=== PATIENT | female | born 1985 | race Caucasian/White ===

== ENCOUNTER → 2016-08-18 | Outpatient (CLI) | payer OTHER ==
[~2016-08-18] MED LIST: CHOL100027 PO; PREN1CHW PO; SYN150 PO
[2016-08-18 15:31] LABS: THYROID STIMULATING HORMONE 3.45 uIu/ml (0.300-4.500)
== END | disposition home or self-care (01) ==
LOC: C.LAB1850 13:58
PROVIDERS: ATTEND Internal Medicine Endocrinology, Diabetes & Metabolism
DX: E03.9 Hypothyroidism, unspecified (principal)

== ENCOUNTER → 2017-03-26 | Outpatient (CLI) | payer OTHER ==
[2017-03-26 17:10] LABS: THYROID STIMULATING HORMONE 0.266 uIu/ml (0.300-4.500)
== END | disposition home or self-care (01) ==
LOC: C.LAB1850 15:25
PROVIDERS: ATTEND Internal Medicine Endocrinology, Diabetes & Metabolism
DX: E03.9 Hypothyroidism, unspecified (principal); E06.3 Autoimmune thyroiditis; E55.9 Vitamin D deficiency, unspecified

== ENCOUNTER → 2017-09-13 | Outpatient (CLI) | payer OTHER | END | disposition home or self-care (01) | LOC: C.LAB1850 09:02 | PROVIDERS: ATTEND Internal Medicine Endocrinology, Diabetes & Metabolism | DX: E03.9 Hypothyroidism, unspecified (principal) ==

== ENCOUNTER → 2017-10-07 | Outpatient (CLI) | payer OTHER | END | disposition home or self-care (01) | LOC: C.LAB1850 11:52 | PROVIDERS: ATTEND Internal Medicine Endocrinology, Diabetes & Metabolism | DX: E06.3 Autoimmune thyroiditis (principal) ==

== ENCOUNTER → 2018-03-15 | Outpatient (CLI) | payer OTHER | END | disposition home or self-care (01) | LOC: C.LAB1850 09:05 | PROVIDERS: ATTEND Internal Medicine Endocrinology, Diabetes & Metabolism | DX: E03.9 Hypothyroidism, unspecified (principal); E55.9 Vitamin D deficiency, unspecified ==

== ENCOUNTER 2018-04-07 11:09 | Emergency (ER) | payer OTHER ==
[~2018-04-07] VITALS: Ht 162.6 cm; Wt 65.9 kg
[2018-04-07 11:18] VITALS: TEMP 37; Ht 162.6 cm; Wt 65.9 kg
[2018-04-07] MEDS ORDERED: ERGO500011 PO (11:36)
[2018-04-07] MEDS ORDERED: SYN137 PO (11:36)
[2018-04-07] MEDS ORDERED: LXP10 PO (11:36)
[2018-04-07] MEDS ORDERED: [UNRECOGNIZED DRUG - CODE] (11:36)
[2018-04-07] MEDS ORDERED: ESCI1TAB6 PO (11:36)
[2018-04-07] MEDS ORDERED: SODIUM CHLORIDE 0.9% 1000ML 1,000 ML IV STA (11:41)
[2018-04-07] MEDS ORDERED: ACETAMINOPHEN 500 MG TAB PO STA (11:41)
[2018-04-07 12:41] LABS: BASO % 0.3 %; BASO ABS # 0.03 K/uL (0-0.2); EOS % 1.2 %; HEMATOCRIT 40.8 % (37-47); IG# 0.02 K/uL (0.00-0.02); LYMPH % 31.5 %; LYMPH ABS # 2.71 K/uL (1.2-3.4); MEAN CELL VOLUME 82.4 fL (80-100); MEAN CORPUSCULAR HEMOGLOBIN 28.3 pg (25-34); MEAN CORPUSCULAR HGB CONC 34.3 g/dl (32-36); MEAN PLATELET VOLUME 10.8 fL (7.4-10.4); MONO % 4.3 %; MONO ABS # 0.37 K/uL (0.11-0.59); NEUT % 62.5 %; NEUT ABS # 5.36 K/uL (1.4-6.5); PLATELET COUNT 270 K/uL (130-400); RED CELL DISTRIBUTION WIDTH CV 13.5 % (11.5-14.5); RED CELL DISTRIBUTION WIDTH SD 40.5 fL (36.4-46.3); WHITE BLOOD COUNT 8.59 K/uL (4.8-10.8)
[2018-04-07 13:01] LABS: CALCIUM 9.3 mg/dl (8.5-10.1); CREATININE 0.61 mg/dl (0.60-1.20); POTASSIUM 3.5 mmol/L (3.5-5.1)
--- NOTE | 2018-04-07 13:24 | EMERGENCY ROOM VISIT NOTE ---
ED Visit Note First contact with patient: 11:22 CHIEF COMPLAINT: Abdominal pain, diarrhea, rectal bleeding HISTORY OF PRESENTING ILLNESS: This is a 32-year-old female who presents to the emergency department with complaint of right lower abdominal pain, diarrhea, and rectal bleeding. Patient states that she began to have some mild pain in her right lower abdomen yesterday and had several bouts of diarrhea. Today she states that after she had an episode of diarrhea, she had bright red blood on the toilet paper when she wiped. She states there has not been any blood in her underwear, and she believes that the blood is coming from her rectum, not her vagina. She denies any rectal pain. She states she has continued to have pain in the right lower abdomen that has not improved. She has had associated nausea, but denies any vomiting, fevers or chills, and has had a normal appetite. She states that she is approximately 4-5 weeks , she spoke with her OB and had an ultrasound done today, she states that this showed a normal and a cyst on her right ovary. She also spoke with her PCP about her abdominal pain and rectal bleeding, and was instructed to go to the emergency department to be checked for appendicitis. She denies any other symptoms of headache, chest pain, shortness of breath, dizziness or syncope, back pain, dysuria or urinary frequency, abnormal vaginal discharge, or unusual rash. REVIEW OF SYSTEMS: A complete 10 point review of systems was reviewed with the patient with pertinent positives and negatives as per history of present illness. All else were negative. PAST MEDICAL HISTORY: Reviewed in chart, see problem list below. SOCIAL HISTORY: Lives at home with family. She denies tobacco use. ALLERGIES: Reviewed in chart, see below. PHYSICAL EXAM: CONSTITUTIONAL: Pleasant and cooperative. No acute distress. Well appearing and well nourished. HEENT: Normocephalic, atraumatic. Pupils equal, round and reactive to light, EOMI. TMs normal. Pharynx normal. NECK: Supple, full active range of motion without discomfort. RESPIRATORY: Clear to auscultation bilaterally with no wheezing, crackles, rhonchi or stridor. Equal expansion bilaterally. CARDIOVASCULAR: Regular rate and rhythm with no murmurs, rubs or gallops. Normal peripheral perfusion. No edema. GASTROINTESTINAL: Mildly tender in the right lower abdomen to palpation, no rebound tenderness or guarding. No McBurney's point tenderness. Negative Rovsing and psoas sign. Soft, nondistended. No palpable masses or HSM. Bowel sounds present in all quadrants. No CVA tenderness bilaterally. PELVIC EXAM: Deferred per patient request. MUSCULOSKELETAL: Full range of motion of all joints without discomfort. INTEGUMENTARY: No rash or other significant dermatologic conditions noted. NEUROLOGIC: Alert and oriented X 4 with normal affect. Normal strength and sensation in all 4 extremities. No focal neurologic deficits noted. Normal speech. Normal gait observed. ED COURSE AND MEDICAL DECISION MAKING: CC: Patient presenting with complaint of abdominal pain, diarrhea, rectal bleeding DIFFERENTIAL DIAGNOSIS: Includes, but not limited to gastroenteritis, food poisoning, hemorrhoids, anal fissure, diverticulitis, appendicitis, colitis, ovarian cyst, ovarian torsion, ectopic , anemia, dehydration, among others. INTERPRETATION OF LABS: No leukocytosis, no anemia, normal platelets, no significant electrolyte abnormalities, normal renal function, normal liver enzymes and lipase. UA negative. IMAGING: Review of transvaginal ultrasound first trimester, performed 04/07/2018 at [facility]: FINDINGS: There is a probable gestational sac of 0.7 cm which is equivalent to 5 weeks, 1 day. A pole is not yet seen. There is no definite yolk sac. There is no myometrial abnormality. The ovaries appear unremarkable with a right corpus luteum. No significant free fluid is seen. IMPRESSION: Favor early intrauterine . Clinical correlation is needed. Ectopic is felt to be much less likely. A right corpus luteum is noted. Follow-up is recommended in 2 weeks. ----- ABDOMEN LIMITED (US) HISTORY: 32 years-old Female RLQ pain, evaluate for appendicitis acute right lower quadrant abdominal pain COMPARISON: Abdominal CT 01/18/2012 TECHNIQUE: Multiple real-time sonographic images of the abdominal right lower quadrant were obtained assessing grayscale appearance and color flow FINDINGS: The appendix is not diagnostically visualized. Indeterminate trace free fluid within the abdominal right lower quadrant. No drainable fluid collections, echogenic fat, hyperemia, hypoperistaltic bowel or adenopathy identified. IMPRESSION: 1. Nonvisualization of the appendix. No secondary signs to suggest acute appendicitis. 2. Nonspecific trace free fluid about the abdominal right lower quadrant. MEDICATION RECONCILIATION: I attest that I have personally reviewed the patient 's current medication list. INITIAL VITAL SIGNS REVIEW: I reviewed the patient's initial vital signs and interpret them as follows: T: Afebrile; BP: Normotensive; HR: Bradycardic; RR : Within normal limits; Pulse Ox: Within normal limits on room air. Blood pressure screening: The patient was found to have normal blood pressure on screening and does not require follow-up for repeat blood pressure check. SUMMARY: Patient was evaluated at bedside, history and physical exam performed. Patient is alert and oriented, in no acute distress, resting calmly in the stretcher. Patient has mild tenderness to palpation over the right lower abdomen, but no rebound tenderness, negative Rovsing and psoas sign. Based on patient's exam and history, I do feel that appendicitis is less likely. I had an extensive discussion with the patient and her regarding workup for possible appendicitis and concerns of radiation from a CT scan given her early . Utilizing shared decision making with the patient and her , patient would like to avoid CT imaging today if possible. Records were requested from the patient's gynecology office today, reviewed the transvaginal ultrasound which does demonstrate an IUP without evidence of an ectopic , and does show a right corpus luteum cyst. Orders were placed at bedside for labs, UA, IV fluids for hydration, p.o. Tylenol for pain, ultrasound of the right lower quadrant to evaluate for possible appendicitis. Patient discussed with Dr. Harper, who agrees with my assessment and plan. Labs and imaging reviewed as above, no leukocytosis or other lab abnormality. Ultrasound is nondiagnostic, unable to visualize the appendix, but no secondary evidence of acute appendicitis. I discussed results with the patient, she still felt comfortable with the original plan of not performing CT and was comfortable with going home. Patient reassessed multiple times throughout ED stay, she has remained stable, her pain is improved with the Tylenol. Patient was updated on all results and plan for discharge, she was encouraged to follow closely with her OB as well as her PCP. Patient was also given strict return precautions should her symptoms worsen, she verbalized understanding. Patient was discharged home in stable condition and ambulatory. Problem List Medical Problems: (1) Hypothyroidism Status: Chronic (2) Threatened in early Status: Resolved Current/Historical Medications Scheduled Ergocalciferol (Vitamin D 15952 Unit), 50,000 UNITS PO WK Escitalopram Oxalate (Lexapro), 5 MG PO DAILY Escitalopram Oxalate (Escitalopram Oxalate), 10 MG PO DAILY Levothyroxine Sodium (Levothyroxine Sodium), 137 MCG PO DAILY Without A Vit W/ Fe F (Prenata), 1 TAB PO DAILY Progesterone (Vaginal) (Crinone), 1 DOSE UNKNOWN BID Allergies Coded Allergies: Gluten (Verified Allergy, Mild, GI SYMPTOMS, 04/07/18) Vital Signs Date Time Temp Pulse Resp B/P (MAP) Pulse Ox O2 Delivery O2 Flow Rate FiO2 04/07/18 15:11 66 16 102/78 98 04/07/18 13:55 52 18 108/60 98 Room Air 04/07/18 12:53 53 18 111/65 99 Room Air 04/07/18 12:35 57 04/07/18 11:18 37.0 56 20 116/74 98 Room Air Laboratory Results 04/07/18 12:15 Red Blood Count 4.95, Mean Corpuscular Volume 82.4, Mean Corpuscular Hemoglobin 28.3, Mean Corpuscular Hemoglobin Concent 34.3, Mean Platelet Volume 10.8, Neutrophils (%) (Auto) 62.5, Lymphocytes (%) (Auto) 31.5, Monocytes (%) (Auto) 4.3, Eosinophils (%) (Auto) 1.2, Basophils (%) (Auto) 0.3, Neutrophils # (Auto) 5.36, Lymphocytes # (Auto) 2.71, Monocytes # (Auto) 0.37, Eosinophils # (Auto) 0.10, Basophils # (Auto) 0.03 04/07/18 12:15 Test 04/07/18 11:50 04/07/18 12:15 Urine Color YELLOW Urine Appearance CLEAR (CLEAR) Urine pH 7.0 (4.5-7.5) Urine Specific [place] 1.007 (1.000-1.030) Urine Protein NEG (NEG) Urine Glucose (UA) NEG (NEG) Urine Ketones NEG (NEG) Urine Occult Blood NEG (NEG) Urine Nitrite NEG (NEG) Urine Bilirubin NEG (NEG) Urine Urobilinogen NEG (NEG) Urine Leukocyte Esterase NEG (NEG) White Blood Count 8.59 K/uL (4.8-10.8) Red Blood Count 4.95 M/uL (4.2-5.4) Hemoglobin 14.0 g/dL (12.0-16.0) Hematocrit 40.8 % (37-47) Mean Corpuscular Volume 82.4 fL (80-100) Mean Corpuscular Hemoglobin 28.3 pg (25-34) Mean Corpuscular Hemoglobin Concent 34.3 g/dl (32-36) Platelet Count 270 K/uL (130-400) Mean Platelet Volume 10.8 fL (7.4-10.4) Neutrophils (%) (Auto) 62.5 % Lymphocytes (%) (Auto) 31.5 % Monocytes (%) (Auto) 4.3 % Eosinophils (%) (Auto) 1.2 % Basophils (%) (Auto) 0.3 % Neutrophils # (Auto) 5.36 K/uL (1.4-6.5) Lymphocytes # (Auto) 2.71 K/uL (1.2-3.4) Monocytes # (Auto) 0.37 K/uL (0.11-0.59) Eosinophils # (Auto) 0.10 K/uL (0-0.5) Basophils # (Auto) 0.03 K/uL (0-0.2) RDW Standard Deviation 40.5 fL (36.4-46.3) RDW Coefficient of Variation 13.5 % (11.5-14.5) Immature Granulocyte % (Auto) 0.2 % Immature Granulocyte # (Auto) 0.02 K/uL (0.00-0.02) Anion Gap 10.0 mmol/L (3-11) Est Creatinine Clear Calc Drug Dose 121.4 ml/min Estimated GFR () 137.1 Estimated GFR (Non- 118.3 BUN/Creatinine Ratio 17.7 (10-20) Calcium Level 9.3 mg/dl (8.5-10.1) Total Bilirubin 0.4 mg/dl (0.2-1) Direct Bilirubin 0.1 mg/dl (0-0.2) Aspartate Amino Transf (AST/SGOT) 16 U/L (15-37) Alanine Aminotransferase (ALT/SGPT) 23 U/L (12-78) Alkaline Phosphatase 46 U/L (45-117) Total Protein 8.0 gm/dl (6.4-8.2) Albumin 4.0 gm/dl (3.4-5.0) Lipase 169 U/L (73-393) Medications Administered Medications (Trade) Dose Ordered Sig/Gage Route Start Time Stop Time Status Last Admin Dose Admin Sodium Chloride 1,000 ml @ 999 mls/hr Q1H1M STAT IV 04/07/18 11:41 04/07/18 12:41 DC 04/07/18 12:21 999 MLS/HR Acetaminophen (Tylenol Tab) 1,000 mg NOW STAT PO 04/07/18 11:41 04/07/18 11:45 DC 04/07/18 12:21 1,000 MG Departure Information Impression Primary Impression: Right lower quadrant abdominal pain Additional Impressions: Corpus luteum cyst of right ovary External bleeding hemorrhoids Dispostion Home / Self-Care Condition GOOD Referrals Terrie Bridges D.OPrincess (PCP) Patient Instructions ED Abdominal Pain Appendx Poss, ED Cyst Ovarian, ED Hemorrhoids, [facility] Additional Instructions You have been evaluated and treated in the Emergency Department today for your abdominal pain and rectal bleeding. You have some small hemorrhoids the opening of your rectum that are most likely the cause of your rectal bleeding. An ultrasound today could not definitively rule out appendicitis today. You were noted to have a corpus luteum cyst on your right ovary on ultrasound today which could be the cause of your right-sided abdominal pain. For pain control, you can use Regular strength (325mg/tab) Tylenol ( acetaminophen) 2 tabs every 4-6 hours as needed. Do not exceed 10 tablets in a 24 hour period. Avoid taking more than 3000 mg of Tylenol per day. This includes any other sources of acetaminophen you may take on a regular basis. Avoid taking NSAIDs, as they are not approved during . You may apply a heating pad to your abdomen to help with discomfort. Drink plenty of fluids to stay well hydrated. Please follow-up with your OB and Primary Care Provider this week. Return to the emergency department for abdominal pain that persists or worsens over the next 24 hours, nausea/vomiting, vomiting blood, increased blood in your stool or blood in your urine, fevers > 101.5, severe dizziness or passing out, or any other concerns. Work Instructions Return To Work: 2 days Problem Qualifiers
--- NOTE | 2018-04-07 13:41 | DIAGNOSTIC IMAGING REPORT ---
ABDOMEN LIMITED (US) HISTORY: 32 years-old Female RLQ pain, evaluate for appendicitis acute right lower quadrant abdominal pain COMPARISON: Abdominal CT 01/18/2012 TECHNIQUE: Multiple real-time sonographic images of the abdominal right lower quadrant were obtained assessing grayscale appearance and color flow FINDINGS: The appendix is not diagnostically visualized. Indeterminate trace free fluid within the abdominal right lower quadrant. No drainable fluid collections, echogenic fat, hyperemia, hypoperistaltic bowel or adenopathy identified. IMPRESSION: 1. Nonvisualization of the appendix. No secondary signs to suggest acute appendicitis. 2. Nonspecific trace free fluid about the abdominal right lower quadrant. The above report was generated using voice recognition software. It may contain grammatical, syntax or spelling errors. Electronically signed by: Ryan Barker M.D. 04/07/2018 1:40 PM Dictated Date/Time: 04/07/2018 1:39 PM
[2018-04-07 15:11] VITALS: BP 102/78; PULSE 66; O2SAT 98
== END 2018-04-07 15:11 | disposition home or self-care (01) ==
LOC: C.EDB 11:13
DX: R10.31 Right lower quadrant pain (principal); N83.11 Corpus luteum cyst of right ovary; K64.9 Unspecified hemorrhoids; E03.9 Hypothyroidism, unspecified; Z91.018 Allergy to other foods

== ENCOUNTER 2018-12-02 07:28 | Inpatient (IN) ==
[2018-12-02] MEDS ORDERED: miSOPROStol 50 MCG TAB PO ONE ×2 (08:15→14:33)
[2018-12-02] MEDS ORDERED: LACTATED RINGER'S 1,000 ML IV PRN ×2 (08:15→19:41)
[2018-12-02] MEDS ORDERED: OXYTOCIN 30 UNITS/500 ML BAG IV PRN (08:15)
--- NOTE | 2018-12-02 08:30 | Labor Progress Brief Note ---
Date of Service December 02, 2018 Met Pt and reviewed PNC Induction for impending macrosomia H&P done Bedside sono; Vt FHR; CAT1 Ctx 4-5mild intensity VE; Ft/50/-3 EFW: 9.5lbs Physical Exam Vital Signs (Past 24 Hours): Last Vital Signs Pulse 79 12/02/18 07:50 BP 120/67 12/02/18 07:50
[2018-12-02 08:41] LABS: Hematocrit (blood only) 36.9 % (37-47); Hemoglobin 12.4 g/dL (12.0-16.0); Mean Corpuscular Volume 84.8 fL (80-100); Mean Platelet Volume 10.6 fL (7.4-10.4); Platelet Count 237 K/uL (130-400); RDW Coefficient of Variation 13.9 % (11.5-14.5); RDW Standard Deviation 42.9 fL (36.4-46.3); Red Blood Count 4.35 M/uL (4.2-5.4); White Blood Count 10.13 K/uL (4.8-10.8)
[2018-12-02 08:43] LABS: Mean Corpuscular Hgb Conc 33.6 g/dL (32-36)
[2018-12-02] MEDS: PROMETHAZINE HCL 25 MG TAB PO PRN ×2 (13:44→19:28)
--- NOTE | 2018-12-02 14:33 | Obstetrical Progress Note ---
Date of Service December 02, 2018 Physical Exam Vital Signs (Past 24 Hours): Last Vital Signs Temp 37.0 C 12/02/18 13:22 Pulse 70 12/02/18 13:22 Resp 20 12/02/18 13:22 BP 89/58 L 12/02/18 13:22 Genitourinary: OB Exam Abdomen: + vertex Manual OB Exam: + cervical dilation 1 cm, + cervical effacement 50% and + station high OB Exam Monitor Tracing: + category I cervix more anterior and softening will give another Cytotec 50 mcg orally
--- NOTE | 2018-12-02 19:39 | Obstetrical Progress Note ---
Date of Service December 02, 2018 Physical Exam Vital Signs (Past 24 Hours): Last Vital Signs Temp 36.8 C 12/02/18 19:07 Pulse 67 12/02/18 19:08 Resp 20 12/02/18 19:07 BP 112/78 12/02/18 19:08 Genitourinary: Manual OB Exam: + cervical dilation 3 cm, + cervical effacement 70% and + station high OB Exam Monitor Tracing: + external FHT monitor used, + external uterine monitor used and + category I cervix has now ripened. Will allow to eat dinner and shower and will start Oxytocin to augment contractions. EFW 9 lbs.
[2018-12-02] MEDS: LACTATED RINGER'S 1,000 ML IV SCH (21:01)
[2018-12-02] MEDS: OXYTOCIN 30 UNITS/500 ML BAG IV PRN (21:37)
[2018-12-03] MEDS: PROMETHAZINE HCL 25 MG TAB PO PRN (01:18)
[2018-12-03] MEDS ORDERED: BUPIVACAINE 0.25% 30 ML VIAL ONE (03:35)
[2018-12-03] MEDS ORDERED: ePHEDrine sulfate 50 MG/ML AMP ONE (03:36)
[2018-12-03] MEDS ORDERED: fentaNYL citrate 100 MCG/2 ML VIAL ONE (03:36)
[2018-12-03] MEDS ORDERED: fentaNYL 2MCG/ML ROPIV 1.25MG/ML 100 ML BAG EPI ONE (03:36)
[2018-12-03] MEDS ORDERED: ONDANSETRON INJ 2 MG/ML 2 ML VIAL IV PRN (04:15)
[2018-12-03] MEDS ORDERED: fentaNYL 2MCG/ML ROPIV 1.25MG/ML 100 ML BAG EPI PRN (04:15)
[2018-12-03] MEDS ORDERED: ePHEDrine sulfate 50 MG/ML AMP IV PRN (04:15)
[2018-12-03] MEDS ORDERED: NALBUPHINE HCL INJ 10 MG/ML AMP IV PRN (04:15)
[2018-12-03] MEDS ORDERED: NALOXONE HCL 0.4 MG/1 ML VIAL/CARP IV PRN (04:15)
[2018-12-03] MEDS ORDERED: DiphenhydrAMINE HCL 50 MG/ML VIAL IV PRN (04:15)
[2018-12-03] MEDS ORDERED: NALOXONE HCL 1 MG in SODIUM CHLORIDE 0.9% 1000ML 1,000 ML IV PRN (04:15)
[2018-12-03] MEDS ORDERED: LACTATED RINGER'S 1,000 ML IV PRN (04:15)
--- NOTE | 2018-12-03 04:18 | Anesthesiology Consultation ---
Date of Service December 03, 2018 Assessment & Plan Chart Review Chart Review: Patient NOT seen in Pre Admission Testing and Acceptable Risk for Labor Epidural Consults Requested none ASA ASA2 Proposed Anesthesia Anesthesia Type: Labor Epidural and CSE Risk / Benefits Reviewed With: PT / POA / Parent / Guardian, Accepts Plan and Informed Consent Obtained NPO Date Last Intake of Fluids: 12/03/18 Time Last Intake of Fluids: 03:00 Date Last Intake of Solids: 12/02/18 Time Last Intake of Solids: 20:00 History Height/Weight Height: 5 ft 4 in Weight: 99.79 kg Allergies Allergy/AdvReac Type Severity Reaction Status Date / Time gluten Allergy Mild GI SYMPTOMS Verified 04/07/18 11:32 Medications Home Medications Medication Instructions Recorded Confirmed Last Taken Vitamin D3 Complete 20,000 units PO WK 12/02/18 12/02/18 11/30/18 08:00 dicyclomine 20 mg PO QID PRN 12/02/18 12/02/18 11/15/18 08:00 escitalopram oxalate [Lexapro] 15 mg PO DAILY 12/02/18 12/02/18 12/02/18 06:00 levothyroxine 150 mcg PO DAILY 12/02/18 12/02/18 12/02/18 06:00 vit-iron fum-folic ac 1 tab PO DAILY 12/02/18 12/02/18 12/01/18 22:00 [ Vitamin] promethazine 25 mg PO Q6H PRN 12/02/18 12/02/18 12/02/18 06:00 Active Medications Generic Name Dose Route Start Last Admin Trade Name Freq PRN Reason Stop Dose Admin Lactated Ringer's 1,000 mls @ 999 mls/hr 12/02/18 08:15 12/03/18 03:41 Lr IV 01/01/19 08:14 999 mls/hr .Q1H1M PRN Administration (Pre-Anesthesia) Lactated Ringer's 1,000 mls @ 125 mls/hr 12/02/18 08:15 12/02/18 21:01 Lr IV 12/04/18 08:14 125 mls/hr .Q8H RAHEL Administration Oxytocin 30 units in 500 mls @ 7 mls/hr 12/02/18 19:41 12/03/18 01:20 Pitocin IV 12/04/18 19:40 0.42 units/hr .Q24H PRN 7 mls/hr Labor Induction/Augmentation Titration Protocol 0.42 UNITS/HR Promethazine HCl 25 mg 12/02/18 13:31 12/03/18 01:18 Phenergan PO 01/01/19 13:30 25 mg Q6H PRN Administration Nausea And Vomiting Past Medical History Medical History Morning sickness Gurinder's disease Past Family History Family History Other No significant family history Past Anesthesia History No Hx of Anesthesia Complications and No Family Hx of Anesthesia Complications History of PONV No Motion Sickness Screening History of Motion Sickness: No Social History Smoking Status: Never smoker Hx Alcohol Use: No Hx Substance Use: No substance use type: does not use Exercise / Class Metabolic Activity II 4-5 Yardwork/Stairs/Walk up hill Review of Systems no chest pain or sob Physical Exam Vital Signs Last Vital Signs Temp 36.7 C 12/02/18 23:25 Pulse 67 12/03/18 04:17 Resp 20 12/03/18 02:16 BP 112/71 12/03/18 03:32 Pulse Ox 97 12/03/18 04:17 ENMT Mouth: no TMJ abnormality Thyromental Distance: > or= 3.5 Finger Breadths Mallampati Class: II Neck normal visual inspection Respiratory normal respiratory effort Auscultation: lungs clear to auscultation bilaterally Cardiovascular Rate/Rhythm: regular rate and regular rhythm Musculoskeletal Spine: normal cervical ROM Neurologic moves all extremities Psychiatric Orientation: alert and oriented x 3 Testing Laboratory Results 12/02/18 08:27
[2018-12-03] MEDS: LACTATED RINGER'S 1,000 ML IV SCH ×2 (05:18→13:35)
--- NOTE | 2018-12-03 08:53 | Post Operative Brief Note ---
Immediate Post Op Note v1 Date of Surgery December 03 Surgeon Mark Gordon MD
--- NOTE | 2018-12-03 08:55 | Labor Progress Brief Note ---
Date of Service December 03, 2018 Pt doing well Induction for impending macrosomia FHR; CAT1 Ctx 3-5mins On Pitocin VE; 50/-3 Physical Exam Vital Signs (Past 24 Hours): Last Vital Signs Temp 36.7 C 12/03/18 04:45 Pulse 85 12/03/18 08:47 Resp 18 12/03/18 07:00 BP 122/63 12/03/18 08:45 Pulse Ox 96 12/03/18 08:47
--- NOTE | 2018-12-03 14:55 | Labor Progress Brief Note ---
Date of Service December 03, 2018 Pt doing well FHR; Poor external tracing with ext. monitor Ctx; 2-4 mins VE; 5/85/-2 On Pitocin AROM with scalp electrode Will keep FSE for better tracing FHR with FSE shows CAT 1 tracing Physical Exam Vital Signs (Past 24 Hours): Last Vital Signs Temp 36.8 C 12/03/18 12:23 Pulse 76 12/03/18 14:48 Resp 20 12/03/18 12:23 BP 125/73 12/03/18 14:45 Pulse Ox 97 12/03/18 14:48
[2018-12-03] MEDS ORDERED: METHYLERGONOVINE MALEATE 0.2 MG/ML AMP ONE (18:52)
[2018-12-03] MEDS ORDERED: METHYLERGONOVINE MALEATE 0.2 MG/ML AMP IM ONE (19:30)
[2018-12-03] MEDS ORDERED: BISACODYL 10 MG SUPP PR PRN (19:30)
[2018-12-03] MEDS ORDERED: SUPERCREAM 0.870% 15 GM JAR EXT PRN (19:30)
[2018-12-03] MEDS ORDERED: miSOPROStol 200 MCG TAB PR ONE (19:30)
[2018-12-03] MEDS ORDERED: OXYTOCIN 30 UNITS/500 ML BAG IV PRN (19:30)
[2018-12-03] MEDS ORDERED: DIPHTHERIA/TETANUS/PERTUSSIS 0.5 ML SYR/VIAL IM ONE (19:30)
[2018-12-03] MEDS ORDERED: HYDROCORTISONE ACETATE 25 MG SUPP PR PRN (19:30)
[2018-12-03] MEDS ORDERED: BENZOCAINE 20% AER SPR 82.5 GM CAN EXT PRN (19:30)
[2018-12-03] MEDS: OXYTOCIN 30 UNITS/500 ML BAG IV PRN (19:35)
--- NOTE | 2018-12-03 19:56 | Anesthesia Procedure Note ---
Date of Service December 03, 2018 Anesthesia Post Epidural Note Vital Signs Vital Signs: Temp Pulse Resp BP Pulse Ox 36.6 C 80 20 126/62 86 L 12/03/18 16:59 12/03/18 19:45 12/03/18 16:59 12/03/18 19:45 12/03/18 18:55 Pain Intensity Abdomen: Pain Intensity: 0 Notes Mental Status: alert / awake / arousable and participated in evaluation Nausea / Vomiting: adequately controlled Pain: adequately controlled Airway Patency, RR, SpO2: stable & adequate BP & HR: stable & adequate Hydration State: stable & adequate Neuraxial Anesthesia: was administered and sensory block is resolving Anesthetic Complications: no major complications apparent and Pt Satisfied with anesthetic care Epidural: Removed without complications and With tip intact
[2018-12-03 20:09] LABS: Base Excess Cord Venous Blood -5.7 mEq/L (-7.7-1.9); Cord Venous Blood HCO3 20 mmol/L (18.4-26.8); Cord Venous Blood PCO2 39 mmHg (30.4-57.2); Cord Venous Blood PO2 41 mmHg (14.1-43.3); Cord Venous Blood pH 7.32 (7.20-7.44)
[2018-12-03 20:15] LABS: Base Excess Cord Arterial Bld -8.5 mEq/L (-9-1.8); CO2 Cord Arterial Blood 62 mmHg (39.1-73.5); HCO3 Cord Arterial Blood 21 mmol/L (19.7-28.5); pH Cord Arterial Blood 7.16 (7.1-7.38)
[2018-12-03] MEDS: IBUPROFEN 600 MG TAB PO PRN (20:47)
[2018-12-03] MEDS ORDERED: miSOPROStol 200 MCG TAB ONE (21:59)
[2018-12-03] MEDS: ACETAMINOPHEN 325 MG TAB PO PRN (22:08)
[2018-12-03] MEDS ORDERED: OXYCODONE/ACETAMINOPHEN 5mg/325mg TAB PO PRN (23:21)
[2018-12-03] MEDS ORDERED: OXYCODONE/ACETAMINOPHEN 5mg/325mg TAB ONE (23:31)
[2018-12-04] MEDS: IBUPROFEN 600 MG TAB PO PRN ×6 (00:56→23:42)
[2018-12-04] MEDS: LEVOTHYROXINE SODIUM 150 MCG TABLET PO SCH (06:41)
[2018-12-04 06:46] LABS: Hematocrit (blood only) 34.4 % (37-47); Hemoglobin 11.3 g/dL (12.0-16.0); Mean Corpuscular Hgb Conc 32.8 g/dL (32-36); Mean Corpuscular Volume 85.1 fL (80-100); Mean Platelet Volume 10.3 fL (7.4-10.4); Platelet Count 203 K/uL (130-400); RDW Standard Deviation 43.3 fL (36.4-46.3); Red Blood Count 4.04 M/uL (4.2-5.4); White Blood Count 12.96 K/uL (4.8-10.8)
[2018-12-04] MEDS: FERROUS SULFATE 325 MG TAB PO SCH (08:14)
[2018-12-04] MEDS: PRENATAL VITAMIN 1 TAB PO SCH (08:15)
[2018-12-04] MEDS: DOCUSATE SODIUM 100 MG CAP PO SCH ×2 (08:17→20:55)
[2018-12-04] MEDS: ESCITALOPRAM OXALATE 10 MG TAB PO SCH (08:19)
--- NOTE | 2018-12-04 10:45 | Obstetrical Progress Note ---
Date of Service December 04, 2018 Assessment & Plan (1) normal course: PPD #1 Pt doing well No complaints anticipate disch this evening Physical Exam Vital Signs (Past 24 Hours) Last Vital Signs Temp 36.5 C 12/04/18 08:58 Pulse 59 L 12/04/18 08:58 Resp 20 12/04/18 08:58 BP 119/71 12/04/18 08:58 Pulse Ox 97 12/04/18 00:45
[2018-12-04] MEDS: ACETAMINOPHEN 325 MG TAB PO PRN ×3 (11:26→20:55)
[2018-12-04] MEDS ORDERED: BISACODYL 5 MG TABEC PO SCH (20:00)
[2018-12-05] MEDS: IBUPROFEN 600 MG TAB PO PRN (04:21)
[2018-12-05 06:46] LABS: Hematocrit (blood only) 31.5 % (37-47); Hemoglobin 10.4 g/dL (12.0-16.0)
--- NOTE | 2018-12-05 07:07 | Delivery Summary ---
DATE OF OPERATION: 12/03/2018 DELIVERY NOTE The patient delivered a live in left occiput anterior presentation. There was nuchal cord x2, which was clamped and cut. Infant was delivered, placed on mother's abdomen. Cord blood and cord gas was obtained. Infant was resuscitated by the pediatric team. Details of resuscitation in the pediatric record as well as . Placenta was spontaneously delivered. Inspection of the placenta shows a normal grossly looking placenta. Placenta is sent to pathology for pathological analysis. Inspection of the perineum showed a second-degree midline laceration which was repaired with 2-0 Vicryl in layers. Estimated blood loss is 600 mL. Baby and mother are doing well in recovery. I attest to the content of the Intraoperative Record and any orders documented therein. Any exception s are noted below.
[2018-12-05] MEDS: LEVOTHYROXINE SODIUM 150 MCG TABLET PO SCH (07:21)
--- NOTE | 2018-12-05 08:59 | Obstetrical Progress Note ---
Date of Service December 05, 2018 Subjective doing well Physical Exam Vital Signs (Past 24 Hours): Last Vital Signs Temp 36.6 C 12/04/18 23:40 Pulse 58 L 12/04/18 23:40 Resp 18 12/04/18 23:40 BP 125/68 12/04/18 23:40 Pulse Ox 95 12/04/18 15:00 Constitutional: WD/WN, vitals as above comfortable fundus firm abdomen non-tender no edema neg Jd's
[2018-12-05] MEDS: ESCITALOPRAM OXALATE 10 MG TAB PO SCH (09:58)
[2018-12-05] MEDS: FERROUS SULFATE 325 MG TAB PO SCH (09:58)
[2018-12-05] MEDS: PRENATAL VITAMIN 1 TAB PO SCH (09:58)
[2018-12-05] MEDS: DOCUSATE SODIUM 100 MG CAP PO SCH (09:58)
== END 2018-12-05 11:40 | disposition home or self-care (01) | DRG 807 ==
LOC: 4S1 07:28 → 4S2 12-04 00:44

== ENCOUNTER 2022-10-26 01:51 | Observation (INO) ==
[2022-10-26] MEDS ORDERED: ONDANSETRON INJ 2 MG/ML 2 ML VIAL IV STA (02:02)
[2022-10-26] MEDS ORDERED: SODIUM CHLORIDE 0.9% 1000ML 1,000 ML IV STA (02:02)
[2022-10-26 02:19] LABS: Basophils # (auto) 0.07 K/uL (0-0.2); Basophils % (auto) 0.9 %; Eosinophils # (auto) 0.16 K/uL (0-0.50); Hematocrit (blood only) 38.9 % (37.0-47.0); Hemoglobin 12.8 g/dl (12.0-16.0); Immature Granulocytes # (auto) 0.03 K/uL (0.01-0.20); Immature Granulocytes % (auto) 0.4 %; Lymphocytes # (auto) 2.38 K/uL (1.2-3.4); Lymphocytes % (auto) 30.4 %; Mean Corpuscular Hemoglobin 28.6 pg (25.0-34.0); Mean Corpuscular Hgb Conc 32.9 g/dL (32.0-36.0); Mean Platelet Volume 9.7 fL (9.4-12.4); Monocytes # (auto) 0.61 K/uL (0.11-0.59); Monocytes % (auto) 7.8 %; Neutrophils # (auto) 4.57 K/uL (1.40-6.50); Neutrophils % (auto) 58.5 %; Platelet Count 294 K/uL (130-400); RDW Coefficient of Variation 12.8 % (11.5-14.5); RDW Standard Deviation 40.5 fL (36.4-46.3); Red Blood Count 4.47 M/uL (4.20-5.40); White Blood Count 7.82 K/ul (4.8-10.8)
[2022-10-26 02:32] LABS: Partial Thromboplastin Ratio 0.9; Partial Thromboplastin Time 24.4 Seconds (21.0-31.0); Prothrombin Time 10.7 Seconds (9.0-12.0)
[2022-10-26 02:41] LABS: Albumin Globulin Ratio 1.5 (0.9-2); Albumin Level 3.8 gm/dl (3.4-5.0); BUN Creatinine Ratio 32.7 (10-20); Bilirubin,Total 0.4 mg/dl (0.2-1.0); Calcium 8.5 mg/dl (8.5-10.1); Creatinine Clr Calc Pharmacy 163.6 ml/min; Est GFR (African American) 139.5 ml/min; Est GFR (Non-African American) 120.4 ml/min; Globulin 2.6 gm/dl (2.5-4.0); Potassium 3.3 mmol/L (3.5-5.1); Total Protein 6.4 gm/dl (6.0-8.3)
[2022-10-26 02:47] LABS: Troponin I High Sensitivity 3.6 pg/ml (0-14)
[2022-10-26 03:00] LABS: Appearance Urine Clear (Clear); Bilirubin Urine Negative (Negative); Blood Urine Negative (Negative); Color Urine Yellow; Glucose Urine UA Negative (Negative); Ketones Urine Negative (Negative); Leukocyte Esterase Urine Negative (Negative); Nitrite Urine Negative (Negative); Protein Urine Negative (Negative); Specific Gravity Urine 1.018 (1.000-1.030); Urobilinogen Urine Negative (Negative)
[2022-10-26 03:22] LABS: Thyroid Stimulating Hormone 5.092 uIu/ml (0.300-4.500)
[2022-10-26 03:58] LABS: T4 Free Thyroxine 1.16 ng/dl (0.61-1.60)
[2022-10-26] MEDS ORDERED: POTASSIUM CHLORIDE CRTAB 20 MEQ TABCR PO STA (04:26)
[2022-10-26] MEDS ORDERED: SODIUM CHLORIDE 0.9% 1000ML 1,000 ML IV ONE (04:27)
--- NOTE | 2022-10-26 05:39 | Emergency Department Note ---
ED Provider Note History of Present Illness Chief Complaint: Chest Pain Stated Complaint: DIZZY/CHEST PAIN Time Seen by Provider: 10/26/22 01:54 This 37-year-old female patient presents to the emergency department today via ambulance for evaluation of weakness, dizziness, and chest pain. The patient states she has been experiencing weakness for several weeks. She is currently being worked up for adrenal insufficiency and notes that she is waiting to be seen by the "adrenal specialist" and believes she is in adrenal crisis. The pa leni states she has been experiencing diarrhea, nausea, and vomiting. She is having difficulty eating and drinking. She feels very weak and states she spent most of the day on the floor because she was having difficulty getting up and moving around. She states this evening approximately 1.5 hours prior to arrival, she developed chest pain which she describes as a sharp sensation that spreads across the chest and causes pressure. She states she also had pain into the right side of her jaw. Patient was not doing any activity. She states the pain happened while at rest. She states she is having abdominal pain specifically in the left and right mid abdominal regions. She denies any dysu andreas, urinary frequency, urinary hesitancy. No numbness, tingling, weakness. She did have a headache earlier today. She states she had COVID-19 twice and did take a COVID-19 test earlier today which was negative. The patient did not take any medications for her other symptoms. She states her chest pain has improved upon arrival to the ED. No shortness of breath. No leg pain or swelling or recent travel. 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 Home Medications Medication Instructions Recorded Confirmed Type levothyroxine 150 mcg tablet 150 mcg PO DAILY #90 tabs 09/09/20 09/03/22 Rx lorazepam 0.5 mg tablet (Ativan) 0.5 mg PO DAILY PRN Panic Attack(S) 12/19/20 09/03/22 History trazodone 100 mg tablet 150 mg PO HS 10/08/21 09/03/22 History albuterol sulfate 90 mcg/actuation 3 inh inhalation Q6H #18 grams 03/13/22 09/03/22 Rx aerosol inhaler duloxetine 60 mg capsule,delayed 120 mg PO DAILY 03/13/22 09/03/22 History release Symbicort 160 mcg-4.5 2 puff inhalation Q12H #10.2 grams 04/08/22 09/03/22 Rx mcg/actuation HFA aerosol inhaler (budesonide-formoterol) albuterol sulfate 2.5 mg/3 mL 2.5 mg (3 mL) inhalation Q4H PRN 06/30/22 09/03/22 Rx (0.083 %) solution for nebulization shortness of breath or wheezing #90 mL nebulizer accessories #1 ea 06/30/22 09/03/22 Rx nebulizer and compressor #1 ea 06/30/22 09/03/22 Rx tiotropium bromide 2.5 2 puff inhalation DAILY #1 inhaler 07/08/22 09/03/22 Rx mcg/actuation mist for inhalation (Spiriva Respimat) azelastine 137 mcg (0.1 %) nasal 2 spray intranasal DAILY 08/27/22 09/03/22 History spray aerosol dextroamphetamine-amphetamine ER 30 mg PO DAILY 08/27/22 09/03/22 History 30 mg 24hr capsule,extend release (Adderall XR) dicyclomine 20 mg tablet 20 mg PO TID PRN abdominal cramps 08/27/22 09/03/22 Rx #20 tabs ferrous sulfate 325 mg (65 mg 325 mg PO AMHS 08/27/22 09/03/22 History iron) tablet semaglutide 1 mg/dose (4 mg/3 mL) 1 mg subcut WK 08/27/22 09/03/22 History subcutaneous pen injector (Ozempic) Allergies Allergy/AdvReac Type Severity Reaction Status Date / Time No Known Allergies Allergy Verified 09/03/22 15:40 Past Med/Surg History Medical History Anxiety Gurinder's disease Hypothyroidism (12/29/11) IBS (irritable bowel syndrome) Miscarriage Rectal bleed Vitamin D deficiency Vulvodynia Surgical History H/O dilation and curettage H/O wisdom tooth extraction Family History Aunt Breast cancer Grandmother (Maternal) Colorectal cancer Lung cancer Grandmother (Paternal) Ovarian cancer Father Prostate cancer Mother Atrial fibrillation Other No significant family history Social History Smoking Status: Never smoker Hx Alcohol Use: No Hx Substance Use: No Preferred Language: Samoan Communication Ability: Effective Beliefs That Will Affect Care: None marital status: Current Living Situation: Spouse Feels Safe at Home: Yes Assistive Devices: None Physical Exam Vital Signs Vital Signs - 24 hr 10/26/22 01:55 10/26/22 02:02 10/26/22 06:27 Temperature 36.7 C Temperature Source Oral Pulse Rate 63 64 65 Respiratory Rate 16 Respiratory Effort / Characteristics Non-Labored Spontaneous Respiratory Depth Normal Respiratory Pattern Regular Blood Pressure 126/80 Blood Pressure Mean 95 Blood Pressure Position Lying Pulse Oximetry 99 Oxygen Delivery Method Room Air Sepsis Recent Fever Within 48 Hours No Sepsis New/Unexplained Change in Mental Status No Sepsis Action Taken by Nursing No Action Required VITALS: Vitals are noted on the nurse's note and reviewed by myself. Vital signs stable. GENERAL: This is a 37-year-old white female, in no acute distress, nondiaphoretic, well-developed well-nourished. SKIN: The skin was without rashes, erythema, edema, or bruising. There is no tenting of the skin. Capillary refill less than 2 seconds. HEAD: Normocephalic atraumatic. EARS: External auditory canals clear, tympanic membranes pearly dominique without erythema or effusion bilaterally. EYES: Conjunctivae without injection, sclerae without icterus. NOSE: Patent, turbinates without inflammation or discharge. No sinus tenderness. MOUTH: Mucous membranes moist. Tonsils are not enlarged. Pharynx without erythema or exudate. Uvula midline. Airway patent. Tongue does not deviate. NECK: Supple without nuchal rigidity. No lymphadenopathy. No thyromegaly. No JVD. HEART: Regular rate and rhythm without murmurs gallops or rubs. LUNGS: Clear to auscultation bilaterally without wheezes, rales or rhonchi. No retractions or accessory muscle use. ABDOMEN: Positive bowel sounds x 4. Soft, nontender, without masses or organomegaly. Mcghee sign negative. No guarding or rebound tenderness. MUSCULOSKELETAL: No muscle atrophy, erythema, or edema noted. Full range of motion without joint tenderness in all extremities. No tenderness to palpation. Normal gait. Strength 5/5 throughout. NEURO: Patient was alert and oriented to person place and time. No focal neurological deficits. Course Course The patient was seen and evaluated as above. An order was placed for continuous cardiac monitoring. The monitor shows a normal sinus rhythm at a rate of 64 bpm. IV access obtained, labs drawn. Patient medicated with IV fluids and Zofran Imaging performed and reviewed by myself as noted. Labs reviewed by myself. I discussed the findings with the patient at bedside. The patient states her chest pain has resolved but she is still feeling extremely weak. She notes she pulled up her labs on the portal and is very concerned that her potassium was low. She would like this repleted. Patient was given a repeat dose of IV fluids and 20 meq oral potassium. The patient was reassessed. She continues to note significant weakness and does not feel that she can return home with the way that she feels. Of note, the patient has been using a pure wick to urinate instead of getting up to go to the bathroom due to her weakness. We discussed admission versus discharge and the patient notes that she would prefer to be admitted. I discussed the case with my attending. I discussed the case with the manager customs I discussed the case with Dr. Vasquez, [facility] physician. He did agree to see and evaluate the patient. Administered Medications Discontinued Medications Sodium Chloride (Nss 1000ml) 1,000 mls @ 999 mls/hr IV .Q1H1M STA Stop: 10/26/22 03:02 Last Infusion: 10/26/22 03:36 Dose: 0 mls/hr Documented By: Admin: 10/26/22 02:31 Dose: 999 mls/hr Documented By: JARETT Sodium Chloride (Nss 1000ml) 1,000 mls @ 999 mls/hr IV .Q1H1M ONE Stop: 10/26/22 05:27 Last Admin: 10/26/22 04:58 Dose: 999 mls/hr Documented By: JARETT Ondansetron HCl (Ondansetron Inj 2 Mg/Ml 2 Ml Vial) 4 mg IV NOW STA Stop: 10/26/22 02:03 Last Admin: 10/26/22 02:31 Dose: 4 mg Documented By: JARETT Potassium Chloride (Potassium Chloride Crtab 20 Meq Tabcr) 20 meq PO NOW STA Stop: 10/26/22 04:27 Last Admin: 10/26/22 05:16 Dose: 20 meq Documented By: DML Medical Decision Making Differential Diagnosis Infection, dehydration, metabolic abnormality, hypo/hyperglycemia, electrolyte disturbance, anemia, hypoxia, cardiac sources, intracerebral event, toxicologic, neurologic, as well as other pathologies. Medical Records Attestation: I reviewed the patient's medical records. Additional Comments: Outside medical records reviewed Home Medications was personally reviewed by me Laboratory Data No leukocytosis, anemia, thrombocytopenia. Renal, hepatic function, and electrolytes without significant abnormality. Urinalysis negative for blood or evidence of infection. INR 1.0. Troponin x2 normal. Lipase 32. TSH 5.092. Free T41.16. Random cortisol 14.5. Urine test negative. 10/26/22 02:00 10/26/22 02:00 Lab Results 10/26/22 10/26/22 10/26/22 Range/Units 02:00 02:00 02:00 WBC 7.82 (4.8-10.8) K/ul RBC 4.47 (4.20-5.40) M/uL Hgb 12.8 (12.0-16.0) g/dl Hct 38.9 (37.0-47.0) % MCV 87.0 (80.0-100.0) fL MCH 28.6 (25.0-34.0) pg MCHC 32.9 (32.0-36.0) g/dL RDW Std Deviation 40.5 (36.4-46.3) fL RDW Coeff of Mohsen 12.8 (11.5-14.5) % Plt Count 294 (130-400) K/uL MPV 9.7 (9.4-12.4) fL Immature Gran % (Auto) 0.4 % Neut % (Auto) 58.5 % Lymph % (Auto) 30.4 % Armstrong % (Auto) 7.8 % Eos % (Auto) 2.0 % Baso % (Auto) 0.9 % Neut # (Auto) 4.57 (1.40-6.50) K/uL Lymph # (Auto) 2.38 (1.2-3.4) K/uL Armstrong # (Auto) 0.61 H (0.11-0.59) K/uL Eos # (Auto) 0.16 (0-0.50) K/uL Baso # (Auto) 0.07 (0-0.2) K/uL Immature Gran # (Auto) 0.03 (0.01-0.20) K/uL PT 10.7 (9.0-12.0) Seconds INR 1.0 (0.9-1.1) APTT 24.4 (21.0-31.0) Seconds PTT Ratio 0.9 D-Dimer (0-500) ug/L FEU Sodium 139 (136-145) mmol/L Potassium 3.3 L (3.5-5.1) mmol/L Chloride 108 H (98-107) mmol/L Carbon Dioxide 28 (21-32) mmol/L Anion Gap 3 (3-11) BUN 17 (6-23) mg/dl Creatinine 0.52 L (0.6-1.2) mg/dl Est Cr Clr Drug Dosing 163.6 ml/min Est GFR ( Amer) 139.5 ml/min Est GFR (Non-Af Amer) 120.4 ml/min BUN/Creatinine Ratio 32.7 H (10-20) Glucose 94 (70-99(Fasting)) mg/dl Calcium 8.5 (8.5-10.1) mg/dl Magnesium 1.8 (1.7-2.4) mg/dl Total Bilirubin 0.4 (0.2-1.0) mg/dl AST 17 (13-39) U/L ALT 22 (7-52) U/L Alkaline Phosphatase 46 (34-104) U/L Troponin I High Sens 3.6 (0-14) pg/ml Total Protein 6.4 (6.0-8.3) gm/dl Albumin 3.8 (3.4-5.0) gm/dl Globulin 2.6 (2.5-4.0) gm/dl Albumin/Globulin Ratio 1.5 (0.9-2) Lipase 32 (11-82) U/L TSH (0.300-4.500) uIu/ml Free T4 (0.61-1.60) ng/dl Random Cortisol mcg/dl Urine Color Urine Appearance (Clear) Urine pH (4.5-7.5) Ur Specific [place] (1.000-1.030) Urine Protein (Negative) Urine Glucose (UA) (Negative) Urine Ketones (Negative) Urine Blood (Negative) Urine Nitrite (Negative) Urine Bilirubin (Negative) Urine Urobilinogen (Negative) Ur Leukocyte Esterase (Negative) POC Ur Test (NEG) SARS-CoV-2, RNA, NAAT (NEGATIVE) 10/26/22 10/26/22 10/26/22 Range/Units 02:00 02:00 02:00 WBC (4.8-10.8) K/ul RBC (4.20-5.40) M/uL Hgb (12.0-16.0) g/dl Hct (37.0-47.0) % MCV (80.0-100.0) fL MCH (25.0-34.0) pg MCHC (32.0-36.0) g/dL RDW Std Deviation (36.4-46.3) fL RDW Coeff of Mohsen (11.5-14.5) % Plt Count (130-400) K/uL MPV (9.4-12.4) fL Immature Gran % (Auto) % Neut % (Auto) % Lymph % (Auto) % Armstrong % (Auto) % Eos % (Auto) % Baso % (Auto) % Neut # (Auto) (1.40-6.50) K/uL Lymph # (Auto) (1.2-3.4) K/uL Armstrong # (Auto) (0.11-0.59) K/uL Eos # (Auto) (0-0.50) K/uL Baso # (Auto) (0-0.2) K/uL Immature Gran # (Auto) (0.01-0.20) K/uL PT (9.0-12.0) Seconds INR (0.9-1.1) APTT (21.0-31.0) Seconds PTT Ratio D-Dimer (0-500) ug/L FEU Sodium (136-145) mmol/L Potassium (3.5-5.1) mmol/L Chloride (98-107) mmol/L Carbon Dioxide (21-32) mmol/L Anion Gap (3-11) BUN (6-23) mg/dl Creatinine (0.6-1.2) mg/dl Est Cr Clr Drug Dosing ml/min Est GFR ( Amer) ml/min Est GFR (Non-Af Amer) ml/min BUN/Creatinine Ratio (10-20) Glucose (70-99(Fasting)) mg/dl Calcium (8.5-10.1) mg/dl Magnesium Cancelled (1.7-2.4) mg/dl Total Bilirubin (0.2-1.0) mg/dl AST (13-39) U/L ALT (7-52) U/L Alkaline Phosphatase (34-104) U/L Troponin I High Sens (0-14) pg/ml Total Protein (6.0-8.3) gm/dl Albumin (3.4-5.0) gm/dl Globulin (2.5-4.0) gm/dl Albumin/Globulin Ratio (0.9-2) Lipase (11-82) U/L TSH 5.092 H (0.300-4.500) uIu/ml Free T4 1.16 (0.61-1.60) ng/dl Random Cortisol 14.50 mcg/dl Urine Color Urine Appearance (Clear) Urine pH (4.5-7.5) Ur Specific [place] (1.000-1.030) Urine Protein (Negative) Urine Glucose (UA) (Negative) Urine Ketones (Negative) Urine Blood (Negative) Urine Nitrite (Negative) Urine Bilirubin (Negative) Urine Urobilinogen (Negative) Ur Leukocyte Esterase (Negative) POC Ur Test (NEG) SARS-CoV-2, RNA, NAAT (NEGATIVE) 10/26/22 10/26/22 10/26/22 Range/Units 02:00 02:45 02:55 WBC (4.8-10.8) K/ul RBC (4.20-5.40) M/uL Hgb (12.0-16.0) g/dl Hct (37.0-47.0) % MCV (80.0-100.0) fL MCH (25.0-34.0) pg MCHC (32.0-36.0) g/dL RDW Std Deviation (36.4-46.3) fL RDW Coeff of Mohsen (11.5-14.5) % Plt Count (130-400) K/uL MPV (9.4-12.4) fL Immature Gran % (Auto) % Neut % (Auto) % Lymph % (Auto) % Armstrong % (Auto) % Eos % (Auto) % Baso % (Auto) % Neut # (Auto) (1.40-6.50) K/uL Lymph # (Auto) (1.2-3.4) K/uL Armstrong # (Auto) (0.11-0.59) K/uL Eos # (Auto) (0-0.50) K/uL Baso # (Auto) (0-0.2) K/uL Immature Gran # (Auto) (0.01-0.20) K/uL PT (9.0-12.0) Seconds INR (0.9-1.1) APTT (21.0-31.0) Seconds PTT Ratio D-Dimer < 190 (0-500) ug/L FEU Sodium (136-145) mmol/L Potassium (3.5-5.1) mmol/L Chloride (98-107) mmol/L Carbon Dioxide (21-32) mmol/L Anion Gap (3-11) BUN (6-23) mg/dl Creatinine (0.6-1.2) mg/dl Est Cr Clr Drug Dosing ml/min Est GFR ( Amer) ml/min Est GFR (Non-Af Amer) ml/min BUN/Creatinine Ratio (10-20) Glucose (70-99(Fasting)) mg/dl Calcium (8.5-10.1) mg/dl Magnesium (1.7-2.4) mg/dl Total Bilirubin (0.2-1.0) mg/dl AST (13-39) U/L ALT (7-52) U/L Alkaline Phosphatase (34-104) U/L Troponin I High Sens (0-14) pg/ml Total Protein (6.0-8.3) gm/dl Albumin (3.4-5.0) gm/dl Globulin (2.5-4.0) gm/dl Albumin/Globulin Ratio (0.9-2) Lipase (11-82) U/L TSH (0.300-4.500) uIu/ml Free T4 (0.61-1.60) ng/dl Random Cortisol mcg/dl Urine Color Yellow Urine Appearance Clear (Clear) Urine pH 7.0 (4.5-7.5) Ur Specific [place] 1.018 (1.000-1.030) Urine Protein Negative (Negative) Urine Glucose (UA) Negative (Negative) Urine Ketones Negative (Negative) Urine Blood Negative (Negative) Urine Nitrite Negative (Negative) Urine Bilirubin Negative (Negative) Urine Urobilinogen Negative (Negative) Ur Leukocyte Esterase Negative (Negative) POC Ur Test NEG (NEG) SARS-CoV-2, RNA, NAAT (NEGATIVE) 10/26/22 10/26/22 Range/Units 03:57 05:39 WBC (4.8-10.8) K/ul RBC (4.20-5.40) M/uL Hgb (12.0-16.0) g/dl Hct (37.0-47.0) % MCV (80.0-100.0) fL MCH (25.0-34.0) pg MCHC (32.0-36.0) g/dL RDW Std Deviation (36.4-46.3) fL RDW Coeff of Mohsen (11.5-14.5) % Plt Count (130-400) K/uL MPV (9.4-12.4) fL Immature Gran % (Auto) % Neut % (Auto) % Lymph % (Auto) % Armstrong % (Auto) % Eos % (Auto) % Baso % (Auto) % Neut # (Auto) (1.40-6.50) K/uL Lymph # (Auto) (1.2-3.4) K/uL Armstrong # (Auto) (0.11-0.59) K/uL Eos # (Auto) (0-0.50) K/uL Baso # (Auto) (0-0.2) K/uL Immature Gran # (Auto) (0.01-0.20) K/uL PT (9.0-12.0) Seconds INR (0.9-1.1) APTT (21.0-31.0) Seconds PTT Ratio D-Dimer (0-500) ug/L FEU Sodium (136-145) mmol/L Potassium (3.5-5.1) mmol/L Chloride (98-107) mmol/L Carbon Dioxide (21-32) mmol/L Anion Gap (3-11) BUN (6-23) mg/dl Creatinine (0.6-1.2) mg/dl Est Cr Clr Drug Dosing ml/min Est GFR ( Amer) ml/min Est GFR (Non-Af Amer) ml/min BUN/Creatinine Ratio (10-20) Glucose (70-99(Fasting)) mg/dl Calcium (8.5-10.1) mg/dl Magnesium (1.7-2.4) mg/dl Total Bilirubin (0.2-1.0) mg/dl AST (13-39) U/L ALT (7-52) U/L Alkaline Phosphatase (34-104) U/L Troponin I High Sens 4.7 (0-14) pg/ml Total Protein (6.0-8.3) gm/dl Albumin (3.4-5.0) gm/dl Globulin (2.5-4.0) gm/dl Albumin/Globulin Ratio (0.9-2) Lipase (11-82) U/L TSH (0.300-4.500) uIu/ml Free T4 (0.61-1.60) ng/dl Random Cortisol mcg/dl Urine Color Urine Appearance (Clear) Urine pH (4.5-7.5) Ur Specific [place] (1.000-1.030) Urine Protein (Negative) Urine Glucose (UA) (Negative) Urine Ketones (Negative) Urine Blood (Negative) Urine Nitrite (Negative) Urine Bilirubin (Negative) Urine Urobilinogen (Negative) Ur Leukocyte Esterase (Negative) POC Ur Test (NEG) SARS-CoV-2, RNA, NAAT NEGATIVE (NEGATIVE) Imaging Data My Impression: Chest x-ray. Findings: A chest x-ray was performed and per my interpretation revealed no pneumothorax, effusion, infiltrate, pulmonary edema, free air under the diaphragm, or wide mediastinum. ECG Data Attestation: I personally reviewed and interpreted this ECG as follows: Indication: + chest pain Rate (beats per minute): 65 Rhythm: + normal sinus ECG Tebbetts: + Normal ECG ST segments: no ST depression, no ST elevation or no T-wave inversions Comparison ECG Date: from (08/26/2022) Change: no significant change Additional Comments: Repeat EKG completed approximately 2-1/2 hours later shows a normal sinus rhythm with ventricular rate of [address] elevation or depression. No T wave inversion. No significant change when compared to prior EKG. MDM Narrative This 37-year-old female patient presents to the emergency department today for evaluation of chest pain. The patient has been experiencing significant weaknes s and dizziness for quite a while. She is currently being worked up as an outpatient for possible adrenal insufficiency. The patient is concerned she has an adrenal crisis. She also became concerned due to the chest pain and right jaw pain. Those symptoms have improved upon arrival to the ED. She was given aspirin prior to arrival by EMS. She was hydrated with 2 L of IV fluids while here. Labs as above, unrevealing. The patient was monitoring her labs on her patient portal and was very concerned that her potassium was low at 3.3. I advised her that this is not generally require immediate intervention, but did offer her a potassium supplement which the patient states she would like. Repeat EKG and troponin negative. Doubt ischemia or cardiac etiology of her symptoms. The patient is being worked up as an outpatient by endocrinology and is awaiting consultation with an "adrenal specialist". The patient does not feel that she can safely return home given her weakness and fatigue. In fact, she is having difficulty going to the bathroom and is using a pure wick at the bedside. I did consult with the [facility] hospitalist, Dr. Terrell who did agree to see and evaluate the patient. Please see his dictation for ongoing management. The chart was completed utilizing [employer] Speech voice recognition software. Grammatical errors, random word insertions, pronoun errors, and incomplete sentences are an occasional consequence of this system due to software limitations, ambient noise, and hardware issues. Any formal questions or concerns about the content, text, or information contained within the body of this dictation should be directly addressed to the provider for clarification. Impression Dizziness, Chest pain, Weakness, Nausea & vomiting Discharge Plan Visit Data Chief Complaint: Chest Pain Stated Complaint: DIZZY/CHEST PAIN ED Provider: Gaby Mcnamara ED Midlevel Provider: Vaishali Rangel Discharge Problem: Dizziness, Chest pain, Weakness, Nausea & vomiting Patient Disposition: Being Evaluated by Hospitalist Forms Stand Alone Forms: My [facility] [employer] [employer] Prescriptions Prescriptions: No Action levothyroxine 150 mcg tablet 150 mcg PO DAILY Qty: 90 1RF budesonide-formoterol [Symbicort] 160-4.5 mcg/actuation HFA aerosol inhaler 2 puff inhalation Q12H Qty: 10.2 3RF Spiriva Respimat 2.5 mcg/actuation mist 2 puff inhalation DAILY Qty: 1 11RF lorazepam [Ativan] 0.5 mg tablet 0.5 mg PO DAILY PRN (Reason: Panic Attack(S)) trazodone 100 mg tablet 150 mg PO HS albuterol sulfate 2.5 mg /3 mL (0.083 %) solution for nebulization 2.5 mg inhalation Q4H PRN (Reason: shortness of breath or wheezing) Qty: 90 3RF (DME) nebulizer accessories Kit See Rx Instructions .MEDSUPPLY Qty: 1 0RF Rx Instructions: As directed (DME) nebulizer and compressor Device See Rx Instructions .MEDSUPPLY Qty: 1 0RF Rx Instructions: As directed duloxetine 60 mg capsule,delayed release(DR/EC) 120 mg PO DAILY albuterol sulfate 90 mcg/actuation HFA aerosol inhaler 3 inh inhalation Q6H Qty: 18 2RF Ozempic 1 mg/dose (4 mg/3 mL) pen injector 1 mg SUBCUT WK Rx Instructions: fridays ferrous sulfate 325 mg (65 mg iron) tablet 325 mg PO AMHS dextroamphetamine-amphetamine [Adderall XR] 30 mg capsule,extended release 24hr 30 mg PO DAILY azelastine 137 mcg (0.1 %) aerosol,spray 2 spray intranasal DAILY Rx Instructions: PLACE 2 SPRAYS INTO NOSTRIL DAILY DIRECTED dicyclomine 20 mg tablet 20 mg PO TID PRN (Reason: abdominal cramps) Qty: 20 0RF Referrals Referrals: Porsche Obando MD [Primary Care Provider] -
[2022-10-26 06:01] LABS: Magnesium 1.8 mg/dl (1.7-2.4)
[2022-10-26 06:08] LABS: D Dimer < 190 ug/L FEU (0-500)
--- NOTE | 2022-10-26 06:42 | History & Physical Report ---
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 Jean Baptiste) CT abdomen pelvis Re: Abdominal pain/diarrhea symptoms N.p.o. for now in anticipation of additional work-up DVT prophylaxis per Lovenox subcu Full code Text document was generated using [employer] voice recognition software. It may contain grammatical or spelling errors. Kindly contact undersigned for clarification of any documentation item in question. History of Present Illness Chief Complaint: Chest pain Primary Care Provider: Porsche Obando MD History obtained from patient and records. 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 Last confinement 2018 under OB service for status post vaginal delivery. Patient has not been well since ericka COVID-19 twice in March,. Intermittent body aches, fatigue, transient abdominal pain/diarrheal symptoms attributed to long COVID-19 syndrome. Mood okay as per patient, denies suicidality. Patient had to go on medical leave from work secondary to protracted illness. Patient has concerns about possible adrenal insufficiency citing some abnormal outpatient blood test. Last week, patient had abdominal pain and transient bloody diarrhea symptoms. Patient seen at the ER but subsequently discharged home. Yesterday, patient noted recurrence of achy abdominal pain with nausea vomiting and watery diarrhea symptoms. Some radiation to the right flank. No fever, no chills. Patient later noted substernal pain going to her jaw somewhat stabbing and crushing. Some shortness of breath. No unusual cough symptoms. Different from GERD as per patient. Aspirin administered by EMS en route to the hospital. Patient currently comfortable. 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 Allergies Allergy/AdvReac Type Severity Reaction Status Date / Time No Known Allergies Allergy Verified 09/03/22 15:40 Home Medications Medication Instructions Recorded Confirmed Type levothyroxine 150 mcg tablet 150 mcg PO DAILY #90 tabs 09/09/20 09/03/22 Rx lorazepam 0.5 mg tablet (Ativan) 0.5 mg PO DAILY PRN Panic Attack(S) 12/19/20 09/03/22 History trazodone 100 mg tablet 150 mg PO HS 10/08/21 09/03/22 History albuterol sulfate 90 mcg/actuation 3 inh inhalation Q6H #18 grams 03/13/22 09/03/22 Rx aerosol inhaler duloxetine 60 mg capsule,delayed 120 mg PO DAILY 03/13/22 09/03/22 History release Symbicort 160 mcg-4.5 2 puff inhalation Q12H #10.2 grams 04/08/22 09/03/22 Rx mcg/actuation HFA aerosol inhaler (budesonide-formoterol) albuterol sulfate 2.5 mg/3 mL 2.5 mg (3 mL) inhalation Q4H PRN 06/30/22 09/03/22 Rx (0.083 %) solution for nebulization shortness of breath or wheezing #90 mL nebulizer accessories #1 ea 06/30/22 09/03/22 Rx nebulizer and compressor #1 ea 06/30/22 09/03/22 Rx tiotropium bromide 2.5 2 puff inhalation DAILY #1 inhaler 07/08/22 09/03/22 Rx mcg/actuation mist for inhalation (Spiriva Respimat) azelastine 137 mcg (0.1 %) nasal 2 spray intranasal DAILY 08/27/22 09/03/22 History spray aerosol dextroamphetamine-amphetamine ER 30 mg PO DAILY 08/27/22 09/03/22 History 30 mg 24hr capsule,extend release (Adderall XR) dicyclomine 20 mg tablet 20 mg PO TID PRN abdominal cramps 08/27/22 09/03/22 Rx #20 tabs ferrous sulfate 325 mg (65 mg 325 mg PO AMHS 08/27/22 09/03/22 History iron) tablet semaglutide 1 mg/dose (4 mg/3 mL) 1 mg subcut WK 08/27/22 09/03/22 History subcutaneous pen injector (Ozempic) Past Med/Surg History Medical History Anxiety Gurinder's disease Hypothyroidism (12/29/11) IBS (irritable bowel syndrome) Miscarriage Rectal bleed Vitamin D deficiency Vulvodynia Surgical History H/O dilation and curettage H/O wisdom tooth extraction Family History Aunt Breast cancer Grandmother (Maternal) Colorectal cancer Lung cancer Grandmother (Paternal) Ovarian cancer Father Prostate cancer Mother Atrial fibrillation Other No significant family history Social History Smoking Status: Never smoker Hx Alcohol Use: No Hx Substance Use: No Preferred Language: Ukrainian Communication Ability: Effective Beliefs That Will Affect Care: None marital status: Current Living Situation: Spouse Feels Safe at Home: Yes Assistive Devices: None Review of Systems Review of Systems: As per HPI, all other systems reviewed and negative Physical Exam Physical Exam: GENERAL: Comfortable, slightly anxious, obese, no respiratory distress SKIN: Normal color, warm HEENT: [place] palpebral conjunctivae, no ptosis, dry buccal mucosa NECK : Supple, short neck, no tenderness CHEST : CTA, no tenderness HEART : RRR, no obvious murmurs ABDOMEN: Some distention, no overt tenderness EXTREMITIES : Minimal LE swelling, no LE tenderness, no other conspicuous deformities noted NEUROLOGIC : Coherent, no facial asymmetry, no other gross focality Results & Data Results [facility] ([facility]) Vital Signs (Past 12 Hours) Vital Signs Temp Pulse Resp BP Pulse Ox O2 Del Method 10/26/22 06:27 65 10/26/22 02:02 64 10/26/22 01:55 36.7 C 63 16 126/80 99 Room Air Laboratory Results Laboratory Results WBC 7.82 K/ul (4.8-10.8) 10/26/22 02:00 RBC 4.47 M/uL (4.20-5.40) 10/26/22 02:00 Hgb 12.8 g/dl (12.0-16.0) 10/26/22 02:00 Hct 38.9 % (37.0-47.0) 10/26/22 02:00 MCV 87.0 fL (80.0-100.0) 10/26/22 02:00 MCH 28.6 pg (25.0-34.0) 10/26/22 02:00 MCHC 32.9 g/dL (32.0-36.0) 10/26/22 02:00 RDW Std Deviation 40.5 fL (36.4-46.3) 10/26/22 02:00 RDW Coeff of [place] 12.8 % (11.5-14.5) 10/26/22 02:00 Plt Count 294 K/uL (130-400) 10/26/22 02:00 MPV 9.7 fL (9.4-12.4) 10/26/22 02:00 Immature Gran % (Auto) 0.4 % 10/26/22 02:00 Neut % (Auto) 58.5 % 10/26/22 02:00 Lymph % (Auto) 30.4 % 10/26/22 02:00 [place] % (Auto) 7.8 % 10/26/22 02:00 Eos % (Auto) 2.0 % 10/26/22 02:00 Baso % (Auto) 0.9 % 10/26/22 02:00 Neut # (Auto) 4.57 K/uL (1.40-6.50) 10/26/22 02:00 Lymph # (Auto) 2.38 K/uL (1.2-3.4) 10/26/22 02:00 [place] # (Auto) 0.61 K/uL (0.11-0.59) H 10/26/22 02:00 Eos # (Auto) 0.16 K/uL (0-0.50) 10/26/22 02:00 Baso # (Auto) 0.07 K/uL (0-0.2) 10/26/22 02:00 Immature Gran # (Auto) 0.03 K/uL (0.01-0.20) 10/26/22 02:00 PT 10.7 Seconds (9.0-12.0) 10/26/22 02:00 INR 1.0 (0.9-1.1) 10/26/22 02:00 APTT 24.4 Seconds (21.0-31.0) 10/26/22 02:00 PTT Ratio 0.9 10/26/22 02:00 D-Dimer < 190 ug/L FEU (0-500) 10/26/22 02:00 Sodium 139 mmol/L (136-145) 10/26/22 02:00 Potassium 3.3 mmol/L (3.5-5.1) L 10/26/22 02:00 Chloride 108 mmol/L (98-107) H 10/26/22 02:00 Carbon Dioxide 28 mmol/L (21-32) 10/26/22 02:00 Anion Gap 3 (3-11) 10/26/22 02:00 BUN 17 mg/dl (6-23) 10/26/22 02:00 Creatinine 0.52 mg/dl (0.6-1.2) L 10/26/22 02:00 Est Cr Clr Drug Dosing 163.6 ml/min 10/26/22 02:00 Est GFR ( Amer) 139.5 ml/min 10/26/22 02:00 Est GFR (Non-Af Amer) 120.4 ml/min 10/26/22 02:00 BUN/Creatinine Ratio 32.7 (10-20) H 10/26/22 02:00 Glucose 94 mg/dl (70-99(Fasting)) 10/26/22 02:00 Calcium 8.5 mg/dl (8.5-10.1) 10/26/22 02:00 Magnesium 1.8 mg/dl (1.7-2.4) 10/26/22 02:00 Magnesium Cancelled 10/26/22 02:00 Total Bilirubin 0.4 mg/dl (0.2-1.0) 10/26/22 02:00 AST 17 U/L (13-39) 10/26/22 02:00 ALT 22 U/L (7-52) 10/26/22 02:00 Alkaline Phosphatase 46 U/L (34-104) 10/26/22 02:00 Troponin I High Sens 4.7 pg/ml (0-14) 10/26/22 03:57 Total Protein 6.4 gm/dl (6.0-8.3) 10/26/22 02:00 Albumin 3.8 gm/dl (3.4-5.0) 10/26/22 02:00 Globulin 2.6 gm/dl (2.5-4.0) 10/26/22 02:00 Albumin/Globulin Ratio 1.5 (0.9-2) 10/26/22 02:00 Lipase 32 U/L (11-82) 10/26/22 02:00 TSH 5.092 uIu/ml (0.300-4.500) H 10/26/22 02:00 Free T4 1.16 ng/dl (0.61-1.60) 10/26/22 02:00 Random Cortisol 14.50 mcg/dl 10/26/22 02:00 Urine Color Yellow 10/26/22 02:45 Urine Appearance Clear (Clear) 10/26/22 02:45 Urine pH 7.0 (4.5-7.5) 10/26/22 02:45 Ur Specific [place] 1.018 (1.000-1.030) 10/26/22 02:45 Urine Protein Negative (Negative) 10/26/22 02:45 Urine Glucose (UA) Negative (Negative) 10/26/22 02:45 Urine Ketones Negative (Negative) 10/26/22 02:45 Urine Blood Negative (Negative) 10/26/22 02:45 Urine Nitrite Negative (Negative) 10/26/22 02:45 Urine Bilirubin Negative (Negative) 10/26/22 02:45 Urine Urobilinogen Negative (Negative) 10/26/22 02:45 Ur Leukocyte Esterase Negative (Negative) 10/26/22 02:45 POC Ur Test NEG (NEG) 10/26/22 02:55 SARS-CoV-2, RNA, NAAT NEGATIVE (NEGATIVE) 10/26/22 05:39 Diagnostic Findings Chest x-ray as per interpretation no infiltrate EKG as per my interpretation : Rate 65, NSR, normal axis, no ischemia
[2022-10-26] MEDS ORDERED: ACETAMINOPHEN 325 MG TAB PO PRN (06:46)
[2022-10-26] MEDS ORDERED: MoRPHine SULFATE 4 MG/ML 1 ML CARP\\VIAL IV PRN ×2 (06:46→06:58)
[2022-10-26] MEDS ORDERED: D5NSS + 20MEQ KCL 20 MEQ/1,000 ML BAG IV STA (06:50)
[2022-10-26] MEDS ORDERED: oxyCODONE HCL IR 5 MG TAB (IMMEDIATE RELEASE) PO PRN (06:58)
--- NOTE | 2022-10-26 07:18 | XRay Report ---
SINGLE VIEW CHEST CLINICAL HISTORY: Atypical chest pain. FINDINGS: An AP, portable, upright chest radiograph is compared to study dated 06/21/2022 and correlat ed with chest CT dated 07/01/2022. The cardiomediastinal silhouette is unremarkable. The lungs and pl eural spaces are clear. No pneumothorax is seen. The bony thorax is grossly intact. IMPRESSION: No active disease in the chest. ACT 112: Negative or not required by law. Electronically signed by: Tae Vaughn M.D. 10/26/2022 7:17 AM
[2022-10-26] MEDS ORDERED: LORazepam 1 MG TAB PO PRN (08:39)
[2022-10-26] MEDS ORDERED: OPTIRAY 350 100ml IV ONE (08:48)
--- NOTE | 2022-10-26 09:03 | CT Scan Report ---
CT SCAN OF THE ABDOMEN AND PELVIS WITH IV CONTRAST CLINICAL HISTORY: Generalized abdominal pain. COMPARISON STUDY: Abdominal CT dated 08/26/2022. TECHNIQUE: Following the IV administration of 94 cc of Optiray 350, CT scan of the abdomen and pelvi s is performed from the lung bases to the proximal femora. Images are reviewed in the axial, sagittal , and coronal planes. IV contrast was administered without complication. A dose lowering technique wa s utilized adhering to the principles of ALARA. CT DOSE: 841.82 mGy.cm FINDINGS: Lung bases: The heart is normal in size and without pericardial effusion. The lung bases are clear. Liver: The contrast-enhanced liver is normal in size, contour, and attenuation. There is no intrahepa tic biliary ductal dilatation. The hepatic veins and portal veins are patent. A 1.6 cm hemangioma and a 1.0 cm cyst in the left lobe are unchanged. Gallbladder: Unremarkable. Spleen: Normal in size and attenuation. Pancreas: Unremarkable. Adrenal glands: Unremarkable. Kidneys: The contrast enhanced kidneys are normal in size and without hydronephrosis. The kidneys enh ance symmetrically. Bilateral nonobstructing renal calculi measure up to 5 mm. No ureteral stone is s een. Abdominal vasculature: The abdominal aorta is normal in course and caliber. Bowel: There is no bowel obstruction. The appendix is well-visualized and normal. Peritoneum: There is no intraperitoneal free air or abdominal ascites. There is a fat-containing umbi lical hernia. Lymphadenopathy: None. Pelvic viscera: The bladder, uterus, and adnexa are normal as visualized noting bilateral ovarian fol licles. Trace free fluid is seen in the cul-de-sac. Skeletal structures: No lytic or blastic lesions are seen. There is mild disc space narrowing at L5-S 1 with a posterior disc osteophyte complex at this level. IMPRESSION: 1. No acute infectious or inflammatory findings are identified in the abdomen or pelvis. 2. Bilateral nephrolithiasis. No ureteral stone is seen. 3. Trace free fluid in the cul-de-sac is likely physiologic. ACT 112: Negative or not required by law. Electronically signed by: Tae Vaughn M.D. 10/26/2022 9:01 AM
[2022-10-26] MEDS ORDERED: NITROGLYCERIN SL 0.4 MG/TAB TAB SL PRN (09:05)
[2022-10-26] MEDS ORDERED: FLUTICASONE/VILANTEROL 200/25MCG 14 PUFFS/INHALER INH SCH (09:15)
[2022-10-26] MEDS: ENOXAPARIN INJ 40 MG/0.4 ML SYR SQ SCH (10:14)
[2022-10-26] MEDS: LEVOTHYROXINE SODIUM 150 MCG TABLET PO SCH (10:15)
[2022-10-26] MEDS: DULoxetine HCL 60 MG CAP PO SCH (10:15)
[2022-10-26] MEDS: AZELASTINE HCL 0.1% NASAL 200 SPRAYS/27,400 MCG BTL SCH (10:16)
[2022-10-26] MEDS: FERROUS SULFATE 325 MG TAB PO SCH ×2 (10:16→20:15)
[2022-10-26] MEDS: PROMETHAZINE HCL 12.5 MG in SODIUM CHLORIDE 0.9% 50 ML IV PRN ×2 (12:09→19:40)
--- NOTE | 2022-10-26 13:51 | Hospitalist Progress Note ---
Date of Service October 26, 2022 Assessment & Plan (1) Chest pain: Plan 37-year-old lady with PMH of asthma, orthostatic hypotension, long COVID-19 syndrome, primary hyperparathyroidism status post parathyroidectomy, hypothyroidism, urolithiasis, IBS, NAFLD, ADD, OCD, PTSD, eating disorder, mood disorder presented to the ED 10/26 with complaint of body aches, fatigue, transient abdominal pain/diarrhea/nausea/vomiting symptoms that has been intermittent since she contracted COVID-19 in March 2022. Pt denied any fever or chills. This time there was additionally chest pain on top of her intermittent symptoms, which she describes as strong pressing pain radiating to the jaw a/w some SOB, relieved with aspirin that EMS gave her in route to the hospital. Of note, patient on medical leave from work secondary to protracted illness. She is being managed for the following: Chest pain, rule out ACS Patient comes in with pressure-like chest pain radiating to jaw relieved with aspirin [see above] Patient follows with Dr. Wang as an outpatient. Admitting troponin x2 normal, EKG without acute ST or T changes. Echo ordered, follow-up on the results. Discussed with cardiology 10/26, dobutamine stress test ordered Resume diet after the stress test. Patient with no further chest pain, continue to monitor over telemetry. Monitor replete electrolytes Recurrent abdominal pain/diarrhea symptoms Possible IBS Hypokalemia: Likely secondary to diarrhea Patient presents with nausea/vomiting/abdominal pain/diarrhea which has been intermittent and chronic for her since COVID infection as per patient. Of note, pt had her cortisol level on 10/07/22 which was wnl 10.4 per OP chart review Admitting CTAP with no acute infectious or inflammatory findings. Patient uses Bently and Imodium during this time generally along with nida ctrolyte solution. Patient feels weak, will consult PT/OT. Continue with Bentyl/Imodium; f/u on stool studies Patient reports improving belly pain, reports no further diarrhea C/w ivf, Cl liq HH diet after stress test. ADAT. Other chronic medical conditions: Asthmastable, patient uses Spiriva at home, rarely uses albuterol rescue inhaler. Orthostatic hypotension: As per records. Primary hyperparathyroidism status post parathyroidectomy and now hypothyroidism: TSH slightly elevated, continue home dose of levothyroxine, TFT in 6 weeks and f/u w/ PCP as OP. NAFLD: As per records ADD/mood disorder: Stable on current regimen, patient denies SI or HI, patient reports a stable mood. OCD/PTSD/eating disorder: As per records Home medications discussed with patient: Cymbalta 120 mg a.m., Mydayis 37.5 Mg every morning, levothyroxine 150 mcg every morning, trazodone 100 Mg at bedtime, albuterol as needed, Spiriva 2 puffs daily, no Symbicort, Bentyl and Imodium as needed for abdominal pain and diarrhea. DVT prophylaxis per Lovenox subcu Full code Admission and Anticipated Discharge Date Admission Date: October 26, 2022 Subjective Patient seen and examined at bedside as a follow-up of chest pain/rule out ACS and also for abdominal pain/likely gastroenteritis. Patient was lying in bed, on room air, NAD, reports improving belly pain, has no further diarrhea, reports he had strong pressure-like chest pain yesterday which brought her to the ED, that chest pain started to resolve after EMS gave her aspirin according to the patient. The chest pain when present was radiating to her jaw per her. Patient reports being weak and tired. Patient reports having loose stool and vomiting prior to arrival. Discussed with cardiology, sending dobutamine stress test today, cardiology will evaluate her in a.m. tomorrow. Physical Exam Physical Exam: GENERAL: Alert and oriented x3. NAD, on RA. HEENT: No pallor, no icterus. Pupils equal, round and reactive to light. Oral mucosa moist. NECK: No JVD, no neck masses. HEART: S1 and S2 heard. Regular rate and rhythm. No murmur, no gallop. RESPIRATORY SYSTEM: Normal AP diameter. No accessory muscle use. No wheezing, no crackles. ABDOMEN: Soft, bowel sounds present, nontender, no distention. CENTRAL NERVOUS SYSTEM: No facial droop. Speech is clear. Obeys simple commands. Moves extremities. EXTREMITIES: No edema, no erythema seen. Results & Data Results & Data ([facility]) Vital Signs (Past 12 Hours) Vital Signs Temp Pulse Pulse Pulse Resp BP BP 10/26/22 11:16 36.6 C 57 L 18 10/26/22 09:00 36.6 C 63 18 10/26/22 07:58 75 18 109/62 10/26/22 06:27 65 10/26/22 02:02 64 10/26/22 01:55 36.7 C 63 16 126/80 BP Pulse Ox O2 Del Method 10/26/22 11:16 115/71 97 Room Air 10/26/22 09:00 117/75 97 Room Air 10/26/22 07:58 96 Room Air 10/26/22 06:27 10/26/22 02:02 10/26/22 01:55 99 Room Air
[2022-10-26] MEDS ORDERED: DICYCLOMINE HCL 10 MG CAP PO PRN (14:22)
[2022-10-26] MEDS: ATROPINE SULFATE 0.1 MG/ML 10ML SYR IV ONE ×2 (14:42→15:55)
[2022-10-26] MEDS: DOBUTamine HCL 12.5 MG/ML 20 ML VIAL IV ONE ×2 (14:42→15:56)
[2022-10-26] MEDS: METOPROLOL TARTRATE 1 MG/ML VIAL IV ONE ×2 (14:43→15:56)
--- NOTE | 2022-10-26 15:38 | XCELERA ---
[id number]
--- NOTE | 2022-10-26 16:04 | XCELERA ---
[id number]
[2022-10-26] MEDS ORDERED: traZODone HCL 100 MG TAB PO SCH (21:00)
--- NOTE | 2022-10-27 05:44 | Electrocardiogram Report ---
Test Reason : Blood Pressure : / mmHG Vent. Rate : 065 BPM Atrial Rate : 065 BPM P-R Int : 170 ms QRS Dur : 078 ms QT Int : 416 ms P-R-T Axes : 068 076 064 degrees QTc Int : 432 ms Normal sinus rhythm Normal ECG When compared with ECG of 26-AUG-2022 21:05, No significant change was found Confirmed by Julian Malik ([id number]) on 10/27/2022 5:43:34 AM Referred By: REFERRED SELF Confirmed By:Julian Malik
--- NOTE | 2022-10-27 05:45 | Electrocardiogram Report ---
Test Reason : Blood Pressure : / mmHG Vent. Rate : 066 BPM Atrial Rate : 066 BPM P-R Int : 168 ms QRS Dur : 076 ms QT Int : 412 ms P-R-T Axes : 063 071 071 degrees QTc Int : 431 ms Normal sinus rhythm Normal ECG When compared with ECG of 26-OCT-2022 01:57, No significant change was found Confirmed by Julian Malik ([id number]) on 10/27/2022 5:45:28 AM Referred By: REFERRED SELF Confirmed By:Julian Malik
[2022-10-27] MEDS: LEVOTHYROXINE SODIUM 150 MCG TABLET PO SCH (05:56)
[2022-10-27 07:57] LABS: Basophils # (auto) 0.08 K/uL (0-0.2); Basophils % (auto) 1.2 %; Eosinophils # (auto) 0.24 K/uL (0-0.50); Eosinophils % (auto) 3.7 %; Hematocrit (blood only) 37.7 % (37.0-47.0); Hemoglobin 12.4 g/dl (12.0-16.0); Immature Granulocytes # (auto) 0.02 K/uL (0.01-0.20); Immature Granulocytes % (auto) 0.3 %; Lymphocytes # (auto) 2.49 K/uL (1.2-3.4); Lymphocytes % (auto) 38.1 %; Mean Corpuscular Hemoglobin 28.4 pg (25.0-34.0); Mean Corpuscular Hgb Conc 32.9 g/dL (32.0-36.0); Mean Corpuscular Volume 86.5 fL (80.0-100.0); Monocytes # (auto) 0.58 K/uL (0.11-0.59); Monocytes % (auto) 8.9 %; Neutrophils # (auto) 3.12 K/uL (1.40-6.50); Neutrophils % (auto) 47.8 %; Platelet Count 313 K/uL (130-400); RDW Standard Deviation 40.7 fL (36.4-46.3); Red Blood Count 4.36 M/uL (4.20-5.40); White Blood Count 6.53 K/ul (4.8-10.8)
[2022-10-27 08:01] LABS: BUN Creatinine Ratio 11.9 (10-20); Calcium 8.7 mg/dl (8.5-10.1); Creatinine Clr Calc Pharmacy 126.9 ml/min; Est GFR (African American) 128.3 ml/min; Est GFR (Non-African American) 110.7 ml/min; Potassium 3.9 mmol/L (3.5-5.1)
[2022-10-27] MEDS ORDERED: PATIENT'S OWN CONTROLLED MED 2 PO SCH (09:00)
[2022-10-27] MEDS ORDERED: MYDAYIS PO SCH ×2 (09:00)
[2022-10-27] MEDS ORDERED: PATIENT'S OWN CONTROLLED MED 1 PO SCH (09:00)
[2022-10-27] MEDS ORDERED: ASPIRIN 81 MG ECTAB PO SCH (09:00)
[2022-10-27] MEDS ORDERED: TIOTROPIUM BROMIDE 5 PUFF/90 MCG INH INH SCH (09:00)
[2022-10-27] MEDS: DULoxetine HCL 60 MG CAP PO SCH (09:01)
[2022-10-27] MEDS: FERROUS SULFATE 325 MG TAB PO SCH (09:01)
[2022-10-27] MEDS: ENOXAPARIN INJ 40 MG/0.4 ML SYR SQ SCH (09:01)
[2022-10-27] MEDS: AZELASTINE HCL 0.1% NASAL 200 SPRAYS/27,400 MCG BTL SCH (09:02)
[2022-10-27] MEDS: UMECLIDINIUM BROMIDE 62.5MCG/BLISTER 7 PUFFS/INHALER INH SCH ×2 (09:03→09:07)
[2022-10-27] MEDS: PROMETHAZINE HCL 12.5 MG in SODIUM CHLORIDE 0.9% 50 ML IV PRN (09:14)
--- NOTE | 2022-10-27 10:59 | Cardiology Consultation ---
Date of Consultation October 27, 2022 Assessment & Plan (1) Chest pain: Plan IMPRESSIONS: 1. Non cardiac chest pain 2. History of orthostatic hypotension 3. Gurinder's thyroiditis. 4. Palpitations. Ms. Diez's chest discomfort is not likely cardiac given her description. At this point she has had a thorough workup with a negative stress test, normal echocardiogram, negative troponins and an unchanged EKG. Given her other GI symptoms, it may be that she was having reflux with esophageal spasm. She does continue to have palpitations which she has had for some time. We can consider an outpatient event monitor in follow up. She is also describing labile blood pressures with borderline hypertension at home. Previously, she was orthostatic in the office. Her blood pressure is low here in the hospital, likely due to volume depletion in the setting of illness. She is being worked up for adrenal insufficiency at [facility] but her cortisol was normal this visit so that does not appear to be playing a role now. When she is eating and drinking normally, we can re-evaluate whether she may need treatment for her blood pressures. If there is an element of POTS to her symptoms she may benefit from metoprolol. I advised her to liberalize salt, increase fluids and wear compression stockings for now. Her dizziness is not worse going from sitting to standing and sounds more vertiginous in nature. She will follow with us in the office in a couple of weeks. She can be disch arged from a cardiac perspective History of Present Illness Attending Physician: Anju Bishop MD History of Present Illness Ms. Diez presented to the ED Yesterday for weakness, dizziness, and chest pain. She had been getting ready for bed when she felt chest pain sharp and substernal radiating to her right jaw. She did not have any relief with laying back versus leaning forward. Resting and relaxing did not resolve the pain. She called the ambulance and her pain resolved in the emergency department. Prior to that she had been feeling weak and unwell also with some diarrhea, nausea, and vomiting for about a week. She has been chest pain free since last night. She continues to feel weak with dizziness. The dizziness is not worse with standing and she experiences it when moving her head side to side. She is having daily palpitations that feel like pounding in her chest. She also notes labile blood pressures in the last few weeks going upwards of 130s/80s at home. No events on telemetry Allergies Allergy/AdvReac Type Severity Reaction Status Date / Time No Known Allergies Allergy Verified 09/03/22 15:40 Home Medications Medication Instructions Recorded Confirmed Type levothyroxine 150 mcg tablet 150 mcg PO DAILY #90 tabs 09/09/20 09/03/22 Rx lorazepam 0.5 mg tablet (Ativan) 1 mg PO Q6H PRN Anxiety 12/19/20 09/03/22 History trazodone 100 mg tablet 100 mg PO HS 10/08/21 09/03/22 History albuterol sulfate 90 mcg/actuation 3 inh inhalation Q6H #18 grams 03/13/22 09/03/22 Rx aerosol inhaler duloxetine 60 mg capsule,delayed 120 mg PO DAILY 03/13/22 09/03/22 History release Symbicort 160 mcg-4.5 2 puff inhalation Q12H #10.2 grams 04/08/22 09/03/22 Rx mcg/actuation HFA aerosol inhaler (budesonide-formoterol) nebulizer accessories #1 ea 06/30/22 09/03/22 Rx nebulizer and compressor #1 ea 06/30/22 09/03/22 Rx azelastine 137 mcg (0.1 %) nasal 2 spray intranasal DAILY 08/27/22 09/03/22 History spray aerosol dicyclomine 20 mg tablet 20 mg PO TID PRN abdominal cramps 08/27/22 09/03/22 Rx #20 tabs ferrous sulfate 325 mg (65 mg 325 mg PO AMHS 08/27/22 09/03/22 History iron) tablet dextroamphetamine-amphetamine ER 37.5 PO DAILY 10/26/22 History 25 mg capsule,3 bead,ext release 24hr (Mydayis) Patient History Medical History Anxiety Gurinder's disease Hypothyroidism (12/29/11) IBS (irritable bowel syndrome) Miscarriage Rectal bleed Vitamin D deficiency Vulvodynia Surgical History H/O dilation and curettage H/O wisdom tooth extraction Family History Aunt Breast cancer Grandmother (Maternal) Colorectal cancer Lung cancer Grandmother (Paternal) Ovarian cancer Father Prostate cancer Mother Atrial fibrillation Other No significant family history Social History Smoking Status: Never smoker Second Hand Exposure: No; Hx Alcohol Use: No Hx Substance Use: Yes Substance Use Type Other:: years ago once or twice Preferred Language: [place] Communication Ability: Effective Grades 1 Through 6 Teacher Required: No Beliefs That Will Affect Care: None marital status: Current Living Situation: Spouse and Family Current Living Situation Comment: lives with and children 3 and 6 years old Feels Safe at Home: Yes Assistive Devices: None Review of Systems Review of Systems: All systems reviewed & are unremarkable except as noted in HPI & below Physical Exam Constitutional: WD/WN, vitals as above Respiratory: normal respiratory effort, lungs clear to auscultation Cardiovascular: RRR, no murmur, no edema Skin: no rashes, warm and dry Neurologic: moves all extremities and awake Psychiatric: A+Ox3, euthymic affect Results & Data ([facility]) Vital Signs (Past 12 Hours) Vital Signs Temp Pulse Pulse Resp BP Pulse Ox O2 Del Method 10/27/22 08:21 59 L 10/27/22 07:41 36.6 C 61 16 99/61 L 97 Room Air 10/27/22 07:10 36.5 C 63 20 107/69 98 Room Air 10/27/22 03:00 36.8 C 60 18 116/78 97 Room Air 10/26/22 23:00 36.8 C 63 18 99/62 L 98 Room Air
--- NOTE | 2022-10-27 14:31 | Discharge Summary ---
Date of Service October 27, 2022 Admission HPI Per Admitting Provider History obtained from patient and records. 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 Last confinement 2018 under OB service for status post vaginal delivery. Patient has not been well since ericka COVID-19 twice in March,. Intermittent body aches, fatigue, transient abdominal pain/diarrheal symptoms attributed to long COVID-19 syndrome. Mood okay as per patient, denies suicidality. Patient had to go on medical leave from work secondary to protracted illness. Patient has concerns about possible adrenal insufficiency citing some abnormal outpatient blood test. Last week, patient had abdominal pain and transient bloody diarrhea symptoms. Patient seen at the ER but subsequently discharged home. Yesterday, patient noted recurrence of achy abdominal pain with nausea vomiting and watery diarrhea symptoms. Some radiation to the right flank. No fever, no chills. Patient later noted substernal pain going to her jaw somewhat stabbing and crushing. Some shortness of breath. No unusual cough symptoms. Different from GERD as per patient. Aspirin administered by EMS en route to the hospital. Patient currently comfortable. 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 Admission Exam Per Admitting Provider GENERAL: Comfortable, slightly anxious, obese, no respiratory distress SKIN: Normal color, warm HEENT: [place] palpebral conjunctivae, no ptosis, dry buccal mucosa NECK : Supple, short neck, no tenderness CHEST : CTA, no tenderness HEART : RRR, no obvious murmurs ABDOMEN: Some distention, no overt tenderness EXTREMITIES : Minimal LE swelling, no LE tenderness, no other conspicuous deformities noted NEUROLOGIC : Coherent, no facial asymmetry, no other gross focality Principal Diagnosis Chest pain, rule out ACS Recurrent abdominal pain/diarrhea symptoms, possible IBS Electrolyte abnormality Discharge Exam GENERAL: Alert and oriented x3. NAD, on RA. HEENT: No pallor, no icterus. Pupils equal, round and reactive to light. Oral mucosa moist. NECK: No JVD, no neck masses. HEART: S1 and S2 heard. Regular rate and rhythm. No murmur, no gallop. RESPIRATORY SYSTEM: Normal AP diameter. No accessory muscle use. No wheezing, no crackles. ABDOMEN: Soft, bowel sounds present, nontender, no distention. CENTRAL NERVOUS SYSTEM: No facial droop. Speech is clear. Obeys simple commands. Moves extremities. EXTREMITIES: No edema, no erythema seen. Discharge Data Allergies Allergy/AdvReac Type Severity Reaction Status Date / Time No Known Allergies Allergy Verified 09/03/22 15:40 Consultations 10/26/22 05:33 ED Decision to Admit Stat 10/26/22 06:46 Consult Cardiology Routine Ordered Studies 10/26/22 06:41 CT Abd and Pelvis [CT abd pelvis IV con only] Stat Hospital Course (1) Chest pain: Plan 37-year-old lady with PMH of asthma, orthostatic hypotension, long COVID-19 syndrome, primary hyperparathyroidism status post parathyroidectomy, hypothyroidism, urolithiasis, IBS, NAFLD, ADD, OCD, PTSD, eating disorder, mood disorder presented to the ED 10/26 with complaint of body aches, fatigue, transient abdominal pain/diarrhea/nausea/vomiting symptoms that has been intermittent since she contracted COVID-19 in March 2022. Pt denied any fever or chills. This time there was additionally chest pain on top of her intermittent symptoms, which she describes as strong pressing pain radiating to the jaw a/w some SOB, relieved with aspirin that EMS gave her in route to the hospital. Of note, patient on medical leave from work secondary to protracted illness. She was managed for the following: Chest pain, rule out ACS Patient comes in with pressure-like chest pain radiating to jaw relieved with aspirin [see above] Patient follows with Dr. Wang as an outpatient. Admitting troponin x2 normal, EKG without acute ST or T changes. ECHO and stress test wnl. Cardiology evaluated, follow-up with cardiology as an outpatient. Patient with no further chest pain, is hemodynamically stable and would like to go home today. Electrolytes are stable. PT OT has evaluated, appreciate recommendation. Recurrent abdominal pain/diarrhea symptoms Possible IBS Hypokalemia: Likely secondary to diarrhea Patient presents with nausea/vomiting/abdominal pain/diarrhea which has been intermittent and chronic for her since COVID infection as per patient. Of note, pt had her cortisol level on 10/07/22 which was wnl 10.4 per OP chart review Admitting CTAP with no acute infectious or inflammatory findings. Patient uses Bently and Imodium during this time generally along with electrolyte solution. Patient feels better today, has been tolerating diet, no further nausea and vomiting, belly pain seems improved. Electrolytes has been stable, patient to continue with her Bentyl and Imodium as needed as prior. Patient denies any further diarrhea. Other chronic medical conditions: Asthmastable, patient uses Spiriva at home, rarely uses albuterol rescue inhaler. Orthostatic hypotension: As per records. Primary hyperparathyroidism status post parathyroidectomy and now hy pothyroidism: TSH slightly elevated, continue home dose of levothyroxine, TFT in 6 weeks and f/u w/ PCP as OP. NAFLD: As per records ADD/mood disorder: Stable on current regimen, patient denies SI or HI, patient reports a stable mood. OCD/PTSD/eating disorder: As per records Home medications discussed with patient: Cymbalta 120 mg a.m., Mydayis 37.5 Mg every morning, levothyroxine 150 mcg every morning, trazodone 100 Mg at bedtime, albuterol as needed, Spiriva 2 puffs daily, no Symbicort, Bentyl and Imodium as needed for abdominal pain and diarrhea. DVT prophylaxis per Lovenox subcu Full code Patient being discharged to home with following instruction at the point of discharge: Follow-up with your primary care physician within a week time and likely you will need labs CBC/CMP/magnesium/phosphorus; and thyroid function test in 6 weeks. Follow-up with your cardiology as an outpatient, maintain compliance. Follow-up with your adrenal specialist at [facility] as prior. Take your medications as prescribed. Home Health Attestation I certify that this patient is under my care and that I, or a physicians technical staff assistant working with me, had a face to-face encounter that meets the home health [id number] encounter requirements with this patient. The encounter with the patient was in whole, or in part, for the following medical condition, which is the primary reason for home health care (list medical condition): I certify that, based on my findings, the following services are medically necessary home health services: My clinical findings support the need for the above services because: Further, I certify that my clinical findings support that this patient is homebound (i.e. absences from home require considerable and taxing effort and are for medical reasons or taoist services or infrequently or of short duration when for other reasons) because: Certification for Home Health Services: Based on the above findings, I certify that this patient is confined to the home and needs intermittent longterm care, physical therapy and/or speech therapy or continues to need occupational therapy. The patient is under my care, and I have initiated the establishment of the plan of care. This patient will be followed by a physician who will periodically review the plan of care. Total Time Total Time Spent Total Time Spent (In Minutes): 45 Discharge Plan Discharge Items Patient Disposition: Home - Self-Care Reason For Visit: CP Discharge Diagnosis: Chest pain, rule out ACS Recurrent abdominal pain/diarrhea symptoms, possible IBS Electrolyte abnormality Activity: Resume your previous activity Non-emergency contact: Primary Care Provider Call non-emergency contact if: you have any medication questions, your symptoms worsen and your temperature is above 101 Follow-up/Referrals: Porsche Obando MD [Primary Care Provider] - (Date & Time 11/02/2022 11:20 AM Provider Porsche Obanod MD Department Family Practice [facility] ) Diet: Heart Healthy Addtl Attending Provider Instructions: Follow-up with your primary care physician within a week time and likely you will need labs CBC/CMP/magnesium/phosphorus; and thyroid function test in 6 weeks. Follow-up with your cardiology as an outpatient, maintain compliance. Follow-up with your adrenal specialist at [facility] as prior. Take your medications as prescribed. Pending Studies at Discharge: No Stand-Alone Forms: My [facility] [employer], Smoking Cessation Medications and DC Order Prescriptions: New Spiriva Respimat 1.25 mcg/actuation mist 2 inh inhalation DAILY Qty: 4 0RF Continued levothyroxine 150 mcg tablet 150 mcg PO DAILY Qty: 90 1RF lorazepam [Ativan] 0.5 mg tablet 1 mg PO Q6H PRN (Reason: Anxiety) trazodone 100 mg tablet 100 mg PO HS (DME) nebulizer accessories Kit See Rx Instructions .MEDSUPPLY Qty: 1 0RF Rx Instructions: As directed (DME) nebulizer and compressor Device See Rx Instructions .MEDSUPPLY Qty: 1 0RF Rx Instructions: As directed Mydayis 25 mg capsule, ER triphasic 24 hr 37.5 PO DAILY duloxetine 60 mg capsule,delayed release(DR/EC) 120 mg PO DAILY albuterol sulfate 90 mcg/actuation HFA aerosol inhaler 3 inh inhalation Q6H Qty: 18 2RF ferrous sulfate 325 mg (65 mg iron) tablet 325 mg PO AMHS azelastine 137 mcg (0.1 %) aerosol,spray 2 spray intranasal DAILY Rx Instructions: PLACE 2 SPRAYS INTO NOSTRIL DAILY DIRECTED dicyclomine 20 mg tablet 20 mg PO TID PRN (Reason: abdominal cramps) Qty: 20 0RF Discontinued budesonide-formoterol [Symbicort] 160-4.5 mcg/actuation HFA aerosol inhaler 2 puff inhalation Q12H Qty: 10.2 3RF Discharge Orders: Discharge Order (Routine); Ordered 10/27/22 Ordered By: Anju Bishop Admission Data Admit Date/Time: 10/26/22 06:43 Attending Provider: Anju Bishop Admit Provider: Charles Terrell Primary Care Provider: Porsche Obando Other Providers: Cricket Jean Baptiste ; Charles Terrell
== END 2022-10-27 17:29 | disposition home or self-care (01) ==
LOC: 2S 01:51 → ED 01:51 → 2S 08:07

== ENCOUNTER 2023-03-24 09:51 | Observation (INO) ==
[2023-03-24] MEDS ORDERED: HYDROCORTISONE SOD SUCCINATE 100 MG/2 ML VIAL IV STA (10:16)
[2023-03-24] MEDS ORDERED: PROMETHAZINE 6.25 MG/50.25 ML BAG IV STA (10:16)
--- NOTE | 2023-03-24 10:23 | Emergency Department Note ---
Impression & Plan Elevated troponin I level, Hypokalemia, Nausea, Breathlessness, Frontal sinus pain, Adrenal insufficiency, Elevated lactic acid level ED Provider Note Provider: Wesley Arcos MD DATE OF SERVICE: 03/24/2023 CHIEF COMPLAINT: Adrenal issues, ongoing sinus infection, shortness of breath HISTORY OF PRESENT ILLNESS: Patient is a 37-year-old female past medical history including reported adrenal insufficiency, recurrent sinus infections, hypothyroidism, and recurrent episodes of COVID currently undergoing evaluation for possible immunodeficiency presenting here today due to illness and weakness issues that developed over the course of the past approximate 5 to 6 days. Has had recurrent episodes of sinus infection on the third course of Augmentin currently about a weekend. States she is away for her anniversary in [place] when she can increase sinus pain and pressure and some shortness of breath. Then developed adrenal crisis symptoms that she relays as diarrhea and nausea and had to go to the hospital in [place]. Evidently utilized for emergency renal crisis steroids giving herself injection which helped. Had blood work done at the [facility] and some fluid hydration given as well as a dose of IV antibiotics. Has continued the Augmentin and states symptoms improved for a day or 2 and just got home last night. States he had some nausea then but that resolved but is coming back today. Has tried some Pepto-Bismol at home but does not have any nausea medicine. Reports she has significant sinus pressure and denies any significant abdominal pain. Reports she feels more short of breath again. Denies leg swelling. Reports a little bit of swelling into the left armpit and breast region but states she has had prior evaluation here with mammography and testing and that this is not cancer. Does seem to have swollen just a little bit more she is unsure if this is related. No sick contacts reported. Has been following with allergy and immunology locally here to scheduled to see ENT for the first time in April. Follows with endocrinology in the [facility] system. They have referred her here today given her ongoing issues. Patient also discussed with her PCP. PAST MEDICAL HISTORY: As noted above MEDICATIONS: Reviewed home medication list SOCIAL HISTORY: Non-smoker PHYSICAL EXAM: GENERAL: alert and oriented in no acute distress on stretcher somewhat fatigued in appearance Head: normocephalic and atraumatic EYES: No injection, discharge or icterus. PERRL, EOMI. NECK: Trachea midline. Supple. ENT: Mucous membranes pink and moist. Pharynx without erythema or exudate. Nasal pharynx by gross exam at bedside with a little bit of erythema noted but no significant discharge or obvious swelling from a bedside exam. LUNGS: Airway patent. No retractions. Breath sounds clear with good air entry bilaterally. HEART: Regular rate and rhythm. No chest wall tenderness ABDOMEN: Soft and non-tender, without guarding or rebound. SKIN: Acyanotic, warm, dry, without rashes EXTREMITIES: Without swelling, tenderness or deformity NEUROLOGICAL: No focal deficits. No aphasia and tongue midline. No facial droop or slurred speech. Ambulatory. EK bpm normal sinus rhythm. No PVC or PAC. No acute ST segment elevation or depression with a QTc of 430. CONTINUOUS CARDIAC MONITORING: was ordered and showed a heart rate of bpm in normal sinus rhythm Patient's laboratory studies and imaging reviewed. Differential includes Infection, dehydration, metabolic abnormality, hypo/hyperglycemia, electrolyte disturbance, anemia, hypoxia, cardiac sources, intracerebral event/neurologic, as well as other pathologies. IMPRESSION/MEDICAL DECISION MAKING: Reviewed prior available records here particularly notes from allergy immunology. Patient with multiple endocrine and possible immune issues in the past. Afebrile and not hypoxic here. Blood pressure actually somewhat elevated but patient reports significant symptoms for her of adrenal crisis. Has reportedly been able to take her oral medications before this morning since her [facility] hospital visit. Reviewed the available blood work she has from there with a lactate of 2.7 and white blood cell count of just over 12 otherwise not significantly abnormal. Has been Augmentin now a week into with third course over the past several months. Has not yet seen ENT but reports some facial pain. Denies any ear issues. Patient protecting airway and no stridor is noted. Does not appear meningitic. There is no evidence of leg swelling. Given her recent travel and ongoing issues and in review of prior immunology recommendations, will obtain a CT scan of the sinuses as well as CT angiogram of the chest as well as the abdomen pelvis to exclude other occult pathologies to explain her symptomatologies and to further evaluate the sinuses. Broad infectious blood work was sent including procalcitonin lactate and blood cultures. Will send respiratory viral panel as well. Has had issues with long COVID and multiple episodes of COVID in the past that may be contributing as she had her third bout of COVID somewhat recently by her report. EKG and troponin sent but again not the typical story for ACS. I doubt dissection as she is not having any severe chest discomfort. Given some IV fluids, per her request IV dose of steroid as well as promethazine to help with her nausea symptoms. Urinalysis not impressive for infection. Blood work without significant anemia or thrombocytopenia. White blood count of 13.2 again difficult to interpret in light of steroids. Patient has normal sodium and low potassium of 2.8. Normal magnesium. No significant creatinine elevation or anion gap noted. No transaminitis noted. CRP undetectably low. TSH within normal limits. No signs of pancreatitis based on a normal lipase. Troponin does return mildly elevated at 56, unclear if this could represent a demand situation given her illness. Given some IV potassium and additional IV fluids as there is a notable lactate of 3.4. Procalcitonin is critically low and low suspicion that this is true sepsis. CT of the sinuses, CT abdomen pelvis, and CT angiograms of the chest reports show no evidence of significant sinus disease, no evidence of pulmonary embolisms, with trace pleural effusions and no findings concerning for pneumonia. To make the patient aware again of a 6 mm nodule in the right apex slightly increased from last June and recommended follow-up for this. Additionally reports shows a 4 cm left-sided ovarian cyst but no other significant intra-abdominal or pelvic pathology. Patient made aware that she is undergoing outpatient PCOS workup. Not having significant pain here. There again was causing all of her sinus issues and pain but she does report that her breathing issues are improved now. Question some component of dehydration and adrenal issues given her history causing the elevated troponin and lactate due to more of a demand situation. Again receiving IV fluid supplementation as well as potassium supplementation. Nausea is improving. Discussed with her findings and recommend at this time that we observe her further given the troponin elevation and hypokalemia for improvement of her symptoms at this time. I do not see a role for further antibiotics at this point. Respiratory viral panel returns negative. Discussed with the hospitalist team here. Patient agreement with plan for further care here. DIAGNOSIS: Hypokalemia, shortness of breath, nausea, adrenal insufficiency, elevated troponin DISPOSITION: Hospitalist will evaluate Patient was agreeable with this plan. Past Med/Surg History Medical History Anxiety Gurinder's disease Hypothyroidism (12/29/11) IBS (irritable bowel syndrome) Miscarriage Rectal bleed Vitamin D deficiency Vulvodynia Surgical History H/O dilation and curettage H/O wisdom tooth extraction Family History Aunt Breast cancer Grandmother (Maternal) Colorectal cancer Lung cancer Grandmother (Paternal) Ovarian cancer Father Prostate cancer Mother Atrial fibrillation Other No significant family history Social History Smoking Status: Never smoker Second Hand Exposure: No; Do You Dip or Chew Tobacco: No; Hx Alcohol Use: No Hx Substance Use: No Preferred Language: Emir[place] Communication Ability: Effective Wrapper And Preserver Required: No Beliefs That Will Affect Care: None marital status: Current Living Situation: Spouse and Other Current Living Situation Comment: and two children Other Information That Helps Us Care for You: No Feels Safe at Home: Yes Safety Concerns: Feels Safe At This Time Assistive Devices: Glasses Allergies Allergies Allergy/AdvReac Type Severity Reaction Status Date / Time Serotonin 5HT-3 Antagonists AdvReac Intermediate per Unverified 03/24/23 12:08 patient cannot take per PCP Home Meds Home Medications Medication Instructions Recorded Confirmed lorazepam 0.5 mg tablet (Ativan) 1 mg PO Q6H PRN Anxiety 12/19/20 03/24/23 fludrocortisone 0.1 mg tablet 0.05 mg PO QDL 02/02/23 03/24/23 budesonide-formoterol HFA 80 2 puff inhalation BID 03/16/23 03/24/23 mcg-4.5 mcg/actuation aerosol inhaler (Symbicort) desmopressin 0.1 mg tablet 0.05 mg PO BID 03/16/23 03/24/23 drospirenone 3 mg-ethinyl 1 tab PO DAILY 03/16/23 03/24/23 estradiol 0.03 mg tablet (Christina (28)) hydrocortisone 20 mg tablet See Rx Instructions PO DAILY 03/16/23 03/24/23 liothyronine 5 mcg tablet 5 mcg PO DAILY 03/16/23 03/24/23 albuterol sulfate 90 mcg/actuation 3 inh inhalation Q6H PRN Wheezing 03/24/23 03/24/23 aerosol inhaler Previous Rx's Medication Instructions Recorded levothyroxine 150 mcg tablet 150 mcg PO DAILY #90 tabs 09/09/20 tiotropium bromide 1.25 2 inh inhalation DAILY #4 grams 10/27/22 mcg/actuation mist for inhalation (Spiriva Respimat) azelastine 137 mcg (0.1 %) nasal 2 spray intranasal DAILY #90 mL 11/09/22 spray aerosol amoxicillin 875 mg-potassium 1 tab PO BID 21 days #42 tabs 03/16/23 clavulanate 125 mg tablet Results & Data (ED) Vital Signs Vital Signs - 24 hr 03/24/23 09:52 03/24/23 10:52 03/24/23 10:16 Temperature 36.9 C Temperature Source Temporal Artery Scan Oral Pulse Rate 78 Pulse Rate [Apical] Respiratory Rate 18 Respiratory Effort / Characteristics Non-Labored Spontaneous Respiratory Depth Normal Blood Pressure 175/95 H Blood Pressure [Left Arm] Blood Pressure Mean 121 Blood Pressure Mean [Left Arm] Pulse Oximetry 98 Oxygen Delivery Method Room Air Room Air Sepsis Recent Fever Within 48 Hours No Sepsis New/Unexplained Change in Mental Status No Sepsis Action Taken by Nursing No Action Required 03/24/23 12:01 03/24/23 12:04 Temperature Temperature Source Pulse Rate 50 L Pulse Rate [Apical] 52 L Respiratory Rate 18 Respiratory Effort / Characteristics Non-Labored Respiratory Depth Normal Blood Pressure Blood Pressure [Left Arm] 158/90 H Blood Pressure Mean Blood Pressure Mean [Left Arm] 112 Pulse Oximetry 97 Oxygen Delivery Method Room Air Sepsis Recent Fever Within 48 Hours Sepsis New/Unexplained Change in Mental Status Sepsis Action Taken by Nursing Laboratory Data 03/24/23 10:40 03/24/23 10:40 Lab Results 03/24/23 03/24/23 03/24/23 Range/Units 10:35 10:40 10:40 WBC 13.22 H (4.8-10.8) K/ul RBC 4.76 (4.20-5.40) M/uL Hgb 13.6 (12.0-16.0) g/dl POC Hgb (12.0-16.0) g/dl Hct 40.6 (37.0-47.0) % POC Hct (37-47) % MCV 85.3 (80.0-100.0) fL MCH 28.6 (25.0-34.0) pg MCHC 33.5 (32.0-36.0) g/dL RDW Std Deviation 46.0 (36.4-46.3) fL RDW Coeff of Mohsen 14.7 H (11.5-14.5) % Plt Count 348 (130-400) K/uL MPV 9.9 (9.4-12.4) fL Immature Gran % (Auto) 0.7 % Neut % (Auto) 81.1 % Lymph % (Auto) 9.5 % [place] % (Auto) 8.3 % Eos % (Auto) 0.2 % Baso % (Auto) 0.2 % Neut # (Auto) 10.73 H (1.40-6.50) K/uL Lymph # (Auto) 1.26 (1.2-3.4) K/uL [place] # (Auto) 1.10 H (0.11-0.59) K/uL Eos # (Auto) 0.02 (0-0.50) K/uL Baso # (Auto) 0.02 (0-0.2) K/uL Immature Gran # (Auto) 0.09 (0.01-0.20) K/uL PT 9.9 (9.0-12.0) Seconds INR 0.9 (0.9-1.1) POC Sodium (135-144) mmol/L Sodium (136-145) mmol/L POC Potassium (3.3-5.0) mmol/L Potassium (3.5-5.1) mmol/L POC Chloride (101-112) mmol/L Chloride (98-107) mmol/L Carbon Dioxide (21-32) mmol/L POC Total CO2 (24-31) mmol/L Anion Gap (3-11) POC Anion Gap (16-25) mmol/L POC BUN (7-18) mg/dl BUN (6-23) mg/dl Creatinine (0.6-1.2) mg/dl POC Creatinine (0.6-1.3) mg/dl Est Cr Clr Drug Dosing Est GFR ( Amer) ml/min Est GFR (Non-Af Amer) ml/min BUN/Creatinine Ratio (10-20) Glucose (70-99(Fasting)) mg/dl POC Glucose (other) (70-99) mg/dl Lactate (0.4-2.0) mmol/L Calcium (8.6-10.3) mg/dl POC Ioniz Calcium Breanne (1.12-1.32) mmol/l Magnesium (1.7-2.4) mg/dl Total Bilirubin (0.2-1.0) mg/dl AST (13-39) U/L ALT (7-52) U/L Alkaline Phosphatase (34-104) U/L Troponin I High Sens (0-14) pg/ml C-Reactive Protein (0-0.5) mg/dl Total Protein (6.0-8.3) gm/dl Albumin (3.4-5.0) gm/dl Globulin (2.5-4.0) gm/dl Albumin/Globulin Ratio (0.9-2) Lipase (11-82) U/L Procalcitonin (0-0.5) ng/ml TSH (0.300-4.500) uIu/ml Urine Color Yellow Urine Appearance Clear (Clear) Urine pH 7.0 (4.5-7.5) Ur Specific [place] 1.010 (1.000-1.030) Urine Protein Trace H (Negative) Urine Glucose (UA) Negative (Negative) Urine Ketones Negative (Negative) Urine Blood 1+ H (Negative) Urine Nitrite Negative (Negative) Urine Bilirubin Negative (Negative) Urine Urobilinogen Negative (Negative) Ur Leukocyte Esterase Negative (Negative) Urine WBC (Auto) 1-5 (0-5) /hpf Urine RBC (Auto) 5-10 H (0-4) /hpf U Hyaline Cast (Auto) 0 (0-5) /lpf U Epithel Cells (Auto) 10-20 H (0-5) /lpf Urine Bacteria (Auto) Negative (Negative) Adenovirus (PCR) (NotDetected) B. pertussis DNA (PCR) (NotDetected) B.parapertussis DNA PCR (NotDetected) C. pneumoniae DNA (PCR) (NotDetected) Coronavirus OC43 (PCR) (NotDetected) Coronavirus HKU1 (PCR) (NotDetected) Coronavirus 229E (PCR) (NotDetected) SARS-CoV-2 (PCR) (NotDetected) Coronavirus NL63 (PCR) (NotDetected) Human Metapneumovir PCR (NotDetected) Influenza Type A (PCR) (NotDetected) Influenza Type B (PCR) (NotDetected) M. pneumoniae (PCR) (NotDetected) Parainfluenza 1 (PCR) (NotDetected) Parainfluenza 2 (PCR) (NotDetected) Parainfluenza 3 (PCR) (NotDetected) Parainfluenza 4 (PCR) (NotDetected) RSV (PCR) (NotDetected) Entero/Rhino (PCR) (NotDetected) 03/24/23 03/24/23 03/24/23 Range/Units 10:40 10:40 10:40 WBC (4.8-10.8) K/ul RBC (4.20-5.40) M/uL Hgb (12.0-16.0) g/dl POC Hgb (12.0-16.0) g/dl Hct (37.0-47.0) % POC Hct (37-47) % MCV (80.0-100.0) fL MCH (25.0-34.0) pg MCHC (32.0-36.0) g/dL RDW Std Deviation (36.4-46.3) fL RDW Coeff of Mohsen (11.5-14.5) % Plt Count (130-400) K/uL MPV (9.4-12.4) fL Immature Gran % (Auto) % Neut % (Auto) % Lymph % (Auto) % [place] % (Auto) % Eos % (Auto) % Baso % (Auto) % Neut # (Auto) (1.40-6.50) K/uL Lymph # (Auto) (1.2-3.4) K/uL [place] # (Auto) (0.11-0.59) K/uL Eos # (Auto) (0-0.50) K/uL Baso # (Auto) (0-0.2) K/uL Immature Gran # (Auto) (0.01-0.20) K/uL PT (9.0-12.0) Seconds INR (0.9-1.1) POC Sodium (135-144) mmol/L Sodium 137 (136-145) mmol/L POC Potassium (3.3-5.0) mmol/L Potassium 2.8 L (3.5-5.1) mmol/L POC Chloride (101-112) mmol/L Chloride 100 (98-107) mmol/L Carbon Dioxide 26 (21-32) mmol/L POC Total CO2 (24-31) mmol/L Anion Gap 11 (3-11) POC Anion Gap (16-25) mmol/L POC BUN (7-18) mg/dl BUN 15 (6-23) mg/dl Creatinine 0.64 (0.6-1.2) mg/dl POC Creatinine (0.6-1.3) mg/dl Est Cr Clr Drug Dosing Not Reportable Est GFR ( Amer) 130.3 ml/min Est GFR (Non-Af Amer) 112.4 ml/min BUN/Creatinine Ratio 23.4 H (10-20) Glucose 112 H (70-99(Fasting)) mg/dl POC Glucose (other) (70-99) mg/dl Lactate 3.4 H* (0.4-2.0) mmol/L Calcium 9.1 (8.6-10.3) mg/dl POC Ioniz Calcium Breanne (1.12-1.32) mmol/l Magnesium 2.1 (1.7-2.4) mg/dl Total Bilirubin 0.5 (0.2-1.0) mg/dl AST 14 (13-39) U/L ALT 21 (7-52) U/L Alkaline Phosphatase 34 (34-104) U/L Troponin I High Sens 56.3 H* (0-14) pg/ml C-Reactive Protein < 0.50 (0-0.5) mg/dl Total Protein 6.9 (6.0-8.3) gm/dl Albumin 4.0 (3.4-5.0) gm/dl Globulin 2.9 (2.5-4.0) gm/dl Albumin/Globulin Ratio 1.4 (0.9-2) Lipase 18 (11-82) U/L Procalcitonin (0-0.5) ng/ml TSH 0.353 (0.300-4.500) uIu/ml Urine Color Urine Appearance (Clear) Urine pH (4.5-7.5) Ur Specific [place] (1.000-1.030) Urine Protein (Negative) Urine Glucose (UA) (Negative) Urine Ketones (Negative) Urine Blood (Negative) Urine Nitrite (Negative) Urine Bilirubin (Negative) Urine Urobilinogen (Negative) Ur Leukocyte Esterase (Negative) Urine WBC (Auto) (0-5) /hpf Urine RBC (Auto) (0-4) /hpf U Hyaline Cast (Auto) (0-5) /lpf U Epithel Cells (Auto) (0-5) /lpf Urine Bacteria (Auto) (Negative) Adenovirus (PCR) (NotDetected) B. pertussis DNA (PCR) (NotDetected) B.parapertussis DNA PCR (NotDetected) C. pneumoniae DNA (PCR) (NotDetected) Coronavirus OC43 (PCR) (NotDetected) Coronavirus HKU1 (PCR) (NotDetected) Coronavirus 229E (PCR) (NotDetected) SARS-CoV-2 (PCR) (NotDetected) Coronavirus NL63 (PCR) (NotDetected) Human Metapneumovir PCR (NotDetected) Influenza Type A (PCR) (NotDetected) Influenza Type B (PCR) (NotDetected) M. pneumoniae (PCR) (NotDetected) Parainfluenza 1 (PCR) (NotDetected) Parainfluenza 2 (PCR) (NotDetected) Parainfluenza 3 (PCR) (NotDetected) Parainfluenza 4 (PCR) (NotDetected) RSV (PCR) (NotDetected) Entero/Rhino (PCR) (NotDetected) 03/24/23 03/24/23 03/24/23 Range/Units 10:40 10:45 10:53 WBC (4.8-10.8) K/ul RBC (4.20-5.40) M/uL Hgb (12.0-16.0) g/dl POC Hgb 15.0 (12.0-16.0) g/dl Hct (37.0-47.0) % POC Hct 44 (37-47) % MCV (80.0-100.0) fL MCH (25.0-34.0) pg MCHC (32.0-36.0) g/dL RDW Std Deviation (36.4-46.3) fL RDW Coeff of Mohsen (11.5-14.5) % Plt Count (130-400) K/uL MPV (9.4-12.4) fL Immature Gran % (Auto) % Neut % (Auto) % Lymph % (Auto) % [place] % (Auto) % Eos % (Auto) % Baso % (Auto) % Neut # (Auto) (1.40-6.50) K/uL Lymph # (Auto) (1.2-3.4) K/uL [place] # (Auto) (0.11-0.59) K/uL Eos # (Auto) (0-0.50) K/uL Baso # (Auto) (0-0.2) K/uL Immature Gran # (Auto) (0.01-0.20) K/uL PT (9.0-12.0) Seconds INR (0.9-1.1) POC Sodium 139 (135-144) mmol/L Sodium (136-145) mmol/L POC Potassium 2.7 L (3.3-5.0) mmol/L Potassium (3.5-5.1) mmol/L POC Chloride 96 L (101-112) mmol/L Chloride (98-107) mmol/L Carbon Dioxide (21-32) mmol/L POC Total CO2 24 (24-31) mmol/L Anion Gap (3-11) POC Anion Gap 23.0 (16-25) mmol/L POC BUN 14 (7-18) mg/dl BUN (6-23) mg/dl Creatinine (0.6-1.2) mg/dl POC Creatinine 0.5 L (0.6-1.3) mg/dl Est Cr Clr Drug Dosing Est GFR ( Amer) ml/min Est GFR (Non-Af Amer) ml/min BUN/Creatinine Ratio (10-20) Glucose (70-99(Fasting)) mg/dl POC Glucose (other) 117 H (70-99) mg/dl Lactate (0.4-2.0) mmol/L Calcium (8.6-10.3) mg/dl POC Ioniz Calcium Breanne 1.17 (1.12-1.32) mmol/l Magnesium (1.7-2.4) mg/dl Total Bilirubin (0.2-1.0) mg/dl AST (13-39) U/L ALT (7-52) U/L Alkaline Phosphatase (34-104) U/L Troponin I High Sens (0-14) pg/ml C-Reactive Protein (0-0.5) mg/dl Total Protein (6.0-8.3) gm/dl Albumin (3.4-5.0) gm/dl Globulin (2.5-4.0) gm/dl Albumin/Globulin Ratio (0.9-2) Lipase (11-82) U/L Procalcitonin < 0.05 (0-0.5) ng/ml TSH (0.300-4.500) uIu/ml Urine Color Urine Appearance (Clear) Urine pH (4.5-7.5) Ur Specific [place] (1.000-1.030) Urine Protein (Negative) Urine Glucose (UA) (Negative) Urine Ketones (Negative) Urine Blood (Negative) Urine Nitrite (Negative) Urine Bilirubin (Negative) Urine Urobilinogen (Negative) Ur Leukocyte Esterase (Negative) Urine WBC (Auto) (0-5) /hpf Urine RBC (Auto) (0-4) /hpf U Hyaline Cast (Auto) (0-5) /lpf U Epithel Cells (Auto) (0-5) /lpf Urine Bacteria (Auto) (Negative) Adenovirus (PCR) Not Detected (NotDetected) B. pertussis DNA (PCR) Not Detected (NotDetected) B.parapertussis DNA PCR Not Detected (NotDetected) C. pneumoniae DNA (PCR) Not Detected (NotDetected) Coronavirus OC43 (PCR) Not Detected (NotDetected) Coronavirus HKU1 (PCR) Not Detected (NotDetected) Coronavirus 229E (PCR) Not Detected (NotDetected) SARS-CoV-2 (PCR) Not Detected (NotDetected) Coronavirus NL63 (PCR) Not Detected (NotDetected) Human Metapneumovir PCR Not Detected (NotDetected) Influenza Type A (PCR) Not Detected (NotDetected) Influenza Type B (PCR) Not Detected (NotDetected) M. pneumoniae (PCR) Not Detected (NotDetected) Parainfluenza 1 (PCR) Not Detected (NotDetected) Parainfluenza 2 (PCR) Not Detected (NotDetected) Parainfluenza 3 (PCR) Not Detected (NotDetected) Parainfluenza 4 (PCR) Not Detected (NotDetected) RSV (PCR) Not Detected (NotDetected) Entero/Rhino (PCR) Not Detected (NotDetected) 03/24/23 03/24/23 Range/Units 12:43 12:51 WBC (4.8-10.8) K/ul RBC (4.20-5.40) M/uL Hgb (12.0-16.0) g/dl POC Hgb (12.0-16.0) g/dl Hct (37.0-47.0) % POC Hct (37-47) % MCV (80.0-100.0) fL MCH (25.0-34.0) pg MCHC (32.0-36.0) g/dL RDW Std Deviation (36.4-46.3) fL RDW Coeff of Mohsen (11.5-14.5) % Plt Count (130-400) K/uL MPV (9.4-12.4) fL Immature Gran % (Auto) % Neut % (Auto) % Lymph % (Auto) % [place] % (Auto) % Eos % (Auto) % Baso % (Auto) % Neut # (Auto) (1.40-6.50) K/uL Lymph # (Auto) (1.2-3.4) K/uL [place] # (Auto) (0.11-0.59) K/uL Eos # (Auto) (0-0.50) K/uL Baso # (Auto) (0-0.2) K/uL Immature Gran # (Auto) (0.01-0.20) K/uL PT (9.0-12.0) Seconds INR (0.9-1.1) POC Sodium (135-144) mmol/L Sodium (136-145) mmol/L POC Potassium (3.3-5.0) mmol/L Potassium (3.5-5.1) mmol/L POC Chloride (101-112) mmol/L Chloride (98-107) mmol/L Carbon Dioxide (21-32) mmol/L POC Total CO2 (24-31) mmol/L Anion Gap (3-11) POC Anion Gap (16-25) mmol/L POC BUN (7-18) mg/dl BUN (6-23) mg/dl Creatinine (0.6-1.2) mg/dl POC Creatinine (0.6-1.3) mg/dl Est Cr Clr Drug Dosing Est GFR ( Amer) ml/min Est GFR (Non-Af Amer) ml/min BUN/Creatinine Ratio (10-20) Glucose (70-99(Fasting)) mg/dl POC Glucose (other) (70-99) mg/dl Lactate 2.1 H* (0.4-2.0) mmol/L Calcium (8.6-10.3) mg/dl POC Ioniz Calcium [place] (1.12-1.32) mmol/l Magnesium (1.7-2.4) mg/dl Total Bilirubin (0.2-1.0) mg/dl AST (13-39) U/L ALT (7-52) U/L Alkaline Phosphatase (34-104) U/L Troponin I High Sens 68.9 H* D (0-14) pg/ml C-Reactive Protein (0-0.5) mg/dl Total Protein (6.0-8.3) gm/dl Albumin (3.4-5.0) gm/dl Globulin (2.5-4.0) gm/dl Albumin/Globulin Ratio (0.9-2) Lipase (11-82) U/L Procalcitonin (0-0.5) ng/ml TSH (0.300-4.500) uIu/ml Urine Color Urine Appearance (Clear) Urine pH (4.5-7.5) Ur Specific [place] (1.000-1.030) Urine Protein (Negative) Urine Glucose (UA) (Negative) Urine Ketones (Negative) Urine Blood (Negative) Urine Nitrite (Negative) Urine Bilirubin (Negative) Urine Urobilinogen (Negative) Ur Leukocyte Esterase (Negative) Urine WBC (Auto) (0-5) /hpf Urine RBC (Auto) (0-4) /hpf U Hyaline Cast (Auto) (0-5) /lpf U Epithel Cells (Auto) (0-5) /lpf Urine Bacteria (Auto) (Negative) Adenovirus (PCR) (NotDetected) B. pertussis DNA (PCR) (NotDetected) B.parapertussis DNA PCR (NotDetected) C. pneumoniae DNA (PCR) (NotDetected) Coronavirus OC43 (PCR) (NotDetected) Coronavirus HKU1 (PCR) (NotDetected) Coronavirus 229E (PCR) (NotDetected) SARS-CoV-2 (PCR) (NotDetected) Coronavirus NL63 (PCR) (NotDetected) Human Metapneumovir PCR (NotDetected) Influenza Type A (PCR) (NotDetected) Influenza Type B (PCR) (NotDetected) M. pneumoniae (PCR) (NotDetected) Parainfluenza 1 (PCR) (NotDetected) Parainfluenza 2 (PCR) (NotDetected) Parainfluenza 3 (PCR) (NotDetected) Parainfluenza 4 (PCR) (NotDetected) RSV (PCR) (NotDetected) Entero/Rhino (PCR) (NotDetected) Administered Medications Acetaminophen (Acetaminophen 500 Mg Tab) 500 mg PO Q4H PRN PRN Reason: Fever / pain Stop: 04/23/23 16:09 Last Admin: 03/24/23 16:35 Dose: 500 mg Documented By: RT Lactated Ringer's (Lr) 1,000 mls @ 125 mls/hr IV .Q8H RAHEL Stop: 03/24/23 23:28 Last Admin: 03/24/23 15:56 Dose: 125 mls/hr Documented By: RT Potassium Chloride (Potassium Chloride Crtab 20 Meq Tabcr) 20 meq PO TID RAHEL Stop: 03/25/23 09:01 Last Admin: 03/24/23 16:10 Dose: 20 meq Documented By: RT Discontinued Medications Hydrocortisone Sodium Succinate (Hydrocortisone Sod Succinate 100 Mg/2 Ml Vial) 50 mg IV NOW STA Stop: 03/24/23 10:17 Last Admin: 03/24/23 11:06 Dose: 50 mg Documented By: QGV Sodium Chloride (Nss) 500 mls @ 999 mls/hr IV .Q31M ARHEL Stop: 03/24/23 11:00 Last Infusion: 03/24/23 11:53 Dose: 0 mls/hr Documented By: Admin: 03/24/23 11:14 Dose: 999 mls/hr Documented By: QGV Promethazine HCl (Phenergan) 6.25 mg in 50.25 mls @ 201 mls/hr IV NOW STA Stop: 03/24/23 10:30 Last Infusion: 03/24/23 11:29 Dose: 0 mls/hr Documented By: Admin: 03/24/23 11:07 Dose: 201 mls/hr Documented By: QGV Sodium Chloride (Nss 1000ml) 1,000 mls @ 999 mls/hr IV .Q1H1M ONE Stop: 03/24/23 12:49 Last Infusion: 03/24/23 14:48 Dose: 0 mls/hr Documented By: Admin: 03/24/23 11:57 Dose: 999 mls/hr Documented By: ES Potassium Chloride (K Eze / Wtr) 10 meq in 100 mls @ 100 mls/hr IV ONE ONE Stop: 03/24/23 12:48 Last Infusion: 03/24/23 14:48 Dose: 0 mls/hr Documented By: Admin: 03/24/23 11:59 Dose: 100 mls/hr Documented By: ES Ioversol (Ioversol 350 Mg 125ml Prefilled Syringe) 118 ml IV ONCE ONE Stop: 03/24/23 11:29 Last Admin: 03/24/23 11:29 Dose: 118 ml Documented By: PAU Miscellaneous (Patient's Height &/Or Weight Needed) 1 each N/A Q2H RAHEL Stop: 04/23/23 15:44 Last Admin: 03/24/23 15:39 Dose: Not Given Documented By: RT Potassium Chloride (Potassium Chloride Crtab 20 Meq Tabcr) 20 meq PO NOW STA Stop: 03/24/23 12:48 Last Admin: 03/24/23 12:57 Dose: 20 meq Documented By: CAW Imaging Data Radiologist's Impression: Abdomen/Pelvis CT 03/24/23 10:[address] WITH IV CONTRAST CT DOSE: HISTORY: nausea, weak, infection? TECHNIQUE: Multiaxial CT images of the abdomen and pelvis were performed following the use of intravenous contrast. A dose lowering technique was ut ilized adhering to the principles of ALARA. COMPARISON STUDY: Abdomen and pelvis CT 10/26/2022. FINDINGS: The lung bases are clear. No pneumoperitoneum. No pneumatosis. No acute fractures identified. There is a tiny fat-containing umbilical hernia. Stable 1.5 cm hemangioma and a stable 1 cm cyst within the left hepatic lobe. The main portal vein is patent. The gallbladder, adrenal glands, and pancreas are unremarkable. Stable 4 mm hypodense lesion within the spleen. This is too small to characterize but likely benign. The kidneys enhance normally. Bilateral nephrolithiasis, unchanged. No ureteral stones. No hydronephrosis. Normal caliber abdominal aorta. There is a left circumaortic renal vein. No retroperitoneal or pelvic lymphadenopathy. The bladder is mildly distended. No bladder wall thickening. The uterus and right ovary are within normal limits. There are 2 left ovarian cysts with the largest measuring 4.2 cm. No bowel wall thickening or obstruction. Normal appendix. IMPRESSION: 1. No bowel wall thickening or obstruction. 2. Normal appendix. 3. Bilateral nephrolithiasis. No ureteral stones. No hydronephrosis. 4. There are 2 left ovarian cysts with the largest measuring 4.2 cm. 5. Additional findings as described above. ACT 112: Negative or not required by law. Electronically signed by: Yao Irizarry M.D. 03/24/2023 12:21 PM Chest CTA 03/24/23 10:16 CT ANGIOGRAM OF THE CHEST CLINICAL HISTORY: Dyspnea. Recent travel history. COMPARISON STUDY: Chest x-ray dated 10/26/2022. Chest CT dated 07/01/2022. TECHNIQUE: Following the IV administration of 118 cc of Optiray 320, CT angiog lisa of the chest was performed from the upper abdomen to the thoracic inlet utilizing the pulmonary embolus protocol. Images are reviewed in the axial, sagittal, and coronal planes. 3-D MIPS images are created and assessed. IV contrast was administered without complication. A dose lowering technique was utilized adhering to the principles of ALARA. FINDINGS: Thyroid: Imaged portions of the thyroid gland are normal in size and attenuation. Thoracic aorta: The thoracic aorta is normal in caliber and demonstrates stand [place] 3-vessel arch anatomy. No dissection is seen. Pulmonary vasculature: The pulmonary trunk is normal in caliber. There are no filling defects identified in main, lobar, or segmental pulmonary branches to suggest pulmonary embolus. Heart: The heart is normal in size and without pericardial effusion. Lungs and pleural spaces: There are trace pleural effusions with dependent atelectasis. The lungs are otherwise clear. The trachea and central airways are patent. A 6 mm groundglass nodule is again seen at the right apex on image #195. Mediastinum: There is no mediastinal lymphadenopathy. Snehal: Clear. Axillae: There is no axillary lymphadenopathy. Upper abdomen: A 9 mm cyst is incidentally noted in the left lobe of liver. Partially visualized upper abdominal viscera is otherwise within normal limits. Skeletal structures: No lytic or blastic bony lesions are seen. IMPRESSION: 1. There is no evidence of pulmonary embolus in the main, lobar, or segmental pulmonary arteries. 2. Trace pleural effusion. 3. There is no airspace consolidation typical for pneumonia. 4. A 6 mm groundglass nodule is again seen at the right apex. This appears mod estly increased in size from 07/01/2022. A one-year follow-up examination is recommended for reassessment. 5. Additional findings as above. ACT 112: Negative or not required by law. Electronically signed by: Tae Vaughn M.D. 03/24/2023 12:[address] 03/24/23 10:16 CT sinus wo con CLINICAL HISTORY: pain, infection ongoing TECHNIQUE: Multidetector axial CT images through the sinuses were obtained. Coronal and sagittal reformations were also obtained. Automated dose lowering techniques and/or adjustment according to patient size were utilized for this examination. CT DOSE: 3670.08 mGy.cm Comparison: None available at the time of this dictation. FINDINGS: Imaged portions of the paranasal sinuses and mastoid air cells are clear. The orbits appear normal. There are no acute fractures of the calvaria or scalp swelling. IMPRESSION: No acute abnormality and in particular no evidence of sinusitis. ACT 112: Negative or not required by law. Electronically signed by: Jose Forbes M.D. 03/24/2023 12:02 PM Discharge Plan Visit Data Chief Complaint: Illness Stated Complaint: dr glynn, sinus infection onging ED Provider: Wesley Arcos Discharge Problem: Elevated troponin I level, Hypokalemia, Nausea, Breathlessness, Frontal sinus pain, Adrenal insufficiency, Elevated lactic acid level Patient Disposition: Admitted As Inpatient Discharge Instructions Interventions: ED Discharge Assessment Last Done: 03/24/23 15:04
[2023-03-24] MEDS ORDERED: SODIUM CHLORIDE 0.9% 500 ML IV SCH (10:30)
[2023-03-24 11:11] LABS: iSTAT Creatinine 0.5 mg/dl (0.6-1.3); iSTAT Ionized Calcium 1.17 mmol/l (1.12-1.32); iSTAT Potassium 2.7 mmol/L (3.3-5.0)
[2023-03-24 11:12] LABS: Appearance Urine Clear (Clear); Bacteria Urine Automated Negative (Negative); Bilirubin Urine Negative (Negative); Blood Urine 1+ (Negative); Cast Urine Automated 0 /lpf (0-5); Color Urine Yellow; Glucose Urine UA Negative (Negative); Ketones Urine Negative (Negative); Leukocyte Esterase Urine Negative (Negative); Nitrite Urine Negative (Negative); Protein Urine Trace (Negative); Urobilinogen Urine Negative (Negative)
[2023-03-24 11:12] LABS: Basophils # (auto) 0.02 K/uL (0-0.2); Basophils % (auto) 0.2 %; Eosinophils # (auto) 0.02 K/uL (0-0.50); Eosinophils % (auto) 0.2 %; Hematocrit (blood only) 40.6 % (37.0-47.0); Hemoglobin 13.6 g/dl (12.0-16.0); Immature Granulocytes # (auto) 0.09 K/uL (0.01-0.20); Immature Granulocytes % (auto) 0.7 %; Lymphocytes # (auto) 1.26 K/uL (1.2-3.4); Lymphocytes % (auto) 9.5 %; Mean Corpuscular Hemoglobin 28.6 pg (25.0-34.0); Mean Corpuscular Hgb Conc 33.5 g/dL (32.0-36.0); Mean Corpuscular Volume 85.3 fL (80.0-100.0); Mean Platelet Volume 9.9 fL (9.4-12.4); Monocytes % (auto) 8.3 %; Neutrophils # (auto) 10.73 K/uL (1.40-6.50); Neutrophils % (auto) 81.1 %; Platelet Count 348 K/uL (130-400); RDW Coefficient of Variation 14.7 % (11.5-14.5); Red Blood Count 4.76 M/uL (4.20-5.40); White Blood Count 13.22 K/ul (4.8-10.8)
[2023-03-24] MEDS ORDERED: IOVERSOL 350 MG 125mL Prefilled Syringe IV ONE (11:28)
[2023-03-24 11:32] LABS: Alanine Aminotransferase 21 U/L (7-52); Albumin Globulin Ratio 1.4 (0.9-2); Alkaline Phosphatase 34 U/L (34-104); Anion Gap 11 (3-11); Aspartate Aminotransferase 14 U/L (13-39); BUN Creatinine Ratio 23.4 (10-20); Bilirubin,Total 0.5 mg/dl (0.2-1.0); Blood Urea Nitrogen 15 mg/dl (6-23); C Reactive Protein < 0.50 mg/dl (0-0.5); Calcium 9.1 mg/dl (8.6-10.3); Carbon Dioxide 26 mmol/L (21-32); Chloride 100 mmol/L (98-107); Est GFR (African American) 130.3 ml/min; Est GFR (Non-African American) 112.4 ml/min; Globulin 2.9 gm/dl (2.5-4.0); Glucose 112 mg/dl (70-99(Fasting)); Lipase 18 U/L (11-82); Magnesium 2.1 mg/dl (1.7-2.4); Potassium 2.8 mmol/L (3.5-5.1); Sodium 137 mmol/L (136-145); Total Protein 6.9 gm/dl (6.0-8.3)
[2023-03-24 11:38] LABS: INR 0.9 (0.9-1.1); Prothrombin Time 9.9 Seconds (9.0-12.0)
[2023-03-24] MEDS ORDERED: SODIUM CHLORIDE 0.9% 1000ML 1,000 ML IV ONE (11:49)
[2023-03-24] MEDS ORDERED: POTASSIUM CHLORIDE / WTR 10 MEQ/100 ML PLCT IV ONE (11:49)
[2023-03-24 11:51] LABS: Troponin I High Sensitivity 56.3 pg/ml (0-14)
--- NOTE | 2023-03-24 12:03 | CT Scan Report ---
CT sinus wo con CLINICAL HISTORY: pain, infection ongoing TECHNIQUE: Multidetector axial CT images through the sinuses were obtained. Coronal and sagittal refo rmations were also obtained. Automated dose lowering techniques and/or adjustment according to patien t size were utilized for this examination. CT DOSE: 3670.08 mGy.cm Comparison: None available at the time of this dictation. FINDINGS: Imaged portions of the paranasal sinuses and mastoid air cells are clear. The orbits appear normal. There are no acute fractures of the calvaria or scalp swelling. IMPRESSION: No acute abnormality and in particular no evidence of sinusitis. ACT 112: Negative or not required by law. Electronically signed by: Jose Forbes M.D. 03/24/2023 12:02 PM
--- NOTE | 2023-03-24 12:11 | CT Scan Report ---
CT ANGIOGRAM OF THE CHEST CLINICAL HISTORY: Dyspnea. Recent travel history. COMPARISON STUDY: Chest x-ray dated 10/26/2022. Chest CT dated 07/01/2022. TECHNIQUE: Following the IV administration of 118 cc of Optiray 320, CT angiogram of the chest was pe rformed from the upper abdomen to the thoracic inlet utilizing the pulmonary embolus protocol. Images are reviewed in the axial, sagittal, and coronal planes. 3-D MIPS images are created and assessed. I V contrast was administered without complication. A dose lowering technique was utilized adhering to the principles of ALARA. FINDINGS: Thyroid: Imaged portions of the thyroid gland are normal in size and attenuation. Thoracic aorta: The thoracic aorta is normal in caliber and demonstrates standard 3-vessel arch anato my. No dissection is seen. Pulmonary vasculature: The pulmonary trunk is normal in caliber. There are no filling defects identif ied in main, lobar, or segmental pulmonary branches to suggest pulmonary embolus. Heart: The heart is normal in size and without pericardial effusion. Lungs and pleural spaces: There are trace pleural effusions with dependent atelectasis. The lungs are otherwise clear. The trachea and central airways are patent. A 6 mm groundglass nodule is again seen at the right apex on image #195. Mediastinum: There is no mediastinal lymphadenopathy. Snehal: Clear. Axillae: There is no axillary lymphadenopathy. Upper abdomen: A 9 mm cyst is incidentally noted in the left lobe of liver. Partially visualized uppe r abdominal viscera is otherwise within normal limits. Skeletal structures: No lytic or blastic bony lesions are seen. IMPRESSION: 1. There is no evidence of pulmonary embolus in the main, lobar, or segmental pulmonary arteries. 2. Trace pleural effusion. 3. There is no airspace consolidation typical for pneumonia. 4. A 6 mm groundglass nodule is again seen at the right apex. This appears modestly increased in size from 07/01/2022. A one-year follow-up examination is recommended for reassessment. 5. Additional findings as above. ACT 112: Negative or not required by law. Electronically signed by: Tae Vaughn M.D. 03/24/2023 12:09 PM
--- NOTE | 2023-03-24 12:22 | CT Scan Report ---
ABDOMEN AND PELVIS CT WITH IV CONTRAST CT DOSE: HISTORY: nausea, weak, infection? TECHNIQUE: Multiaxial CT images of the abdomen and pelvis were performed following the use of intrave nous contrast. A dose lowering technique was utilized adhering to the principles of ALARA. COMPARISON STUDY: Abdomen and pelvis CT 10/26/2022. FINDINGS: The lung bases are clear. No pneumoperitoneum. No pneumatosis. No acute fractures identifie d. There is a tiny fat-containing umbilical hernia. Stable 1.5 cm hemangioma and a stable 1 cm cyst w ithin the left hepatic lobe. The main portal vein is patent. The gallbladder, adrenal glands, and watkins creas are unremarkable. Stable 4 mm hypodense lesion within the spleen. This is too small to characte rize but likely benign. The kidneys enhance normally. Bilateral nephrolithiasis, unchanged. No ureter al stones. No hydronephrosis. Normal caliber abdominal aorta. There is a left circumaortic renal vein . No retroperitoneal or pelvic lymphadenopathy. The bladder is mildly distended. No bladder wall thic kening. The uterus and right ovary are within normal limits. There are 2 left ovarian cysts with the largest measuring 4.2 cm. No bowel wall thickening or obstruction. Normal appendix. IMPRESSION: 1. No bowel wall thickening or obstruction. 2. Normal appendix. 3. Bilateral nephrolithiasis. No ureteral stones. No hydronephrosis. 4. There are 2 left ovarian cysts with the largest measuring 4.2 cm. 5. Additional findings as described above. ACT 112: Negative or not required by law. Electronically signed by: Yao Irizarry M.D. 03/24/2023 12:21 PM
[2023-03-24 12:36] LABS: Adenovirus PCR Not Detected (NotDetected); Bordetella parapertussis PCR Not Detected (NotDetected); Bordetella pertussis PCR Not Detected (NotDetected); Chlamydia pneumoniae PCR Not Detected (NotDetected); Coronavirus 229E PCR Not Detected (NotDetected); Coronavirus CoV-2 (COVID19)PCR Not Detected (NotDetected); Coronavirus HKU1 PCR Not Detected (NotDetected); Coronavirus NL63 PCR Not Detected (NotDetected); Coronavirus OC43PCR Not Detected (NotDetected); Human Metapneumovirus PCR Not Detected (NotDetected); Influenza A PCR Not Detected (NotDetected); Influenza B PCR Not Detected (NotDetected); Mycoplasma pneumoniae PCR Not Detected (NotDetected); Parainfluenza Virus 1 PCR Not Detected (NotDetected); Parainfluenza Virus 2 PCR Not Detected (NotDetected); Parainfluenza Virus 3 PCR Not Detected (NotDetected); Parainfluenza Virus 4 PCR Not Detected (NotDetected); Respiratory Syncytial VirusPCR Not Detected (NotDetected); Rhinovirus/Enterovirus PCR Not Detected (NotDetected)
[2023-03-24] MEDS ORDERED: POTASSIUM CHLORIDE CRTAB 20 MEQ TABCR PO STA (12:47)
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
--- NOTE | 2023-03-24 14:17 | Electrocardiogram Report ---
Test Reason : Blood Pressure : / mmHG Vent. Rate : 069 BPM Atrial Rate : 069 BPM P-R Int : 140 ms QRS Dur : 074 ms QT Int : 402 ms P-R-T Axes : 056 049 055 degrees QTc Int : 430 ms Normal sinus rhythm Normal ECG When compared with ECG of 26-OCT-2022 04:26, No significant change was found Confirmed by King Vigil ([id number]) on 03/24/2023 2:17:38 PM Referred By: REFERRED SELF Confirmed By:Olayinka Vigil
[2023-03-24] MEDS ORDERED: ALBUTEROL HFA 8 GM INHALER INH PRN (15:29)
[2023-03-24] MEDS ORDERED: LACTATED RINGER'S 1,000 ML IV SCH (15:29)
[2023-03-24] MEDS ORDERED: Patient's HEIGHT &/or WEIGHT Needed SCH (15:45)
[2023-03-24] MEDS: POTASSIUM CHLORIDE CRTAB 20 MEQ TABCR PO SCH ×2 (16:10→20:16)
[2023-03-24] MEDS ORDERED: Nursing to Pharmacy Communication SCH (16:15)
[2023-03-24 16:20] LABS: Calcium 8.2 mg/dl (8.6-10.3); Creatinine Clr Calc Pharmacy 147.3 ml/min; Est GFR (African American) 133.1 ml/min; Est GFR (Non-African American) 114.8 ml/min
[2023-03-24] MEDS ORDERED: ONDANSETRON INJ 2 MG/ML 2 ML VIAL IV PRN (16:20)
[2023-03-24 16:31] LABS: Troponin I High Sensitivity 54.1 pg/ml (0-14)
[2023-03-24] MEDS: ACETAMINOPHEN 500 MG TAB PO PRN ×2 (16:35→23:35)
--- NOTE | 2023-03-24 16:44 | XCELERA ---
[id number] \\[id number]
[2023-03-24] MEDS: FLUTICASONE/VILANTEROL 100/25MCG 14 PUFFS/INHALER INH SCH (17:23)
[2023-03-24] MEDS: PROMETHAZINE HCL 25 MG/20 ML UDP PO PRN (17:25)
[2023-03-24] MEDS: HYDROCORTISONE SOD 50 MG in SYRINGE 0 ML IV SCH (17:26)
[2023-03-24] MEDS ORDERED: FAMOTIDINE 20 MG TAB PO PRN (17:29)
[2023-03-24] MEDS ORDERED: HYDROCORTISONE SOD SUCCINATE 100 MG/2 ML VIAL IV SCH (18:00)
[2023-03-24] MEDS: LORazepam 1 MG TAB PO PRN (20:16)
[2023-03-24] MEDS: DESMOPRESSIN ACETATE 0.1 MG TAB PO SCH (20:17)
[2023-03-24 21:40] LABS: BUN Creatinine Ratio 21.7 (10-20); Calcium 8.9 mg/dl (8.6-10.3); Est GFR (African American) 127.1 ml/min; Est GFR (Non-African American) 109.7 ml/min; Potassium 3.3 mmol/L (3.5-5.1)
[2023-03-25] MEDS: HYDROCORTISONE SOD 50 MG in SYRINGE 0 ML IV SCH ×2 (02:24→09:59)
[2023-03-25] MEDS: PROMETHAZINE HCL 25 MG/20 ML UDP PO PRN ×2 (05:51→18:37)
[2023-03-25] MEDS: LEVOTHYROXINE SODIUM 150 MCG TABLET PO SCH (06:08)
[2023-03-25] MEDS: LIOTHYRONINE SODIUM 5 MCG TAB PO SCH (06:08)
[2023-03-25] MEDS: ACETAMINOPHEN 500 MG TAB PO PRN ×3 (06:41→21:01)
[2023-03-25] MEDS: LORazepam 1 MG TAB PO PRN ×2 (06:41→15:28)
[2023-03-25 06:58] LABS: BUN Creatinine Ratio 24.5 (10-20); Calcium 8.9 mg/dl (8.6-10.3); Creatinine Clr Calc Pharmacy 169.1 ml/min; Est GFR (African American) 138.6 ml/min; Est GFR (Non-African American) 119.6 ml/min; Magnesium 2.1 mg/dl (1.7-2.4); Potassium 3.3 mmol/L (3.5-5.1)
[2023-03-25] MEDS ORDERED: Nursing to Pharmacy Communication SCH (07:00)
[2023-03-25 07:13] LABS: Troponin I High Sensitivity 22.5 pg/ml (0-14)
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
[2023-03-25 07:48] LABS: Basophils # (auto) 0.02 K/uL (0-0.2); Basophils % (auto) 0.2 %; Eosinophils # (auto) 0.01 K/uL (0-0.50); Eosinophils % (auto) 0.1 %; Hemoglobin 13.3 g/dl (12.0-16.0); Immature Granulocytes # (auto) 0.05 K/uL (0.01-0.20); Immature Granulocytes % (auto) 0.5 %; Lymphocytes # (auto) 1.69 K/uL (1.2-3.4); Lymphocytes % (auto) 15.5 %; Mean Corpuscular Hemoglobin 28.8 pg (25.0-34.0); Mean Corpuscular Hgb Conc 33.3 g/dL (32.0-36.0); Mean Corpuscular Volume 86.6 fL (80.0-100.0); Mean Platelet Volume 10.8 fL (9.4-12.4); Monocytes # (auto) 0.69 K/uL (0.11-0.59); Monocytes % (auto) 6.3 %; Neutrophils # (auto) 8.44 K/uL (1.40-6.50); Neutrophils % (auto) 77.4 %; Platelet Count 299 K/uL (130-400); RDW Coefficient of Variation 14.8 % (11.5-14.5); RDW Standard Deviation 47.5 fL (36.4-46.3); Red Blood Count 4.62 M/uL (4.20-5.40)
[2023-03-25] MEDS: POTASSIUM CHLORIDE CRTAB 20 MEQ TABCR PO SCH (08:18)
[2023-03-25] MEDS: DESMOPRESSIN ACETATE 0.1 MG TAB PO SCH ×2 (08:20→19:56)
[2023-03-25] MEDS: FLUTICASONE/VILANTEROL 100/25MCG 14 PUFFS/INHALER INH SCH (08:24)
[2023-03-25] MEDS: UMECLIDINIUM BROMIDE 62.5MCG/BLISTER 7 PUFFS/INHALER INH SCH (08:24)
[2023-03-25] MEDS ORDERED: LIOTHYRONINE SODIUM 5 MCG TAB PO SCH (09:00)
[2023-03-25 09:23] LABS: Adenovirus F 40/41 PCR Not Detected (NotDetected); Astrovirus PCR Not Detected (NotDetected); Campylobacter PCR Not Detected (NotDetected); Cryptosporidium PCR Not Detected (NotDetected); Cyclospora cayetanensis PCR Not Detected (NotDetected); Entamoeba histolytica PCR Not Detected (NotDetected); Enteroaggregative E.coli(EAEC) Not Detected (NotDetected); Enteropathogenic E.coli (EPEC) Not Detected (NotDetected); Enterotoxigenic E.coli (ETEC) Not Detected (NotDetected); Giardia lamblia PCR Not Detected (NotDetected); Norovirus GI/GII PCR Not Detected (NotDetected); Plesiomonas shigelloides PCR Not Detected (NotDetected); Rotavirus A PCR Not Detected (NotDetected); Salmonella PCR Not Detected (NotDetected); Sapovirus PCR Not Detected (NotDetected); Shiga-like Toxin E.coli (STEC) Not Detected (NotDetected); Shigella/Enteroinvasive E.coli Not Detected (NotDetected); Vibrio cholerae PCR Not Detected (NotDetected); Vibrio species PCR Not Detected (NotDetected); Yersinia enterocolitica PCR Not Detected (NotDetected)
[2023-03-25] MEDS ORDERED: POTASSIUM CHLORIDE CRTAB 20 MEQ TABCR PO STA (09:36)
[2023-03-25] MEDS: FLUTICASONE PROPIONATE NA SPR 16 GM BTL SCH ×2 (09:59→19:57)
[2023-03-25] MEDS: OXYMETAZOLINE 0.05% 30 ML BTL SCH (11:54)
[2023-03-25] MEDS ORDERED: LORazepam 0.5 MG TAB ONE (15:27)
[2023-03-25] MEDS: HYDROCORTISONE SOD 25 MG in SYRINGE 0 ML IV SCH (17:39)
[2023-03-25] MEDS ORDERED: ONDANSETRON 4 MG OD TAB PO PRN (19:16)
[2023-03-25] MEDS: IPRATROPIUM BROMIDE NASAL SPRAY 0.06% 15ML NAE SCH (19:58)
[2023-03-25] MEDS: LORazepam 0.5 MG TAB PO PRN (21:01)
[2023-03-26] MEDS: HYDROCORTISONE SOD 25 MG in SYRINGE 0 ML IV SCH (01:55)
[2023-03-26] MEDS: ACETAMINOPHEN 500 MG TAB PO PRN ×3 (01:57→13:56)
[2023-03-26] MEDS: LIOTHYRONINE SODIUM 5 MCG TAB PO SCH (06:14)
[2023-03-26] MEDS: LEVOTHYROXINE SODIUM 150 MCG TABLET PO SCH (06:14)
[2023-03-26 06:15] LABS: Basophils # (auto) 0.02 K/uL (0-0.2); Basophils % (auto) 0.2 %; Eosinophils # (auto) 0.06 K/uL (0-0.50); Eosinophils % (auto) 0.6 %; Hematocrit (blood only) 39.8 % (37.0-47.0); Hemoglobin 13.5 g/dl (12.0-16.0); Immature Granulocytes # (auto) 0.07 K/uL (0.01-0.20); Immature Granulocytes % (auto) 0.7 %; Lymphocytes # (auto) 1.98 K/uL (1.2-3.4); Lymphocytes % (auto) 20.5 %; Mean Corpuscular Hemoglobin 28.8 pg (25.0-34.0); Mean Corpuscular Hgb Conc 33.9 g/dL (32.0-36.0); Mean Corpuscular Volume 84.9 fL (80.0-100.0); Mean Platelet Volume 9.9 fL (9.4-12.4); Monocytes # (auto) 0.71 K/uL (0.11-0.59); Monocytes % (auto) 7.4 %; Neutrophils % (auto) 70.6 %; Platelet Count 351 K/uL (130-400); RDW Standard Deviation 46.4 fL (36.4-46.3); Red Blood Count 4.69 M/uL (4.20-5.40); White Blood Count 9.64 K/ul (4.8-10.8)
[2023-03-26] MEDS: LORazepam 0.5 MG TAB PO PRN ×2 (07:24→13:56)
[2023-03-26] MEDS: PROMETHAZINE HCL 25 MG/20 ML UDP PO PRN ×2 (07:25→13:57)
--- NOTE | 2023-03-26 08:03 | Hospitalist Progress Note ---
Date of Service March 26, 2023 Assessment & Plan Admission and Anticipated Discharge Date Admission Date: March 24, 2023 Results & Data Results & Data Vital Signs (Past 12 Hours) Vital Signs Temp Pulse Pulse Resp BP Pulse Ox O2 Del Method 03/26/23 07:52 56 L 03/26/23 03:00 36.6 C 44 L 16 156/78 H 95 Room Air 03/25/23 23:00 37.3 C 66 16 138/74 97 Room Air 03/25/23 23:04 65
[2023-03-26] MEDS: DESMOPRESSIN ACETATE 0.1 MG TAB PO SCH (08:04)
[2023-03-26] MEDS: FLUTICASONE PROPIONATE NA SPR 16 GM BTL SCH (08:04)
[2023-03-26] MEDS: UMECLIDINIUM BROMIDE 62.5MCG/BLISTER 7 PUFFS/INHALER INH SCH (08:05)
[2023-03-26] MEDS: OXYMETAZOLINE 0.05% 30 ML BTL SCH (08:05)
[2023-03-26] MEDS: FLUTICASONE/VILANTEROL 100/25MCG 14 PUFFS/INHALER INH SCH (08:06)
[2023-03-26] MEDS: IPRATROPIUM BROMIDE NASAL SPRAY 0.06% 15ML NAE SCH (08:06)
[2023-03-26 08:42] LABS: BUN Creatinine Ratio 28.6 (10-20); Calcium 8.6 mg/dl (8.6-10.3); Creatinine Clr Calc Pharmacy 158.2 ml/min; Est GFR (African American) 136.1 ml/min; Est GFR (Non-African American) 117.5 ml/min; Potassium 3.6 mmol/L (3.5-5.1)
[2023-03-26] MEDS ORDERED: HYDROCORTISONE SOD 25 MG in SYRINGE 0 ML IV SCH (09:45)
[2023-03-26] MEDS ORDERED: HYDROCORTISONE 10 MG TAB PO SCH ×4 (10:00→22:00)
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
[2023-03-27] MEDS ORDERED: HYDROCORTISONE 10 MG TAB PO SCH ×4 (10:00→22:00)
== END 2023-03-26 15:58 | disposition home or self-care (01) ==
LOC: ED 09:51 → 4W 09:51 → SUATTDRO 13:50 → 4W 15:04

== ENCOUNTER 2023-11-25 12:35 | Observation (INO) ==
[2023-11-25] MEDS: SODIUM CHLORIDE 0.9% 500 ML IV SCH (14:07)
--- NOTE | 2023-11-25 14:19 | Emergency Department Note ---
Impression & Plan Weakness, Adrenal insufficiency, Elevated lactic acid level ED Provider Note NAME: ARMEN DUNN AGE: 38 SEX: F : 1985 ARRIVES VIA: Walk-In INFORMANT: [Patient] ED PROVIDER(S): [Tae Harper MD] CHIEF COMPLAINT: Illness HISTORY OF PRESENT ILLNESS: The patient is a 38-year-old female with a secondary adrenal insufficiency. She had a sore throat for a few days and has been a bit congested. She had noted some diarrhea and nausea. Today, she was weak, she had pain in her thighs, she was dizzy, there was some chest pain and he felt quite washed out. She had a low-grade fever. Patient is concerned that she may be suffering from adrenal crisis. She did take 100 mg of Solu-Cortef IM prior to arrival. The patient states that oftentimes, her sinuses are the issue. She has not noticed any urinary complaints. She has not had a rash although, she saw an area that looked like a bull's-eye sometime ago on her ankle, this quickly resolved though. She has no known tick bites. The patient states that her son and daughter both have colds, she wonders if she may have a viral illness causing everything. PMHx/PSHx/Social Hx: See Below PHYSICAL EXAM: GENERAL: Patient is in no acute distress. HEENT: No acute trauma, normocephalic atraumatic, mucous membranes moist, no nasal congestion. NECK: No stridor, no adenopathy, no meningismus, trachea is midline. LUNGS: Clear to auscultation bilaterally, no wheeze, no rhonchi, breath sounds equal. HEART: Without murmurs gallops or rubs, regular rate and rhythm. ABDOMEN: Soft, nontender, no peritonitis. EXTREMITIES: No cyanosis, full range of motion of all the joints without pain or difficulty. NEUROLOGIC: Oriented x 3, no acute motor or sensory deficits, no focal weakness. SKIN: No jaundice, no diaphoresis. DIFFERENTIAL DIAGNOSIS: Viral illness, pneumonia, sinusitis, bronchitis, electrolyte imbalance, anemia, dehydration, UTI, among others. EMERGENCY DEPARTMENT PROCEDURES: MEDICAL DECISION MAKING: There is no leukocytosis or concerning anemia. There is a normal platelet count. No renal failure or significant electrolyte abnormality. Initial lactic acid level was elevated consistent with dehydration and/or infection. Repeat lactic acid level after hydration showed significant improvement. There is no concerning liver enzyme elevation. TSH was low however, the T4 hormone level was normal. testing was negative. ECG showed a sinus rhythm, no ischemia or dysrhythmia. Cardiac enzyme testing x 1 is not consistent with acute cardiac injury. Urinalysis did not show findings of infection. Respiratory bio fire was completely negative. Lyme disease testing was negative. The patient was given IV saline, 2 L. She received IV hydrocortisone 50 mg. She was given IV ceftriaxone as empiric antibiotic treatment. The patient presents with fatigue and weakness. She has a history of adrenal insufficiency and felt as if she was going into adrenal crisis. Patient tried to get up to go to the bathroom and had significant difficulty. She was quite weak and felt like she may collapse. Given the circumstances, I do think the patient requires a hospital stay. She will require further steroid therapy as well as hydration and antibiotic therapy. She has a history of ENT infection causing adrenal crisis, this certainly may be the case again today. I spoke with the patient and case management, the on-call hospitalist was consulted. Prior/Outside records/notes reviewed: None ECG per my interpretation: Indication was weakness. The ECG shows a sinus rhythm with a PVC. There is no acute ST elevation. The QTc is 418. Continuous Cardiac Monitoring per my interpretation: An order was placed for continuous cardiac monitoring. The monitor shows a rate of 83 with normal sinus rhythm. Imaging/x-ray results per my interpretation: Chronic Medical/Social conditions affecting care: History of adrenal insufficiency. Care/Management discussed with: Case management, the on-call hospitalist. Level of care consideration(s): After review of the information above and other included data: --I believe the patient requires escalation of care to admission DISPOSITION: Admission Past Med/Surg History Medical History Breathlessness Nausea Hypokalemia Elevated troponin I level Hypothyroidism (12/29/11) Vitamin D deficiency Vulvodynia Anxiety IBS (irritable bowel syndrome) Gurinder's disease Rectal bleed Miscarriage Surgical History H/O wisdom tooth extraction H/O dilation and curettage Family History Aunt Breast cancer Grandmother (Maternal) Colorectal cancer Lung cancer Grandmother (Paternal) Ovarian cancer Father Prostate cancer Mother Atrial fibrillation Other No significant family history Social History Smoking Status: Never smoker Second Hand Exposure: No; Do You Dip or Chew Tobacco: No; Hx Alcohol Use: No Hx Substance Use: No Preferred Language: Kazakh Communication Ability: Effective Apparel Manager Required: No Beliefs That Will Affect Care: Spiritual marital status: Current Living Situation: Spouse and Other Current Living Situation Comment: and two children Feels Safe at Home: Yes Assistive Devices: None Allergies Allergies Allergy/AdvReac Type Severity Reaction Status Date / Time Serotonin 5HT-3 Antagonists AdvReac Intermediate per Verified 11/25/23 16:31 patient cannot take per PCP Home Meds Home Medications Medication Instructions Recorded Confirmed liothyronine 5 mcg tablet 5 mcg PO DAILY 03/16/23 11/25/23 hydrocortisone 5 mg tablet 25 mg PO DAILY 04/14/23 11/25/23 hydrocortisone sod succ (PF) 100 100 mg IM UD PRN emergency 04/14/23 11/25/23 mg/2 mL solution for injection (Solu-Cortef Act-O-Vial (PF)) amlodipine 5 mg tablet 5 mg PO DAILY 05/14/23 11/25/23 latanoprost 0.005 % eye drops 1 drp ophthalmic (eye) HS 05/14/23 11/25/23 clonazepam 0.5 mg tablet (Klonopin) 0.5 mg PO BID 07/23/23 11/25/23 brimonidine 0.1 % eye drops 1 drp OPB BID 09/13/23 11/25/23 duloxetine 20 mg capsule,delayed 20 mg PO DAILY 09/13/23 11/25/23 release duloxetine 30 mg capsule,delayed 30 mg PO DAILY 09/13/23 11/25/23 release norethindrone 1 mg-ethinyl 1 tab PO DAILY 09/13/23 11/25/23 estradiol 10 mcg (24)-iron 10 mcg(2) tablet (Lo Loestrin Fe) guaifenesin 600 mg tablet, 600 mg PO BID 09/23/23 11/25/23 extended release 12 hr (Mucinex) amlodipine 2.5 mg tablet 2.5 mg PO DAILY 11/25/23 11/25/23 potassium chloride 10 mEq 10 meq PO BID 11/25/23 11/25/23 capsule,extended release tirzepatide (weight loss) 2.5 0.5 mg subcut WK 11/25/23 11/25/23 mg/0.5 mL subcutaneous pen injector (Zepbound) Previous Rx's Medication Instructions Recorded levothyroxine 150 mcg tablet 150 mcg PO DAILY #90 tabs 09/09/20 tiotropium bromide 2.5 2 puff inhalation DAILY #4 grams 07/23/23 mcg/actuation mist for inhalation (Spiriva Respimat) albuterol sulfate 90 mcg/actuation 2 puff inhalation Q4 PRN Shortness 10/14/23 aerosol inhaler Of Breath Or Wheezing #8.5 grams Results & Data (ED) Vital Signs Vital Signs - 24 hr 11/25/23 12:39 11/25/23 13:20 11/25/23 13:30 Temperature 37 C Temperature Source Temporal Artery Scan Pulse Rate 90 82 Pulse Rate [Apical] Pulse Rate from SpO2 Sensor Pulse Rhythm Regular Pulse Strength Normal Respiratory Rate 20 Respiratory Effort / Characteristics Non-Labored Spontaneous Respiratory Depth Normal Respiratory Pattern Regular Blood Pressure 156/90 H Blood Pressure [Right Arm] Blood Pressure Mean 112 Blood Pressure Mean [Right Arm] Blood Pressure Position Sitting Blood Pressure Position [Right Arm] Pulse Oximetry 96 100 Oxygen Delivery Method Room Air Room Air Sepsis Recent Fever Within 48 Hours Yes Sepsis New/Unexplained Change in Mental Status N/A Sepsis Action Taken by Nursing No Action Required 11/25/23 14:01 11/25/23 15:43 11/25/23 16:00 Temperature Temperature Source Pulse Rate 79 Pulse Rate [Apical] 79 Pulse Rate from SpO2 Sensor 80 Pulse Rhythm Pulse Strength Respiratory Rate 20 18 Respiratory Effort / Characteristics Respiratory Depth Respiratory Pattern Blood Pressure 127/82 Blood Pressure [Right Arm] 140/87 Blood Pressure Mean 97 Blood Pressure Mean [Right Arm] 104 Blood Pressure Position Blood Pressure Position [Right Arm] Pulse Oximetry 95 94 95 Oxygen Delivery Method Room Air Room Air Sepsis Recent Fever Within 48 Hours Sepsis New/Unexplained Change in Mental Status Sepsis Action Taken by Nursing 11/25/23 17:13 11/25/23 18:09 11/25/23 19:00 Temperature Temperature Source Pulse Rate 81 76 Pulse Rate [Apical] 84 Pulse Rate from SpO2 Sensor 77 Pulse Rhythm Pulse Strength Respiratory Rate 19 16 Respiratory Effort / Characteristics Non-Labored Spontaneous Respiratory Depth Normal Respiratory Pattern Regular Blood Pressure 141/82 H Blood Pressure [Right Arm] 155/90 H Blood Pressure Mean 101 Blood Pressure Mean [Right Arm] 111 Blood Pressure Position Blood Pressure Position [Right Arm] Semi-fowlers Pulse Oximetry 95 96 Oxygen Delivery Method Room Air Sepsis Recent Fever Within 48 Hours Sepsis New/Unexplained Change in Mental Status Sepsis Action Taken by [facility] Medications Current Medication List: was personally reviewed by me Laboratory Data Attestation: I reviewed the patient's lab results. 11/25/23 13:45 11/25/23 13:45 Lab Results 11/25/23 11/25/23 11/25/23 Range/Units 13:45 14:26 14:27 WBC 8.87 (4.8-10.8) K/ul RBC 4.66 (4.20-5.40) M/uL Hgb 13.4 (12.0-16.0) g/dl Hct 41.7 (37.0-47.0) % MCV 89.5 (80.0-100.0) fL MCH 28.8 (25.0-34.0) pg MCHC 32.1 (32.0-36.0) g/dL RDW Std Deviation 43.0 (36.4-46.3) fL RDW Coeff of [place] 13.2 (11.5-14.5) % Plt Count 382 (130-400) K/uL MPV 10.1 (9.4-12.4) fL Immature Gran % (Auto) 0.5 % Neut % (Auto) 84.2 % Lymph % (Auto) 10.1 % [place] % (Auto) 4.3 % Eos % (Auto) 0.1 % Baso % (Auto) 0.8 % Neut # (Auto) 7.47 H (1.40-6.50) K/uL Lymph # (Auto) 0.90 L (1.20-3.40) K/uL [place] # (Auto) 0.38 (0.11-0.59) K/uL Eos # (Auto) 0.01 (0.00-0.50) K/uL Baso # (Auto) 0.07 (0.00-0.20) K/uL Immature Gran # (Auto) 0.04 (0.01-0.20) K/uL Sodium 139 (136-145) mmol/L Potassium 3.8 (3.5-5.1) mmol/L Chloride 105 (98-107) mmol/L Carbon Dioxide 24 (21-32) mmol/L Anion Gap 10 (3-11) BUN 10 (6-23) mg/dl Creatinine 0.65 (0.6-1.2) mg/dl Est Cr Clr Drug Dosing 136.6 ml/min Est GFR ( Amer) 128.7 ml/min Est GFR (Non-Af Amer) 111.1 ml/min BUN/Creatinine Ratio 15.4 (10-20) Glucose 117 H (70-99(Fasting)) mg/dl Lactate 2.6 H* (0.4-2.0) mmol/L Calcium 9.6 (8.6-10.3) mg/dl Magnesium 2.2 (1.7-2.4) mg/dl Total Bilirubin 0.3 (0.2-1.0) mg/dl AST 17 (13-39) U/L ALT 22 (7-52) U/L Alkaline Phosphatase 55 (34-104) U/L Troponin I High Sens (0-14) pg/ml Total Protein 7.4 (6.0-8.3) gm/dl Albumin 4.5 (3.4-5.0) gm/dl Globulin 2.9 (2.5-4.0) gm/dl Albumin/Globulin Ratio 1.6 (0.9-2) TSH 0.196 L (0.300-4.500) uIu/ml Free T4 1.00 (0.61-1.60) ng/dl HCG, Qual Negative (Negative) Urine Color Urine Appearance (Clear) Urine pH (4.5-7.5) Ur Specific [place] (1.000-1.030) Urine Protein (Negative) Urine Glucose (UA) (Negative) Urine Ketones (Negative) Urine Blood (Negative) Urine Nitrite (Negative) Urine Bilirubin (Negative) Urine Urobilinogen (Negative) Ur Leukocyte Esterase (Negative) Urine WBC (Auto) (0-5) /hpf Urine RBC (Auto) (0-2) /hpf U Hyaline Cast (Auto) (0-2) /lpf U Epithel Cells (Auto) (0-2) /hpf Urine Bacteria (Auto) (None Seen) Adenovirus (PCR) Not Detected (NotDetected) B. pertussis DNA (PCR) Not Detected (NotDetected) B.parapertussis DNA PCR Not Detected (NotDetected) Lyme Disease Screen Negative (Negative) C. pneumoniae DNA (PCR) Not Detected (NotDetected) Coronavirus OC43 (PCR) Not Detected (NotDetected) Coronavirus HKU1 (PCR) Not Detected (NotDetected) Coronavirus 229E (PCR) Not Detected (NotDetected) SARS-CoV-2 (PCR) Not Detected (NotDetected) Coronavirus NL63 (PCR) Not Detected (NotDetected) Human Metapneumovir PCR Not Detected (NotDetected) Influenza Type A (PCR) Not Detected (NotDetected) Influenza Type B (PCR) Not Detected (NotDetected) M. pneumoniae (PCR) Not Detected (NotDetected) Parainfluenza 1 (PCR) Not Detected (NotDetected) Parainfluenza 2 (PCR) Not Detected (NotDetected) Parainfluenza 3 (PCR) Not Detected (NotDetected) Parainfluenza 4 (PCR) Not Detected (NotDetected) RSV (PCR) Not Detected (NotDetected) Entero/Rhino (PCR) Not Detected (NotDetected) 11/25/23 11/25/23 11/25/23 Range/Units 16:18 19:26 Unknown WBC (4.8-10.8) K/ul RBC (4.20-5.40) M/uL Hgb (12.0-16.0) g/dl Hct (37.0-47.0) % MCV (80.0-100.0) fL MCH (25.0-34.0) pg MCHC (32.0-36.0) g/dL RDW Std Deviation (36.4-46.3) fL RDW Coeff of [place]sen (11.5-14.5) % Plt Count (130-400) K/uL MPV (9.4-12.4) fL Immature Gran % (Auto) % Neut % (Auto) % Lymph % (Auto) % [place] % (Auto) % Eos % (Auto) % Baso % (Auto) % Neut # (Auto) (1.40-6.50) K/uL Lymph # (Auto) (1.20-3.40) K/uL [place] # (Auto) (0.11-0.59) K/uL Eos # (Auto) (0.00-0.50) K/uL Baso # (Auto) (0.00-0.20) K/uL Immature Gran # (Auto) (0.01-0.20) K/uL Sodium (136-145) mmol/L Potassium (3.5-5.1) mmol/L Chloride (98-107) mmol/L Carbon Dioxide (21-32) mmol/L Anion Gap (3-11) BUN (6-23) mg/dl Creatinine (0.6-1.2) mg/dl Est Cr Clr Drug Dosing ml/min Est GFR ( Amer) ml/min Est GFR (Non-Af Amer) ml/min BUN/Creatinine Ratio (10-20) Glucose (70-99(Fasting)) mg/dl Lactate 1.7 (0.4-2.0) mmol/L Calcium (8.6-10.3) mg/dl Magnesium (1.7-2.4) mg/dl Total Bilirubin (0.2-1.0) mg/dl AST (13-39) U/L ALT (7-52) U/L Alkaline Phosphatase (34-104) U/L Troponin I High Sens 3.5 (0-14) pg/ml Total Protein (6.0-8.3) gm/dl Albumin (3.4-5.0) gm/dl Globulin (2.5-4.0) gm/dl Albumin/Globulin Ratio (0.9-2) TSH (0.300-4.500) uIu/ml Free T4 (0.61-1.60) ng/dl HCG, Qual (Negative) Urine Color Yellow Urine Appearance Clear (Clear) Urine pH 6.5 (4.5-7.5) Ur Specific [place] 1.004 (1.000-1.030) Urine Protein Negative (Negative) Urine Glucose (UA) Negative (Negative) Urine Ketones Negative (Negative) Urine Blood 1+ H (Negative) Urine Nitrite Negative (Negative) Urine Bilirubin Negative (Negative) Urine Urobilinogen Negative (Negative) Ur Leukocyte Esterase Negative (Negative) Urine WBC (Auto) 0-5 (0-5) /hpf Urine RBC (Auto) 3-5 H (0-2) /hpf U Hyaline Cast (Auto) 0-2 (0-2) /lpf U Epithel Cells (Auto) 0-2 (0-2) /hpf Urine Bacteria (Auto) None Seen (None Seen) Adenovirus (PCR) (NotDetected) B. pertussis DNA (PCR) (NotDetected) B.parapertussis DNA PCR (NotDetected) Lyme Disease Screen (Negative) C. pneumoniae DNA (PCR) (NotDetected) Coronavirus OC43 (PCR) (NotDetected) Coronavirus HKU1 (PCR) (NotDetected) Coronavirus 229E (PCR) (NotDetected) SARS-CoV-2 (PCR) (NotDetected) Coronavirus NL63 (PCR) (NotDetected) Human Metapneumovir PCR (NotDetected) Influenza Type A (PCR) (NotDetected) Influenza Type B (PCR) (NotDetected) M. pneumoniae (PCR) (NotDetected) Parainfluenza 1 (PCR) (NotDetected) Parainfluenza 2 (PCR) (NotDetected) Parainfluenza 3 (PCR) (NotDetected) Parainfluenza 4 (PCR) (NotDetected) RSV (PCR) (NotDetected) Entero/Rhino (PCR) (NotDetected) Administered Medications Discontinued Medications Hydrocortisone Sodium Succinate (Hydrocortisone Sod Succinate 100 Mg/2 Ml Vial) 50 mg IV NOW STA Stop: 11/25/23 14:15 Last Admin: 11/25/23 14:24 Dose: 50 mg Documented By: NRB Sodium Chloride (Nss) 500 mls @ 999 mls/hr IV .Q31M RAHEL Stop: 11/25/23 14:45 Last Infusion: 11/25/23 14:59 Dose: Infused Documented By: Admin: 11/25/23 14:07 Dose: 999 mls/hr Documented By: NRB Sodium Chloride (Nss) 500 mls @ 999 mls/hr IV .Q31M ONE Stop: 11/25/23 14:44 Last Infusion: 11/25/23 14:59 Dose: Infused Documented By: NRFlower Admin: 11/25/23 14:24 Dose: 999 mls/hr Documented By: KAITLYNN Ceftriaxone Sodium (Rocephin) 2,000 mg in 50 mls @ 100 mls/hr IV NOW STA Stop: 11/25/23 17:01 Last Infusion: 11/25/23 17:22 Dose: Infused Documented By: NRFlower Admin: 11/25/23 16:46 Dose: 100 mls/hr Documented By: KAITLYNN Sodium Chloride (Nss) 1,000 mls @ 999 mls/hr IV .Q1H1M ONE Stop: 11/25/23 17:40 Last Infusion: 11/25/23 17:47 Dose: Infused Documented By: Admin: 11/25/23 16:46 Dose: 999 mls/hr Documented By: KAITLYNN Discharge Plan Visit Data Chief Complaint: Illness Stated Complaint: ADRENAL INSUFFICENCY/IN CRISIS SITUATION ED Provider: Tae Harper Discharge Problem: Weakness, Adrenal insufficiency, Elevated lactic acid level Patient Disposition: Admitted As Inpatient Condition: Fair Discharge Instructions Interventions: ED Discharge Assessment Last Done: 11/25/23 20:31 Forms Stand Alone Forms: [employer] Prescriptions Prescriptions: No Action levothyroxine 150 mcg tablet 150 mcg PO DAILY Qty: 90 1RF albuterol sulfate 90 mcg/actuation HFA aerosol inhaler 2 puff INHALATION Q4 PRN (Reason: Shortness Of Breath Or Wheezing) Qty: 8.5 3RF liothyronine 5 mcg tablet 5 mcg PO DAILY clonazepam [Klonopin] 0.5 mg tablet 0.5 mg PO BID Spiriva Respimat 2.5 mcg/actuation mist 2 puff INHALATION DAILY Qty: 4 11RF Solu-Cortef Act-O-Vial (PF) 100 mg/2 mL recon soln 100 mg IM UD PRN (Reason: emergency) hydrocortisone 5 mg tablet 25 mg PO DAILY latanoprost 0.005 % drops 1 drp ophthalmic (eye) HS amlodipine 5 mg tablet 5 mg PO DAILY Rx Instructions: TOTAL DOSE 7.5 MG--TAKES WITH 2.5 MG TAB. duloxetine 20 mg capsule,delayed release(DR/EC) 20 mg PO DAILY Rx Instructions: TOTAL DOSE 50 MG--TAKES WITH 30 MG CAP. duloxetine 30 mg capsule,delayed release(DR/EC) 30 mg PO DAILY Rx Instructions: TOTAL DOSE 50 MG--TAKES WITH 20 MG CAP. brimonidine 0.1 % drops 1 drp OPB BID Lo Loestrin Fe 1 mg-10 mcg (24)/10 mcg (2) tablet 1 tab PO DAILY guaifenesin [Mucinex] 600 mg Tablet Extended Release 12hr 600 mg PO BID potassium chloride 10 mEq capsule, extended release 10 meq PO BID amlodipine 2.5 mg tablet 2.5 mg PO DAILY Rx Instructions: TOTAL DOSE 7.5 MG--TAKES WITH 5 MG TAB. Zepbound 2.5 mg/0.5 mL Pen Injector 0.5 mg SUBCUT WK Rx Instructions: THURSDAYS Referrals Referrals: Marek Sung CRNP [Primary Care Provider] -
[2023-11-25] MEDS: HYDROCORTISONE SOD SUCCINATE 100 MG/2 ML VIAL IV STA (14:24)
[2023-11-25] MEDS: SODIUM CHLORIDE 0.9% 500 ML IV ONE (14:24)
[2023-11-25 14:38] LABS: Basophils # (auto) 0.07 K/uL (0.00-0.20); Basophils % (auto) 0.8 %; Eosinophils # (auto) 0.01 K/uL (0.00-0.50); Eosinophils % (auto) 0.1 %; Hematocrit (blood only) 41.7 % (37.0-47.0); Hemoglobin 13.4 g/dl (12.0-16.0); Immature Granulocytes # (auto) 0.04 K/uL (0.01-0.20); Immature Granulocytes % (auto) 0.5 %; Lymphocytes % (auto) 10.1 %; Mean Corpuscular Hemoglobin 28.8 pg (25.0-34.0); Mean Corpuscular Hgb Conc 32.1 g/dL (32.0-36.0); Mean Corpuscular Volume 89.5 fL (80.0-100.0); Mean Platelet Volume 10.1 fL (9.4-12.4); Monocytes # (auto) 0.38 K/uL (0.11-0.59); Monocytes % (auto) 4.3 %; Neutrophils # (auto) 7.47 K/uL (1.40-6.50); Neutrophils % (auto) 84.2 %; Platelet Count 382 K/uL (130-400); RDW Coefficient of Variation 13.2 % (11.5-14.5); Red Blood Count 4.66 M/uL (4.20-5.40); White Blood Count 8.87 K/ul (4.8-10.8)
[2023-11-25 14:50] LABS: Albumin Globulin Ratio 1.6 (0.9-2); Albumin Level 4.5 gm/dl (3.4-5.0); BUN Creatinine Ratio 15.4 (10-20); Bilirubin,Total 0.3 mg/dl (0.2-1.0); Calcium 9.6 mg/dl (8.6-10.3); Creatinine Clr Calc Pharmacy 136.6 ml/min; Est GFR (African American) 128.7 ml/min; Est GFR (Non-African American) 111.1 ml/min; Globulin 2.9 gm/dl (2.5-4.0); Magnesium 2.2 mg/dl (1.7-2.4); Potassium 3.8 mmol/L (3.5-5.1); Total Protein 7.4 gm/dl (6.0-8.3)
[2023-11-25 14:51] LABS: Appearance Urine Clear (Clear); Bacteria Urine Automated None Seen (None Seen); Bilirubin Urine Negative (Negative); Blood Urine 1+ (Negative); Cast Urine Automated 0-2 /lpf (0-2); Color Urine Yellow; Epithelial Cell Urine Auto 0-2 /hpf (0-2); Glucose Urine UA Negative (Negative); Ketones Urine Negative (Negative); Leukocyte Esterase Urine Negative (Negative); Nitrite Urine Negative (Negative); Protein Urine Negative (Negative); Specific Gravity Urine 1.004 (1.000-1.030); Urobilinogen Urine Negative (Negative); WBC Urine Automated 0-5 /hpf (0-5); pH Urine 6.5 (4.5-7.5)
[2023-11-25 15:04] LABS: Thyroid Stimulating Hormone 0.196 uIu/ml (0.300-4.500)
[2023-11-25 15:18] LABS: Pregnancy Test, Serum Negative (Negative)
[2023-11-25 15:41] LABS: Adenovirus PCR Not Detected (NotDetected); Bordetella parapertussis PCR Not Detected (NotDetected); Bordetella pertussis PCR Not Detected (NotDetected); Chlamydia pneumoniae PCR Not Detected (NotDetected); Coronavirus 229E PCR Not Detected (NotDetected); Coronavirus CoV-2 (COVID19)PCR Not Detected (NotDetected); Coronavirus HKU1 PCR Not Detected (NotDetected); Coronavirus NL63 PCR Not Detected (NotDetected); Coronavirus OC43PCR Not Detected (NotDetected); Human Metapneumovirus PCR Not Detected (NotDetected); Influenza A PCR Not Detected (NotDetected); Influenza B PCR Not Detected (NotDetected); Mycoplasma pneumoniae PCR Not Detected (NotDetected); Parainfluenza Virus 1 PCR Not Detected (NotDetected); Parainfluenza Virus 2 PCR Not Detected (NotDetected); Parainfluenza Virus 3 PCR Not Detected (NotDetected); Parainfluenza Virus 4 PCR Not Detected (NotDetected); Respiratory Syncytial VirusPCR Not Detected (NotDetected); Rhinovirus/Enterovirus PCR Not Detected (NotDetected)
[2023-11-25] MEDS: SODIUM CHLORIDE 0.9% 1,000 ML IV ONE (16:46)
[2023-11-25] MEDS: cefTRIAXone SODIUM 2,000 MG/50 ML BAG IV STA (16:46)
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
[2023-11-25] MEDS ORDERED: LOPERAMIDE HCL 2 MG CAP PO PRN (19:16)
[2023-11-25] MEDS ORDERED: ACETAMINOPHEN 325 MG TAB PO PRN (21:19)
[2023-11-25] MEDS ORDERED: NITROGLYCERIN SL 0.4 MG/TAB TAB SL PRN (21:19)
[2023-11-25] MEDS ORDERED: ALBUTEROL HFA 8 GM INHALER INH PRN (21:19)
[2023-11-25] MEDS: ALUMINUM/MAGNESIUM SUSP 30 ML UDC PO PRN (22:04)
[2023-11-25] MEDS: methylPREDNISolone 20 MG in SYRINGE 0 ML IV SCH (22:05)
[2023-11-25] MEDS: LATANOPROST 0.005% OP SOLN 2.5 ML BTL OP SCH (22:05)
[2023-11-25] MEDS: guaiFENesin 600 MG TABCR PO SCH (22:07)
[2023-11-25] MEDS: POTASSIUM CHLORIDE 10 MEQ TABCR PO SCH (22:08)
[2023-11-25] MEDS: amLODIPine BESYLATE 5 MG TAB PO ONE (22:12)
[2023-11-25] MEDS: clonazePAM 0.5 MG TAB PO SCH (22:19)
[2023-11-26] MEDS: LEVOTHYROXINE SODIUM 150 MCG TABLET PO SCH (05:40)
[2023-11-26] MEDS: methylPREDNISolone 10 MG in SYRINGE 0 ML IV SCH (05:41)
--- NOTE | 2023-11-26 06:02 | Electrocardiogram Report ---
Test Reason : Blood Pressure : / mmHG Vent. Rate : 073 BPM Atrial Rate : 073 BPM P-R Int : 156 ms QRS Dur : 070 ms QT Int : 380 ms P-R-T Axes : 065 052 058 degrees QTc Int : 418 ms Sinus rhythm with occasional Premature ventricular complexes Otherwise normal ECG When compared with ECG of 17-OCT-2023 12:34, Premature ventricular complexes are now Present Confirmed by Julian Malik ([id number]) on 11/26/2023 6:02:19 AM Referred By: Confirmed By:Julian Malik
[2023-11-26 07:03] LABS: Hematocrit (blood only) 38.8 % (37.0-47.0); Hemoglobin 13.1 g/dl (12.0-16.0); Mean Corpuscular Hemoglobin 29.8 pg (25.0-34.0); Mean Corpuscular Hgb Conc 33.8 g/dL (32.0-36.0); Mean Corpuscular Volume 88.4 fL (80.0-100.0); Platelet Count 369 K/uL (130-400); RDW Coefficient of Variation 13.1 % (11.5-14.5); RDW Standard Deviation 42.6 fL (36.4-46.3); Red Blood Count 4.39 M/uL (4.20-5.40); White Blood Count 11.76 K/ul (4.8-10.8)
[2023-11-26 07:32] LABS: BUN Creatinine Ratio 15.3 (10-20); Calcium 9.2 mg/dl (8.6-10.3); Creatinine Clr Calc Pharmacy 150.9 ml/min; Est GFR (African American) 132.9 ml/min; Est GFR (Non-African American) 114.6 ml/min; Magnesium 2.1 mg/dl (1.7-2.4); Phosphorus 3.1 mg/dl (2.5-4.9); Potassium 3.7 mmol/L (3.5-5.1)
[2023-11-26] MEDS: amLODIPine BESYLATE 5 MG TAB PO SCH (07:45)
[2023-11-26] MEDS: PANTOprazole 40 MG TAB PO SCH (07:45)
[2023-11-26] MEDS: UMECLIDINIUM BROMIDE 62.5MCG/BLISTER 7 PUFFS/INHALER INH SCH (07:46)
[2023-11-26] MEDS: LIOTHYRONINE SODIUM 5 MCG TAB PO SCH (07:46)
[2023-11-26] MEDS: DULoxetine HCL 20 MG CAP PO SCH (07:46)
[2023-11-26] MEDS: DULoxetine HCL 30 MG CAP PO SCH (07:46)
--- OUTSIDE RECORDS SUMMARY | 2023-11-26 09:48 | External Medical Summary | Summary of Care ---
Author Name Unknown Organization [facility] Address [address] [place] [address] Phone [phone] Care Team Providers Care Scalder Name Role Phone Corina Cervantes MD Primary Care Provider [phone] Reason for Visit * Reason Onset Date Comments Test Results 08/20/2023 Encounter Details Date Type Department Care Team (Late st Contact Info) Description 08/20/2023 Telephone Family Practice [facility] [place] [address] [facility] [place] [address] Damaso Llamas III, MD [address] [place] [address] Test Results Allergies Active Allergy Reactions Criticality Noted Date Comments Serotonin High 03/24/2023 Other Reaction(s): per patient cannot take per PCP documented as of this encounter (statuses as of 11/19/2023) Medications Medication Sig Dispensed Refills Start Date End Date Status Ibuprofen 200 MG Oral Tablet (Motrin) Take 3 Tablets by mouth 2 times a day as needed (pain). 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 Acto-Vial [facility] [address]-89 2 mL 3 02/22/2023 Active Syringe 22G X 1-1/2" 3 MLIndications:Second yas adrenal insufficiency (HCC) Use with solucortef as needed for adrenal crisis 5 Each 3 02/22/2023 Active Latanoprost 0.005 % Ophthalmic Emulsion at bedtime. 0 04/28/2023 Acti ve amLODIPine Besylate 5 MG Oral Tablet (Norvasc) Take 1 Tablet by mouth in the morning. 0 Active clonazePAM 0.5 MG Oral Tablet (KlonoPIN) Take 1 Tablet by mouth in the morning and 1 Tablet before bedtime. 0 Active DULoxetine HCl 30 MG Oral Capsule Delayed Release Particles (Cymbalta) Take 1 Capsule by mouth in the morning. 0 05/18/2023 Active guaiFENesin ER 600 MG Oral Tablet Extended Release 12 Hour (Mucinex) 1 Tablet. 0 05/03/2023 Active documented as of this encounter (statuses as of 11/19/2023) Active Problems Problem Noted Date Diagnosed Date Body mass index (BMI) of 40.0 to 44.9 in adult 1 08/28/2022 Overview: Per Obesity protocol Diabetes insipidus 02/22/2023 Secondary adrenal insufficiency 02/22/2023 History of primary hyperparathyroidism Urinary frequency 01/12/2023 Sinus congestion 01/12/2023 Flank pain 01/12/2023 Exhaustion 10/29/2022 Chest pain 10/29/2022 Malaise and fatigue 10/29/2022 NAFLD (nonalcoholic fatty liver disease) 022 ADHD (attention deficit hype ractivity disorder), combined type 10/17/2021 History of anorexia nervosa 07/24/2021 Hyperparathyroidism, primary 07/19/2021 Overview: Status post surgery at [place], 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 Santiago. Took 50,000 weekly several years ago. Taking Vit D3 2000 IU daily plus PNV per sat instructor. Vit D level Jul. documented as of this encounter (statuses as of 11/19/2023) Resolved Problems Problem Noted Date Diagnosed Date Resolved Date Polyhydramnios, antepartum 10/12/2018 0 12/03/2018 Overview: 10/12 - mild poly HOME at 25.7. Pt is symptomatic with ctx. Please continue to monitor. Consider repeat HOME in 2 weeks. - Gianna Cyr CNM Excessive growth affec ting management of , antepartum 10/12/2018 12/03/2018 Overview: 10/12 - US found EFW 90-95%ile in growth. Pt has gained 63 lbs so far. Approach subject with sensitivity. - Gianna Cyr CNM 11/15/2018-EFW 3758gm (>95%); HOME 19cm, HC and AC >2SD's Repeat 1hr gtt at 36wks: Excessive weight gain during , antepartum 09/28/2018 12/03/2018 Overview: 09/28- TWG ~ 60 lb at 29w6d. Reports last preg this much wgt gain. Baby was 8 lb 3 oz at 40wks. Normal 1 hr glucose. Please continue to monitor - Gianna Cyr CNM Supervision of high risk pre gnancy in first trimester 05/30/2018 12/03/2018 Elderly multigravida in first trimester 05/30/2018 12/03/2018 Overview: Patient received flu vaccine. 06/21/2018 Jesenia Maddox RN Hypothyroid in , an tepartum, second trimester 05/30/2018 12/05/2019 Anxiety during in first trimester, antepartum 05/30/2018 12/05/2019 Advanced directives, counseling/discussion 05/30/2018 12/05/2019 Overview: No, Advance Directive brochure given to patient. GBS (group B Streptococcus c arrier), +RV culture, currently 12/05/2015 01/20/2016 Overview: Treat in labor Marginal placenta previa 08/13/201501/2016 Overview: Resolved. Encounter for supervision of other normal 05/22/2015 01/20/2016 Overview: Using progesterone vaginally in first trimester Patient received flu vaccine. 05/22/2015 Marti Delgado RN Planning to breastfeed. Has taken Jesenia Mcdonald's class. Hoping for natural childbirth as long as possible. Zulay Vazquez planning to be . Took CBE class here at [facility], found it to be very helpful. ICD-10 update of inactive term Gurinder's disease 05/22/2015 12/04/19 19 Overview: Following with sat instructor, Dr. Santiago, through 1. In women with prepregnancy diagnosis of hypothyroidism, recommend assessing TSH every 4-6 weeks until the patient is euthyroid based on TSH (first trimester, 0.1-2.5 mIU/L; second trimester, 0.2-3.0 mIU/L; third trimester, 0.3-3.0 mIU/L. 2. After any adjustment of thyroid replacement dosing, recheck TSH 4 weeks later. 3. Once euthyroidism is attained, TSH should be assessed every trimester. 4. In those with previous radioiodine ablation or thyroidectomy, anticipatory increases of T4 replacement by 25% are suggested to decrease the likelihood of significant hypothyroidism in . 5. Maternal Medicine ultrasound is only indicated if patient requires an adjustment of her thyroid replacement therapy dosing after the first trimester of . Refer back to Maternal Medicine if this occurs. She should continue to have growth assessments with Maternal Medicine while she is clinically hypothyroid. 6. If patient experiences thyroid goiter or nodule during , we recommend that she be referred to endocrinology for evaluation and management. is not a contraindication to fine needle aspiration, but should be handled at the discretion of the sat instructor. documented as of this encounter (statuses as of 11/19/2023) Immunizations Name Administration Dates Next Due COVID-19 mRNA, LNP-s, No Pre serve, 2-Dose Series (Moderna) 10/16/2020,09/18/2020 COVID-19, mRNA, LNP-s, PF, B ooster, 100mcg/0.5mg (Moderna) 02/13/2022,03/29/2021 Pneumococcal Polysaccharide PPV23 (Pneumovax) 06/26/2021 Seasonal Influenza Virus Vac cine, Unspecified Formulation 06/05/2019,06/21/2018,07/15/2017,05/26,05/22/2015 Seasonal Influenza, PF, 6 M & above, IM , (FluLaval or Fluzone) 06/26/2022,05/22/2021,04/25/2020,06/05,06/21/2018,07/15/2017 Seasonal Influenza, Quadriva lent, No Preserve, IM 05/30/2023,05/26/2016,05/22/2015 Seasonal Influenza, Split, I IV3, With Preserve, Inj 05/22/2015 TDAP (age 10 and older)(Boostrix) 09/28/2018,,02/25/2011 documented as of this encounter Social History Tobacco Use Types Packs/Day Years Used Date Smoking Tobacco: Never Smokeless Tobacco: Never Alcohol Use Standard Drinks/Week Comments Not Currently 0 (1 standard drink = 0.6 oz pur e alcohol) PHQ-2 Answer Date Recorded PHQ-2 Score 0 03/01/2020 Hunger Vital Sign Answer Date Recorded Within the past 12 months, y ou worried that your food would run out before you got the money to buy more. Never true 02/04/20 23 Within the past 12 months, t he food you bought just didn't last and you didn't have money to get more. Never true 02/03/2023 [place] Depression Scale Answer Date Recorded [place] Depression Scale Score 0 04/18/2019 The thought of harming myself has occurred to me . (Pt Reported) 04/18/2019 Sex and Gender Information Value Date Recorded Sex Assigned at Female 09/20/2019 8:07 AM EST Gender Identity Female 09/20/2019 8:07 AM EST Sexual Orientation Straight 09/20/2019 8: 07 AM EST Job Start Date Occupation Industry Not on file Not on file Not on file documented as of this encounter Miscellaneous Notes * Telephone Encounter - Rosanna Vincent LPN - 09/02/2023 11:00 AM EST MyG sent * Telephone Encounter - Diane Drake LPN - 08/20/2023 1:10 PM EST Attempted to call patient, no answer, left message to return our call. * Telephone Encounter - Diane Drake LPN - 08/20/2023 1:09 PM EST ----- Message from Damaso Llamas III, MD sent at 08/20/2023 9:22 AM EST ----- No specific virus identified on pcr testing keep in touch documented in this encounter Plan of Treatment Upcoming Encounters Date Type Department Care Team (Late st Contact Info) Description 12/14/2023 1:00 PM EDT [facility] [address] [place] [address] Bakari Marte MD [address] [place] [address] 09/04/2024 11:20 AM EST Telemedicine Endocrinology, [place] [address] [place] [address] Lyric Green MD [address] [place] [address] Health Maintenance Due Date Last Done Comments Hepatitis B (1 of 3 - 19+ 3-dose series) 2002 HPV/Co-Test 2013 Cervical Cancer Screening 04/29/2021 Pap Smear 04/29/2021 04/29/2018, 10/0 02/2015, 11/29/2012 Depression Screening 07/24/2022 07/24/2021 Mammogram 03/15/2024 03/15/2023, 02/15, 07/02/2021, Additional history exists TSH 04/22/2024 04/22/2023, 01/15, 12/16/2022, Additional history exists Diabetes Screening 10/11/2026 10/11/2023, 0 09/18/2023, 05/28/2023, Additional history exists Lipid Panel 05/09/2027 05/09/2022 DTaP,Tdap,and Td Vaccines (4 - Td or Tdap) 09/28/2028 09/28/2018, 01/03/2016, 02/25/2011 Pneumococcal Vaccine: Pediatrics (0 to 5 Years) and At-Risk Patients (6 to 64 Years) Completed 08/04/2022, 06/26/2021 COVID-19 Vaccine Completed 05/28/2023, 08/2021, 03/29/2021, Additional history exists Influenza Vaccine (FLU shot) Completed , 06/26/2022, 05/22/2021, Additional history exists GARDASIL-HPV IMMUNIZATION SERIES Aged Out No longer eligible based on patient's age to complete this topic MENINGOCOCCAL (MENACTRA/MENVEO) Aged Out No longer eligible based on patient's age to complete this topic documented as of this encounter Medical Devices Not on filedocumented as of this encounter Additional Health Concerns Infection Onset Date Last Indicated Resolved Time Respiratory Rule-Out 08/19/2023 08/19/2023 024 12:27 AM EST documented as of this encounter Care Teams Scalder Relationship Specialty Start Date End Date Corina Cervantes MD [address] [address] PCP - General Family Medicine 10/20/23 documented as of this encounter
--- OUTSIDE RECORDS SUMMARY | 2023-11-26 09:49 | External Medical Summary | Continuity of Care Document ---
Author Name Unknown Organization [facility] [address] Address [address] [place], [place] [id number] Care Team Providers Care Track Sweeper Name Role Phone Marek Sung Jr. Primary Care Physicia n [phone] [id number] Date[facility]s): 11/01/23 - 11/01/23 [facility] [address] [facility] [address] [place], [address] [place] [address] [phone] Discharge Disposition: Home or Self Care Attending Physician: EDUARDO Toussaint Sarah A Referring Physician: EDUARDO Toussaint Sarah A Allergies, Adverse Reactions, Alerts No Known Allergies Immunizations Given and Recorded Vaccine Date Status Refusal Reason pneumococcal 23-valent vaccine 1 06/26/21 Recorded SARS-CoV-2 (COVID-19) mRNA-1273 vaccine 2 03/29/21 Recorded SARS-CoV-2 (COVID-19) mRNA-1273 vaccine 3 10/16/20 Recorded SARS-CoV-2 (COVID-19) mRNA-1273 vaccine 4 09/18/20 Recorded tetanus/diphtheria/pertuss, acel (Tdap) 5 09/28/18 Recorded tetanus/diphtheria/pertuss, acel (Tdap) 6 01/03/16 Recorded tetanus/diphtheria/pertuss, acel (Tdap) 7 02/25/11 Recorded diphtheria/pertussis, whole cell/tetanus 8 01/03/16 Recorded 1Result Comment: 2021-11-03: Historical information-source unspecified 2Result Comment: 2021-11-03: Historical information-source unspecified 3Result Comment: 2021-01-02: Historical information-source unspecified 4Result Comment: 2021-01-02: Historical information-source unspecified 5Result Comment: 2021-01-02: Historical information-source unspecified 6Result Comment: 2021-01-02: Historical information-source unspecified 7Result Comment: 2021-01-02: Historical information-source unspecified 8Result Comment: 2021-01-02: Historical information-source unspecified Medications Advil Start: 11/01/23 15:17:00 EDT, 600 mg =, PO, bid, broken ribs Start Date: 11/01/23 Status: Ordered albuterol CFC free 90 mcg/inh MDI See Instructions, Disp# 18 inhaler, Refills: 5, INHALE 2 PUFFS BY MOUTH EVERY 4 HOURS NEEDED FORSHORTNESS OF BREATH OR WHEEZING, Pharmacy: [id number] Start Date: 03/10/21 Status: Ordered amLODIPine 5 mg oral tablet Start: 05/26/23 10:02:00 EDT, 1 tab, PO, Daily, Disp# 90 tab, Refills: 3, Pharmacy: [facility]/pharmacy #[id number] Start Date: 05/26/23 Status: Ordered clonazePAM 0.5 mg oral tablet See Instructions, take 1 tab PO BID Start Date: 05/27/23 Status: Ordered diclofenac Start: 11/01/23 15:19:00 EDT, 75 mg =, PO, qhs Start Date: 11/01/23 Status: Ordered drospirenone-ethinyl estradiol 3 mg-0.03 mg oral tablet Start: 05/03/23 14:10:00 EDT Start Date: 05/03/23 Status: Ordered ferrous sulfate 325 mg (65 mg elemental iron) oral tablet Start: 05/27/23 8:18:00 EDT, 325 mg =, PO, 1 Refill(s), Take 325 mg by mouth Start Date: 05/27/23 Status: Ordered hydrocortisone 20 mg oral tablet Start: 04/07/23 9:57:00 EDT, See Instructions, 25mg over three divided doses Start Date: 04/07/23 Status: Ordered latanoprost 0.005% ophthalmic solution Start: 05/03/23 14:10:00 EDT, once daily Start Date: 05/03/23 Status: Ordered levothyroxine Start: 01/01/21 9:28:00 EDT, 150 mcg =, PO, Daily Start Date: 01/01/21 Status: Ordered liothyronine 5 mcg oral tablet 1 tab, PO, Daily, TAKE 1 TABLET BY MOUTH EVERY DAY Start Date: 05/27/23 Status: Ordered Lo Loestrin Fe oral tablet Start: 05/27/23 9:06:00 EDT, 1 tab, PO, Daily, Disp# 28 tab, Refills: 11, Pharmacy: [facility]/pharmacy #[id number] Start Date: 05/27/23 Status: Ordered Mucinex 600 mg oral tablet, extended release Start: 05/03/23 14:09:00 EDT, 1 tab, PO, q12h Start Date: 05/03/23 Status: Ordered mupirocin 2% topical ointment Start: 05/03/23 14:10:00 EDT, 1 appl, topical, tid Start Date: 05/03/23 Status: Ordered Norvasc 2.5 mg oral tablet Start: 05/28/23 12:39:00 EDT, See Instructions, Disp# 90 tab, Refills: 3, 1 tab PO PRN Daily SBP> 150 mm/hg, Pharmacy: [facility]/pharmacy #[id number] Start Date: 05/28/23 Status: Ordered oxyCODONE 5 mg oral tablet Start: 11/01/23 15:17:00 EDT, 1 tab, PO, q6h, Refills: 0, PRN: as needed for pain Start Date: 11/01/23 Status: Ordered SOLU-CORTEF 100 MG ACT-O-VIAL SOLU-CORTEF 100 MG ACT-O-VIAL, INJECT 2 ML INTO MUSCLE IN CASE OF EMERGENCY Start Date: 05/27/23 Status: Ordered Spiriva Respimat 60 ACT 2.5 mcg/inh inhalation aerosol Start: 11/12/22 8:00:00 EDT, 2 inh, inhaled, Daily Start Date: 11/12/22 Status: Ordered Symbicort 80 mcg-4.5 mcg/inh inhalation aerosol Start: 11/01/23 15:16:00 EDT, 2 puff, inhaled, bid Start Date: 11/01/23 Status: Ordered Tylenol Start: 05/03/23 14:09:00 EDT Start Date: 05/03/23 Status: Ordered Vitamin D3 Start: 05/03/23 14:09:00 EDT, 13675 units, PO, q7days Start Date: 05/03/23 Status: Ordered Zepbound 5 mg/0.5 mL subcutaneous solution Start: 11/01/23 15:16:00 EDT, 5 mg =, subQ, q7days Start Date: 11/01/23 Status: Ordered Problem List Condition Confirmation Course Effective Dates Status Health Status Informant Anxiety Confirmed Active Asthma Confirmed Active ADHD (attention deficit hyperactivity disorder) 1 Confirmed Active MICH (generalized anxiety disorder) Confirmed Active Gurinder's disease Confirmed Active History of kidney stones Confirmed Active HTN (hypertension) Confirmed Active Secondary adrenal insufficiency Confirmed Active Hypothyroidism Confirmed Active Diabetes insipidus, neurohypophyseal Confirmed Active POLYURIA Confirmed Active Orthostatic dizziness Confirmed Active Primary hyperparathyroidism Confirmed Active 1by history Procedures Procedure Date Related Diagnosis Body Site Status CT of abdomen and pelvis wit hout contrast 1 12/09/20 Completed 11. Bilateral nephrolithiasis. No uteral calculi or hydronephrosis. 2. No evidence for acute appendicitis. 3. Small amount of fluid within the pelvis which is likely physiologic. Social History Social History Type Response Smoking Status Never smoked cigaret alfonzo Sex Female Patient Care team information Care Team Personnel Name: MD Elisha, Donovan Position: Resident Member Role: Lifetime Relationship Address: Address: [address] [place] [address] [place] Name: MD Rush Jansie Position: Physician - Anesthesiologist Member Role: Lifetime Relationship Address: Address: [address] [place] [address] [place] Name: EDUARDO Sung Jr., William Joseph Position: Referring Member Role: Primary Care Provider Address: Address: [address] [place] [address] [place] Name: MD Arcos Kristine L Position: Physician - Surgery Oncology Member Role: Lifetime Relationship Address: Address: [address] [place] [address] [address] [place] [address] [place] Care Team Related Persons Name: JOHNNA DUNN Address: home [address] [place] [address], [place] [id number]
--- OUTSIDE RECORDS SUMMARY | 2023-11-26 09:49 | External Medical Summary | Summary of Care ---
Author Name Unknown Organization [facility] Address [address] [place] [address] Phone [phone] Care Team Providers Care Silver Chaser Name Role Phone Clau Regan EDUARDO Primary Care Provider [phone] Encounter Details Date Type Department Care Team (Latest Contact Info) Description 10/17/2023 11:50 AM EST - 10/17/2023 11:59 PM EST Hospital Encounter Radiology Film File [address] [place] [address] Discharge Disposition: Home - Self Care Allergies Active Allergy Reactions Criticality Noted Date Comments Serotonin High 03/24/2023 Other Reaction(s): per patient cannot take per PCP documented as of this encounter (statuses as of 10/30/2023) Medications Medication Sig Dispensed Refills Start Date [...] WHEEZING 8.5 g 2 09/15/2022 Active Tiotropium [place] Monohydrate 2.5 MCG/ACT Inhalation Aerosol Solution (Spiriva [...] muscle as needed for adrenal crisis. Acto-Vial [facility] [id number] 2 mL 3 02/22/2023 Active Syringe 22G [...] Hour (Mucinex) 1 Tablet. 0 05/03/2023 Active DULoxetine HCl 20 MG Oral Capsule Delayed Release Particles (Cymbalta) Take 1 Capsule by mouth in the morning. 0 09/13/2023 Active Latanoprost 0.005 % Ophthalmic Emulsion INSTILL 1 DROP INTO BOTH EYES AT BEDTIME 0 Active Lo Loestrin Fe 1 MG-10 MCG / 10 MCG Oral Tablet (Norethin-Eth Estrad-Fe Biphas) 0 07/23/2023 Active Amoxicillin-Pot Clavulanate 875-125 MG Oral Tablet (Augmentin) Take 1 Tablet by mouth in the morning and 1 Tablet before bedtime. 0 09/03/2023 Active Budesonide 0.5 MG/2ML Inhalation Suspension (Pulmicort) Inhale 0.5 mg via nebulizer in the morning. 0 Active Zepbound 2.5 MG/0.5ML Subcutaneous Solution Auto-injector 0 08/26/2023 Active Benzonatate 100 MG Oral Capsule (Tessalon Perles) Take 1 Capsule by mouth 3 times a day as needed for Cough. 0 09/26/2023 Active Sulfamethoxazole-Tri methoprim 800-160 MG Oral Tablet (Bactrim DS) Take 1 Tablet by mouth in the morning and 1 Tablet before bedtime. 0 10/05/2023 Active Diclofenac Sodium 75 MG Oral Tablet Delayed Release (Voltaren)Indication s:Fracture of rib due to cough Take 1 Tablet by mouth in the morning and 1 Tablet before bedtime. With food.. 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 Santiago. Took 50,000 weekly several years ago. Taking Vit D3 2000 IU daily plus PNV per jet mechanic. Vit D level Jul. documented as of this encounter (statuses as of 10/30/2023) Resolved Problems Problem Noted Date Diagnosed Date [...] to patient. GBS (group B Streptococcus c ananda), +RV culture, currently 12/05/2015 01/20/2016 Overview: Treat [...] be . Took CBE class here at , found it to be very helpful. ICD-10 update of inactive term Gurinder's disease 05/22/2015 12/04/19 19 Overview: Following with jet mechanic, Dr. Santiago, through 1. In women with [...] be handled at the discretion of the jet mechanic. documented as of this encounter (statuses as of 10/30/2023) Immunizations Name Administration Dates Next Due COVID-19 [...] money to get more. Never true 02/03/2023 [place] Depression Scale Answer Date Recorded [place] Depression Scale Score 0 04/18/2019 The thought [...] on file documented as of this encounter Plan of Treatment Health Maintenance Due Date Last Done Comments Hepatitis B (1 of 3 - 19+ 3-dose series) 2002 HPV/Co-Test 2013 Cervical Cancer Screening 04/29/2021 Pap Smear 04/29/2021 04/29/2018, 02/2015, 11/29/2012 Depression Screening 07/24/2022 07/24/2021 Mammogram 03/15/2024 03/15/2023, 02/15, 07/02/2021, Additional history exists TSH 04/22/2024 04/22/2023, 0609/2022, 12/16/2022, Additional history exists Diabetes Screening 10/11/2026 [...] Not on filedocumented as of this encounter Procedures Procedure Name Priority Date/Time Associated Diagnosis Comments RADIOLOGY EXAM - GENERAL RAD (IMAGES ONLY,NO REPORT) Routine 10/17/2023 11:50 AM EST documented in this encounter Results * RADIOLOGY EXAM - GENERAL RAD (IMAGES ONLY,NO REPORT) (10/17/2023 11:50 AM EST) 10/17/2023 11:4 7 AM EST Narrative Scheduling, Silent - 10/29/2023 7:34 PM EDT This is an imaging study not interpreted or resulted by a [facility] or [employer] contracted radiologist. Bakari Marte MD RADIOLOGY (RAD GENE RAL) documented in this encounter Care Teams Silver Chaser Relationship Specialty Start Date End Date Thiede, Clau, FINANCE PROFESSOR [address] [address] PCP - General Nurse Practitioner 11/03/22 10/19/23 documented as of this encounter
--- OUTSIDE RECORDS SUMMARY | 2023-11-26 09:49 | External Medical Summary | Continuity of Care Document ---
Author Name Unknown Organization [facility] [address] Address [address] [place] [id number] Care Team Providers Care Long Winder Tender Name Role Phone Marek Sung Jr. Primary Care Physicia n [phone] Encounter [facility] [id number] Date(s): 11/01/23 - 11/01/23 [facility] [address], [address] [place] [address] [phone] Encounter Diagnosis Palpitations(Discharge Diagnosis) - 11/01/23 HTN (hypertension)(Discharge Diagnosis) - 11/01/23 Adrenal insufficiency(Discharge Diagnosis) - 11/01/23 Discharge Disposition: Home or Self Care Attending Physician: EDUARDO Toussaint Sarah A Allergies, Adverse Reactions, Alerts No Known Allergies Assessment and Plan Extracted from: Title:Cardiology Office Visit Note Author:EDUARDO Saenz rd, Sarah A Date:11/01/23 Impression: 1. Orthostatic hypotension 2. Palpitations 3.Echocardiogram [address] [facility] normal left ventricular size and function showing normal left ventricular size and function without regional wall motion abnormalities with an ejection fraction of 65 to 70%, no valvular abnormalities, normal RVSP 4.Dobutamine stress test October [address] [facility] showing no ischemic changes at 83% MPHR, appropriate blood pressure, no arrhythmias With the steroid dosing Ms. Diez's blood pressure has been labile. She asked if she can take an extra2.5 mg of amlodipine on top of the 7-1/2 she is taking if her blood pressures are above 145 systolicallyand she may. We also discussed with her thatherNSAIDs may be increasing her blood pressure as well. She should takethe minimum amount of NSAIDs possible. Her heart rate was irregular to auscultation today but normal sinus rhythm on EKG. She does not feel any palpitations. I will have her wear a 24-hour Holter monitor. She is having some shortness of breath with exertion buthas attributed this to beingpretty deconditioned following herinfluenza infection. We discussed that if she does not findthat she is becoming less short of breath as shedoes moreshe should let us know. There is no signs of ischemia on her EKG today. She will return to the clinic in 6 months Immunizations Given and Recorded Vaccine Date Status [...] NEEDED FORSHORTNESS OF BREATH OR WHEEZING, Pharmacy: [id number] Start Date: 03/10/21 Status: Ordered amLODIPine 5 mg oral tablet Start: 05/26/23 10:02:00 EDT, 1 tab, PO, Daily, Disp# 90 tab, Refills: 3, Pharmacy: [facility]/pharmacy #[id number] Start Date: 05/26/23 Status: Ordered clonazePAM [...] Daily, Disp# 28 tab, Refills: 11, Pharmacy: [facility]/pharmacy #[id number] Start Date: 05/27/23 Status: Ordered Mucinex [...] PO PRN Daily SBP> 150 mm/hg, Pharmacy: [facility]/pharmacy #[id number] Start Date: 05/28/23 Status: Ordered oxyCODONE 5 [...] Ordered Vitamin D3 Start: 05/03/23 14:09:00 EDT, 87209 units, PO, q7days Start Date: 05/03/23 Status: Ordered Zepbound 5 mg/0.5 mL subcutaneous solution Start: 11/01/23 15:16:00 EDT, 5 mg =, subQ, q7days Start Date: 11/01/23 Status: Ordered Mental Status 11/01/23 Barriers to Learning one year None evide nt Mandatory Health Literacy Documentation Yes Health Literacy Communication Barriers N ever Primary Language Sammarinese Problem List Condition Confirmation Course Effective Dates [...] Active Primary hyperparathyroidism Confirmed Active 1by history Diagnosis Diagnosis Type Effective Dates Health Status Clinical Service Informant HTN (hypertension) Discharge Diagnosis 11/01/23 Non-Specified Adrenal insufficiency Discharge Diagnosis 11/01/23 Non-Specified Palpitations Discharge Diagnosis 11/01/23 Non-Specified Procedures Procedure Date Related Diagnosis Body Site Status CT of abdomen and pelvis wit hout contrast 1 12/09/20 Completed 11. Bilateral nephrolithiasis. No uteral calculi or hydronephrosis. 2. No evidence for acute appendicitis. 3. Small amount of fluid within the pelvis which is likely physiologic. Vital Signs Most recent to oldest [Reference Range]: 1 Patient Weight 105 kg (11/01/23 3:23 PM) Heart Rate 83 bpm (11/01/23 3:23 PM) Blood Pressure 122/80mmHg (11/01/23 3:23 PM) BP Location # 1 Left Arm (11/01/23 3:23 PM) Social History Social History Type Response Smoking Status Never smoked cigaret alfonzo Sex Female Radiology * Contributor_system, MUSE01: VERIFY, PERFORM Event Display: EKG Authored Date: Please click on link to see image. Cardiology Outpatient Note * EDUARDO Toussaint Sarah A: PERFORM, MODIFY Event Display: Cardiology Outpt Note Authored Date: Primary Care Provider EDUARDO Sung Jr., William Joseph Chief Complaint 6 mon fu htn adrenal insuff History of Present Illness Ms. Diez presents for follow up of labile blood pressures in the setting of adrenal insufficiency and palpitations. Her blood pressure vacillates with her steroid dosing. She has been onMedrol for weeks for a sinus infection which is being tapered down. She has been taking 7.5 mg amlodipinedaily with the steroid taper. She has also been taking ibuprofen and diclofenac. No edema in her lower extremities InMarch she had influenza and was coughing so hard she broke her ribs She started Zepboundwhichhaskept her from gaining weight with last round of steroids. She has been walking the last few days. She is a little sob. No chest discomfort. No wheezing Review of Systems All other systems reviewed and negative except as discussed in the HPI Physical Exam Vitals & Measurements HR:83(Monitored) BP:122/80 SpO2:98% WT:105kg WT:105.000kg(Dosing) Physical Examination General: Alert and oriented, No acute distress. Respiratory: Lungs are clear to auscultation, Respirations are non-labored. Cardiovascular: Irregularrhythm, No murmur, No edema, no carotid bruits to auscultation bilaterally. Integumentary: Warm, Dry, [place] Neurologic: Alert, Oriented. Cognition and Speech: Speech clear and coherent. Psychiatric: Cooperative, Appropriate mood & affect. Assessment/Plan Impression: 1. Orthostatic hypotension 2. Palpitations 3.Echocardiogram [address] [facility] normal left ventricular size and function showing normal left ventricular size and function without regional wall motion abnormalities withan ejection fraction of 65 to 70%, no valvular abnormalities, normal RVSP 4.Dobutamine stress test October [address] [facility] showing no ischemic changes at 83% MPHR, appropriate blood pressure, no arrhythmias With the steroid dosing Ms. Coyle blood pressure has been labile. She asked if she can take an extra2.5 mg of amlodipine on top of the 7-/2 she is taking if her blood pressures are above 145 systolicallyand she may. We also discussed with her thatherNSAIDs may be increasing her blood pressure as well. She should takethe minimum amount of NSAIDs possible. Her heart rate was irregular to auscultation today but normal sinus rhythm on EKG. She does not feel any palpitations. I will have her wear a 24-hour Holter monitor. She is having some shortness of breath with exertion buthas attributed this to beingpretty deconditioned following herinfluenza infection. We discussed that if she does not findthat she is becoming less short of breath as aleja gan should let us know. There is no signs of ischemia on her EKG today. She will return to the clinic in 6 months Problem List/Past Medical History Ongoing ADHD (attention deficit hyperactivity disorder) Anxiety Asthma Diabetes insipidus, neurohypophyseal MICH (generalized anxiety disorder) Gurinder's disease History of kidney stones HTN (hypertension) Hypothyroidism Orthostatic dizziness POLYURIA Primary hyperparathyroidism Secondary adrenal insufficiency Procedure/Surgical History CT of abdomen and pelvis without contrast| Service Date: 12/09/2020 Medications acetaminophen(Tylenol) albuterol(albuterol CFC free 90 mcg/inh MDI), See Instructions amLODIPine(amLODIPine 5 mg oral tablet), 5 mg= 1 tab, PO, Daily, 3 refills amLODIPine(Norvasc 2.5 mg oral tablet), See Instructions, 3 refills budesonide-formoterol(Symbicort 80 mcg-4.5 mcg/inh inhalation aerosol), 2 puff, inhaled, bid cholecalciferol(Vitamin D3), 86954 units, PO, q7days clonazePAM(clonazePAM 0.5 mg oral tablet), See Instructions diclofenac, 75 mg, PO, qhs drospirenone-ethinyl estradiol(drospirenone-ethinyl estradiol 3 mg-0.03 mg oral tablet) ethinyl estradiol-norethindrone(Lo Loestrin Fe oral tablet), 1 tab, PO, Daily, 11 refills ferrous sulfate(ferrous sulfate 325 mg (65 mg elemental iron) oral tablet), 325 mg, PO guaiFENesin(Mucinex 600 mg oral tablet, extended release), 600 mg= 1 tab, PO, q12h hydrocortisone(hydrocortisone 20 mg oral tablet), See Instructions ibuprofen(Advil), 600 mg, PO, bid latanoprost ophthalmic(latanoprost 0.005% ophthalmic solution) levothyroxine, 150 mcg, PO, Daily liothyronine(liothyronine 5 mcg oral tablet), 5 mcg= 1 tab, PO, Daily mupirocin topical(mupirocin 2% topical ointment), 1 appl, topical, tid oxyCODONE(oxyCODONE 5 mg oral tablet), 5 mg= 1 tab, PO, q6h, PRN tiotropium(Spiriva Respimat 60 ACT 2.5 mcg/inh inhalation aerosol), 2 inh, inhaled, Daily tirzepatide(Zepbound 5 mg/0.5 mL subcutaneous solution), 5 mg, subQ, q7days unlisted medication(SOLU-CORTEF 100 MG ACT-O-VIAL) Allergies NKA Social History Smoking Status Never smoked cigarettes Alcohol - Low Risk Type:Wine Frequency:1-2 times per year Exercise - Regular exercise Times per week:3-4 times/week Home/Environment - Low Risk Lives with:Children, Spouse Nutrition/Health - Low Risk Sexual - Low Risk Substance Abuse - Denies Substance Abuse Tobacco - Denies Tobacco Use Family History Breast cancer: PGM. Cancer: PGF. Cancer of ovary: MGM and PGM. Hypertension: Mother. Prostate carcinoma: Father. Health Status Family Member(s) Electronic Signature on File CC: EDUARDO Domingo [address] [address] * Electronically Reviewed/Signed by: EDUARDO Parrish Author Signature Dt/Tm:11/01/2023 04:09 PM [facility] Patient Care team information Care Team Personnel Name: MD Elisha, Donovan Position: Resident Member Role: Lifetime Relationship Address: Address: [address] [place] [id number] [place] Name: MD Victor Manuel, Edna Position: Physician - Anesthesiologist Member Role: Lifetime Relationship Address: Address: [address] [place] [address] [place] Name: EDUARDO Sung Jr., Marek Soto Position: Referring Member Role: Primary Care Provider Address: Address: [address] [address] [place] Name: MD Isrrael, Vanita Zaidi Position: Physician - Surgery Oncology Member Role: Lifetime Relationship Address: Address: [address] [place] [address] [address] [place] [address] [place] Care Team Related Persons Name: JOHNNA DIEZ Address: home [address] [place] [address], [place] [id number]"
--- OUTSIDE RECORDS SUMMARY | 2023-11-26 09:49 | External Medical Summary | Continuity of Care Document ---
Author Name Unknown Organization [facility] [address] Address [address] [place], [place] [id number] Care Team Providers Care Hoop Punch And Coiler Operator Helper Name Role Phone Marek Sung Jr. Primary Care Physicia n [phone] [id number] Date(s): 11/09/23 - 11/09/23 [facility] [address] [facility] [address] [place] [address] [phone] Discharge Disposition: Home or Self Care Attending Physician: DO Jean Baptiste Jason D Referring Physician: DO Jean Baptiste Jason D Allergies, Adverse Reactions, Alerts No Known Allergies [...] NEEDED FORSHORTNESS OF BREATH OR WHEEZING, Pharmacy: [id number] Start Date: 03/10/21 Status: Ordered amLODIPine 5 mg oral tablet Start: 05/26/23 10:02:00 EDT, 1 tab, PO, Daily, Disp# 90 tab, Refills: 3, Pharmacy: [facility]/pharmacy #[id number] Start Date: 05/26/23 Status: Ordered clonazePAM [...] 150 mcg =, PO, Daily Start Date: 5/19/21 Status: Ordered liothyronine 5 mcg oral tablet 1 tab, PO, Daily, TAKE 1 TABLET BY MOUTH EVERY DAY Start Date: 05/27/23 Status: Ordered Lo Loestrin Fe oral tablet Start: 05/27/23 9:06:00 EDT, 1 tab, PO, Daily, Disp# 28 tab, Refills: 11, Pharmacy: [facility]/pharmacy #[id number] Start Date: 05/27/23 Status: Ordered Mucinex [...] PO PRN Daily SBP> 150 mm/hg, Pharmacy: [facility]/pharmacy #[id number] Start Date: 05/28/23 Status: Ordered oxyCODONE [...] Ordered Vitamin D3 Start: 05/03/23 14:09:00 EDT, 31413 units, PO, q7days Start Date: 05/03/23 Status: [...] Resident Member Role: Lifetime Relationship Address: Address: [address] [place] [address] [place] Name: MD Rush Jansie Position: Physician - Anesthesiologist Member Role: Lifetime Relationship Address: Address: [address] [place] [address] [place] Name: EDUARDO Sung Jr., William Joseph Position: Referring Member Role: Primary Care Provider Address: Address: [address] [place] [address] [place] Name: MD Isrrael, Vanita Zaidi Position: Physician - Surgery Oncology Member Role: Lifetime Relationship Address: Address: [address] [place] [address] [address] [place] [address] [place] Care Team Related Persons Name: JOHNNA DUNN Address: home [address] [place] [address], [place] [id number]
--- OUTSIDE RECORDS SUMMARY | 2023-11-26 09:49 | External Medical Summary | Summary of Care ---
Author Name Unknown Organization [facility] Address [address] [place] [address] Phone [phone] Care Team Providers Care State Appellate Clerk Name Role Phone Corina Cervantes MD Primary Care Provider [phone] Reason for Visit * Reason Onset Date Comments Referral 10/29/2023 Encounter Details Date Type Department Care Team (Late st Contact Info) Description 10/29/2023 New Patient Triage (TRANSPORTATION SOLUTIONS MANAGER USE ONLY) Thoracic Surg [facility] [address] [place] [address] Elana Jarquin, riverboat master Allergies Active Allergy Reactions Criticality Noted Date Comments Serotonin High 03/24/2023 Other Reaction(s): per patient cannot take per PCP documented as of this encounter (statuses as of 11/06/2023) Medications Medication Sig Dispensed Refills Start Date [...] WHEEZING 8.5 g 2 09/15/2022 Active Tiotropium [place] Monohydrate 2.5 MCG/ACT Inhalation Aerosol Solution (Spiriva [...] muscle as needed for adrenal crisis. Acto-Vial [facility] [address]-47 2 mL 3 02/22/2023 Active Syringe 22G [...] With food.. 60 Tablet 3 10/06/2023 Active Potassium Chloride ER 10 MEQ Oral Capsule Extended ReleaseIndications:H ypokalemia Take 1 Capsule by mouth in the morning and 1 Capsule before bedtime. 180 Capsule 3 10/19/2023 Active oxyCODONE HCl 5 MG Oral Tablet (Oxy IR)Indications:Fract ure of rib due to cough Take 1 Tablet by mouth every 6 hours as needed for Pain, Severe. 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 Santiago. Took 50,000 weekly several years ago. Taking Vit D3 2000 IU daily plus PNV per sack repairer. Vit D level Jul. documented as of this encounter (statuses as of 11/06/2023) Resolved Problems Problem Noted Date Diagnosed Date [...] trimester Patient received flu vaccine. 05/22/2015 Marti Delgado, RAYSHAWN Planning to breastfeed. Has taken Jesenia [employer]cd[employer] class. Hoping for natural childbirth as long as possible. Zulay Vazquez planning to be . Took CBE class here at , found it to be very helpful. 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 Santiago, through 1. In women with [...] be handled at the discretion of the sack repairer. documented as of this encounter (statuses as of 11/06/2023) Immunizations Name Administration Dates Next Due COVID-19 [...] money to get more. Never true 02/03/2023 Ellinger Depression Scale Answer Date Recorded Ellinger Depression Scale Score 0 04/18/2019 The thought [...] on file documented as of this encounter Progress Notes * Bell Lewis CRNP - 11/06/2023 5:18 PM EDT Does patient need to be seen?: Yes Modality: Office visit Urgency: Patient is scheduled Discussed care plan with patient or proxy?: Yes Communicated with patient on Date (mm/dd/ymarthayy): 10/29/2023 at [facility]5 * Elana Jarquin RN - 11/05/2023 3:39 PM EDT Spoke with Wanda regarding appt, offered 12/14/23 at 1pm, she would like to come to clinic. Directions to clinic provided. I did make her aware that mildly displaced we will let her heal and see how she does. If anything changes, symptoms become worse, do to ED and get images and then call me so we know. Wanda verbalized understanding and thanked me. She did state that the binder has "been a game changer and allows me to get chores done around the house." Elana Jarquin RN MSN [facility] Thoracic Surgery Nurse Navigator [facility] * Elana Jarquin RN - 11/02/2023 11:07 AM EDT New Patient Triage What is the diagnosis/reason for referral?: rib fracture Enter order ID here: [id number] Specialty specific documentation: Cardiac and Thoracic Surgery Discussed care plan with patient or proxy?: Yes called and spoke with Wanda regarding rib fracture referral. I did explain that with rib fractures if they are not displaced too badly they are usuallygiven time to heal a few months then re-evaluate. He stated that she was diagnosed with flu and bronchitis in early b was seen in ED at [facility] due to her coughing she fractured ribs 8&9 on right s checo, they were non-displaced. She was taking oxy and ibuprofen and just this week she was feeling better and off the oxy. She coughed again and got severe pain again. She had xrays done at [facility] ED and was told that the right 9th rib is displaced. She is again taking oxy. I instructed her to try and splint the area with a small pillow when she is up walking, coughing orsneezing. We did talk about an abdominal binder as well that may help. She does have asthma so thistime of year makes her coughing worse with the chronic sinus drainage. I explained that I would need to get the images and ED reports and then discuss with Dr. Marte. She is aware that he will be back in office on Wednesday. I will discuss next steps with him and call her back with recommendations. Communicated with patient on Date (mm/dd/yyyy): 10/29/2023 at [facility] [id number] Elana Jarquin RN MSN [facility] Thoracic Surgery Nurse Navigator [facility] documented in this encounter Plan of Treatment Upcoming Encounters Date Type Department Care Team (Late st Contact Info) Description 12/14/2023 1:00 PM EDT [facility] [address] [place] [address] Bakari Marte MD [address] [place] [address] 09/04/2024 11:20 AM EST Telemedicine Endocrinology, [place] [address] [place] [address] Lyric Green MD [address] [place], [place] [id number] Health Maintenance Due Date Last Done Comments [...] Not on filedocumented as of this encounter Care Teams State Appellate Clerk Relationship Specialty Start Date End Date Corina Cervantes MD [address] [place] [address] PCP - General Family Medicine 10/20/23 documented as of this encounter
--- OUTSIDE RECORDS SUMMARY | 2023-11-26 09:50 | External Medical Summary | Summary of Care ---
Author Name Unknown Organization [facility] Address [address] [place] [address] Phone [phone] Care Team Providers Care Cutter Plastics Rolls Name Role Phone Corina Cervantes MD Primary Care Provider [phone] Reason for Visit * Reason Onset Date Comments Advice 10/21/2023 Status Check 10/21/2023 Encounter Details Date Type Department Care Team (Late st Contact Info) Description 10/21/2023 Telephone Family Practice [facility] [address] [facility] [place] [address] Corina Cervantes MD [address] [place] [address] Advice; Status Check Allergies Active Allergy Reactions Criticality Noted Date Comments Serotonin High 03/24/2023 Other Reaction(s): per patient cannot take per PCP documented as of this encounter (statuses as of 10/29/2023) Medications Medication Sig Dispensed Refills Start Date End Date Status Ibuprofen 200 MG Oral Tablet (Motrin) Take 3 Tablets by mouth 2 times a day as needed (pain). 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 Acto-Vial [facility] [address]-41 2 mL 3 02/22/2023 Active Syringe 22G X 1-1/2" 3 MLIndications:Seco ndary adrenal insufficiency (HCC) Use with solucortef as needed for adrenal crisis 5 Each 3 02/22/2023 Active Latanoprost 0.005 % Ophthalmic Emulsion at bedtime. 0 04/28/2023 Active amLODIPine Besylate 5 MG Oral Tablet (Norvasc) [...] as needed for Cough. 0 09/26/2023 Active Sulfamethoxazole-T rimethoprim 800-160 MG Oral Tablet (Bactrim DS) Take 1 Tablet by mouth in the morning and 1 Tablet before bedtime. 0 10/05/2023 Active Diclofenac Sodium 75 MG Oral Tablet Delayed Release (Voltaren)Indicati ons:Fracture of rib due to cough Take 1 Tablet by mouth in the morning and 1 Tablet before bedtime. With food.. 60 Tablet 3 10/06/2023 Active Potassium Chloride ER 10 MEQ Oral Capsule Extended ReleaseIndications :Hypokalemia Take 1 Capsule by mouth in the morning and 1 Capsule before bedtime. 180 Capsule 3 10/19/2023 Active oxyCODONE HCl 5 MG Oral Tablet (Oxy IR)Indications:Fra cture of rib due to cough Take 1 Tablet by mouth every 6 hours as needed for Pain, Severe. 20 Tablet 0 10/04/2023 4 Discontinue d(Refill) documented as of this encounter (statuses as of 10/29/2023) Active Problems Problem Noted Date Diagnosed Date Body mass index (BMI) of 40.0 to 44.9 in adult 1 08/28/2022 Overview: Per Obesity protocol Diabetes insipidus 02/22/2023 Secondary adrenal insufficiency 02/22/2023 History of primary hyperparathyroidism 3 Urinary frequency 01/12/2023 Sinus congestion 01/12/2023 Flank pain 01/12/2023 Exhaustion 10/29/2022 Chest pain 10/29/2022 Malaise and fatigue 10/29/2022 NAFLD (nonalcoholic fatty liver disease) 022 ADHD (attention deficit hype ractivity disorder), combined type 10/17/2021 History of anorexia nervosa 07/24/2021 Hyperparathyroidism, primary 07/19/2021 Overview: Status post surgery at [place], 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 Santiago. Took 50,000 weekly several years ago. Taking Vit D3 2000 IU daily plus PNV per automobile damage field appraiser. Vit D level Jul. documented as of this encounter (statuses as of 10/29/2023) Resolved Problems Problem Noted Date Diagnosed Date [...] disease 05/22/2015 12/04/19 19 Overview: Following with automobile damage field appraiser, Dr. Santiago, through 1. In women with [...] be handled at the discretion of the automobile damage field appraiser. documented as of this encounter (statuses as of 10/29/2023) Immunizations Name Administration Dates Next Due COVID-19 [...] money to get more. Never true 02/03/2023 [place] Depression Scale Answer Date Recorded [place] Depression Scale Score 0 04/18/2019 The thought [...] encounter Miscellaneous Notes * Telephone Encounter - Areli Sullivan CPhT - 10/29/2023 9:50 AM EDT Pt calling regarding a PA for oxyCODONE HCl 5 MG Oral Tablet (Oxy IR) . Caller states she spoke with her insurance and a PA has not yet been submitted for this medication. Pt provided a number that can be contacted to do so if needed. Phone number is [phone]. Please advise. Thank you, Stephanie Sullivan CPhT Retail Coverage Merchandiser Lead II [facility] ([facility] (Formerly [facility]) 10/29/2023,9:51 AM * Telephone Encounter - Mary Ryan LPN - 10/21/2023 1:09 PM EST Being handled in another encounter * Telephone Encounter - Robby Murillo OSA - 10/21/2023 9:58 AM EST Patient called in She is in need of Pain Management / Oxycodone, pain is really bad. Was managing with ibuprofen and tylenol it is no longer working she is also using Lidocaine patches the pain is severe.Patient would like the option to take the oxycodone as needed when she is in sever e pain and cannot lift her arms and is crying.Patient went to the er and had an xray that shows the break is disp laced.Patient is in [place] for spring. Please follow up with the patient. Thank you. documented in this encounter Plan of Treatment Health Maintenance Due Date Last Done Comments Hepatitis B (1 of 3 - 19+ 3-dose series) 2002 HPV/Co-Test 2013 Cervical Cancer Screening 04/29/2021 Pap Smear 04/29/2021 04/29/2018, 10/0 02/2015, 11/29/2012 Depression Screening 07/24/2022 07/24/2021 Mammogram 03/15/2024 03/15/2023, 02/15, 07/02/2021, Additional history exists TSH 04/22/2024 04/22/2023, 062 09/2022, 12/16/2022, Additional history exists Diabetes Screening 10/11/2026 [...] filedocumented as of this encounter Care Teams Cutter Plastics Rolls Relationship Specialty Start Date End Date Corina Cervantes MD [address] [place] [address] PCP - General Family Medicine 10/20/23 documented as of this encounter
--- OUTSIDE RECORDS SUMMARY | 2023-11-26 09:50 | External Medical Summary | Summary of Care ---
Author Name Unknown Organization [facility] Address [address] [place] [address] Phone [phone] Care Team Providers Care Cake Mixer Name Role Phone Corina Cervantes MD Primary Care Provider [phone] Reason for Visit * Reason Onset Date Comments Advice 10/21/2023 Encounter Details Date Type Department Care Team (Late st Contact Info) Description 10/21/2023 Telephone Family Practice [facility] [address] [facility] [place] [address] Corina Cervantes MD [address] [place] [address] Advice Allergies Active Allergy Reactions Criticality Noted Date Comments Serotonin High 03/24/2023 Other Reaction(s): per patient cannot take per PCP documented as of this encounter (statuses as of 10/21/2023) Medications Medication Sig Dispensed Refills Start Date [...] WHEEZING 8.5 g 2 09/15/2022 Active Tiotropium Nichols Monohydrate 2.5 MCG/ACT Inhalation Aerosol Solution (Spiriva [...] muscle as needed for adrenal crisis. Acto-Vial [facility] [id number] 2 mL 3 02/22/2023 Active Syringe 22G [...] as needed for Cough. 0 09/26/2023 Active oxyCODONE HCl 5 MG Oral Tablet (Oxy IR)Indications:Fract ure of rib due to cough Take 1 Tablet by mouth every 6 hours as needed for Pain, Severe. 20 Tablet 0 10/04/2023 Active Sulfamethoxazole-Tri methoprim 800-160 MG Oral Tablet [...] before bedtime. 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 Santiago. Took 50,000 weekly several years ago. Taking Vit D3 2000 IU daily plus PNV per agricultural technical officer. Vit D level Jul. documented as of this encounter (statuses as of 10/21/2023) Resolved Problems Problem Noted Date Diagnosed Date [...] disease 05/22/2015 12/04/19 19 Overview: Following with agricultural technical officer, Dr. Santiago, through 1. In women with [...] be handled at the discretion of the agricultural technical officer. documented as of this encounter (statuses as of 10/21/2023) Immunizations Name Administration Dates Next Due COVID-19 [...] money to get more. Never true 02/03/2023 [place] Depression Scale Answer Date Recorded [place] Depression Scale Score 0 04/18/2019 The thought [...] encounter Miscellaneous Notes * Telephone Encounter - Mary Ryan LPN [...] the break is disp laced.Patient is in [place] for spring break. Please follow up with the patient. Thank [...] filedocumented as of this encounter Care Teams Cake Mixer Relationship Specialty Start Date End Date Corina Cervantes MD [address] [place] [address] PCP - General Family Medicine 10/20/23 documented as of this encounter
--- OUTSIDE RECORDS SUMMARY | 2023-11-26 09:50 | External Medical Summary | Summary of Care ---
Author Name Unknown Organization [facility] Address [address] [place] [address] Phone [phone] Care Team Providers Care Sat Tutor Name Role Phone Corina Cervantes MD Primary Care Provider [phone] Encounter Details Date Type Department Care Team (Late st Contact Info) Description 09/26/2023 Orders Only Thoracic Surg [facility] [address] [place], [place] [id number] Bakari Marte MD [address] [place] [address] Allergies Active Allergy Reactions Criticality Noted Date [...] WHEEZING 8.5 g 2 09/15/2022 Active Tiotropium [place] Monohydrate 2.5 MCG/ACT Inhalation Aerosol Solution (Spiriva Respimat) DAILY 0 07/08/2022 Active Liothyronine Sodium 5 MCG Oral Tablet (Cytomel)Indications :Hypothyroidism due to Ugrinder's thyroiditis Take 1 Tablet by mouth in [...] muscle as needed for adrenal crisis. 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 Santiago. Took 50,000 weekly several years ago. Taking Vit D3 2000 IU daily plus PNV per unit manager convenience stores. Vit D level Jul. documented as of [...] disease 05/22/2015 12/04/19 19 Overview: Following with unit manager convenience stores, Dr. Santiago, through 1. In women with [...] be handled at the discretion of the unit manager convenience stores. documented as of this encounter (statuses as [...] money to get more. Never true 02/03/2023 [place] Depression Scale Answer Date Recorded [place] Depression Scale Score 0 04/18/2019 The thought [...] Cancer Screening 04/29/2021 Pap Smear 04/29/2021 04/29/2018, 1002/2015, 11/29/2012 Depression Screening 07/24/2022 07/24/2021 Mammogram 03/15/2024 [...] Date/Time Associated Diagnosis Comments RADIOLOGY EXAM - CT (IMAGES ONLY, NO REPORT) Routine 09/26/2023 12:15 PM EST documented in this encounter Results * RADIOLOGY EXAM - CT (IMAGES ONLY, NO REPORT) (09/26/2023 12:15 PM EST) 09/26/2023 12:1 3 PM EST Narrative Scheduling, Silent - 10/29/2023 7:32 PM EDT This is an imaging study not interpreted or resulted by a [facility] or deskwolfer contracted radiologist. Bakari Marte MD RAD CT documented in this encounter Care Teams Sat Tutor Relationship Specialty Start Date End Date Corina Cervantes MD [address] [facility] [place] [address] PCP - General Family Medicine 10/20/23 documented as of this encounter
--- OUTSIDE RECORDS SUMMARY | 2023-11-26 09:50 | External Medical Summary | Summary of Care ---
Author Name Unknown Organization [facility] Address [address] [place] [address] Phone [phone] Care Team Providers Care Postal Sorting Officer Name Role Phone Corina Cervantes MD Primary Care Provider [phone] Encounter Details Date Type Department Care Team (Late st Contact Info) Description 10/17/2023 Orders Only Thoracic Surg [facility] [address], [place] [id number] Bakari Marte MD [address] [place] [address] Allergies Active Allergy Reactions Criticality [...] WHEEZING 8.5 g 2 09/15/2022 Active Tiotropium [place] Monohydrate 2.5 MCG/ACT Inhalation Aerosol Solution (Spiriva [...] muscle as needed for adrenal crisis. Acto-Vial 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 Santiago. Took 50,000 weekly several years ago. Taking Vit D3 2000 IU daily plus PNV per sustainable agriculture specialist. Vit D level Jul. documented as of [...] disease 05/22/2015 12/04/19 19 Overview: Following with sustainable agriculture specialist, Dr. Santiago, through 1. In women with [...] be handled at the discretion of the sustainable agriculture specialist. documented as of this encounter (statuses as [...] money to get more. Never true 02/03/2023 [place] Depression Scale Answer Date Recorded [place] Depression Scale Score 0 04/18/2019 The thought [...] interpreted or resulted by a [facility] or [facility] contracted radiologist. Bakari Marte MD RADIOLOGY (RAD GENE RAL) documented in this encounter Care Teams Postal Sorting Officer Relationship Specialty Start Date End Date Corina Cervantes MD [address] [place] [address] PCP - General Family Medicine 10/20/23 documented as of this encounter
--- OUTSIDE RECORDS SUMMARY | 2023-11-26 09:50 | External Medical Summary | Summary of Care ---
Author Name Unknown Organization [facility] Address [address] [place] [address] Phone [phone] Care Team Providers Care Doctor Of Podiatric Medicine Name Role Phone Clau Regan EDUARDO Primary Care Provider [phone] Encounter Details Date Type Department Care Team (Latest Contact Info) Description 09/26/2023 12:15 PM EST - 09/26/2023 11:59 PM EST Hospital Encounter Radiology Film File [address] [place] [address] Discharge Disposition: Home - Self [...] WHEEZING 8.5 g 2 09/15/2022 Active Tiotropium [place] Monohydrate 2.5 MCG/ACT Inhalation Aerosol Solution (Spiriva [...] muscle as needed for adrenal crisis. 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 Santiago. Took 50,000 weekly several years ago. Taking Vit D3 2000 IU daily plus PNV per aluminum pourer. Vit D level Jul. documented as of [...] disease 05/22/2015 12/04/19 19 Overview: Following with aluminum pourer, Dr. Santiago, through 1. In women with [...] be handled at the discretion of the aluminum pourer. documented as of this encounter (statuses as [...] money to get more. Never true 02/03/2023 [place] Depression Scale Answer Date Recorded [place] Depression Scale Score 0 04/18/2019 The thought [...] interpreted or resulted by a [facility] or [facility] contracted radiologist. Bakari Marte MD RAD CT documented in this encounter Care Teams Doctor Of Podiatric Medicine Relationship Specialty Start Date End Date Clau Regan CRNP [address] [place] [address] PCP - General Nurse Practitioner 11/03/22 10/19/23 documented as of this encounter
--- OUTSIDE RECORDS SUMMARY | 2023-11-26 09:51 | External Medical Summary | Summary of Care ---
Author Name Unknown Organization [facility] Address [address] [place] [address] Phone [phone] Care Team Providers Care Food Tray Assembler Name Role Phone Clau Regan EDUARDO Primary Care Provider [phone] Reason for Visit * Reason Onset Date Comments Medication Refill 10/19/2023 Encounter Details Date Type Department Care Team (Late st Contact Info) Description 10/19/2023 Refill Family Practice [facility] [address] [facility] [place] [address] [facility] [address] [facility] [address] Hypokalemia Allergies Active Allergy Reactions Criticality Noted Date Comments Serotonin High 03/24/2023 Other Reaction(s): per patient cannot take per PCP documented as of this encounter (statuses as of 10/19/2023) Medications Medication Sig Dispensed Refills Start Date [...] WHEEZING 8.5 g 2 09/15/2022 Active Tiotropium [place] Monohydrate 2.5 MCG/ACT Inhalation Aerosol Solution (Spiriva [...] as needed for adrenal crisis. Acto-Vial [facility] [id number] 2 mL 3 02/22/2023 Active Syringe 22G [...] Pain, Severe. 20 Tablet 0 10/04/2023 Active Sulfamethoxazole-T rimethoprim 800-160 MG Oral Tablet [...] before bedtime. 180 Capsule 3 10/19/2023 Active Potassium Chloride ER 10 MEQ Oral Capsule Extended ReleaseIndications :Hypokalemia Take 1 Capsule by mouth in the morning and 1 Capsule before bedtime. 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 Santiago. Took 50,000 weekly several years ago. Taking Vit D3 2000 IU daily plus PNV per record tester. Vit D level Jul. documented as of this encounter (statuses as of 10/19/2023) Resolved Problems Problem Noted Date Diagnosed Date [...] disease 05/22/2015 12/04/19 19 Overview: Following with record tester, Dr. Santiago, through 1. In women with [...] be handled at the discretion of the record tester. documented as of this encounter (statuses as of 10/19/2023) Immunizations Name Administration Dates Next Due COVID-19 [...] money to get more. Never true 02/03/2023 [place] Depression Scale Answer Date Recorded [place] Depression Scale Score 0 04/18/2019 The thought of harming myself has occurred to me . (Pt Reported) 04/18/2019 Sex and Gender Information Value Date Recorded Sex Assigned at Female 09/20/2019 8:07 AM EST Gender Identity Female 09/20/2019 8:07 AM EST Sexual Orientation Straight 09/20/2019 8 :07 AM EST Job Start Date Occupation Industry Not on file Not on file Not on file documented as of this encounter Miscellaneous Notes * Telephone Encounter - Corina Cervantes MD - 10/19/2023 3:43 PM ESTSigned Prescriptions: Disp Refills Potassium Chloride ER 10 MEQ Oral Capsule *180 Ca*3 Sig: Take 1 Capsule by mouth in the morning and 1 Capsule before bedtime. Authorizing Provider: CORINA CERVANTES * Telephone Encounter - Taryn Metz LPN - 10/19/2023 3:22 PM ESTPending Prescriptions: Disp Refills Potassium Chloride ER 10 MEQ Oral Capsule *180 Ca*3 Sig: Take 1 Capsule by mouth in the morning and 1 Capsule before bedtime. * Telephone Encounter - Kiah Eldridge LPN - 10/19/2023 3:20 PM ESTPending Prescriptions: Disp Refills Potassium Chloride ER 10 MEQ Oral Capsule *60 Cap*5 Sig: Take 1 Capsule by mouth in the morning and 1 Capsule before bedtime. * Telephone Encounter - Corina Chisholm, KRISTEN - 10/19/2023 2:39 PM EST 90 day Did you pend patient's preferred pharmacy and medication before forwarding?yes Pharmacy: [id number] [address] [facility] Pending Prescriptions: Disp Refills Potassium Chloride ER 10 MEQ Oral Capsule*60 Cap*5 Sig: Take 1 Capsule by mouth in the morning and 1 Capsule before bedtime. Last Visit: 09/24/2023 (in office), 09/28/2023 (telemedicine) Next Visit: Visit date not found If no future appointments scheduled, and last appointment is greater than a year ago, please schedule patient for a follow-up appointment Last date the medication was ordered: 09/24/23 Is this request for a controlled substance?No Urine Drug Screen:No results found. However, due to the size of the patient record, not all encounters were searched. Please check Results Review for a complete set of results. Patient Phone Numbers Labs: Lab Results Component Value Date/Time CREAT 0.8 10/11/2023 09:07 AM CREAT 0.54 11/19/2022 12:00 AM CREAT 0.64 09/16/2022 02:16 PM CREAT 0.7 12/06/2019 12:01 PM POTASSIUM 4.3 10/11/2023 09:07 AM POTASSIUM 4.3 11/19/2022 12:00 AM POTASSIUM 4.5 09/16/2022 02:16 PM POTASSIUM 4.5 12/06/2019 12:01 PM TSH 1.19 04/22/2023 08:21 AM TSH 3.49 11/19/2022 12:00 AM TSH 1.31 04/16/2020 01:19 PM LDLCALC 141 (H) 05/09/2022 09:27 AM ALT 25 04/22/2023 08:21 AM ALT 26 09/16/2022 02:16 PM ALT 19 10/09/2019 04:03 PM HGBA1C 5.6 05/15/2023 11:42 AM HGBA1C 5 11/19/2022 12:00 AM HGBA1C 5.5 09/16/2022 02:16 PM documented in this encounter Plan of Treatment [...] Not on filedocumented as of this encounter Visit Diagnoses Diagnosis Hypokalemia Hypopotassemia documented in this encounter Care Teams Food Tray Assembler Relationship Specialty Start Date End Date Clau Regan CRNP [address] [place] [address] PCP - General Nurse Practitioner 11/03/22 documented as of this encounter
[2023-11-26] MEDS: ACETAMINOPHEN 325 MG TAB PO STA (10:20)
[2023-11-26] MEDS: DICLOFENAC SOD 1% GEL 100 GM TUBE EXT SCH (10:38)
--- NOTE | 2023-11-26 11:02 | XRay Report ---
XR chest 1V portable HISTORY: 38 years-old Female sob/chest pain suture was breath with chest pain COMPARISON: 10/17/2023 TECHNIQUE: AP view of the chest FINDINGS: Cardiomediastinal and hilar silhouettes are within normal limits. No pneumothorax, pleural effusion o r airspace consolidation. The previously described right-sided rib fractures are better seen on the p rior study. IMPRESSION: 1. No acute cardiopulmonary abnormality. 2. The previously described acute right-sided rib fractures are better seen on the prior study. 3. No pneumothorax. ACT 112: Negative or not required by law. The above report was generated using voice recognition software. It may contain grammatical, syntax o r spelling errors. Electronically signed by: Jesse Barker M.D. 11/26/2023 11:00 AM
[2023-11-26] MEDS: IBUPROFEN 800 MG TAB PO STA (12:12)
[2023-11-26] MEDS: KETOROLAC 30 MG/ML VIAL IV ONE (13:35)
--- NOTE | 2023-11-26 14:30 | CT Scan Report ---
CT abd pelvis wo con CLINICAL HISTORY: severe RUQ pain TECHNIQUE: Helical axial images of the abdomen and pelvis were obtained. Automated dose lowering tech niques and/or adjustment according to patient size were utilized for this exam. This exam was perfor med without intravenous contrast. COMPARISON: Comparison is made to CT abdomen pelvis 09/23/[address] abdomen pelvis 10/26/2022 FINDINGS: Lower chest: No acute abnormality. Liver: Hepatic cysts are seen. An additional hypodensity previously noted to be a hemangioma is seen. Gallbladder and biliary tree: No calcified gallstones. Normal caliber wall. No intra- or extrahepatic biliary ductal dilation. Pancreas: Unremarkable, no focal lesions. Spleen: Unremarkable. Adrenals: Unremarkable. Kidneys and ureters: Bilateral nephrolithiasis is seen. Bladder: Unremarkable. Reproductive organs: Unremarkable. Bowel: The appendix is normal. Lymph nodes Retroperitoneal: Unremarkable. Pelvic: Unremarkable. Mesenteric: Unremarkable. Peritoneum: Normal. Vessels: Unremarkable. Abdominal wall: Unremarkable. Bones: 9 mm sclerotic lesion is seen in the left ischium, enlarged from prior exam. IMPRESSION: 1. No acute abnormality and in particular no evidence of cholecystitis or pancreatitis. The appendix is normal. 2. Nonobstructive nephrolithiasis. 3. There is a sclerotic density in the left iliac bone which is enlarged from prior exam and was not seen in 2022. Correlation with oncologic history is recommended as a sclerotic metastasis cannot be excluded. ACT 112: Positive. There are findings on this exam that require communication between the performing entity and the patient following Patient Test Result Information Act ([place] Act 112) guidelines. Electronically signed by: Jose Forbes M.D. 11/26/2023 2:29 PM
--- NOTE | 2023-11-26 14:55 | CT Scan Report ---
CT chest diagnostic wo con CT DOSE: 2177.78 mGy.cm CLINICAL HISTORY: 38 years-old Female with severe RUQ pain. Acute severe right upper quadrant abdomi nal pain with shortness of breath TECHNIQUE: Multiaxial CT images of the chest were performed without contrast. A dose lowering techni que was utilized adhering to the principles of ALARA. COMPARISON: CT abdomen and pelvis of same day, CT chest 09/26/2023, 03/24/2023. FINDINGS: Unremarkable thyroid. There is no lymphadenopathy identified. The heart is normal in size w ithout pericardial effusion. No thoracic aortic aneurysm. There is no pneumothorax, pleural effusion or airspace consolidation. No suspicious pulmonary nodules or masses. And benign stable benign 3 mm s ubpleural calcified granuloma of the nasal right lower lobe on image 177. Stable 6 mm groundglass nod ules in the right lung apex is unchanged dating back to 03/24/2023. No acute upper abdominal abnormality. 4 mm nonobstructing calculus of the superior pole left kidney. Hepatic steatosis with hepatomegaly. There are a few indeterminate subcentimeter hepatic hypodensitie s. No acute fracture or destructive bone lesion. Healing subacute fractures of the lateral right eigh th and ninth ribs. IMPRESSION: 1. No acute intrathoracic abnormality. 2. Stable 6 mm groundglass nodule of the right upper lobe which is unchanged dating back to 03/24/2023. 3. Healing subacute right lateral rib fractures. 4. Left nephrolithiasis. ACT 112: Negative or not required by law. Electronically signed by: Jesse Barker M.D. 11/26/2023 2:53 PM
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
[2023-11-26] MEDS ORDERED: AMOXICILLIN/CLAVULANATE 875 MG TAB PO SCH (20:30)
== END 2023-11-26 16:36 | disposition home or self-care (01) ==
LOC: 2N 12:35 → ED 12:35 → 2N 20:31

== ENCOUNTER 2024-01-10 19:52 | Inpatient (IN) ==
--- OUTSIDE RECORDS SUMMARY | 2024-01-10 19:57 | External Medical Summary | Summary of Care ---
Author Name Unknown Organization [facility] Address [address] [place] [address] Phone [phone] Care Team Providers Care Hospice Nurse Practitioner Name Role Phone Corina Cervantes MD Primary Care Provider [phone] Reason for Visit * Reason Onset Date Comments Medication Refill 01/05/2024 Encounter Details Date Type Department Care Team (Late st Contact Info) Description 01/05/2024 Telephone Thoracic Surg [facility] [address] [place] [address] Bakari Werner MD [address] [place], [place] [id number] Medication Refill Allergies Active Allergy Reactions Criticality Noted Date Comments Serotonin High 03/24/2023 Other Reaction(s): per patient cannot take per PCP documented as of this encounter (statuses as of 01/05/2024) Medications Medication Sig Dispensed Refills Start Date End Date Status Ibuprofen 200 MG Oral Tablet (Motrin) Take 3 Tablets by mouth 2 times a day as needed (pain). Active Albuterol Sulfate HFA 108 (90 Base) MCG/ACT Inhalation Aerosol SolutionIndication s:Mild persistent asthma without complication INHALE 2 PUFFS BY MOUTH EVERY 4 HOURS NEEDED FOR COUGH , FOR SHORTNESS OF BREATH OR WHEEZING 8.5 g 2 09/15/2022 Active Tiotropium [place] Monohydrate 2.5 MCG/ACT Inhalation Aerosol Solution (Spiriva Respimat) Inhale 2 Puffs by mouth in the morning. 07/08/2022 Active Hydrocortisone Sod Suc (PF) 100 MG Injection Solution Reconstituted (Solu-Cortef)Indic ations:Secondary adrenal insufficiency (HCC) Inject 100mg (2ml) into large muscle as needed for adrenal crisis. Acto-Vial [facility] [id number] 2 mL 3 02/22/2023 Active Syringe 22G X 1-1/2" 3 MLIndications:Seco ndary adrenal insufficiency (HCC) Use with solucortef as needed for adrenal crisis 5 Each 3 02/22/2023 Active Latanoprost 0.005 % Ophthalmic Emulsion at bedtime. 04/28/2023 Active amLODIPine Besylate 5 MG Oral Tablet (Norvasc) Take 1 Tablet by mouth in the morning. Active clonazePAM 0.5 MG Oral Tablet (KlonoPIN) Take 1 Tablet by mouth in the morning and 1 Tablet before bedtime. Active DULoxetine HCl 30 MG Oral Capsule Delayed Release Particles (Cymbalta) Take 1 Capsule by mouth in the morning. 05/18/2023 Active guaiFENesin ER 600 MG Oral Tablet Extended Release 12 Hour (Mucinex) 1 Tablet. 05/03/2023 Active DULoxetine HCl 20 MG Oral Capsule Delayed Release Particles (Cymbalta) Take 1 Capsule by mouth in the morning. 09/13/2023 Active Latanoprost 0.005 % Ophthalmic Emulsion INSTILL 1 DROP INTO BOTH EYES AT BEDTIME Active Lo Loestrin Fe 1 MG-10 MCG / 10 MCG Oral Tablet (Norethin-Eth Estrad-Fe Biphas) 07/23/2023 Active Amoxicillin-Pot Clavulanate 875-125 MG Oral Tablet (Augmentin) Take 1 Tablet by mouth in the morning and 1 Tablet before bedtime. 09/03/2023 Active Budesonide 0.5 MG/2ML Inhalation Suspension (Pulmicort) Inhale 0.5 mg via nebulizer in the morning. Active Zepbound 2.5 MG/0.5ML Subcutaneous Solution Auto-injector 08/26/2023 Active Benzonatate 100 MG Oral Capsule (Tessalon Perles) Take 1 Capsule by mouth 3 times a day as needed for Cough. 09/26/2023 Active Sulfamethoxazole-T rimethoprim 800-160 MG Oral Tablet (Bactrim DS) Take 1 Tablet by mouth in the morning and 1 Tablet before bedtime. 10/05/2023 Active Diclofenac Sodium 75 MG Oral [...] before bedtime. 180 Capsule 3 10/19/2023 Active Budesonide-Formote rol Fumarate 160-4.5 MCG/ACT Inhalation Aerosol (Symbicort) Inhale 2 Puffs by mouth in the morning and 2 Puffs before bedtime. 11/30/2023 Active Brimonidine Tartrate 0.1 % Ophthalmic Solution (Alphagan) INSTILL ONE DROP INTO BOTH EYES TWICE DAILY 11/24/2023 Active Vestura 3-0.02 MG Oral Tablet 10/31/2023 Active Fluconazole 100 MG Oral Tablet (Diflucan) TAKE 2 TABLETS BY MOUTH ONCE DAILY X 13 DAYS 12/05/2023 Active Lidocaine 5 % External Patch (Lidoderm) daily. 10/17/2023 Active Omeprazole 20 MG Oral Capsule Delayed Release (PriLOSEC) Take 1 Capsule by mouth in the morning. Active Xifaxan 550 MG Oral Tablet 12/07/2023 Active Zepbound 5 MG/0.5ML Subcutaneous Solution Auto-injector 10/28/2023 Active Mupirocin 2 % External Ointment (Bactroban) APPLY TOPICALLY TO AFFECTED AREA 2 TIMES DAILY FOR 56 DAYS. DIRECTED 11/26/2023 Active Latanoprost 0.005 % Ophthalmic Solution (Xalatan) INSTILL 1 DROP INTO BOTH EYES AT BEDTIME 11/24/2023 Active amLODIPine Besylate 2.5 MG Oral Tablet (Norvasc) Take 1 Tablet by mouth in the morning. 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 90 Tablet 3 12/31/2023 Active oxyCODONE HCl 5 MG Oral Tablet (Oxy IR)Indications:Fra cture of rib due to cough Take 1 Tablet by mouth every 6 hours as needed for Pain, Severe. 30 Tablet 01/05/2024 Active oxyCODONE HCl 5 MG Oral Tablet (Oxy IR)Indications:Fra cture of rib due to cough Take 1 Tablet by mouth every 6 hours as needed for Pain, Severe. 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 Santiago. Took 50,000 weekly several years ago. Taking Vit D3 2000 IU daily plus PNV per hospital nurse liaison. Vit D level Jul. documented as of this encounter (statuses as of 01/05/2024) Resolved Problems Problem Noted Date Diagnosed Date [...] disease 05/22/2015 12/04/19 19 Overview: Following with hospital nurse liaison, Dr. Santiago, through 1. In women with [...] be handled at the discretion of the hospital nurse liaison. documented as of this encounter (statuses as of 01/05/2024) Immunizations Name Administration Dates Next Due COVID-19 [...] money to get more. Never true 02/03/2023 [place] Depression Scale Answer Date Recorded [place] Depression Scale Score 0 04/18/2019 The thought [...] encounter Miscellaneous Notes * Telephone Encounter - Bakari Werner MD - 01/05/2024 4:12 PM EDTSigned Prescriptions: Disp Refills oxyCODONE HCl 5 MG Oral Tablet (Oxy IR) 30 Tab*0 Sig: Take 1 Tablet by mouth every 6 hours as needed for Pain, Severe. Authorizing Provider: BAKARI WERNER * Telephone Encounter - Elana Jarquin RN - 01/05/2024 4:10 PM EDTPending Prescriptions: Disp Refills oxyCODONE HCl 5 MG Oral Tablet (Oxy IR) 30 Tab*0 Sig: Take 1 Tablet by mouth every 6 hours as needed for Pain, Severe. * Telephone Encounter - Elana Jarquin RN - 01/05/2024 3:58 PM EDT Wanda called and left a message on my VM stating that she sent a [employer] message to see if she could get a refill on her pain medications to get her to her parathyroidectomy 01/27/24, she is having pain with the rib fractures, she thinks she just fractured another rib. She stated that she has been usingthe oxy sparingly but is down to her last few and just wanted a few to get her thru the next few weeks. Dr. Werner will refill them, I called to make her aware. Elana Jarquin RN MSN [facility] Thoracic Surgery Nurse Navigator [facility] documented in this encounter Plan of Treatment Health Maintenance Due Date Last Done Comments Hepatitis B (1 of 3 - 19+ 3-dose series) 2002 HPV/Co-Test 2013 Cervical Cancer Screening 04/29/2021 Pap Smear 04/29/2021 04/29/2018, 10/0 02/2015, 11/29/2012 Depression Screening 07/24/2022 07/24/2021 Mammogram 03/15/2024 03/15/2023, 0708/2022, 07/02/2021, Additional history exists TSH 04/22/2024 04/22/2023, 0609/2022, 12/16/2022, Additional history exists Diabetes Screening 11/30/2026 12/01/2023, 0 10/11/2023, 09/18/2023, Additional history exists Lipid Panel 05/09/2027 05/09/2022 [...] as of this encounter Visit Diagnoses Diagnosis Fracture of rib due to cough documented in this encounter Care Teams Hospice Nurse Practitioner Relationship Specialty Start Date End Date Corina Cervantes MD [address] [place] [address] PCP - General Family Medicine 10/20/23 documented as of this encounter
--- OUTSIDE RECORDS SUMMARY | 2024-01-10 19:57 | External Medical Summary | Summary of Care ---
Author Name Unknown Organization [facility] Address [address] [address] Phone [phone] Care Team Providers Care Senior Merchandiser Name Role Phone Corina Cervantes MD Primary Care Provider [phone] Encounter Details Date Type Department Care Team (Late st Contact Info) Description 10/07/2023 Telephone Family Practice [facility] [address] [place] [address] Clau Regan CRNP [address] [place] [address] Allergies Active Allergy Reactions Criticality Noted Date Comments Serotonin High 03/24/2023 Other Reaction(s): per patient cannot take per PCP documented as of this encounter (statuses as of 01/06/2024) Medications Medication Sig Dispensed Refills Start Date End Date Status Ibuprofen 200 MG Oral Tablet (Motrin) Take 3 Tablets by mouth 2 times a day as needed (pain). Active Albuterol Sulfate HFA 108 (90 Base) MCG/ACT Inhalation Aerosol SolutionIndications:M ild persistent asthma without complication INHALE 2 PUFFS BY MOUTH EVERY 4 HOURS NEEDED FOR COUGH , FOR SHORTNESS OF BREATH OR WHEEZING 8.5 g 2 09/15/2022 Active Tiotropium [place] Monohydrate 2.5 MCG/ACT Inhalation Aerosol Solution (Spiriva Respimat) Inhale 2 Puffs by mouth in the morning. 07/08/2022 Active Hydrocortisone Sod Suc (PF) 100 MG Injection Solution Reconstituted (Solu-Cortef)Indicati ons:Secondary adrenal insufficiency (HCC) Inject 100mg (2ml) into large muscle as needed for adrenal crisis. Acto-Vial [facility] [id number] 2 mL 3 02/22/2023 Active Syringe 22G X 1-1/2" 3 MLIndications:Seconda ry adrenal insufficiency (HCC) Use with solucortef as needed for adrenal crisis 5 Each 3 02/22/2023 Active Latanoprost 0.005 % Ophthalmic Emulsion at bedtime. 04/28/2023 Acti ve amLODIPine Besylate 5 MG [...] day as needed for Cough. 09/26/2023 Active Sulfamethoxazole-Trim ethoprim 800-160 MG Oral Tablet (Bactrim DS) Take 1 Tablet by mouth in the morning and 1 Tablet before bedtime. 10/05/2023 Active Diclofenac Sodium 75 MG Oral Tablet Delayed Release (Voltaren)Indications :Fracture of rib due to cough Take 1 Tablet by mouth in the morning and 1 Tablet before bedtime. With food.. 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 Santiago. Took 50,000 weekly several years ago. Taking Vit D3 2000 IU daily plus PNV per nurses' association counselor. Vit D level Jul. documented as of this encounter (statuses as of 01/06/2024) Resolved Problems Problem Noted Date Diagnosed Date [...] disease 05/22/2015 12/04/19 19 Overview: Following with nurses' association counselor, Dr. Santiago, through 1. In women with [...] be handled at the discretion of the nurses' association counselor. documented as of this encounter (statuses as of 01/06/2024) Immunizations Name Administration Dates Next Due COVID-19 [...] money to get more. Never true 02/03/2023 [place] Depression Scale Answer Date Recorded [place] Depression Scale Score 0 04/18/2019 The thought [...] encounter Miscellaneous Notes * Telephone Encounter - Marilu Gardiner OSA - 10/07/2023 10:37 AM EST documented in this encounter Plan of Treatment Health Maintenance Due Date Last Done Comments Hepatitis B (1 of 3 - 19+ 3-dose series) 2002 HPV/Co-Test 2013 Cervical Cancer Screening 04/29/2021 Pap Smear 04/29/2021 04/29/2018, 10/0 02/2015, 11/29/2012 Depression Screening 07/24/2022 07/24/2021 Mammogram 03/15/2024 03/15/2023, 02/15, 07/02/2021, Additional history exists TSH 04/22/2024 04/22/2023, 06/2 09/2022, 12/16/2022, Additional history exists Diabetes Screening 11/30/2026 [...] filedocumented as of this encounter Care Teams Senior Merchandiser Relationship Specialty Start Date End Date Corina Cervantes MD [address] [place] [address] PCP - General Family Medicine 10/20/23 documented as of this encounter
--- OUTSIDE RECORDS SUMMARY | 2024-01-10 19:57 | External Medical Summary | Continuity of Care Document ---
Author Name Unknown Organization [facility] Address [address] [place] [id number] Care Team Providers Care Fruit Receiver Name Role Phone Marek Sung Jr. Primary Care Physicia n [phone] [id number] Date[facility]s): 12/31/23 - 12/31/[address] [phone] Discharge Disposition: Home or Self Care Attending Physician: MD Newell Brian D Referring Physician: MD Newell Brian D Allergies, Adverse Reactions, Alerts No Known [...] Historical information-source unspecified Medications Advil Start: 11/01/23 3:17:00 PM EDT, 600 mg =, PO, bid, broken ribs Start Date: 11/01/23 Status: Ordered albuterol CFC free 90 mcg/inh MDI See Instructions, Disp# 18 inhaler, Refills: 5, INHALE 2 PUFFS BY MOUTH EVERY 4 HOURS NEEDED FORSHORTNESS OF BREATH OR WHEEZING, Pharmacy: [facility] ST[id number] Start Date: 03/10/21 Status: Ordered amLODIPine 5 mg oral tablet Start: 12/20/23 12:33:00 PM EDT, 1 tab, PO, Daily, Disp# 90 tab, Refills: 3, Pharmacy: [facility]/pharmacy #[id number] Start Date: 12/20/23 Status: Ordered amoxicillin-clavulanate 875 mg-125 mg oral tablet Start: 12/22/23 11:44:00 AM EDT, amoxicillin 1 tab, PO, q12h Start Date: 12/22/23 Status: Ordered brimonidine 0.1% ophthalmic solution INSTILL ONE DROP INTO BOTH EYES TWICE DAILY Start Date: 12/22/23 Status: Ordered clonazePAM 0.5 mg oral tablet See Instructions, take 1 tab PO BID Start Date: 05/27/23 Status: Ordered diclofenac Start: 11/01/23 3:19:00 PM EDT, 75 mg =, PO, qhs Start Date: 11/01/23 Status: Ordered drospirenone-ethinyl estradiol 3 mg-0.03 mg oral tablet Start: 05/03/23 2:10:00 PM EDT Start Date: 05/03/23 Status: Ordered DULoxetine 20 mg oral delayed release capsule TAKE 1 CAPSULE BY MOUTH DAILY. WITH 30MG FOR TOTAL OF 50MG DAILY Start Date: 12/22/23 Status: Ordered ferrous sulfate 325 mg (65 mg elemental iron) oral tablet Start: 05/27/23 8:18:00 AM EDT, 325 mg =, PO, 1 Refill(s), Take 325 mg by mouth Start Date: 05/27/23 Status: Ordered hydrocortisone 20 mg oral tablet Start: 04/07/23 9:57:00 AM EDT, See Instructions, 25mg over three divided doses Start Date: 04/07/23 Status: Ordered latanoprost 0.005% ophthalmic solution Start: 05/03/23 2:10:00 PM EDT, once daily Start Date: 05/03/23 Status: Ordered levothyroxine Start: 01/01/21 9:28:00 AM EDT, 150 mcg =, PO, Daily Start Date: 01/01/21 Status: Ordered liothyronine 5 mcg oral tablet 1 tab, PO, Daily, TAKE 1 TABLET BY MOUTH EVERY DAY Start Date: 05/27/23 Status: Ordered Lo Loestrin Fe oral tablet Start: 05/27/23 9:06:00 AM EDT, 1 tab, PO, Daily, Disp# 28 tab, Refills: 11, Pharmacy: [facility]/pharmacy#[id number] Start Date: 05/27/23 Status: Ordered MethylPREDNISolone Dose Pack 4 mg oral tablet Start: 12/22/23 11:44:00 AM EDT, See Instructions, Disp# 21 tab, Take as directed on package labelingfor 6 days. Start Date: 12/22/23 Stop Date: 12/28/23 Status: Ordered Mucinex 600 mg oral tablet, extended release Start: 05/03/23 2:09:00 PM EDT, 1 tab, PO, q12h Start Date: 05/03/23 Status: Ordered mupirocin 2% topical ointment Start: 05/03/23 2:10:00 PM EDT, 1 appl, topical, tid Start Date: 05/03/23 Status: Ordered Norvasc 2.5 mg oral tablet Start: 12/20/23 12:33:00 PM EDT, See Instructions, Disp# 90 tab, Refills: 3, 1 tab PO PRN Daily SBP> 150 mm/hg, Pharmacy: [facility]/pharmacy #[id number] Start Date: 12/20/23 Status: Ordered omeprazole 20 mg oral delayed release capsule TAKE 1 CAPSULE BY MOUTH EVERY DAY Start Date: 12/22/23 Status: Ordered oxyCODONE 5 mg oral tablet Start: 11/01/23 3:17:00 PM EDT, 1 tab, PO, q6h, Refills: 0, PRN: as needed for pain Start Date: 11/01/23 Status: Ordered potassium chloride 10 mEq oral capsule, extended release TAKE 1 CAPSULE BY MOUTH IN THE MORNING AND BEFORE BEDTIME Start Date: 12/22/23 Status: Ordered SOLU-CORTEF 100 MG ACT-O-VIAL SOLU-CORTEF 100 MG ACT-O-VIAL, INJECT 2 ML INTO MUSCLE IN CASE OF EMERGENCY Start Date: 05/27/23 Status: Ordered Spiriva Respimat 60 ACT 2.5 mcg/inh inhalation aerosol Start: 11/12/22 8:00:00 AM EDT, 2 inh, inhaled, Daily Start Date: 11/12/22 Status: Ordered Symbicort 80 mcg-4.5 mcg/inh inhalation aerosol Start: 11/01/23 3:16:00 PM EDT, 2 puff, inhaled, bid Start Date: 11/01/23 Status: Ordered Tylenol Start: 05/03/23 2:09:00 PM EDT Start Date: 05/03/23 Status: Ordered Vitamin D3 Start: 05/03/23 2:09:00 PM EDT, 14623 units, PO, q7days Start Date: 05/03/23 Status: Ordered Zepbound 5 mg/0.5 mL subcutaneous solution Start: 11/01/23 3:16:00 PM EDT, 5 mg =, subQ, q7days Start [...] team information Care Team Personnel Name: MD Tello Austin Position: Resident Member Role: Lifetime Relationship Address: Address: [address] [place] [address] [place] Name: MD Rush Jansie Position: Physician - Anesthesiologist Member Role: Lifetime Relationship Address: Address: [address] [place] [id number] [place] Name: EDUARDO Sung Jr., William Joseph Position: Referring Member Role: Primary Care Provider Address: Address: [address] [address] Name: MD Arcos Kristine L Position: Physician - Surgery Oncology Member Role: Lifetime Relationship Address: Address: [address] [place] [address] [address] [place] [address] Care Team Related Persons Name: JOHNNA DUNN Address: home [address] [facility], [place] [id number]
--- OUTSIDE RECORDS SUMMARY | 2024-01-10 19:57 | External Medical Summary | Summary of Care ---
Author Name Unknown Organization [facility] Address [address] [place] [address] Phone [phone] Care Team Providers Care Marine Fire Fighter Name Role Phone Corina Cervantes MD Primary Care Provider [phone] Reason for Visit * Reason Comments NEW PATIENT * Evaluate & Treat - Unlimited Visits (Within 10 days (routine)) - Pending Review Specialty Diagnoses / Procedures Referred By Contact Referred To Contact Thoracic and Cardiac Surgery / Cardiothoracic Surgery Diagnoses Closed traumatic displaced fracture of one rib Fracture of rib due to cough Damaso Llamas III, MD [address] [place] [address] Referral ID Status Reason Start Date Expiration Date Visits Requested Visits Authorized [id number] Pending Review Specialty Services Required 11/02/[phone] Encounter Details Date Type Department Care Team (Late st Contact Info) Description 12/14/2023 1:00 PM EDT Office Visit Thoracic Surg [facility] [address] [place] [address] Bakari Marte MD [address] [place], [place] [id number] Intercostal pain*; Fracture of rib due to cough; Hyperparathyroidism, primary (HCC) Allergies Active Allergy Reactions Criticality Noted Date Comments Serotonin High 03/24/2023 Other Reaction(s): per patient cannot take per PCP documented as of this encounter (statuses as of 01/02/2024) Medications Medication Sig Dispensed Refills Start Date [...] WHEEZING 8.5 g 2 09/15/2022 Active Tiotropium [place] Monohydrate 2.5 MCG/ACT Inhalation Aerosol Solution (Spiriva Respimat) Inhale 2 Puffs by mouth in the morning. 07/08/2022 Active Hydrocortisone Sod Suc (PF) 100 MG Injection Solution Reconstituted (Solu-Cortef)Indic ations:Secondary adrenal insufficiency (HCC) Inject 100mg (2ml) into large muscle as needed for adrenal crisis. Acto-Vial COC [address]-57 2 mL 3 02/22/2023 Active Syringe 22G [...] by mouth in the morning. 11/24/2023 Active oxyCODONE HCl 5 MG Oral Tablet (Oxy IR)Indications:Fra cture of rib due to cough Take 1 Tablet by mouth every 6 hours as needed for Pain, Severe. 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 Santiago. Took 50,000 weekly several years ago. Taking Vit D3 2000 IU daily plus PNV per coloring checker. Vit D level Jul. documented as of this encounter (statuses as of 01/02/2024) Resolved Problems Problem Noted Date Diagnosed Date [...] disease 05/22/2015 12/04/19 19 Overview: Following with coloring checker, Dr. Santiago, through 1. In women with [...] be handled at the discretion of the coloring checker. documented as of this encounter (statuses as of 01/02/2024) Immunizations Name Administration Dates Next Due COVID-19 [...] Date Smoking Tobacco: Never Smokeless Tobacco: Never Tobacco Cessation:Counseling Given: Not Answered Alcohol Use Standard Drinks/Week Comments Not Currently [...] money to get more. Never true 02/03/2023 Amston Depression Scale Answer Date Recorded Amston Depression Scale Score 0 04/18/2019 The thought [...] on file documented as of this encounter Last Filed Vital Signs Vital Sign Reading Time Taken Comments Blood Pressure 126/86 12/14/2023 1:25 PM EDT Pulse 84 12/14/2023 1:25 PM EDT Temperature - - Respiratory Rate - - Oxygen Saturation 98% 12/14/2023 1:25 PM EDT Inhaled Oxygen Concentration - - Weight 106.9 kg (235 lb 9.6 oz) 12/14/2023 1:25 PM EDT Height 162.6 cm (5' 4") 12/14/2023 1:25 PM EDT Body Mass Index 40.44 12/14/2023 1:25 PM EDT documented in this encounter Progress Notes * Bakari Marte MD - 01/02/2024 8:36 AM EDT [facility] 12/14/2023 I have discussed the patient's management with the medical trainee and agree with the note. Please refer to the documented findings and plan of care. This patient's visit today consisted of an evaluation. I was present and confirmed the findings of the history and exam. ASSESSMENT: 1. New referral from Dr. Damaso Llamas III for evaluation and management of rib fractures. 2. Likely underlying etiology is osteoporosis. 3. All relevant 2023 imaging data reviewed independently today as well as with Wanda. 4. No obvious or acute indications for any surgical intervention (eg rib plating or limited rib resections) given the lack of any serious displacement or non- union. Her pain is currently under control as of today's visit. Risk of further fracture remains as the management of osteoporosis continues.She is moving to [place] now and so we talked about seeking further evaluation, if necessary, with our thoracic surgery colleagues at [facility] where she is actively employed now. I'm happy to helpget her connected if she has any difficulty. PLAN: 1. No acute surgical intervention. 2. Ongoing recovery instructions and expectations reviewed. 3. No planned returned visit with us as she is moving to [place] right now. Encouraged evaluation at [facility] if she has additional problems. 4. All questions answered to apparent satisfaction. 5. I spent a total of Greater than 55 mins (exact time 60 mins) on the date of service in preparation, delivery, and documentation of the care provided to Wanda Diez excluding any time spent in theperformance of separately billed services. Bakari Marte MD FACS System Chief, Thoracic Surgery [facility] [place] [address] [place] [address] * Wesley Unger MD - 12/14/2023 3:21 PM EDT [facility]ERY [facility] 12/14/2023 HPI: Wanda Diez is a 38 year old female presenting for evaluation of non-traumatic rib fractures. 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 Rib fractures #8&9 occurred in Sep 2023. At that time she had a severe URI and was in bed coughing for multiple days. She had severe pain immediately after a cough. Pain has been persistent despite oxycodone. She does report gradual improvement and self-regulated tapering of oxycodone and now is using it only about 3 times per week. She isin the middle of a job change and move from [place] to [place] and three weeks ago was exerting herself around the house and had new mid axillary rib pain. She was seen at [facility] who performed CXR which was unrevealing but the pain again persisted especially when she was exerting herself so she had a CT performed which showed acute mildly displaced R 3rd rib fracture. She denies all trauma. Her cough has resolved. She denies fevers, chills, SOB, BAIN, orthopnea, difficulty initiating deep breaths. No abdominal pain. No recent kidney stones, hematuria, dysuria. She took calcium replacements for about 6 months after her parathyroidectomy. She follows with an coloring checker for her adrenal insufficiency and frequently needs to take extra doses of her steroids. She has two children. Menarche started at age 10. Breast fed for 18 months with each child. She recently started control and has not had a period for the last 7 months. She is a never smoker. No passive smoke exposure. She does state she had food insecurity as a childbut no longer experiences food insecurity. She does not follow any restrictive diets and eats plenty of dairy in her diet. Following with ENT for chronic and recurrent sinusitis. Scheduled for f/u with immunology. Allergies: Review of patient's allergies indicates: Allergen Reactions Serotonin Other Reaction(s): per patient cannot take per PCP Current Outpatient Medications Medication Sig Dispense Refill Ibuprofen 200 MG Oral Tablet (Motrin) Take 3 Tablets by mouth 2 times a day as needed (pain). Tiotropium [place] Monohydrate 2.5 MCG/ACT Inhalation Aerosol Solution (Spiriva Respimat) Inhale 2 Puffs by mouth in the morning. Liothyronine Sodium 5 MCG Oral Tablet (Cytomel) Take 1 Tablet by mouth in the morning. 90 Tablet 3 Hydrocortisone 5 MG Oral Tablet (Cortef) Take 10mg am, 5mg afternoon, and 5mg evening, plus up to 20 extra pills/month for illness 420 Tablet 3 Levothyroxine Sodium 150 MCG Oral Tablet (Levoxyl) one pill each day (at least 30 min prior to breakfast or other meds) 90 Tablet 3 Hydrocortisone Sod Suc (PF) 100 MG Injection Solution Reconstituted (Solu- Cortef) Inject 100mg (2ml) into large muscle as needed for adrenal crisis. Acto- Vial [facility][NOTE 3] [address]-76 2 mL 3 Syringe 22G X 1-1/2" 3 ML Use with solucortef as needed for adrenal crisis 5 Each 3 Latanoprost 0.005 % Ophthalmic Emulsion at bedtime. amLODIPine Besylate 5 MG Oral Tablet (Norvasc) Take 1 Tablet by mouth in the morning. clonazePAM 0.5 MG Oral Tablet (KlonoPIN) Take 1 Tablet by mouth in the morning and 1 Tablet before bedtime. DULoxetine HCl 30 MG Oral Capsule Delayed Release Particles (Cymbalta) Take 1 Capsule by mouth in the morning. guaiFENesin ER 600 MG Oral Tablet Extended Release 12 Hour (Mucinex) 1 Tablet. DULoxetine HCl 20 MG Oral Capsule Delayed Release Particles (Cymbalta) Take 1 Capsule by mouth in the morning. Latanoprost 0.005 % Ophthalmic Emulsion INSTILL 1 DROP INTO BOTH EYES AT BEDTIME Lo Loestrin Fe 1 MG-10 MCG / 10 MCG Oral Tablet (Norethin-Eth Estrad-Fe Biphas) Diclofenac Sodium 75 MG Oral Tablet Delayed Release (Voltaren) Take 1 Tablet by mouth in the morning and 1 Tablet before bedtime. With food.. 60 Tablet 3 Potassium Chloride ER 10 MEQ Oral Capsule Extended Release Take 1 Capsule by mouth in the morning and 1 Capsule before bedtime. 180 Capsule 3 Budesonide-Formoterol Fumarate 160-4.5 MCG/ACT Inhalation Aerosol (Symbicort) Inhale 2 Puffs by mouth in the morning and 2 Puffs before bedtime. Brimonidine Tartrate 0.1 % Ophthalmic Solution (Alphagan) INSTILL ONE DROP INTO BOTH EYES TWICE DAILY Fluconazole 100 MG Oral Tablet (Diflucan) TAKE 2 TABLETS BY MOUTH ONCE DAILY X 13 DAYS Omeprazole 20 MG Oral Capsule Delayed Release (PriLOSEC) Take 1 Capsule by mouth in the morning. Zepbound 5 MG/0.5ML Subcutaneous Solution Auto-injector Mupirocin 2 % External Ointment (Bactroban) APPLY TOPICALLY TO AFFECTED AREA 2 TIMES DAILY FOR 56 DAYS. DIRECTED Latanoprost 0.005 % Ophthalmic Solution (Xalatan) INSTILL 1 DROP INTO BOTH EYES AT BEDTIME amLODIPine Besylate 2.5 MG Oral Tablet (Norvasc) Take 1 Tablet by mouth in the morning. oxyCODONE HCl 5 MG Oral Tablet (Oxy IR) Take 1 Tablet by mouth every 6 hours as needed for Pain, Severe. 30 Tablet 0 Albuterol Sulfate HFA 108 (90 Base) MCG/ACT Inhalation Aerosol Solution INHALE 2 PUFFS BY MOUTH EVERY 4 HOURS NEEDED FOR COUGH , FOR SHORTNESS OF BREATH OR WHEEZING 8.5 g 2 Amoxicillin-Pot Clavulanate 875-125 MG Oral Tablet (Augmentin) Take 1 Tablet by mouth in the morning and 1 Tablet before bedtime. (Patient not taking: Reported on 10/06/2023) Budesonide 0.5 MG/2ML Inhalation Suspension (Pulmicort) Inhale 0.5 mg via nebulizer in the morning.(Patient not taking: Reported on 12/14/2023) Zepbound 2.5 MG/0.5ML Subcutaneous Solution Auto-injector (Patient not taking: Reported on 12/14/2023) Benzonatate 100 MG Oral Capsule (Tessalon Perles) Take 1 Capsule by mouth 3 times a day as needed for Cough. (Patient not taking: Reported on 10/06/2023) Sulfamethoxazole-Trimethoprim 800-160 MG Oral Tablet (Bactrim DS) Take 1 Tablet by mouth in the morning and 1 Tablet before bedtime. (Patient not taking: Reported on 12/14/2023) Vestura 3-0.02 MG Oral Tablet (Patient not taking: Reported on 12/14/2023) Lidocaine 5 % External Patch (Lidoderm) daily. (Patient not taking: Reported on 12/14/2023) Xifaxan 550 MG Oral Tablet (Patient not taking: Reported on 12/14/2023) No current facility-administered medications for this visit. 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 E03.8, E06.3 Mild persistent asthma without complication J45.30 Hyperparathyroidism, primary (HCC) E21.0 History of anorexia nervosa Z86.59 ADHD (attention deficit hyperactivity disorder), combined type F90.2 NAFLD (nonalcoholic fatty liver disease) K76.0 Exhaustion R53.83 Chest pain R07.9 Malaise and fatigue R53.81, R53.83 Urinary frequency R35.0 Sinus congestion R09.81 Flank pain R10.9 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 Secondary adrenal insufficiency (HCC) E27.49 History of primary hyperparathyroidism Z86.39 Body mass index (BMI) of 40.0 to 44.9 in adult (HCC) Z68.41 Past Medical History: Diagnosis Date Dysmenorrhea Eczema Generalized anxiety disorder History of anorexia nervosa 07/24/2021 Hyperparathyroidism, primary (HCC) 07/19/2021 Status post surgery, 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 12/05/2019 Inflammation of colonic mucosa 10/03/2012 COLONOSCOPY FLEXIBLE PROXIMAL DIAGNOSTIC performed by Jose Barclay MD at ENDOSCOPY [facility], no microscopic inflammation Irritable bowel syndrome well controlled on bentyl 05/2018 Lymphadenitis Mild persistent asthma without complication 12/05/2019 Mononucleosis Nephrolithiasis Polyuria Vitamin D deficiency Past Surgical History: Procedure Laterality Date COLONOSCOPY, DIAGNOSTIC (RECTUM) 10/03/2012 COLONOSCOPY FLEXIBLE PROXIMAL DIAGNOSTIC performed by Jose Barclay MD at ENDOSCOPY [facility], no microscopic inflammation CYSTOSCOPY 09/13/2017 DENTAL SURGERY PROCEDURE NEC 2003 wisdom teeth DILATION AND CURETTAGE (D&C) 08/03/2014 D&C EGD, FLEXIBLE, DIAGNOSTIC 10/03/2012 UPPER GI ENDOSCOPY DIAGNOSTIC performed by Jose Barclay MD at ENDOSCOPY [facility], possible changes apprenticeship training representative for celiac disease, blood work ordered EGD, FLEXIBLE, DIAGNOSTIC 10/14/2017 normal bx/ESOPHAGOGASTRODUODENOSCOPY (EGD), FLEXIBLE, TRANSORAL, DIAGNOSTIC performed by Gia Rivas MD at ENDOSCOPY [facility] ENDOCRINE SURGERY PROCEDURE NEC Family History Problem Relation Age of Onset Heart Disorder Mother afib Hypertension Mother Prostate cancer Father No Known Problems Sister No Known Problems Sister Eczema Sister No Known Problems Brother Colon cancer Grandmother (Maternal) old Lung cancer Grandmother (Paternal) Lung Ca w/ possible breast/ovarian Cancer Grandmother (Paternal) thinks was both breast and ovarian Breast Cancer Aunt (Paternal) 40 Diabetes Uncle (Paternal) REVIEW OF SYSTEMS: I have performed a review of symptoms, including: Consitutional, Eyes, ENT, Cardiovascular, Respiratory, Gastrointestinal, Musculoskeletal, Skin, Neurological, & Hematologic/Lymphatic. All positives noted in HPI, otherwise negative. PHYSICAL EXAM: Filed Vitals: 12/14/23 1325 BP: 126/86 Pulse: 84 SpO2: 98% Weight: 106.9 kg (235 lb 9.6 oz) Height: 1.626 m (5' 4") Body mass index is 40.44 kg/m. Gen: No acute distress Neck: Full ROM, no lymphadenopathy Neuro: Motor and sensation grossly intact Lungs: normal respiratory effort Heart: RRR Extremities: No edema Skin: Complete exam not performed, but no obvious concerning lesions Abdomen: Soft, non-tender, non-distended, no hernias IMAGING: I personally reviewed the images and reports of the following studies: 12/01/2023 CT Chest: Healing 8th and 9th rib fractures with mild displacement. Callous and healing bone surrounding fracture. Acute mildly displaced rib fracture of the lateral right 3rd rib. ASSESSMENT: 1. Subacute and chronic right sided 3rd and 8th/9th rib fractures of nontraumatic origin likely related to osteoporotic changes and sequela of parathyroidectomy PLAN: 1. Discussed with Ms. Diez that rib fractures take up to 6 months to heal and there is significant associated pain. Will provide with additional 5mg oxycodone for PRN use of breakthrough pain 2. Recommend keeping follow up with PCP, endocrinology, and scheduling appointment with rheumatology for further workup and management of osteoporosis 3. No return visit to thoracic surgery anticipated. Discussed that if symptoms worsen or if more severely displaced fractures of her ribs were to occur there is limited space for rib plating that is typically reserved for severely displaced traumatic rib fractures. Patient seen and/or discussed with Dr. Marte. Wesley Unger MD PGY-2 General Surgery Resident [facility] documented in this encounter Plan of Treatment [...] as of this encounter Visit Diagnoses Diagnosis Intercostal pain- Primary Other chest pain Fracture of rib due to cough Hyperparathyroidism, primary (HCC) Primary hyperparathyroidism documented in this encounter Care Teams Marine Fire Fighter Relationship Specialty Start Date End Date Corina Cervantes MD [address] [facility] [place] [address] PCP - General Family Medicine 10/20/23 documented as of this encounter
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
--- NOTE | 2024-01-10 20:21 | Emergency Department Note ---
Impression & Plan Generalized weakness, Nausea & vomiting, Dizziness, Chest pain ED Provider Note HISTORY OF PRESENT ILLNESS: Patient is a 38-year-old female presenting with "adrenal crisis symptoms." Patient reports she has a history of adrenal insufficiency and is on chronic steroids. Reports that around 1500 today she started feeling very weak in her bilateral lower extremities, vomiting and feeling lightheaded and dizzy. She also reports some intermittent confusion and shortness of breath. Reports these are symptoms similar to when she is in an adrenal crisis. She reports she has had intermittent low-grade fevers over the last few weeks, she has been having chronic sinusitis. Denies any recent medication changes. Reports that she took a dose of IM 100 mg Solu-Cortef prior to coming into the emergency department today, and reports that her weakness has slightly improved. She does report a history of hyperparathyroidism and has osteoporosis secondary to that. Reports that she was recently diagnosed with rib fractures in her right chest wall "feels like I have another rib fracture." Denies any trauma. Denies any dysuria. ROS: as above PHYSICAL EXAM: Constitutional: Patient appears in no acute distress. HENT: Head: Normocephalic and atraumatic. Eyes: EOMI, PERRL Mouth/Throat: Mucous membranes moist. Neck: Trachea midline. Neck supple. Cardiovascular: RRR, No murmurs, rubs or gallops. Intact distal pulses. Pulmonary/Chest: No respiratory distress. Breath sounds clear and equal bilaterally. No wheezes or rales. Abdominal: Abdomen soft, no tenderness, rebound or guarding. Musculoskeletal: No edema, tenderness or deformity noted. Skin: Warm and dry. No rash, erythema, pallor or cyanosis Psychiatric: Appropriate mood and affect for situation. Neurological: Alert and keenly responsive. CN II-XII grossly intact, moving all extremities equally and fully. MDM: - Vitals signs showed hypertension - History obtained via patient. History as above. - Chronic conditions affecting care: adrenal insufficiency; hyperparathyroidism; hypothyroidism; anxiety; IBS - Differential diagnoses include, but are not limited to: ACS; pneumonia; pneumothorax; adrenal insufficiency; electrolyte abnormality; dehydration - Order placed for continuous cardiac monitoring. At this time, monitor showed rate of 85 bpm with normal sinus rhythm, per my interpretation. - External medical records reviewed. Discharge summary dated 11/26/2023 was reviewed. Patient was admitted at that time for adrenal crisis syndrome. - EKG interpreted by myself showed normal sinus rhythm. Rate 86 bpm. QT 346. No acute ischemic changes. - Laboratory workup interpreted by myself showed normal WBC; normal PT/INR; stable electrolytes; hyperglycemia (glucose 128); normal troponin; normal BNP; negative hCG; normal lipase; negative lyme - UA negative for infection. Noted to have blood. - UDS negative - Viral respiratory panel negative - Random cortisol level WNL. - CXR negative for pneumonia, per my interpretation - VBG normal - Patient gave herself IM 100 mg Solu-Cortef prior to arrival in the ER. If this is adrenal crisis, she is already given herself the appropriate dose of steroid. - No obvious infection on workup today. However, given patient's symptoms and her history of adrenal insufficiency, will admit to hospitalist service for further workup. CT chest without contrast was ordered, given that the patient reports she has had a history of rib fractures in her right side of her chest is hurting. - Low risk HEART score - Discussion was had with case work aide about patient's case and need for admission - Hospitalist consulted for admission - Patient admitted to [facility] hospitalist service for further evaluation and management. ASSESSMENT AND PLAN: Diagnosis: generalized weakness; chest pain; nausea and vomiting; dizziness Plan: admit Past Med/Surg History Problem List (Updated 01/10/24 @ 22:35 by Janette Kim MD) Chest pain (Acute) Dizziness (Acute) Nausea & vomiting (Acute) Generalized weakness (Acute) Not currently (Acute) Acute dehydration (Acute) Nausea and vomiting (Acute) Adrenal insufficiency (Acute) Weakness (Acute) Moderate persistent asthma Sinus pain Adrenal crisis syndrome IBS (irritable bowel syndrome) Cyst of kidney, acquired (Acute) Anxiety Vulvodynia Inclusion cyst Chronic sinusitis (Acute) Numbness and tingling of both lower extremities Numbness and tingling of both upper extremities Numbness and tingling of left side of face Chronic rhinitis Hypothyroidism (Acute 12/29/11) Hyperparathyroidism Status post parathyroidectomy Vitamin D deficiency Nephrolithiasis COVID-19 (Acute) Dizziness (Acute) Chest pain (Acute) Weakness (Acute) Nausea & vomiting (Acute) Frontal sinus pain (Acute) Adrenal insufficiency (Acute) Elevated lactic acid level (Acute) Blurred vision Medical History Elevated lactic acid level Breathlessness Nausea Hypokalemia Elevated troponin I level Hypothyroidism (12/29/11) Vitamin D deficiency Vulvodynia Anxiety IBS (irritable bowel syndrome) Gurinder's disease Rectal bleed Miscarriage Surgical History H/O wisdom tooth extraction H/O dilation and curettage Family History Aunt Breast cancer Grandmother (Maternal) Colorectal cancer Lung cancer Grandmother (Paternal) Ovarian cancer Father Prostate cancer Mother Atrial fibrillation Other No significant family history Social History Smoking Status: Never smoker Second Hand Exposure: No; Do You Dip or Chew Tobacco: No; Hx Alcohol Use: No Hx Substance Use: No Preferred Language: Kazakh Communication Ability: Effective Home Care Associate Required: No Beliefs That Will Affect Care: None marital status: Current Living Situation: Spouse and Family Current Living Situation Comment: and two children Feels Safe at Home: Yes Assistive Devices: None Allergies Allergies Allergy/AdvReac Type Severity Reaction Status Date / Time Serotonin 5HT-3 Antagonists AdvReac Intermediate per Verified 01/10/24 22:27 patient cannot take per PCP Home Meds Home Medications Medication Instructions Recorded Confirmed liothyronine 5 mcg tablet 5 mcg PO QAM 03/16/23 01/10/24 hydrocortisone sod succ (PF) 100 100 mg IM UD PRN emergency 04/14/23 01/10/24 mg/2 mL solution for injection (Solu-Cortef Act-O-Vial (PF)) amlodipine 5 mg tablet 5 mg PO QAM 05/14/23 01/10/24 clonazepam 0.5 mg tablet (Klonopin) 0.5 mg PO BID 07/23/23 01/10/24 duloxetine 20 mg capsule,delayed 20 mg PO QAM 09/13/23 01/10/24 release duloxetine 30 mg capsule,delayed 30 mg PO QAM 09/13/23 01/10/24 release norethindrone 1 mg-ethinyl 1 tab PO HS 09/13/23 01/10/24 estradiol 10 mcg (24)-iron 10 mcg(2) tablet (Lo Loestrin Fe) guaifenesin 600 mg tablet, 600 mg PO BID 09/23/23 01/10/24 extended release 12 hr (Mucinex) amlodipine 2.5 mg tablet 5 mg PO QAM 11/25/23 01/10/24 potassium chloride 10 mEq 10 meq PO BID 11/25/23 01/10/24 capsule,extended release tirzepatide (weight loss) 2.5 2.5 mg subcut WK 11/25/23 01/10/24 mg/0.5 mL subcutaneous pen injector (Zepbound) hydrocortisone 5 mg tablet See Rx Instructions .Route .COMPLEX 12/05/23 01/10/24 levothyroxine 150 mcg tablet 150 mcg PO DAILYBB 12/05/23 01/10/24 tiotropium bromide 2.5 2 puff inhalation QAM 12/05/23 01/10/24 mcg/actuation mist for inhalation (Spiriva Respimat) brinzolamide 1 %-brimonidine 0.2 % 2 drp OPB BID 01/10/24 01/10/24 eye drops,suspension (Simbrinza) sulfamethoxazole 800 1 tab PO BID 01/10/24 01/10/24 mg-trimethoprim 160 mg tablet Previous Rx's Medication Instructions Recorded albuterol sulfate 90 mcg/actuation 2 puff inhalation Q4 PRN Shortness 10/14/23 aerosol inhaler Of Breath Or Wheezing #8.5 grams budesonide-formoterol HFA 160 2 puff inhalation BID #1 inhaler 11/30/23 mcg-4.5 mcg/actuation aerosol inhaler (Symbicort) Results & Data (ED) Vital Signs Vital Signs - 24 hr 01/10/24 19:56 Temperature 36.2 C L Temperature Source Temporal Artery Scan Pulse Rate 85 Respiratory Rate 20 Blood Pressure 158/108 H Blood Pressure Mean 124 Pulse Oximetry 97 Oxygen Delivery Method Room Air Sepsis Recent Fever Within 48 Hours No Sepsis New/Unexplained Change in Mental Status No Sepsis Action Taken by Nursing No Action Required Laboratory Data 01/10/24 21:36 01/10/24 20:22 Lab Results 01/10/24 01/10/24 01/10/24 Range/Units 20:22 20:34 21:36 WBC Cancelled 9.12 RBC Cancelled 4.52 Hgb Cancelled 13.3 Hct Cancelled 40.2 MCV Cancelled 88.9 MCH Cancelled 29.4 MCHC Cancelled 33.1 RDW Std Deviation Cancelled 43.4 RDW Coeff of [place] Cancelled 13.3 Plt Count Cancelled 328 MPV Cancelled 9.8 Immature Gran % (Auto) Cancelled 1.3 Neut % (Auto) Cancelled 87.7 Lymph % (Auto) Cancelled 7.2 [place] % (Auto) Cancelled 3.6 Eos % (Auto) Cancelled 0.0 Baso % (Auto) Cancelled 0.2 Neut # (Auto) Cancelled 7.99 H Lymph # (Auto) Cancelled 0.66 L [place] # (Auto) Cancelled 0.33 Eos # (Auto) Cancelled 0.00 Baso # (Auto) Cancelled 0.02 Immature Gran # (Auto) Cancelled 0.12 Absolute Nucleated RBC Cancelled Nucleated RBC % (auto) Cancelled Neutrophils % (Manual) Cancelled Band Neutrophils % Cancelled Lymphocytes % (Manual) Cancelled Prolymphocyte % Cancelled Reactive Lymphs % (Man) Cancelled Monocytes % (Manual) Cancelled Eosinophils % (Manual) Cancelled Basophils % (Manual) Cancelled Metamyelocytes % (Man) Cancelled Myelocytes % (Man) Cancelled Promyelocytes % (Man) Cancelled Blast Cells % (Manual) Cancelled Plasma Cell % (Manual) Cancelled Other Cells % Cancelled Nucleated RBC % Cancelled Neutrophils # (Manual) Cancelled Band Neutrophils # Cancelled Total Absolute Neuts Cancelled Lymphocytes # (Manual) Cancelled Prolymphocyte # Cancelled Reactive Lymphs # Cancelled Total Abs Lymphocytes Cancelled Monocytes # (Manual) Cancelled Eosinophils # (Manual) Cancelled Basophils # (Manual) Cancelled Metamyelocytes # (Man) Cancelled Myelocytes # (Manual) Cancelled Promyelocytes # (Man) Cancelled Blast Cells # (Man) Cancelled Plasma Cell # (Manual) Cancelled Other Cells # Cancelled Nucleated RBCs # (Man) Cancelled Hypersegmented Neuts Cancelled Hyposegmented Neuts Cancelled Hypogranular Neuts Cancelled Large Granular Lymphs Cancelled # Lrg Granular Lymphs Cancelled Hairy Cells Cancelled Smudge Cells Cancelled Toxic Granulation Cancelled Toxic Vacuolation Cancelled Dohle Bodies Cancelled Radha Rods Cancelled Platelet Estimate Cancelled Hypogranular Platelets Cancelled Giant Platelets Cancelled Platelet Satelliting Cancelled RBC Morphology Cancelled Polychromasia Cancelled Hypochromasia Cancelled Poikilocytosis Cancelled Basophilic Stippling Cancelled Anisocytosis Cancelled Microcytosis Cancelled Macrocytosis Cancelled Spherocytes Cancelled Pappenheimer Bodies Cancelled Sickle Cells Cancelled Target Cells Cancelled Tear Drop Cells Cancelled Ovalocytes Cancelled Stomatocytes Cancelled French-Leith-Hatfield Bodies Cancelled Echinocytes Cancelled Acanthocytes (Spur) Cancelled Rouleaux Cancelled RBC Agglutinates Cancelled Schistocytes Cancelled Sezary Cell Cancelled PT 10.8 (9.0-12.0) Seconds INR 1.0 (0.9-1.1) VBG pH 7.46 H (7.36-7.41) VBG pCO2 34 L (38-50) mmHg VBG pO2 59 mmHg VBG HCO3 24 mmol/L VBG O2 Saturation 92.4 % VBG Base Excess 0.8 mEq/L Sodium 137 (136-145) mmol/L Potassium 4.0 (3.5-5.1) mmol/L Chloride 104 (98-107) mmol/L Carbon Dioxide 23 (21-32) mmol/L Anion Gap 10 (3-11) BUN 16 (6-23) mg/dl Creatinine 0.67 (0.6-1.2) mg/dl Est Cr Clr Drug Dosing Not Reportable Est GFR ( Amer) 127.4 ml/min Est GFR (Non-Af Amer) 110.0 ml/min BUN/Creatinine Ratio 23.9 H (10-20) Glucose 128 H (70-99(Fasting)) mg/dl Calcium 9.2 (8.6-10.3) mg/dl Magnesium 2.2 (1.7-2.4) mg/dl Total Bilirubin 0.3 (0.2-1.0) mg/dl AST 19 (13-39) U/L ALT 33 (7-52) U/L Alkaline Phosphatase 37 (34-104) U/L Troponin I High Sens 8.1 (0-14) pg/ml B-Natriuretic Peptide 10 (0-100) pg/ml Total Protein 6.9 (6.0-8.3) gm/dl Albumin 4.4 (3.4-5.0) gm/dl Globulin 2.5 (2.5-4.0) gm/dl Albumin/Globulin Ratio 1.8 (0.9-2) Lipase 30 (11-82) U/L HCG, Qual Negative (Negative) Random Cortisol > 60.00 mcg/dl Urine Color Yellow Urine Appearance Clear (Clear) Urine pH 6.0 (4.5-7.5) Ur Specific [place] 1.010 (1.000-1.030) Urine Protein Negative (Negative) Urine Glucose (UA) Negative (Negative) Urine Ketones Negative (Negative) Urine Blood 2+ H (Negative) Urine Nitrite Negative (Negative) Urine Bilirubin Negative (Negative) Urine Urobilinogen Negative (Negative) Ur Leukocyte Esterase Negative (Negative) Urine WBC (Auto) 0-5 (0-5) /hpf Urine RBC (Auto) 11-20 H (0-2) /hpf U Hyaline Cast (Auto) 0-2 (0-2) /lpf U Epithel Cells (Auto) 0-2 (0-2) /hpf Urine Bacteria (Auto) None Seen (None Seen) Urine Opiates Screen Neg (Neg) Ur Methadone, Qual Neg (Neg) Urine Barbiturates Neg (Neg) Ur Phencyclidine (PCP) Neg (Neg) U Amphetamin/Meth Scrn Neg (Neg) MDMA (Ecstasy) Screen Neg (Neg) U Benzodiazepines Scrn Neg (Neg) Ur Cocaine Metabolite Neg (Neg) U Marijuana (THC) Screen Neg (Neg) Adenovirus (PCR) Not Detected (NotDetected) B. pertussis DNA (PCR) Not Detected (NotDetected) B.parapertussis DNA PCR Not Detected (NotDetected) Lyme Disease Screen Negative (Negative) C. pneumoniae DNA (PCR) Not Detected (NotDetected) Coronavirus OC43 (PCR) Not Detected (NotDetected) Coronavirus HKU1 (PCR) Not Detected (NotDetected) Coronavirus 229E (PCR) Not Detected (NotDetected) SARS-CoV-2 (PCR) Not Detected (NotDetected) Coronavirus NL63 (PCR) Not Detected (NotDetected) Human Metapneumovir PCR Not Detected (NotDetected) Influenza Type A (PCR) Not Detected (NotDetected) Influenza Type B (PCR) Not Detected (NotDetected) M. pneumoniae (PCR) Not Detected (NotDetected) Parainfluenza 1 (PCR) Not Detected (NotDetected) Parainfluenza 2 (PCR) Not Detected (NotDetected) Parainfluenza 3 (PCR) Not Detected (NotDetected) Parainfluenza 4 (PCR) Not Detected (NotDetected) RSV (PCR) Not Detected (NotDetected) Entero/Rhino (PCR) Not Detected (NotDetected) Blood Parasites ID Cancelled Administered Medications Discontinued Medications Sodium Chloride (Nss) 1,000 mls @ 999 mls/hr IV .Q1H1M ONE Stop: 01/10/24 21:18 Last Infusion: 01/10/24 21:35 Dose: Infused Documented By: [facility] Admin: 01/10/24 20:31 Dose: 999 mls/hr Documented By: [facility] Discharge Plan Visit Data Chief Complaint: Illness Stated Complaint: SHORTNESS OF BREATH, DIZZY, VOMITING, CONFUSION ED Provider: Janette Kim Discharge Problem: Generalized weakness, Nausea & vomiting, Dizziness, Chest pain Forms Stand Alone Forms: [facility] [employer] Prescriptions Prescriptions: No Action albuterol sulfate 90 mcg/actuation HFA aerosol inhaler 2 puff INHALATION Q4 PRN (Reason: Shortness Of Breath Or Wheezing) Qty: 8.5 3RF budesonide-formoterol [Symbicort] 160-4.5 mcg/actuation HFA aerosol inhaler 2 puff inhalation BID Qty: 1 11RF liothyronine 5 mcg tablet 5 mcg PO QAM clonazepam [Klonopin] 0.5 mg tablet 0.5 mg PO BID Solu-Cortef Act-O-Vial (PF) 100 mg/2 mL recon soln 100 mg IM UD PRN (Reason: emergency) amlodipine 5 mg tablet 5 mg PO QAM Rx Instructions: Take 5mg w/ 2.5mg by mouth every morning to equal 7.5mg duloxetine 20 mg capsule,delayed release(DR/EC) 20 mg PO QAM Rx Instructions: Take 20mg w/ 30mg by mouth every morning to equal 50mg duloxetine 30 mg capsule,delayed release(DR/EC) 30 mg PO QAM Rx Instructions: Take 30mg w/ 20mg by mouth every morning to equal 50mg Lo Loestrin Fe 1 mg-10 mcg (24)/10 mcg (2) tablet 1 tab PO HS guaifenesin [Mucinex] 600 mg Tablet Extended Release 12hr 600 mg PO BID potassium chloride 10 mEq capsule, extended release 10 meq PO BID amlodipine 2.5 mg tablet 5 mg PO QAM Rx Instructions: Take 2.5mg w/ 5mg by mouth every morning to equal 7.5mg Zepbound 2.5 mg/0.5 mL Pen Injector 2.5 mg SUBCUT WK Rx Instructions: TUESDAYS Simbrinza 1-0.2 % drops,suspension 2 drp OPB BID sulfamethoxazole-trimethoprim 800-160 mg tablet 1 tab PO BID Rx Instructions: take for 14 days ordered on 01/07/24 hydrocortisone 5 mg tablet See Rx Instructions .ROUTE .COMPLEX Rx Instructions: Take 10mg by mouth in the morning, 10mg at noon and 5mg in the evening. May double/triple the doses for stress/surgery/illness levothyroxine 150 mcg tablet 150 mcg PO DAILYBB Spiriva Respimat 2.5 mcg/actuation mist 2 puff INHALATION QAM Referrals Referrals: Marek Sung CRNP [Outside Practitioners] -
[2024-01-10] MEDS: SODIUM CHLORIDE 0.9% 1,000 ML IV ONE (20:31)
[2024-01-10 20:47] LABS: Base Excess VBG 0.8 mEq/L; HCO3 VBG 24 mmol/L; Oxygen Saturation VBG 92.4 %; PCO2 VBG 34 mmHg (38-50); PO2 VBG 59 mmHg; pH VBG 7.46 (7.36-7.41)
[2024-01-10 21:09] LABS: Pregnancy Test, Serum Negative (Negative)
[2024-01-10 21:10] LABS: Alanine Aminotransferase 33 U/L (7-52); Albumin Globulin Ratio 1.8 (0.9-2); Albumin Level 4.4 gm/dl (3.4-5.0); Alkaline Phosphatase 37 U/L (34-104); Anion Gap 10 (3-11); Aspartate Aminotransferase 19 U/L (13-39); BUN Creatinine Ratio 23.9 (10-20); Bilirubin,Total 0.3 mg/dl (0.2-1.0); Blood Urea Nitrogen 16 mg/dl (6-23); Calcium 9.2 mg/dl (8.6-10.3); Carbon Dioxide 23 mmol/L (21-32); Chloride 104 mmol/L (98-107); Est GFR (African American) 127.4 ml/min; Globulin 2.5 gm/dl (2.5-4.0); Glucose 128 mg/dl (70-99(Fasting)); Lipase 30 U/L (11-82); Magnesium 2.2 mg/dl (1.7-2.4); Sodium 137 mmol/L (136-145); Total Protein 6.9 gm/dl (6.0-8.3)
[2024-01-10 21:16] LABS: Troponin I High Sensitivity 8.1 pg/ml (0-14)
[2024-01-10 21:21] LABS: Appearance Urine Clear (Clear); Bacteria Urine Automated None Seen (None Seen); Bilirubin Urine Negative (Negative); Blood Urine 2+ (Negative); Cast Urine Automated 0-2 /lpf (0-2); Color Urine Yellow; Epithelial Cell Urine Auto 0-2 /hpf (0-2); Glucose Urine UA Negative (Negative); Ketones Urine Negative (Negative); Leukocyte Esterase Urine Negative (Negative); Nitrite Urine Negative (Negative); Protein Urine Negative (Negative); Urobilinogen Urine Negative (Negative); WBC Urine Automated 0-5 /hpf (0-5)
[2024-01-10 21:21] LABS: Prothrombin Time 10.8 Seconds (9.0-12.0)
[2024-01-10 21:37] LABS: Adenovirus PCR Not Detected (NotDetected); Bordetella parapertussis PCR Not Detected (NotDetected); Bordetella pertussis PCR Not Detected (NotDetected); Chlamydia pneumoniae PCR Not Detected (NotDetected); Coronavirus 229E PCR Not Detected (NotDetected); Coronavirus CoV-2 (COVID19)PCR Not Detected (NotDetected); Coronavirus HKU1 PCR Not Detected (NotDetected); Coronavirus NL63 PCR Not Detected (NotDetected); Coronavirus OC43PCR Not Detected (NotDetected); Human Metapneumovirus PCR Not Detected (NotDetected); Influenza A PCR Not Detected (NotDetected); Influenza B PCR Not Detected (NotDetected); Mycoplasma pneumoniae PCR Not Detected (NotDetected); Parainfluenza Virus 1 PCR Not Detected (NotDetected); Parainfluenza Virus 2 PCR Not Detected (NotDetected); Parainfluenza Virus 3 PCR Not Detected (NotDetected); Parainfluenza Virus 4 PCR Not Detected (NotDetected); Respiratory Syncytial VirusPCR Not Detected (NotDetected); Rhinovirus/Enterovirus PCR Not Detected (NotDetected)
[2024-01-10 21:38] LABS: Amphetamines+Metham, Urine Neg (Neg); Barbiturates, Urine Neg (Neg); Benzodiazepine, Urine Neg (Neg); Cocaine, Urine Neg (Neg); MDMA (Ecstacy), Urine Neg (Neg); Marijuana, Urine Neg (Neg); Methadone, Urine Neg (Neg); Opiate, Urine Neg (Neg); Phencyclidine, Urine Neg (Neg)
[2024-01-10 22:18] LABS: Basophils # (auto) 0.02 K/uL (0.00-0.20); Basophils % (auto) 0.2 %; Hematocrit (blood only) 40.2 % (37.0-47.0); Hemoglobin 13.3 g/dl (12.0-16.0); Immature Granulocytes # (auto) 0.12 K/uL (0.01-0.20); Immature Granulocytes % (auto) 1.3 %; Lymphocytes # (auto) 0.66 K/uL (1.20-3.40); Lymphocytes % (auto) 7.2 %; Mean Corpuscular Hemoglobin 29.4 pg (25.0-34.0); Mean Corpuscular Hgb Conc 33.1 g/dL (32.0-36.0); Mean Corpuscular Volume 88.9 fL (80.0-100.0); Mean Platelet Volume 9.8 fL (9.4-12.4); Monocytes # (auto) 0.33 K/uL (0.11-0.59); Monocytes % (auto) 3.6 %; Neutrophils # (auto) 7.99 K/uL (1.40-6.50); Neutrophils % (auto) 87.7 %; Platelet Count 328 K/uL (130-400); RDW Coefficient of Variation 13.3 % (11.5-14.5); RDW Standard Deviation 43.4 fL (36.4-46.3); Red Blood Count 4.52 M/uL (4.20-5.40); White Blood Count 9.12 K/ul (4.8-10.8)
--- NOTE | 2024-01-11 00:10 | CT Scan Report ---
Exam(s): CT CHEST Without Contrast EXAM: CT Chest Without Intravenous Contrast CLINICAL HISTORY: Right Chest Pain TECHNIQUE: Axial computed tomography images of the chest without intravenous contrast. CTDI is 24 mGy and DLP is 824 mGy-cm. Automated exposure control was utilized for the study. A dose lowering technique was utilized adhering to the principles of ALARA. COMPARISON: No relevant prior studies available. FINDINGS: Lungs: Unremarkable. No mass. No consolidation. Pleural space: Unremarkable. No pneumothorax. No significant effusion. Heart: Unremarkable. No cardiomegaly. No significant pericardial effusion. No significant coronary artery calcifications. Bones/joints: Acute mildly displaced lateral right third rib fracture. Chronic right eighth and ninth rib fractures. No dislocation. Soft tissues: Unremarkable. Vasculature: Unremarkable. No thoracic aortic aneurysm. Lymph nodes: Unremarkable. No enlarged lymph nodes. IMPRESSION: Subacute appearing mildly displaced lateral right third rib fracture. Chronic right eighth and ninth rib fractures. Electronically signed by: Lexie Pitts MD 01/11/24 00:09 AM
[2024-01-11] MEDS: HYDROCORTISONE SOD SUCCINATE 100 MG/2 ML VIAL IV STA (00:31)
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
[2024-01-11] MEDS ORDERED: NITROGLYCERIN SL 0.4 MG/TAB TAB SL PRN (01:19)
[2024-01-11] MEDS ORDERED: POLYETHYLENE (MIRALAX) 17 GM PACK PO PRN (01:19)
[2024-01-11] MEDS ORDERED: ALBUTEROL HFA 8 GM INHALER INH PRN (01:19)
[2024-01-11] MEDS: HYDROCORTISONE SOD 50 MG in SYRINGE 0 ML IV SCH (05:52)
[2024-01-11] MEDS: LEVOTHYROXINE SODIUM 150 MCG TABLET PO SCH (05:52)
[2024-01-11] MEDS: ACETAMINOPHEN 325 MG TAB PO PRN (06:00)
[2024-01-11 06:54] LABS: Basophils # (auto) 0.02 K/uL (0.00-0.20); Basophils % (auto) 0.2 %; Hematocrit (blood only) 37.9 % (37.0-47.0); Hemoglobin 12.6 g/dl (12.0-16.0); Immature Granulocytes # (auto) 0.09 K/uL (0.01-0.20); Immature Granulocytes % (auto) 0.8 %; Lymphocytes # (auto) 1.53 K/uL (1.20-3.40); Lymphocytes % (auto) 13.1 %; Mean Corpuscular Hemoglobin 29.2 pg (25.0-34.0); Mean Corpuscular Hgb Conc 33.2 g/dL (32.0-36.0); Mean Corpuscular Volume 87.7 fL (80.0-100.0); Mean Platelet Volume 9.7 fL (9.4-12.4); Monocytes # (auto) 0.99 K/uL (0.11-0.59); Monocytes % (auto) 8.5 %; Neutrophils # (auto) 9.01 K/uL (1.40-6.50); Neutrophils % (auto) 77.4 %; Platelet Count 326 K/uL (130-400); RDW Coefficient of Variation 13.2 % (11.5-14.5); RDW Standard Deviation 42.8 fL (36.4-46.3); Red Blood Count 4.32 M/uL (4.20-5.40); White Blood Count 11.64 K/ul (4.8-10.8)
[2024-01-11] MEDS ORDERED: HYDROCORTISONE SOD SUCCINATE 100 MG/2 ML VIAL IV SCH (07:00)
[2024-01-11 07:07] LABS: Creatinine Clr Calc Pharmacy 177.4 ml/min; Est GFR (African American) 140.3 ml/min; Est GFR (Non-African American) 121.1 ml/min; Magnesium 2.1 mg/dl (1.7-2.4); Potassium 3.9 mmol/L (3.5-5.1)
--- NOTE | 2024-01-11 07:18 | XRay Report ---
XR chest 1V portable CLINICAL HISTORY: Dyspnea. COMPARISON STUDY: Chest CT November 26, 2023. Chest radiograph December 27, 2023. FINDINGS: Lung volumes are normal. Lungs are clear. There is no pneumothorax or pleural effusion. Car diac size is normal. Mediastinal contours are normal. There is no evidence for pulmonary edema. A dis placed right lateral third rib fracture is again noted. This was shown on radiographs of December 27, 2023 . IMPRESSION: 1. No acute cardiopulmonary findings. 2. Subacute displaced right lateral third rib fracture. No pneumothorax. ACT 112: Negative or not required by law. Electronically signed by: Waylon Jordan M.D. 01/11/2024 7:17 AM
[2024-01-11] MEDS: SIMBRINZA~ORDER AWAITING ACTION SCH (08:00)
--- NOTE | 2024-01-11 08:10 | Electrocardiogram Report ---
Test Reason : Blood Pressure : / mmHG Vent. Rate : 086 BPM Atrial Rate : 086 BPM P-R Int : 142 ms QRS Dur : 070 ms QT Int : 346 ms P-R-T Axes : 061 032 046 degrees QTc Int : 414 ms Normal sinus rhythm Normal ECG When compared with ECG of 27-DEC-2023 13:17, No significant change was found Confirmed by Micky Humphrey ([id number]) on 01/11/2024 8:10:00 AM Referred By: Marek Sung Confirmed By:Micky Humphrey
[2024-01-11] MEDS: DULoxetine HCL 30 MG CAP PO SCH (08:41)
[2024-01-11] MEDS: guaiFENesin 600 MG TABCR PO SCH (08:41)
[2024-01-11] MEDS: SULFAMETHOXAZOLE/TRIMETHOPRIM DS 800/160MG TAB PO SCH (08:41)
[2024-01-11] MEDS: LIOTHYRONINE SODIUM 5 MCG TAB PO SCH (08:41)
[2024-01-11] MEDS: DULoxetine HCL 20 MG CAP PO SCH (08:41)
[2024-01-11] MEDS: POTASSIUM CHLORIDE 10 MEQ TABCR PO SCH (08:41)
[2024-01-11] MEDS: amLODIPine BESYLATE 5 MG TAB PO SCH (08:42)
[2024-01-11] MEDS ORDERED: amLODIPine BESYLATE 5 MG TAB PO SCH (09:00)
[2024-01-11] MEDS ORDERED: UMECLIDINIUM BROMIDE 62.5MCG/BLISTER 7 PUFFS/INHALER INH SCH (09:00)
[2024-01-11] MEDS: clonazePAM 0.5 MG TAB PO SCH (09:21)
[2024-01-11] MEDS: ENOXAPARIN INJ 40 MG/0.4 ML SYR SQ SCH (09:24)
[2024-01-11] MEDS: FLUTICASONE/VILANTEROL 100/25MCG 14 PUFFS/INHALER INH SCH (11:14)
[2024-01-11] MEDS: AMPICILLIN/SULBACTAM SOD 3,000 MG in SODIUM CHLOR 0.9% MINI-B 100 ML IV SCH (11:21)
[2024-01-11] MEDS: BRINZOLAMIDE/BRIMONIDINE TART 119 DROPS/8 ML BTL OP SCH (12:12)
[2024-01-11] MEDS: TIOTROPIUM BROMIDE RESPIMAT INH SCH (12:12)
[2024-01-11] MEDS ORDERED: HYDROCORTISONE SOD 20 MG in SYRINGE 0 ML IV SCH (14:00)
[2024-01-11] MEDS: methylPREDNISolone 10 MG in SYRINGE 0 ML IV SCH (14:10)
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
[2024-01-11 17:49] LABS: Appearance Urine Clear (Clear); Bacteria Urine Automated None Seen (None Seen); Bilirubin Urine Negative (Negative); Blood Urine Trace (Negative); Cast Urine Automated 0-2 /lpf (0-2); Color Urine Yellow; Epithelial Cell Urine Auto 0-2 /hpf (0-2); Glucose Urine UA Negative (Negative); Ketones Urine Negative (Negative); Leukocyte Esterase Urine Negative (Negative); Nitrite Urine Negative (Negative); Protein Urine Negative (Negative); Specific Gravity Urine 1.013 (1.000-1.030); Urobilinogen Urine Negative (Negative); WBC Urine Automated 0-5 /hpf (0-5); pH Urine 7.5 (4.5-7.5)
[2024-01-11] MEDS: PATIENT'S OWN ORAL CONTRACEPTIVE PO SCH (21:06)
[2024-01-12] MEDS: PROMETHAZINE HCL 12.5 MG in SODIUM CHLORIDE 0.9% 50 ML IV STA (05:05)
[2024-01-12] MEDS: oxyCODONE HCL IR 5 MG TAB (IMMEDIATE RELEASE) PO PRN (06:05)
[2024-01-12 07:14] LABS: Hematocrit (blood only) 41.7 % (37.0-47.0); Hemoglobin 13.8 g/dl (12.0-16.0); Mean Corpuscular Hemoglobin 29.2 pg (25.0-34.0); Mean Corpuscular Hgb Conc 33.1 g/dL (32.0-36.0); Mean Corpuscular Volume 88.3 fL (80.0-100.0); Mean Platelet Volume 9.7 fL (9.4-12.4); Platelet Count 322 K/uL (130-400); RDW Coefficient of Variation 13.3 % (11.5-14.5); RDW Standard Deviation 43.2 fL (36.4-46.3); Red Blood Count 4.72 M/uL (4.20-5.40)
[2024-01-12 07:31] LABS: BUN Creatinine Ratio 29.8 (10-20); Calcium 8.6 mg/dl (8.6-10.3); Creatinine Clr Calc Pharmacy 155.3 ml/min; Est GFR (African American) 134.4 ml/min; Magnesium 2.2 mg/dl (1.7-2.4); Phosphorus 3.2 mg/dl (2.5-4.9)
[2024-01-12] MEDS ORDERED: predniSONE 20 MG TAB PO ONE (14:00)
[2024-01-12] MEDS ORDERED: ONDANSETRON INJ 2 MG/ML 2 ML VIAL IV PRN (14:06)
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
[2024-01-12] MEDS: predniSONE 5 MG TAB PO ONE (14:22)
[2024-01-12] MEDS: PROMETHAZINE HCL 25 MG TAB PO ONE (16:24)
== END 2024-01-12 17:10 | disposition home or self-care (01) | DRG 644 ==
LOC: ED 19:52 → 2S 01-11 00:22 → SUATTDRO 01-11 00:22 → 2S 01-11 01:06

== ENCOUNTER 2024-02-01 10:06 | Observation (INO) ==
--- NOTE | 2024-02-01 10:52 | Emergency Department Note ---
Impression & Plan Chest pain, Hypokalemia, Elevated troponin I level, Serum calcium elevated ED Provider Note NAME: ARMEN DUNN AGE: 38 SEX: F : 1985 ARRIVES VIA: Walk-In INFORMANT: Patient ED PROVIDER(S): Will Florence DO CHIEF COMPLAINT: left sided chest pain HPI: Patient is a 38-year-old female with a past medical history asthma, adrenal insufficiency, anxiety who presents to the ER for left-sided lower rib pain. She had a parathyroidectomy and does have a history of 3 rib fractures on the right from being osteopenic. She notes that yesterday she started with some pain on the left. It is worse with twisting, turning, bending, or breathing. She notes that any movement makes it significantly worse. She has been taking oxycodone following the surgery. No belly pain, nausea, vomiting, or diarrhea. No dysuria, urgency, or frequency. ADDITIONAL HISTORY OBTAINED: Per HPI Chronic Medical/Social Conditions Affecting Care: Per HPI PAST MEDICAL HISTORY:See Below PAST SURGICAL HISTORY:See Below FAMILY HISTORY:See Below SOCIAL HISTORY:See Below HOME MEDICATIONS:See Below ALLERGIES:See Below VITALS:See Below PHYSICAL EXAMINATION: GENERAL: Sitting up in bed, alert, moderate distress holding left lower ribs, tearful EYE EXAM: normal conjunctiva. PERRL and EOM's grossly intact. OROPHARYNX: mucous membranes are moist NECK: supple, no nuchal rigidity, no adenopathy, non-tender LUNGS: Clear to auscultation. Normal chest wall mechanics CHEST: Reproducible pain under her left breast anteriorly tracking to the mid axillary line ribs 7 through 8 HEART: no murmurs, S1 normal and S2 normal ABDOMEN: abdomen soft, non-tender, normo-active bowel sounds, no masses, no rebound or guarding. UPPER EXTREMITIES: upper extremities are grossly normal. LOWER EXTREMITIES: No pitting edema. NEURO EXAM: Normal sensorium, cranial nerves II-XII grossly intact, normal speech, no gross weakness of arms, no gross weakness of legs. MEDICAL DECISION MAKING: Patient is a 38-year-old female who presents the ER for the above-stated complaint. IV was established blood work was obtained. Labs show mild leukocytosis of 13,000. No significant anemia. BMP with hypokalemia 3.3 which was repleted. Glucose slightly up at 141. Troponin elevated at 48 from yesterday. She does have a baseline of less than 20. CT of the chest was performed per patient's request and showed old right-sided rib fracture and a small pleural effusion. No new left-sided rib fractures. Troponin nearly doubled. She was given aspirin and morphine. I do favor the pain is musculoskeletal but with the rising troponin discussed case with the hospitalist for further evaluation management treatment. Consults/Care Managements Discussions: Per MDM Triage Nursing notes reviewed. Limited review of prior medical records performed Vital Signs: reviewed and remarkable for HTN and tachy Differential diagnosis: Cardiac ischemia, aortic dissection, pulmonary embolism, pneumothorax, pneumonia, pericarditis, myocarditis, esophageal rupture, GERD, cholecystitis, pancreatitis, musculoskeletal, as well as other pathologies. ER treatment provided: See below Diagnostics interpreted by me include EKG and cardiac monitoring as listed below: -Cardiac Monitoring: An order was placed for continuous cardiac monitoring. The monitor shows a rate of 87 sinus rhythm. -ECG: sinus rhythm rate 87 Normal axis No PVCs QTc 416 -Laboratory studies:Interpreted by me as stated above in MDM and shown below. Imaging studies: Xrays: As interpreted by me:none CTs show: CT of the chest per my preliminary interpretation showed no obvious infiltrate CT of the chest per radiology as described above Procedures:none Critical Care: None Past Med/Surg History Problem List (Updated 02/01/24 @ 14:13 by Will Florence DO) Serum calcium elevated (Acute) Hypokalemia (Acute) Chest pain (Acute) Elevated troponin I level (Acute) Hypokalemia (Acute) Weakness (Acute) Chest pain (Acute) Dizziness (Acute) Nausea & vomiting (Acute) Generalized weakness (Acute) Adrenal insufficiency (Acute) Weakness (Acute) Moderate persistent asthma Sinus pain Adrenal crisis syndrome IBS (irritable bowel syndrome) Cyst of kidney, acquired (Acute) Anxiety Vulvodynia Inclusion cyst Chronic sinusitis (Acute) Numbness and tingling of both lower extremities Numbness and tingling of both upper extremities Numbness and tingling of left side of face Chronic rhinitis Hypothyroidism (Acute 12/29/11) Hyperparathyroidism Status post parathyroidectomy Vitamin D deficiency Nephrolithiasis COVID-19 (Acute) Dizziness (Acute) Chest pain (Acute) Weakness (Acute) Nausea & vomiting (Acute) Frontal sinus pain (Acute) Adrenal insufficiency (Acute) Elevated lactic acid level (Acute) Blurred vision Medical History Elevated lactic acid level Breathlessness Nausea Hypokalemia Elevated troponin I level Vitamin D deficiency Gurinder's disease Rectal bleed Miscarriage Surgical History H/O wisdom tooth extraction H/O dilation and curettage Family History Aunt Breast cancer Grandmother (Maternal) Colorectal cancer Lung cancer Grandmother (Paternal) Ovarian cancer Father Prostate cancer Mother Atrial fibrillation Other No significant family history Social History Smoking Status: Never smoker Second Hand Exposure: No; Do You Dip or Chew Tobacco: No; Hx Alcohol Use: No Hx Substance Use: No Preferred Language: Nepalese Communication Ability: Effective Business Systems Lead Required: No Beliefs That Will Affect Care: None marital status: Current Living Situation: Spouse Current Living Situation Comment: and two children Feels Safe at Home: Yes Assistive Devices: Walker Allergies Allergies Allergy/AdvReac Type Severity Reaction Status Date / Time ondansetron [From Zofran] AdvReac Intermediate Per Unverified 02/01/24 12:59 patient, cannot take per PCP Serotonin 5HT-3 Antagonists AdvReac Intermediate per Verified 02/01/24 12:59 patient cannot take per PCP Home Meds Home Medications Medication Instructions Recorded Confirmed liothyronine 5 mcg tablet 5 mcg PO QAM 03/16/23 02/01/24 hydrocortisone sod succ (PF) 100 100 mg IM UD PRN emergency 04/14/23 02/01/24 mg/2 mL solution for injection (Solu-Cortef Act-O-Vial (PF)) amlodipine 5 mg tablet 10 mg PO QAM 05/14/23 02/01/24 clonazepam 0.5 mg tablet (Klonopin) 0.5 mg PO BID 07/23/23 02/01/24 duloxetine 20 mg capsule,delayed 20 mg PO QAM 09/13/23 02/01/24 release duloxetine 30 mg capsule,delayed 30 mg PO QAM 09/13/23 02/01/24 release norethindrone 1 mg-ethinyl 1 tab PO HS 09/13/23 02/01/24 estradiol 10 mcg (24)-iron 10 mcg(2) tablet (Lo Loestrin Fe) guaifenesin 600 mg tablet, 600 mg PO BID 09/23/23 02/01/24 extended release 12 hr (Mucinex) amlodipine 2.5 mg tablet 0 mg PO DAILY 11/25/23 02/01/24 potassium chloride 10 mEq 10 meq PO BID 11/25/23 02/01/24 capsule,extended release tirzepatide (weight loss) 2.5 2.5 mg subcut WK 11/25/23 02/01/24 mg/0.5 mL subcutaneous pen injector (Zepbound) hydrocortisone 5 mg tablet See Rx Instructions .Route .COMPLEX 12/05/23 02/01/24 tiotropium bromide 2.5 2 puff inhalation QAM 12/05/23 02/01/24 mcg/actuation mist for inhalation (Spiriva Respimat) brinzolamide 1 %-brimonidine 0.2 % 2 drp OPB BID 01/10/24 02/01/24 eye drops,suspension (Simbrinza) amoxicillin 875 mg-potassium 1 tab PO BID 02/01/24 02/01/24 clavulanate 125 mg tablet calcitriol 0.5 mcg capsule 0.5 mcg PO TID 02/01/24 02/01/24 calcium carbonate 1,500 mg PO DAILY 02/01/24 02/01/24 levothyroxine 137 mcg tablet 137 mcg PO DAILYBB 02/01/24 02/01/24 methylprednisolone 4 mg tablet 4 mg PO UD 02/01/24 02/01/24 omeprazole 20 mg capsule,delayed 20 mg PO DAILY 02/01/24 02/01/24 release oxycodone 5 mg tablet 5 mg PO Q6H PRN Severe Pain (Scale 02/01/24 02/01/24 Score 7-10) Previous Rx's Medication Instructions Recorded albuterol sulfate 90 mcg/actuation 2 puff inhalation Q4 PRN Shortness 10/14/23 aerosol inhaler Of Breath Or Wheezing #8.5 grams budesonide-formoterol HFA 160 2 puff inhalation BID #1 inhaler 11/30/23 mcg-4.5 mcg/actuation aerosol inhaler (Symbicort) Results & Data (ED) Vital Signs Vital Signs - 24 hr 02/01/24 10:16 02/01/24 10:35 02/01/24 10:53 Temperature 36.9 C Temperature Source Temporal Artery Scan Pulse Rate 97 H 89 Pulse Rate [Finger] 108 H Pulse Rhythm Regular Pulse Strength Normal Respiratory Rate 20 26 H 15 Respiratory Effort / Characteristics Non-Labored Spontaneous Respiratory Depth Normal Respiratory Pattern Regular Tachypnea Blood Pressure 153/94 H Blood Pressure [Right Arm] 176/119 H Blood Pressure Mean 113 Blood Pressure Mean [Right Arm] 138 Blood Pressure Position Sitting Pulse Oximetry 95 95 95 Oxygen Delivery Method Room Air Room Air Room Air Sepsis Recent Fever Within 48 Hours No Sepsis New/Unexplained Change in Mental Status No Sepsis Action Taken by Nursing No Action Required 02/01/24 10:53 02/01/24 12:08 02/01/24 12:20 Temperature Temperature Source Pulse Rate 87 Pulse Rate [Finger] 88 82 Pulse Rhythm Pulse Strength Respiratory Rate 16 16 Respiratory Effort / Characteristics Non-Labored Spontaneous Respiratory Depth Normal Respiratory Pattern Regular Blood Pressure Blood Pressure [Right Arm] 161/96 H 175/101 H Blood Pressure Mean Blood Pressure Mean [Right Arm] 117 125 Blood Pressure Position Pulse Oximetry 95 96 Oxygen Delivery Method Room Air Room Air Sepsis Recent Fever Within 48 Hours Sepsis New/Unexplained Change in Mental Status Sepsis Action Taken by Nursing 02/01/24 13:56 Temperature Temperature Source Pulse Rate Pulse Rate [Finger] 94 H Pulse Rhythm Pulse Strength Respiratory Rate 16 Respiratory Effort / Characteristics Respiratory Depth Respiratory Pattern Blood Pressure Blood Pressure [Right Arm] 172/101 H Blood Pressure Mean Blood Pressure Mean [Right Arm] 124 Blood Pressure Position Pulse Oximetry 96 Oxygen Delivery Method Room Air Sepsis Recent Fever Within 48 Hours Sepsis New/Unexplained Change in Mental Status Sepsis Action Taken by Nursing Laboratory Data 02/01/24 11:10 02/01/24 11:10 Lab Results 02/01/24 Range/Units 11:10 WBC 13.21 H (4.8-10.8) K/ul RBC 4.63 (4.20-5.40) M/uL Hgb 13.5 (12.0-16.0) g/dl Hct 40.4 (37.0-47.0) % MCV 87.3 (80.0-100.0) fL MCH 29.2 (25.0-34.0) pg MCHC 33.4 (32.0-36.0) g/dL RDW Std Deviation 45.1 (36.4-46.3) fL RDW Coeff of [place] 14.3 (11.5-14.5) % Plt Count 304 (130-400) K/uL MPV 9.6 (9.4-12.4) fL Immature Gran % (Auto) 2.1 % Neut % (Auto) 84.9 % Lymph % (Auto) 6.4 % Early % (Auto) 6.4 % Eos % (Auto) 0.0 % Baso % (Auto) 0.2 % Neut # (Auto) 11.22 H (1.40-6.50) K/uL Lymph # (Auto) 0.85 L (1.20-3.40) K/uL Early # (Auto) 0.84 H (0.11-0.59) K/uL Eos # (Auto) 0.00 (0.00-0.50) K/uL Baso # (Auto) 0.02 (0.00-0.20) K/uL Immature Gran # (Auto) 0.28 H (0.01-0.20) K/uL Sodium 138 (136-145) mmol/L Potassium 3.3 L (3.5-5.1) mmol/L Chloride 97 L (98-107) mmol/L Carbon Dioxide 32 (21-32) mmol/L Anion Gap 9 (3-11) BUN 31 H (6-23) mg/dl Creatinine 0.78 (0.6-1.2) mg/dl Est Cr Clr Drug Dosing 113.0 ml/min Est GFR ( Amer) 110.2 ml/min Est GFR (Non-Af Amer) 95.1 ml/min BUN/Creatinine Ratio 39.7 H (10-20) Glucose 141 H (70-99(Fasting)) mg/dl Calcium 11.3 H (8.6-10.3) mg/dl Total Bilirubin 0.3 (0.2-1.0) mg/dl AST 20 (13-39) U/L ALT 36 (7-52) U/L Alkaline Phosphatase 31 L (34-104) U/L Troponin I High Sens 48.0 H D (0-14) pg/ml Total Protein 6.6 (6.0-8.3) gm/dl Albumin 3.9 (3.4-5.0) gm/dl Globulin 2.7 (2.5-4.0) gm/dl Albumin/Globulin Ratio 1.4 (0.9-2) Lipase 24 (11-82) U/L Urine Color Yellow Urine Appearance Clear (Clear) Urine pH 5.5 (4.5-7.5) Ur Specific [place] 1.006 (1.000-1.030) Urine Protein Negative (Negative) Urine Glucose (UA) Negative (Negative) Urine Ketones Negative (Negative) Urine Blood 1+ H (Negative) Urine Nitrite Negative (Negative) Urine Bilirubin Negative (Negative) Urine Urobilinogen Negative (Negative) Ur Leukocyte Esterase Negative (Negative) Urine WBC (Auto) 0-5 (0-5) /hpf Urine RBC (Auto) 0-2 (0-2) /hpf U Hyaline Cast (Auto) 0-2 (0-2) /lpf U Epithel Cells (Auto) 0-2 (0-2) /hpf Urine Bacteria (Auto) None Seen (None Seen) Administered Medications Discontinued Medications Aspirin (Aspirin Chew 324 Mg) 324 mg PO NOW STA Stop: 02/01/24 12:23 Last Admin: 02/01/24 13:50 Dose: 324 mg Documented By: DANIEL Sodium Chloride (Nss) 1,000 mls @ 999 mls/hr IV .Q1H1M ONE Stop: 02/01/24 13:21 Last Admin: 02/01/24 13:52 Dose: 999 mls/hr Documented By: DANIEL Ioversol (Optiray 320 125ml) 112 ml IV ONCE ONE Stop: 02/01/24 11:51 Last Admin: 02/01/24 11:51 Dose: 112 ml Documented By: PIPER Morphine Sulfate (Morphine Sulfate 4 Mg/Ml 1 Ml Carp\Vial) 4 mg IV NOW STA Stop: 02/01/24 10:43 Last Admin: 02/01/24 12:05 Dose: 4 mg Documented By: DANIEL Morphine Sulfate (Morphine Sulfate 4 Mg/Ml 1 Ml Carp\Vial) 4 mg IV NOW STA Stop: 02/01/24 12:22 Last Admin: 02/01/24 13:50 Dose: 4 mg Documented By: DANIEL Ondansetron HCl (Ondansetron Inj 2 Mg/Ml 2 Ml Vial) 4 mg IV NOW STA Stop: 02/01/24 10:43 Last Admin: 02/01/24 11:23 Dose: Not Given Documented By: DANIEL Potassium Chloride (Potassium Chloride Crtab 20 Meq Tabcr) 40 meq PO NOW STA Stop: 02/01/24 12:22 Last Admin: 02/01/24 13:50 Dose: 40 meq Documented By: DANIEL Imaging Data Radiologist's Impression: Chest CTA 02/01/24 10:42 CT ANGIOGRAM OF THE CHEST CLINICAL HISTORY: Atypical chest pain. COMPARISON STUDY: Chest CT dated 01/10/2024. Chest x-ray dated 01/30/2024. TECHNIQUE: Following the IV administration of 112 cc of Optiray 320, CT angiogram of the chest was performed from the upper abdomen to the thoracic inlet utilizing the pulmonary embolus protocol. Images are reviewed in the axial, sagittal, and coronal planes. 3-D MIPS images are created and assessed. IV contrast was administered without complication. A dose lowering technique was utilized adhering to the principles of ALARA. CT DOSE: 827.24 mGy.cm FINDINGS: Thyroid: Atrophic with mild surrounding infiltration. This may be related to the reported history of recent parathyroid surgery. Thoracic aorta: The thoracic aorta is normal in caliber and demonstrates standard 3-vessel arch anatomy. No dissection is seen. Pulmonary vasculature: The pulmonary trunk is normal in caliber. There are no filling defects identified in main, lobar, or segmental pulmonary branches to suggest pulmonary embolus. Heart: The heart is top normal in size and without pericardial effusion. Lungs and pleural spaces: There is no airspace consolidation tubular pneumonia. Trace pleural fluid is seen on the right. Atelectasis is noted at both lung bases. The trachea and central airways are clear. A 5 mm right apical groundglass lesion on image #167 is unchanged. Mediastinum: There is no mediastinal lymphadenopathy. Snehal: Clear. Axillae: There is no axillary lymphadenopathy. Upper abdomen: The liver is enlarged and steatotic. Partially visualized upper abdominal viscera is otherwise within normal limits. Skeletal structures: No lytic or blastic bony lesions are seen. Again seen is a subacute-appearing right lateral 3rd rib fracture. There are additional chronic appearing right-sided rib fractures. There is no evidence of acute left-sided rib fracture. IMPRESSION: 1. There is no evidence of pulmonary embolus in the main, lobar, or segmental pulmonary arteries. 2. There is no airspace consolidation typical for pneumonia. 3. Trace right pleural effusion. 4. A subacute/healing right-sided 3rd rib fracture is again noted. 5. Hepatic steatosis. 6. A 5 mm groundglass nodule at the right apex is unchanged from prior studies. 7. Additional findings as above. ACT 112: Negative or not required by law. Electronically signed by: Tae Vaughn M.D. 02/01/2024 12:11 PM Discharge Plan Visit Data Chief Complaint: Rib Injury/Pain Stated Complaint: PAIN ON LEFT SIDE RIB AREA ED Provider: Will Florence Discharge Problem: Chest pain, Hypokalemia, Elevated troponin I level, Serum calcium elevated Forms Stand Alone Forms: My [employer] Prescriptions Prescriptions: No Action albuterol sulfate 90 mcg/actuation HFA aerosol inhaler 2 puff INHALATION Q4 PRN (Reason: Shortness Of Breath Or Wheezing) Qty: 8.5 3RF budesonide-formoterol [Symbicort] 160-4.5 mcg/actuation HFA aerosol inhaler 2 puff inhalation BID Qty: 1 11RF liothyronine 5 mcg tablet 5 mcg PO QAM clonazepam [Klonopin] 0.5 mg tablet 0.5 mg PO BID Solu-Cortef Act-O-Vial (PF) 100 mg/2 mL recon soln 100 mg IM UD PRN (Reason: emergency) amlodipine 5 mg tablet 10 mg PO QAM Rx Instructions: Patient will start back taking 7.5mg daily once she is off Methylprednisolone. duloxetine 20 mg capsule,delayed release(DR/EC) 20 mg PO QAM Rx Instructions: Take 20mg w/ 30mg by mouth every morning to equal 50mg duloxetine 30 mg capsule,delayed release(DR/EC) 30 mg PO QAM Rx Instructions: Take 30mg w/ 20mg by mouth every morning to equal 50mg Lo Loestrin Fe 1 mg-10 mcg (24)/10 mcg (2) tablet 1 tab PO HS guaifenesin [Mucinex] 600 mg Tablet Extended Release 12hr 600 mg PO BID potassium chloride 10 mEq capsule, extended release 10 meq PO BID amlodipine 2.5 mg tablet 0 mg PO DAILY Rx Instructions: Currently on hold due to taking. Patient will start back taking 7.5mg daily once she is off Methylprednisolone. Take 2.5mg w/ 5mg by mouth every morning to equal 7.5mg Zepbound 2.5 mg/0.5 mL Pen Injector 2.5 mg SUBCUT WK Rx Instructions: Fridays Simbrinza 1-0.2 % drops,suspension 2 drp OPB BID levothyroxine 137 mcg tablet 137 mcg PO DAILYBB methylprednisolone 4 mg tablet 4 mg PO UD Rx Instructions: 4mg 5 times per day calcitriol 0.5 mcg capsule 0.5 mcg PO TID amoxicillin-pot clavulanate 875-125 mg tablet 1 tab PO BID calcium carbonate [Calcium 500] 500 mg calcium (1,250 mg) Tablet 1,500 mg PO DAILY omeprazole 20 mg Capsule,Delayed Release(Dr/Ec) 20 mg PO DAILY oxycodone 5 mg Tablet 5 mg PO Q6H PRN (Reason: Severe Pain (Scale Score 7-10)) hydrocortisone 5 mg tablet See Rx Instructions .ROUTE .COMPLEX Rx Instructions: Take 10mg by mouth in the morning, 10mg at noon and 5mg in the evening. May double/triple the doses for stress/surgery/illness Spiriva Respimat 2.5 mcg/actuation mist 2 puff INHALATION QAM Referrals Referrals: Corina Cervantes MD [Primary Care Provider] - Discharge Problem: Chest pain Qualifiers: Chest pain type: unspecified Qualified Code(s): R07.9 - Chest pain, unspecified
[2024-02-01] MEDS: ONDANSETRON INJ 2 MG/ML 2 ML VIAL IV STA (11:23)
[2024-02-01 11:26] LABS: Appearance Urine Clear (Clear); Bacteria Urine Automated None Seen (None Seen); Bilirubin Urine Negative (Negative); Blood Urine 1+ (Negative); Cast Urine Automated 0-2 /lpf (0-2); Color Urine Yellow; Epithelial Cell Urine Auto 0-2 /hpf (0-2); Glucose Urine UA Negative (Negative); Ketones Urine Negative (Negative); Leukocyte Esterase Urine Negative (Negative); Nitrite Urine Negative (Negative); Protein Urine Negative (Negative); RBC Urine Automated 0-2 /hpf (0-2); Specific Gravity Urine 1.006 (1.000-1.030); Urobilinogen Urine Negative (Negative); WBC Urine Automated 0-5 /hpf (0-5); pH Urine 5.5 (4.5-7.5)
[2024-02-01 11:28] LABS: Basophils # (auto) 0.02 K/uL (0.00-0.20); Basophils % (auto) 0.2 %; Hematocrit (blood only) 40.4 % (37.0-47.0); Hemoglobin 13.5 g/dl (12.0-16.0); Immature Granulocytes # (auto) 0.28 K/uL (0.01-0.20); Immature Granulocytes % (auto) 2.1 %; Lymphocytes # (auto) 0.85 K/uL (1.20-3.40); Lymphocytes % (auto) 6.4 %; Mean Corpuscular Hemoglobin 29.2 pg (25.0-34.0); Mean Corpuscular Hgb Conc 33.4 g/dL (32.0-36.0); Mean Corpuscular Volume 87.3 fL (80.0-100.0); Mean Platelet Volume 9.6 fL (9.4-12.4); Monocytes # (auto) 0.84 K/uL (0.11-0.59); Monocytes % (auto) 6.4 %; Neutrophils # (auto) 11.22 K/uL (1.40-6.50); Neutrophils % (auto) 84.9 %; Platelet Count 304 K/uL (130-400); RDW Coefficient of Variation 14.3 % (11.5-14.5); RDW Standard Deviation 45.1 fL (36.4-46.3); Red Blood Count 4.63 M/uL (4.20-5.40); White Blood Count 13.21 K/ul (4.8-10.8)
[2024-02-01 11:45] LABS: Albumin Globulin Ratio 1.4 (0.9-2); Albumin Level 3.9 gm/dl (3.4-5.0); BUN Creatinine Ratio 39.7 (10-20); Bilirubin,Total 0.3 mg/dl (0.2-1.0); Calcium 11.3 mg/dl (8.6-10.3); Est GFR (African American) 110.2 ml/min; Est GFR (Non-African American) 95.1 ml/min; Globulin 2.7 gm/dl (2.5-4.0); Potassium 3.3 mmol/L (3.5-5.1); Total Protein 6.6 gm/dl (6.0-8.3)
[2024-02-01] MEDS: OPTIRAY 320 125ml IV ONE (11:51)
[2024-02-01] MEDS: MoRPHine SULFATE 4 MG/ML 1 ML CARP\\VIAL IV STA ×2 (12:05→13:50)
--- NOTE | 2024-02-01 12:13 | CT Scan Report ---
CT ANGIOGRAM OF THE CHEST CLINICAL HISTORY: Atypical chest pain. COMPARISON STUDY: Chest CT dated 01/10/2024. Chest x-ray dated 01/30/2024. TECHNIQUE: Following the IV administration of 112 cc of Optiray 320, CT angiogram of the chest was pe rformed from the upper abdomen to the thoracic inlet utilizing the pulmonary embolus protocol. Images are reviewed in the axial, sagittal, and coronal planes. 3-D MIPS images are created and assessed. I V contrast was administered without complication. A dose lowering technique was utilized adhering to the principles of ALARA. CT DOSE: 827.24 mGy.cm FINDINGS: Thyroid: Atrophic with mild surrounding infiltration. This may be related to the reported history of recent parathyroid surgery. Thoracic aorta: The thoracic aorta is normal in caliber and demonstrates standard 3-vessel arch anato my. No dissection is seen. Pulmonary vasculature: The pulmonary trunk is normal in caliber. There are no filling defects identif ied in main, lobar, or segmental pulmonary branches to suggest pulmonary embolus. Heart: The heart is top normal in size and without pericardial effusion. Lungs and pleural spaces: There is no airspace consolidation tubular pneumonia. Trace pleural fluid i s seen on the right. Atelectasis is noted at both lung bases. The trachea and central airways are priscila ar. A 5 mm right apical groundglass lesion on image #167 is unchanged. Mediastinum: There is no mediastinal lymphadenopathy. Snehal: Clear. Axillae: There is no axillary lymphadenopathy. Upper abdomen: The liver is enlarged and steatotic. Partially visualized upper abdominal viscera is o therwise within normal limits. Skeletal structures: No lytic or blastic bony lesions are seen. Again seen is a subacute-appearing ri ght lateral 3rd rib fracture. There are additional chronic appearing right-sided rib fractures. There is no evidence of acute left-sided rib fracture. IMPRESSION: 1. There is no evidence of pulmonary embolus in the main, lobar, or segmental pulmonary arteries. 2. There is no airspace consolidation typical for pneumonia. 3. Trace right pleural effusion. 4. A subacute/healing right-sided 3rd rib fracture is again noted. 5. Hepatic steatosis. 6. A 5 mm groundglass nodule at the right apex is unchanged from prior studies. 7. Additional findings as above. ACT 112: Negative or not required by law. Electronically signed by: Tae Vaughn M.D. 02/01/2024 12:11 PM
--- NOTE | 2024-02-01 12:57 | Electrocardiogram Report ---
Test Reason : Blood Pressure : / mmHG Vent. Rate : 087 BPM Atrial Rate : 087 BPM P-R Int : 148 ms QRS Dur : 074 ms QT Int : 346 ms P-R-T Axes : 057 037 058 degrees QTc Int : 416 ms Normal sinus rhythm Poor R wave progression, consider anterior [place] vs. lead placement vs. LVH Abnormal ECG When compared with ECG of 30-JAN-2024 13:06, No significant change was found Confirmed by Jose Diaz ([id number]) on 02/01/2024 12:57:02 PM Referred By: Confirmed By:Jose Diaz
[2024-02-01] MEDS ORDERED: DICLOFENAC SOD 1% GEL 100 GM TUBE EXT PRN (13:14)
[2024-02-01] MEDS ORDERED: KETOROLAC TROMETHAMINE 15 MG/ML VIAL IV PRN ×2 (13:14→13:51)
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
[2024-02-01] MEDS: ASPIRIN CHEW 324 MG PO STA (13:50)
[2024-02-01] MEDS: POTASSIUM CHLORIDE CRTAB 20 MEQ TABCR PO STA (13:50)
[2024-02-01] MEDS: SODIUM CHLORIDE 0.9% 1,000 ML IV ONE (13:52)
--- OUTSIDE RECORDS SUMMARY | 2024-02-01 15:05 | External Medical Summary ---
Author Name Unknown Address Unknown Organization [facility] [place] [id number] Laboratory Report Ordering Provider Test Date Status HELEN ASENCIO 02/01/2024 07:14:06 Final Observation Date Value Abnormality Reference (Units ) Status SYNC LEUKOCYTES IN BLOOD BY AUTOMATED COUNT 02/01/2024 07:14:06 14.27 Above high normal 4.00-10.80 (K/uL) Final Segs 02/01/2024 07:14:06 78.0 Above high normal 40.0-75.0 (%) Final Lymphs % 02/01/2024 07:14:06 11.9 Below low normal 18.0-42.0 (%) Final Monos 02/01/2024 07:14:06 9.8 1.0-11.0 (%) Final Eosinophils 02/01/2024 07:14:06 0.2 0.0-6.0 (%) Final Basos 02/01/2024 07:14:06 0.1 0.0-2.0 (%) Final Absolute Segs 02/01/2024 07:14:06 11.12 Above high normal 1.80-7.70 (K/uL) Final Lymphs, absolute 02/01/2024 07:14:06 1.70 1.00-4.80 (K/ul) Final Monos, Abs 02/01/2024 07:14:06 1.40 Above high normal 0.00-1.10 (K/uL) Final Eos, Abs 02/01/2024 07:14:06 0.03 0.00-0.70 (K/uL) Final Basos, Abs 02/01/2024 07:14:06 0.02 0.00-0.20 (K/uL) Final Performing Location [facility] [place] [id number]
--- OUTSIDE RECORDS SUMMARY | 2024-02-01 15:05 | External Medical Summary ---
Author Name Unknown Address Unknown Organization [facility] [address] [place] [id number] Laboratory Report Ordering Provider Test Date Status HELEN ASENCIO 02/01/2024 07:14:06 Final Observation Date Value Abnormality Reference (Units ) Status Nucleated erythrocytes/100 leukocytes [Ratio] in Blood by Automated count 02/01/2024 07:14:06 Final Neutrophils.hypersegment ed [Presence] in Blood by Light microscopy 02/01/2024 07:14:06 Present Abnormal None Seen Final Performing Location [facility] [address] [place] [id number]
--- OUTSIDE RECORDS SUMMARY | 2024-02-01 15:05 | External Medical Summary | Summary of Care ---
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 07/08/2022 Active Hydrocortisone Sod Suc (PF) 100 MG Injection Solution Reconstituted (Solu-Cortef)Indicat ions:Secondary adrenal insufficiency (HCC) Inject 100mg (2ml) into large muscle as needed for adrenal crisis. Acto-Vial [facility] [address]-81 2 mL 3 02/22/2023 Active Syringe 22G [...] and 1 Tablet before bedtime. 09/03/2023 Active Zepbound 2.5 MG/0.5ML Subcutaneous Solution Auto-injector 08/26/2023 Active Diclofenac Sodium 75 MG Oral Tablet [...] before bedtime. 180 Capsule 3 10/19/2023 Active Budesonide-Formotero l Fumarate 160-4.5 MCG/ACT Inhalation Aerosol (Symbicort) Inhale 2 Puffs by mouth in the morning and 2 Puffs before bedtime. 11/30/2023 Active Brimonidine Tartrate 0.1 % Ophthalmic Solution (Alphagan) INSTILL ONE DROP INTO BOTH EYES TWICE DAILY 11/24/2023 Active Fluconazole 100 MG Oral Tablet (Diflucan) TAKE 2 TABLETS BY MOUTH ONCE DAILY X 13 DAYS 12/05/2023 Active Omeprazole 20 MG Oral Capsule Delayed Release (PriLOSEC) Take 1 Capsule by mouth in the morning. 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 90 Tablet 3 12/31/2023 Active Famotidine 20 MG Oral Tablet (Pepcid) Take 1 Tablet by mouth in the morning. 01/12/2024 Active methylPREDNISolone 4 MG Oral Tablet Therapy Pack (Medrol Dosepack) Take 1 Tablet by mouth in the morning. 01/12/2024 Active Probiotic Product Oral Capsule Take 1 Capsule by mouth in the morning. Active Acetaminophen 325 MG Oral Tablet (Tylenol) Take 1 Tablet by mouth every 6 hours as needed for Pain, Moderate. Active oxyCODONE HCl 5 MG Oral Tablet (Oxy IR)Indications:Left foot pain,Fracture of rib due to cough Take 1 Tablet by mouth every 6 hours as needed for Pain, Severe. 30 Tablet 01/21/2024 Active Levothyroxine Sodium 137 MCG Oral Tablet Take one pill each day (at least 30 min prior to breakfast or other meds) 90 Tablet 3 01/21/2024 Active documented as of this encounter (statuses as of 02/01/2024) Active Problems Problem Noted Date Diagnosed Date Fracture of rib due to cough 01/02/2024 Body mass index (BMI) of 40.0 to 44.9 in adult 1 08/28/2022 Overview: Per Obesity protocol Diabetes insipidus 02/22/2023 Secondary adrenal insufficiency 02/22/2023 Sinus congestion 01/12/2023 NAFLD (nonalcoholic fatty liver disease) 022 ADHD (attention deficit hype ractivity disorder), combined type 10/17/2021 History of anorexia nervosa 07/24/2021 Hyperparathyroidism, primary 07/19/2021 Overview: Status post surgery at [facility], 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 Santiago. Took 50,000 weekly several years ago. Taking Vit D3 2000 IU daily plus PNV per business performance analyst. Vit D level Jul. documented as of this encounter (statuses as of 02/01/2024) Resolved Problems Problem Noted Date Diagnosed Date [...] disease 05/22/2015 12/04/19 19 Overview: Following with business performance analyst, Dr. Santiago, through 1. In women with [...] be handled at the discretion of the business performance analyst. documented as of this encounter (statuses as of 02/01/2024) Immunizations Name Administration Dates Next Due COVID-19 [...] money to get more. 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 02/01/2024 7:14 AM EDT CBC WITH WBC DIFFERENTIAL Lab Routine Abnormal CBC 02/01/2024 7:14 AM EDT PTH Lab Routine Hyperparathyroidism, unspecified (HCC) 02/01/2024 7:14 AM EDT CALCIUM Lab Routine Hyperparathyroidism, unspecified (HCC) 02/01/2024 7:14 AM EDT CBC Lab Routine Abnormal CBC 02/01/2024 7:14 AM EDT DIFFERENTIAL, AUTOMATED Lab Routine Abnormal CBC 02/01/2024 7:14 AM EDT Health Maintenance Due Date Last Done Comments Hepatitis B (1 of 3 - 19+ 3-dose series) 2002 HPV/Co-Test 2013 Cervical Cancer Screening 04/29/2021 Pap Smear 04/29/2021 04/29/2018, 02/2015, 11/29/2012 Depression Screening 07/24/2022 07/24/2021 Mammogram 03/15/2024 03/15/2023, 02/15, 07/02/2021, Additional history exists TSH 01/16/2025 01/17/2024, 02/2023, 02/04/2023, Additional history exists Diabetes Screening 01/16/2027 01/17/2024, 0 12/01/2023, 10/11/2023, Additional history exists Lipid Panel 05/09/2027 05/09/2022 [...] as of this encounter Visit Diagnoses Diagnosis 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
--- OUTSIDE RECORDS SUMMARY | 2024-02-01 15:05 | External Medical Summary | Summary of Care ---
Author Name Unknown Organization [facility] Address [address] [place] [address] Phone [phone] Care Team Providers Care Braider Setter Name Role Phone Corina Cervantes MD Primary Care Provider [phone] Encounter Details Date Type Department Care Team (Late st Contact Info) Description 01/31/2024 Orders Only Laboratory, [facility] [address] [address] Yury Newell MD [address] [place] [address] [facility] [address] [id number] Hyperparathyroidism, unspecified (HCC)* Allergies Active Allergy Reactions Criticality Noted Date Comments Serotonin High 03/24/2023 Other Reaction(s): per patient cannot take per PCP documented as of this encounter (statuses as of 01/31/2024) Medications Medication Sig Dispensed Refills Start Date [...] WHEEZING 8.5 g 2 09/15/2022 Active Tiotropium [place] Monohydrate 2.5 MCG/ACT Inhalation Aerosol Solution (Spiriva Respimat) Inhale 2 Puffs by mouth in the morning. 07/08/2022 Active Hydrocortisone Sod Suc (PF) 100 MG Injection Solution Reconstituted (Solu-Cortef)Indicat ions:Secondary adrenal insufficiency (HCC) Inject 100mg (2ml) into large muscle as needed for adrenal crisis. 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 Santiago. Took 50,000 weekly several years ago. Taking Vit D3 2000 IU daily plus PNV per lockstitch front maker. Vit D level Jul. documented as of this encounter (statuses as of 01/31/2024) Resolved Problems Problem Noted Date Diagnosed Date [...] disease 05/22/2015 12/04/19 19 Overview: Following with lockstitch front maker, Dr. Santiago, through 1. In women with [...] be handled at the discretion of the lockstitch front maker. documented as of this encounter (statuses as of 01/31/2024) Immunizations Name Administration Dates Next Due COVID-19 [...] money to get more. Never true 02/03/2023 [place] Depression Scale Answer Date Recorded [place] Depression Scale Score 0 04/18/2019 The thought [...] as of this encounter Plan of Treatment Scheduled Orders Name Type Priority Associated Diagnoses Orde r Schedule PTH Lab Routine Hyperparathyroidism, unspecified (HCC) Expected: 01/31/2024, Expires: 01/30/2025 CALCIUM Lab Routine Hyperparathyroidism, unspecified (HCC) Expected: 01/31/2024, Expires: 01/30/2025 Health Maintenance Due Date Last Done Comments Hepatitis B (1 of 3 - 19+ 3-dose series) 2002 HPV/Co-Test 2013 Cervical Cancer Screening 04/29/2021 Pap Smear 04/29/2021 04/29/2018, 0 02/2015, 11/29/2012 Depression Screening 07/24/2022 07/24/2021 Mammogram 03/15/2024 03/15/2023, 02/15, 07/02/2021, Additional history exists TSH 01/16/2025 01/17/2024, 0902/2023, 02/04/2023, Additional history exists Diabetes Screening 01/16/2027 [...] as of this encounter Visit Diagnoses Diagnosis Hyperparathyroidism, unspecified (HCC)- Primary Hyperparathyroidism, unspecified documented in this encounter Care Teams Braider Setter Relationship Specialty Start Date End Date Corina Cervantes MD [address] [place] [address] PCP - General Family Medicine 10/20/23 documented as of this encounter
--- OUTSIDE RECORDS SUMMARY | 2024-02-01 15:05 | External Medical Summary ---
Author Name Unknown Address Unknown Organization [facility] [place] [id number] Laboratory Report Ordering Provider Test Date Status FÁTIMA BOYD 02/01/2024 07:14:06 Final Observation Date Value Abnormality Reference (Units ) Status Calcium 02/01/2024 07:14:06 10.7 Above high normal 8. 4-10.2 (mg/dL) Final Performing Location LABORATORY [facility] [address] [place] [id number]
--- OUTSIDE RECORDS SUMMARY | 2024-02-01 15:05 | External Medical Summary ---
Author Name Unknown Address Unknown Organization [id number]:[facility] [address] [place] [id number] Laboratory Report Ordering Provider Test Date Status HELEN ASENCIO 02/01/2024 07:14:06 Final Observation Date Value Abnormality Reference (Units ) Status WBC, Total 02/01/2024 07:14:06 14.27 Above high normal 4 .00-10.80 (K/uL) Final RBC 02/01/2024 07:14:06 4.69 3.85-5.15 (M/uL) Final Hemoglobin 02/01/2024 07:14:06 13.7 12.0-15.3 (g/dL) Final HCT 02/01/2024 07:14:06 42.1 36.0-45.2 (%) Final MCV 02/01/2024 07:14:06 89.8 81.5-97.5 (fL) Final MCH 02/01/2024 07:14:06 29.2 27.0-34.0 (pg) Final MCHC 02/01/2024 07:14:06 32.5 32.0-36.0 (g/dL) Final RDW 02/01/2024 07:14:06 14.6 11.5-15.5 (%) Final Platelets 02/01/2024 07:14:06 328 140-400 (K /uL) Final MPV 02/01/2024 07:14:06 9.7 6.6-11.1 ( fL) Final Performing Location [facility]ORY [facility] [address] [place] [address]
[2024-02-01] MEDS: KETOROLAC TROMETHAMINE 15 MG/ML VIAL IV STA (15:22)
[2024-02-01] MEDS: PANTOprazole 40 MG TAB PO STA (15:22)
[2024-02-01] MEDS: amLODIPine BESYLATE 5 MG TAB PO STA (15:22)
[2024-02-01] MEDS ORDERED: ONDANSETRON INJ 2 MG/ML 2 ML VIAL IV PRN (15:37)
[2024-02-01] MEDS ORDERED: ACETAMINOPHEN 325 MG TAB PO PRN (15:37)
[2024-02-01] MEDS ORDERED: ALBUTEROL HFA 8 GM INHALER INH PRN (15:37)
[2024-02-01] MEDS: POTASSIUM CHLORIDE / WTR 10 MEQ/100 ML PLCT IV SCH (16:31)
[2024-02-01] MEDS: oxyCODONE HCL IR 5 MG TAB (IMMEDIATE RELEASE) PO PRN (16:35)
[2024-02-01] MEDS: methylPREDNISolone 4 MG TAB PO SCH (17:14)
[2024-02-01] MEDS: CALCIUM CARBONATE 1250MG TAB PO SCH (17:14)
[2024-02-01] MEDS: ACETAMINOPHEN 500 MG TAB PO SCH (18:39)
[2024-02-01] MEDS: guaiFENesin 600 MG TABCR PO SCH (20:53)
[2024-02-01] MEDS: POTASSIUM CHLORIDE 10 MEQ TABCR PO SCH (20:54)
[2024-02-01] MEDS: clonazePAM 0.5 MG TAB PO SCH (20:54)
[2024-02-01] MEDS: AMOXICILLIN/CLAVULANATE 875 MG TAB PO SCH (20:54)
[2024-02-01] MEDS: KETOROLAC TROMETHAMINE 15 MG/ML VIAL IV SCH (20:55)
[2024-02-02] MEDS: LEVOTHYROXINE SODIUM 137 MCG TABLET PO SCH (04:31)
[2024-02-02] MEDS: methylPREDNISolone 4 MG TAB PO SCH ×2 (06:02→10:22)
[2024-02-02] MEDS: KETOROLAC TROMETHAMINE 15 MG/ML VIAL IV SCH (06:03)
[2024-02-02 07:25] LABS: Hematocrit (blood only) 39.3 % (37.0-47.0); Mean Corpuscular Hgb Conc 33.1 g/dL (32.0-36.0); Mean Corpuscular Volume 87.5 fL (80.0-100.0); Mean Platelet Volume 9.8 fL (9.4-12.4); Platelet Count 305 K/uL (130-400); RDW Coefficient of Variation 14.4 % (11.5-14.5); RDW Standard Deviation 45.6 fL (36.4-46.3); Red Blood Count 4.49 M/uL (4.20-5.40)
[2024-02-02] MEDS: oxyCODONE HCL IR 5 MG TAB (IMMEDIATE RELEASE) PO PRN (08:01)
[2024-02-02] MEDS: amLODIPine BESYLATE 5 MG TAB PO SCH (08:04)
[2024-02-02] MEDS: CALCITRIOL 0.25 MCG CAPSULE PO SCH (08:06)
[2024-02-02] MEDS: DULoxetine HCL 20 MG CAP PO SCH (08:07)
[2024-02-02] MEDS: LIOTHYRONINE SODIUM 5 MCG TAB PO SCH (08:07)
[2024-02-02] MEDS: DULoxetine HCL 30 MG CAP PO SCH (08:07)
[2024-02-02] MEDS: UMECLIDINIUM BROMIDE 62.5MCG/BLISTER 7 PUFFS/INHALER INH SCH (08:08)
[2024-02-02] MEDS: FLUTICASONE/VILANTEROL 100/25MCG 14 PUFFS/INHALER INH SCH (08:08)
[2024-02-02] MEDS: POLYETHYLENE (MIRALAX) 17 GM PACK PO PRN (08:16)
--- NOTE | 2024-02-02 10:06 | Hospitalist Progress Note ---
Date of Service February 02, 2024 Assessment & Plan (1) Atypical chest pain: Plan: This is a 38-year-old female with PMH of hyperparathyroidism status post removal or parathyroid nodes on 01/26 at [facility], secondary adrenal insufficiency on Medrol Dosepak, 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 L rib pain since yesterday, not improved with scheduled tylenol, ibuprofen and PRN oxycodone she has been using at home from recent surgery on 01/26 History of osteoporosis with fractures Chest CTA did not show any evidence of new fractures of the ribs The pain is well-controlled with oxycodone Will get dedicated left-sided rib x-rays to rule out any fracture of the ribs Doubt any ACS and the troponin has been trending down She wants to go home this afternoon X-ray of the ribs did not show any evidence of fracture on the left side Left-sided chest pain is not controlled with usual analgesics like ibuprofen or Tylenol or even Toradol She has been requiring oxycodone 10 mg every 6 hours as needed to control pain She was not at all agreeable to take 5 mg every 6 hourly as needed of oxycodone on discharge She will be discharged home this afternoon Imaging studies Chest CTA without evidence of PE. No airspace consolidation typical for PNA. Trace R pleural effusion and subacute/healing R sided 3rd rib fracture again noted. 5mm groundglass nodule at R apex unchanged from previous EKG without acute ST changes, initial troponin 48 - continue trending, tele overnight Pain appears to be MSK - no acute L sided fracture but multiple current fractures given osteopenia (2) Hyperparathyroidism: Plan: Under care of occupational therapy professor as above (3) Status post parathyroidectomy: Plan: S/p removal or parathyroid adenomas on 01/26 at [facility], follows with endo surgery Dr. Osiris Newell has been following outpatient labwork closely post-operatively Calcium 11.3 today in post-op setting Per phone discussion with patient today, wants to decrease Calcitriol to 0.5 mcg daily and increase calcium carbonate to 1,500mg TID - updated medication orders Managed by her occupational therapy professor and also ENT specialist She has been on high-dose of methylprednisolone as per the occupational therapy professor Has been getting antibiotic for recurrent sinus infection as per ENT She has the medications to continue until she will be followed up by the specialist as an outpatient within the next few days (4) Serum calcium elevated: Plan: Calcium level has been normalized (5) Hypokalemia: Plan: Initial K 3.3. Given 40mg KCl orally in ED. Patient concerned about persistently low K, requesting IV potassium replacement. Given K riders. Continue home potassium supplementation. Daily BMP Additional potassium was given oral Will recheck potassium Hypokalemia has been corrected (6) Adrenal insufficiency: Plan: Per recent admission for adrenal crisis - Follows Dr. Krishnamurthy, last evaluated on 07/2023: no severe immunodeficiency noted on work up to date, however, genetic screening considered it was not obtained 2/2 concerns for insurance coverage Scheduled in February for immunodeficiency work up, as well as follows up with ENT for structural abnormalities Stable. Continue Medrol 4mg 5x/daily. Monitor vitals closely Has been getting methylprednisolone and will continue the current dose as per the instructions (7) Moderate persistent asthma: Plan: Stable. Continue home inhalers - albuterol PRN, budesonide, Spiriva No evidence of wheezing and no shortness of breath (8) Anxiety: Plan: Continue home duloxetine, PRN clonazepam BID (9) Recurrent sinusitis: Plan: Continue Augmentin BID, on steroids as above Follows ENT who historically recommends Augmentin and medrol dose pack Continue with current management (10) Hypothyroidism: Plan: Continue levothyroxine DVT Ppx: SCDs, early ambulation for now Code status: FULL PCP: Helen (but planning to move out of state) Dispo: obs med tele Admission and Anticipated Discharge Date Admission Date: February 01, 2024 Subjective 02/02/2024 The patient was seen and examined in medical telemetry unit She was admitted with left-sided chest pain in the inframammary area worse with movement and breathing Does not have any more pain and is controlled with oxycodone Denies any other symptoms Review of Systems Review of Systems: All systems reviewed and are unremarkable except as noted below Physical Exam Physical Exam: Lying in bed comfortably Constitutional: well developed, well nourished, + ill appearing and + obese Eyes: PERRL, conjunctivae normal, anicteric sclerae ENMT: external ear and nose normal, oropharynx normal Neck: trachea midline, no thyromegaly Respiratory: no respiratory distress Auscultation: lungs clear to auscultation bilaterally Cardiovascular: Rate/Rhythm: regular rate and regular rhythm; not tachycardic Gastrointestinal (Abdomen): Inspection/Auscultation: normal bowel sounds; abdomen not distended Percussion/Palpation: abdomen soft; abdomen nontender Musculoskeletal: No acute arthritis involving any of the joints Neurologic: normal touch/pain/proprioception and moves all extremities; no focal motor deficits Psychiatric: A+Ox3, euthymic affect Lymphatic: no cervical or axillary lymphadenopathy Results & Data Results & Data Vital Signs (Past 12 Hours) Vital Signs Temp Pulse Pulse Resp BP Pulse Ox O2 Del Method 02/02/24 07:58 36.7 C 80 18 147/89 H 95 Room Air 02/02/24 07:25 79 02/02/24 03:09 36.7 C 90 18 152/80 H 96 Room Air 02/01/24 23:22 36.7 C 82 18 135/76 91 Room Air 02/01/24 22:00 94 H Laboratory Results Short CBC 02/01/24 02/02/24 Range/Units 11:10 05:34 WBC 13.21 H 12.50 H (4.8-10.8) K/ul Hgb 13.5 13.0 (12.0-16.0) g/dl Hct 40.4 39.3 (37.0-47.0) % Plt Count 304 305 (130-400) K/uL BMP 02/01/24 11:10 Sodium 138 Potassium 3.3 L Chloride 97 L Carbon Dioxide 32 BUN 31 H Creatinine 0.78 Glucose 141 H Calcium 11.3 H Liver Function 02/01/24 Range/Units 11:10 Total Bilirubin 0.3 (0.2-1.0) mg/dl AST 20 (13-39) U/L ALT 36 (7-52) U/L Alkaline Phosphatase 31 L (34-104) U/L Albumin 3.9 (3.4-5.0) gm/dl Urine 02/01/24 Range/Units 11:10 Urine Color Yellow Urine Appearance Clear (Clear) Urine pH 5.5 (4.5-7.5) Ur Specific [place] 1.006 (1.000-1.030) Urine Protein Negative (Negative) Urine Glucose (UA) Negative (Negative) Medications Administered Current Inpatient Medications Acetaminophen (Acetaminophen 500 Mg Tab) 1,000 mg PO Q8H [facility] Stop: 03/02/24 17:29 Last Admin: 02/02/24 08:01 Dose: 1,000 mg Albuterol (Albuterol Hfa 8 Gm Inhaler) 2 puffs INH Q4 PRN PRN Reason: Shortness Of Breath Or Wheezing Stop: 03/02/24 15:36 Amlodipine Besylate (Amlodipine Besylate 5 Mg Tab) 10 mg PO QAM [facility] Stop: 03/03/24 08:59 Last Admin: 02/02/24 08:04 Dose: 10 mg Amoxicillin/Clavulanate Potassium (Amoxicillin/Clavulanate 875 Mg Tab) 1 tab PO BID [facility]; Protocol Stop: 03/02/24 20:59 Last Admin: 02/02/24 08:05 Dose: 1 tab Calcitriol (Calcitriol 0.25 Mcg Capsule) 0.5 mcg PO DAILY [facility] Stop: 03/03/24 08:59 Last Admin: 02/02/24 08:06 Dose: 0.5 mcg Calcium Carbonate (Calcium Carbonate 1250mg Tab) 3 tab PO TID [facility] Stop: 03/02/24 15:59 Last Admin: 02/02/24 08:05 Dose: 3 tab Clonazepam (Clonazepam 0.5 Mg Tab) 0.5 mg PO BID [facility] Stop: 03/02/24 20:59 Last Admin: 02/02/24 08:16 Dose: 0.5 mg Diclofenac Sodium (Diclofenac Sod 1% Gel 100 Gm Tube) 4 gm EXT Q6H PRN; Protocol PRN Reason: Pain or Fever Stop: 03/02/24 13:14 Duloxetine HCl (Duloxetine Hcl 20 Mg Cap) [facility] Stop: 03/03/24 08:59 Last Admin: 02/02/24 08:07 Dose: 20 mg Duloxetine HCl (Duloxetine Hcl 30 Mg Cap) 30 mg PO QAM [facility] Stop: 03/03/24 08:59 Last Admin: 02/02/24 08:07 Dose: 30 mg Fluticasone/Vilanterol (Fluticasone/Vilanterol 100/25mcg 14 Puffs/Inhaler) 1 puffs INH DAILY [facility]; Protocol Stop: 03/03/24 08:59 Last Admin: 02/02/24 08:08 Dose: 1 puffs Guaifenesin (Guaifenesin 600 Mg Tabcr) 600 mg PO BID [facility] Stop: 03/02/24 20:59 Last Admin: 02/02/24 08:04 Dose: 600 mg Ketorolac Tromethamine (Ketorolac Tromethamine 15 Mg/Ml Vial) 15 mg IV Q8H [facility] Stop: 02/07/24 05:54 Last Admin: 02/02/24 06:03 Dose: 15 mg Levothyroxine Sodium (Levothyroxine Sodium 137 Mcg Tablet) 137 mcg PO DAILYBB [facility] Stop: 03/03/24 06:29 Last Admin: 02/02/24 04:31 Dose: 137 mcg Lidocaine (Lidocaine 5% 1 Patch) 1 patch TD QAM [facility] Stop: 03/03/24 08:59 Liothyronine Sodium (Liothyronine Sodium 5 Mcg Tab) 5 mcg PO QAM [facility] Stop: 03/03/24 08:59 Last Admin: 02/02/24 08:07 Dose: 5 mcg Methylprednisolone (Methylprednisolone 4 Mg Tab) 8 mg PO DAILY@0700 [facility] Stop: 03/03/24 06:59 Last Admin: 02/02/24 06:02 Dose: 8 mg Methylprednisolone (Methylprednisolone 4 Mg Tab) 4 mg PO 1000,1300,1600 [facility] Stop: 03/03/24 09:59 Miscellaneous (Order Awaiting Action [Brinzolamide-Brimonidine [Simbrinza] 1-0.2 % Drops,Suspension]) 1 each N/A QS [facility] Stop: 03/02/24 15:59 Last Admin: 02/02/24 08:03 Dose: Not Given Miscellaneous (Order Awaiting Action [Norethindrone-E.Estradiol-Iron [Lo Loestrin Fe] 1 Mg-10 Mcg (24]) 1 each N/A QS [facility] Stop: 03/02/24 15:59 Last Admin: 02/02/24 08:04 Dose: Not Given Miscellaneous (Remove Lidoderm Patch) 1 each N/A DAILY@2100 [facility] Stop: 03/03/24 20:59 Ondansetron HCl (Ondansetron Inj 2 Mg/Ml 2 Ml Vial) 4 mg IV Q6H PRN PRN Reason: Nausea Stop: 03/02/24 15:36 Oxycodone HCl (Oxycodone Hcl Ir 5 Mg Tab (Immediate Release)) 5 - 10 mg PO QID PRN PRN Reason: Pain Stop: 02/16/24 05:52 Last Admin: 02/02/24 08:01 Dose: 10 mg Polyethylene Glycol (Polyethylene (Miralax) 17 Gm Pack) 17 gm PO DAILY PRN PRN Reason: Constipation Stop: 03/02/24 15:36 Last Admin: 02/02/24 08:16 Dose: 17 gm Potassium Chloride (Potassium Chloride 10 Meq Tabcr) 10 meq PO BID [facility] Stop: 03/02/24 20:59 Last Admin: 02/02/24 08:05 Dose: 10 meq Umeclidinium [place] (Umeclidinium [place] 62.5mcg/Blister 7 Puffs/Inhaler) 1 puffs INH QAM [facility]; Protocol Stop: 03/03/24 08:59 Last Admin: 02/02/24 08:08 Dose: 1 puffs (7) Moderate persistent asthma Asthma complication type: uncomplicated Qualified Code(s): J45.40 - Moderate persistent asthma, uncomplicated
[2024-02-02] MEDS: POTASSIUM CHLORIDE CRTAB 20 MEQ TABCR PO STA (10:21)
[2024-02-02] MEDS: LIDOCAINE 5% 1 PATCH TD SCH (10:22)
[2024-02-02 10:58] LABS: Albumin Globulin Ratio 1.5 (0.9-2); Albumin Level 3.8 gm/dl (3.4-5.0); BUN Creatinine Ratio 35.3 (10-20); Bilirubin,Total 0.5 mg/dl (0.2-1.0); Calcium 9.5 mg/dl (8.6-10.3); Creatinine Clr Calc Pharmacy 131.1 ml/min; Est GFR (African American) 126.8 ml/min; Est GFR (Non-African American) 109.4 ml/min; Globulin 2.6 gm/dl (2.5-4.0); Potassium 3.7 mmol/L (3.5-5.1); Total Protein 6.4 gm/dl (6.0-8.3)
[2024-02-02 11:07] LABS: Troponin I High Sensitivity 24.7 pg/ml (0-14)
--- NOTE | 2024-02-02 11:29 | XRay Report ---
LEFT-SIDED RIB SERIES CLINICAL HISTORY: Fall. Left-sided chest wall pain. FINDINGS: 4 views of the left-sided ribs are obtained. Correlation is made with chest x-ray dated 01/[address] dated 02/01/2024. There is no radiographic evidence of acute/displaced left-sided rib fracture on the rib series. The remainder of the visualized bony thorax appears intact. The image d lung parenchyma appears clear. There is no left-sided pneumothorax. IMPRESSION: There is no radiographic evidence of acute/displaced left-sided rib fracture on the rib s eries. Electronically signed by: Tae Vaughn M.D. 02/02/2024 11:28 AM
--- OUTSIDE RECORDS SUMMARY | 2024-02-03 00:12 | External Medical Summary | Summary of Care ---
Author Name Unknown Organization [facility] Address [address] [place] [address] Phone [phone] Care Team Providers Care Music Assistant Name Role Phone Corina Cervantes MD Primary Care Provider [phone] Reason for Referral * Evaluate & Treat - Unlimited Visits (Within 10 days (routine)) - Pending Review Specialty Diagnoses / Procedures Referred By Contact Referred To Contact Thoracic and Cardiac Surgery / Cardiothoracic Surgery Diagnoses Closed traumatic displaced fracture of one rib Fracture of rib due to cough Damaso Llamas III, MD [address] [facility] [place] [address] Referral ID Status Reason Start Date Expiration Date Visits Requested Visits Authorized [id number] Pending Review Specialty Services Required 11/02/[phone] Question Answer Referral Priority Within 10 days (routine) Where should this appointment be scheduled? [facility] Reason for Referral? Other Reason for Visit * Reason Onset Date Comments Order Request 11/02/[address] ease Encounter Details Date Type Department Care Team (Late st Contact Info) Description 11/02/2023 Telephone Family Practice [facility] [place] Espinoza [address] [place] [address] Skyler Bridges DO [address] [place] [id number] Order Request (Correct order please ) Allergies Active Allergy Reactions Criticality Noted Date [...] WHEEZING 8.5 g 2 09/15/2022 Active Tiotropium [place] Monohydrate 2.5 MCG/ACT Inhalation Aerosol Solution (Spiriva Respimat) Inhale 2 Puffs by mouth in the morning. 07/08/2022 Active Hydrocortisone Sod Suc (PF) 100 MG Injection Solution Reconstituted (Solu-Cortef)Indicat ions:Secondary adrenal insufficiency (HCC) Inject 100mg (2ml) into large muscle as needed for adrenal crisis. 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 Santiago. Took 50,000 weekly several years ago. Taking Vit D3 2000 IU daily plus PNV per nursing student. Vit D level Jul. documented as of [...] disease 05/22/2015 12/04/19 19 Overview: Following with nursing student, Dr. Santiago, through 1. In women with [...] be handled at the discretion of the nursing student. documented as of this encounter (statuses as [...] money to get more. Never true 02/03/2023 [place] Depression Scale Answer Date Recorded [place] Depression Scale Score 0 04/18/2019 The thought of harming myself has occurred to me . (Pt Reported) 04/18/2019 Childcare Answer Date Recorded Do you feel overwhelmed with taking care of a child, family member or friend? No 02/03/2023 Does your family need help f inding childcare? (Household - for ages 0-17 years) Not on file 02/03/2023 Clothing Answer Date Recorded Have you been unable to get clothing when it was really needed? No 02/03/2023 Is your family able to get c lothes or diapers when needed? (Household - for ages 0-17 years) Not on file 02/03/2023 Personal Safety Answer Date Recorded Do you feel unsafe or have concerns for your saf ety? No 02/03/2023 Do you have concerns for you r family's safety? (Household - for ages 0-17 years) Not on file 02/03/2023 Utilities Answer Date Recorded Do you have trouble paying y our heating, water, or electric bill? No 02/03/2023 Is your family able to pay t he heat, water, or electric bill? (Household - for ages 0-17 years) Not on file 02/03/2023 Does your family have access to good internet? (Household - for ages 0-17 years) Not on file 02/03/2023 Employment Status Answer Date Recorded Are you unemployed or without regular income? No 02/03/2023 Does the household have a re gular source of income? (Household - for ages 0-17 years) Not on file 02/03/2023 Social Connections Answer Date Recorded How often do you feel lonely or isolated from th ose around you? Rarely 02/03/2023 Financial Resource Strain Answer Date R ecorded Do you have any trouble payi ng for your medications, or do you think you might in the future? No 02/03/2023 Does your family have troubl e paying for medicine? (Household - for ages 0-17 years) Not on file 02/03/2023 Transportation Needs Answer Date Record ed READ ONLY Do you have troubl e getting a ride to medical visits or work? Never True 02/03/2023 Does your family have a hard time getting a ride to doctors visits? (Household - for ages 0-17 years) Not on file 02/03/2023 Has lack of transportation k ept you from medical appointments, meetings, work, or from getting things needed for daily living? Check all that apply. (Adult - for ages 18 years and over) Not on file 02/03/2023 Do you (or your family) have trouble finding or paying for a ride (transportation)? (Household - for ages 0-17 years) Not on file 02/03/2023 Housing Stability Answer Date Recorded Do you currently live in a s helter or have no steady place to sleep at night? No 02/03/2023 READ ONLY Do you think you a re at risk of becoming homeless? No 02/03/2023 Does your family worry about paying for your home or becoming homeless? (Household - for ages 0-17 years) Not on file 0 02/03/2023 Are you homeless or worried that you might be in the future? (Adult - for ages 18 years and over) Not on file Are you (or your family) emil eless or worried that you might be in the future? (Household - for ages 0-17 years) Not on file Food Insecurity Answer Date Recorded Do you need food for this week? No 02/03/2023 Are you able to get enough f ood for your family? (Household - for ages 0-17 years) Not on file 02/03/2023 Does your family need food t his week? (Household - for ages 0-17 years) Not on file 02/03/2023 Do you always have enough fo od for your family? (Household - for ages 0-17 years) Not on file 02/03/2023 Sex and Gender Information Value Date Recorded Sex Assigned at Female 09/20/2019 8:07 AM EST Gender Identity Female 09/20/2019 8:07 AM EST Sexual Orientation Straight 09/20/2019 8: 07 AM EST Job Start Date Occupation Industry Not on file Not on file Not on file documented as of this encounter Miscellaneous Notes * Telephone Encounter - Anh Geller OSA - 11/05/2023 3:[address] Bridges, Sent for triage and waiting on images to be sent. Thank you, KRISTEN Salas * Telephone Encounter - Skyler Bridges DO - 11/02/2023 3:58 PM EDT Order signed as requested * Telephone Encounter - Anh Geller OSA - 11/02/2023 11:[address] Bridges, Could you please change the order for Cardiovascular surgery to Thoracic Surgery for this pt? Thank you, KRISTEN Salas documented in this encounter Plan of Treatment Scheduled Referrals Name Type Priority Associated Diagnoses Orde r Schedule THORACIC SURGERY REFERRAL OP Referral Within 10 days (routine) Closed traumatic displaced fracture of one rib Fracture of rib due to cough Ordered: 11/02/2023 Health Maintenance Due Date Last Done Comments Hepatitis B (1 of 3 - 19+ 3-dose series) 2002 HPV/Co-Test 2013 Cervical Cancer Screening 04/29/2021 Pap Smear 04/29/2021 04/29/2018, 02/2015, 11/29/2012 Depression Screening 07/24/2022 07/24/2021 Mammogram 03/15/2024 03/15/2023, 02/15, 07/02/2021, Additional history exists TSH 01/31/2025 02/01/2024, 10/2023, 04/22/2023, Additional history exists Diabetes Screening 01/16/2027 01/17/2024, [...] as of this encounter Visit Diagnoses Diagnosis Closed traumatic displaced fracture of one rib- Primary Fracture of rib due to cough documented in this encounter Care Teams Music Assistant Relationship Specialty Start Date End Date Corina Cervantes MD [address] [place] [address] PCP - General Family Medicine 10/20/23 documented as of this encounter
--- OUTSIDE RECORDS SUMMARY | 2024-02-03 00:12 | External Medical Summary | Summary of Care ---
Author Name Unknown Organization [facility] Address [address] [place] [address] Phone [phone] Care Team Providers Care Hospital Administrative Assistant Name Role Phone Corina Cervantes MD Primary Care Provider [phone] Reason for Visit * Reason Onset Date Comments Advice 02/01/2024 Encounter Details Date Type Department Care Team (Late st Contact Info) Description 02/01/2024 Telephone Thoracic Surg [place] [address] [place] [address] Elana Jarquin, clam shucker Allergies Active Allergy Reactions Criticality Noted Date [...] WHEEZING 8.5 g 2 09/15/2022 Active Tiotropium [place] Monohydrate 2.5 MCG/ACT Inhalation Aerosol Solution (Spiriva Respimat) Inhale 2 Puffs by mouth in the morning. 07/08/2022 Active Hydrocortisone Sod Suc (PF) 100 MG Injection Solution Reconstituted (Solu-Cortef)Indicat ions:Secondary adrenal insufficiency (HCC) Inject 100mg (2ml) into large muscle as needed for adrenal crisis. 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 Santiago. Took 50,000 weekly several years ago. Taking Vit D3 2000 IU daily plus PNV per non food receiving clerk. Vit D level Jul. documented as of [...] disease 05/22/2015 12/04/19 19 Overview: Following with non food receiving clerk, Dr. Santiago, through 1. In women with [...] be handled at the discretion of the non food receiving clerk. documented as of this encounter (statuses as [...] money to get more. Never true 02/03/2023 [place] Depression Scale Answer Date Recorded [place] Depression Scale Score 0 04/18/2019 The thought [...] encounter Miscellaneous Notes * Telephone Encounter - Elana Jarquin RN - 02/01/2024 2:39 PM EDT Wanda called stating that she had her surgery a few days ago and is doing well, they took out 2/3 parathyroid nodes. She is feeling really well. She stated that she went to [facility] ED for left sided pain, that felt like her breaks on the right. They did a CT chest but there was no breaks seen. She wanted to know if Dr. Marte could look at the imaging to give his opinion. I explained that he was out of office until 02/10/24, but I would get the images sent over and have him look at them once he is back. She also asked for a referral to [facility], Dr Marte did mention that he knew someone down there and could make a referral, which she would like so she has someone to establish care with there. She is moving to [facility] in a few days. I will call her once I can speak with Dr. Marte regarding the above. She thanked me for the call back and verbalized understanding and agreement. Elana Jarquin RN MSN [facility] Thoracic Surgery Nurse Navigator [facility] [phone] documented in this encounter Plan of Treatment [...] filedocumented as of this encounter Care Teams Hospital Administrative Assistant Relationship Specialty Start Date End Date Corina Cervantes MD [address] [facility] [place], [place] [address] PCP - General Family Medicine 10/20/23 documented as of this encounter
--- OUTSIDE RECORDS SUMMARY | 2024-02-03 00:13 | External Medical Summary ---
Author Name Unknown Address Unknown Organization [id number]:LABORATORY [facility] [place] - [address] [place] [address] Laboratory Report Ordering Provider Test Date Status LUCIO TRAN 02/01/2024 07:14:06 Final Observation Date Value Abnormality Reference (Units ) Status TSH 02/01/2024 07:14:06 0.08 Below low normal 0.2 7-4.20 (uIU/mL) Final Performing Location LABORATORY [facility] - [address] [place] [address]
--- OUTSIDE RECORDS SUMMARY | 2024-02-03 00:13 | External Medical Summary ---
Author Name Unknown Address Unknown Organization [id number]:[facility]ORY [facility] [place] [address] [place] [address] Laboratory Report Ordering Provider Test Date Status FÁTIMA BOYD 02/01/2024 07:14:06 Final Observation Date Value Abnormality Reference (Units ) Status Parathyrin.intact [Mass/volume] in Serum or Plasma 02/01/2024 07:14:06 5 Below low normal 15-65 (pg/mL) Final Performing Location LAB[facility]ATORY [facility] [place] - [address] [place] [address]
--- OUTSIDE RECORDS SUMMARY | 2024-02-03 00:13 | External Medical Summary ---
Author Name Unknown Address Unknown Organization [id number]:[facility]ATORY [facility] - [address] [place] [id number] Laboratory Report Ordering Provider Test Date Status LUCIO TRAN 02/01/2024 07:14:06 Final Observation Date Value Abnormality Reference (Units ) Status T4, Free 02/01/2024 07:14:06 1.4 0.9-1.7 (n g/dL) Final Performing Location [facility]AT[facility] - [address] [place] [address]
--- NOTE | 2024-02-03 07:45 | Discharge Summary ---
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 Describes pain as severe pain on left rib cage radiating into armpit. Pain is exacerbated with movement and coughing. Feels very similar to pain on R ribs from previous fractures. Started as an aching pain and has significantly worsened overnight. No fall or trauma to the area. Has been taking oxycodone Q6H over the past week in setting of recent surgery and ongoing pain from R rib and L foot fractures. Also endorses taking 1,000mg TID Tylenol and 600mg TID ibuprofen since September. Was found to have a fracture in L foot fracture last week, is being fitted for a boot. Had 2.5 adenomas removed from parathyroid last week, per patient. Follows with Dr. Newell at [facility] [place] endocrine surgery. Has osteoporosis in setting of hyperparathyroidism which predisposes her to fractures. Was concerned new left sided rib pain was a result of another fracture and came to ED for further evaluation. Endo surgeon has been monitoring calcium and PTH. Was placed on calcitriol and 1,500 mg [address] daily [address] Newell adjusting her doses based on outpatient labs (last drawn today). Reports intermittent low grade temp between 99-100 degrees F at home over the past week. Had a cough with productive sputum last week that has resolved. No N/V, abd pain, dysuria, diarrhea or constipation. Follows with Dr. Yuan at [facility] for endocrinology. Is on Augmentin BID for ongoing sinus problems. Current steroid dosing is 4mg Medrol 5x/day. Planning to move out of state at the end of the week. Admission Exam Per Admitting Provider GENERAL: Alert and oriented x3. NAD, on RA. HEENT: No pallor, no icterus. Pupils equal, round and reactive to light. Oral mucosa moist. NECK: No JVD, no neck masses. HEART: S1 and S2 heard. Regular rate and rhythm. No murmur, no gallop. Left chest tenderness on left low and lateral. no bruising, swelling/erythema noted. RESPIRATORY SYSTEM: Normal AP diameter. No accessory muscle use. No wheezing, no crackles. ABDOMEN: Soft, bowel sounds present, nontender, no distention. CENTRAL NERVOUS SYSTEM: No facial droop. Speech is clear. Obeys simple commands. Moves extremities. EXTREMITIES: No edema, no erythema seen. Principal Diagnosis Atypical Chest pain,No ACS,Hyperparathyroidism,Adrenal Insufficiency Discharge Exam Lying in bed comfortably Constitutional well developed, well nourished, + ill appearing and + obese Eyes PERRL, conjunctivae normal, anicteric sclerae ENMT external ear and nose normal, oropharynx normal Neck trachea midline, no thyromegaly Respiratory no respiratory distress Auscultation: lungs clear to auscultation bilaterally Cardiovascular Rate/Rhythm: regular rate and regular rhythm; not tachycardic Gastrointestinal (Abdomen) Inspection/Auscultation: normal bowel sounds; abdomen not distended Percussion/Palpation: abdomen soft; abdomen nontender Neurologic normal touch/pain/proprioception and moves all extremities; no focal motor deficits Psychiatric A+Ox3, euthymic affect Lymphatic no cervical or axillary lymphadenopathy Discharge Data Allergies Allergy/AdvReac Type Severity Reaction Status Date / Time ondansetron [From Zofran] AdvReac Intermediate Per Unverified 02/01/24 12:59 patient, cannot take per PCP Serotonin 5HT-3 Antagonists AdvReac Intermediate per Verified 02/01/24 12:59 patient cannot take per PCP Consultations 02/01/24 12:22 ED Decision to Admit Stat Ordered Studies 02/01/24 10:42 CT angio chest PE protocol Stat Hospital Course (1) Atypical chest pain: This is a 38-year-old female with PMH of hyperparathyroidism status post removal or parathyroid nodes on 01/26 at [facility] [place], secondary adrenal insufficiency on Medrol Dosepak, 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 L rib pain since yesterday, not improved with scheduled tylenol, ibuprofen and PRN oxycodone she has been using at home from recent surgery on 01/26 History of osteoporosis with fractures Chest CTA did not show any evidence of new fractures of the ribs The pain is well-controlled with oxycodone Will get dedicated left-sided rib x-rays to rule out any fracture of the ribs Doubt any ACS and the troponin has been trending down She wants to go home this afternoon X-ray of the ribs did not show any evidence of fracture on the left side Left-sided chest pain is not controlled with usual analgesics like ibuprofen or Tylenol or even Toradol She has been requiring oxycodone 10 mg every 6 hours as needed to control pain She was not at all agreeable to take 5 mg every 6 hourly as needed of oxycodone on discharge She will be discharged home this afternoon Imaging studies Chest CTA without evidence of PE. No airspace consolidation typical for PNA. Trace R pleural effusion and subacute/healing R sided 3rd rib fracture again noted. 5mm groundglass nodule at R apex unchanged from previous EKG without acute ST changes, initial troponin 48 - continue trending, tele overnight Pain appears to be MSK - no acute L sided fracture but multiple current fractures given osteopenia (2) Hyperparathyroidism: Under care of director of business applications as above (3) Status post parathyroidectomy: S/p removal or parathyroid adenomas on 01/26 at [facility] [place], follows with endo surgery Dr. Osiris Newell has been following outpatient labwork closely post-operatively Calcium 11.3 today in post-op setting Per phone discussion with patient today, wants to decrease Calcitriol to 0.5 mcg daily and increase calcium carbonate to 1,500mg TID - updated medication orders Managed by her director of business applications and also ENT specialist She has been on high-dose of methylprednisolone as per the director of business applications Has been getting antibiotic for recurrent sinus infection as per ENT She has the medications to continue until she will be followed up by the specialist as an outpatient within the next few days (4) Serum calcium elevated: Calcium level has been normalized (5) Hypokalemia: Initial K 3.3. Given 40mg KCl orally in ED. Patient concerned about persistently low K, requesting IV potassium replacement. Given K riders. Continue home potassium supplementation. Daily BMP Additional potassium was given oral Will recheck potassium Hypokalemia has been corrected (6) Adrenal insufficiency: Per recent admission for adrenal crisis - Follows Dr. Krishnamurthy, last evaluated on 07/2023: no severe immunodeficiency noted on work up to date, however, genetic screening considered it was not obtained 2/2 concerns for insurance coverage Scheduled in February for immunodeficiency work up, as well as follows up with ENT for structural abnormalities Stable. Continue Medrol 4mg 5x/daily. Monitor vitals closely Has been getting methylprednisolone and will continue the current dose as per the instructions (7) Moderate persistent asthma: Stable. Continue home inhalers - albuterol PRN, budesonide, Spiriva No evidence of wheezing and no shortness of breath (8) Anxiety: Continue home duloxetine, PRN clonazepam BID (9) Recurrent sinusitis: Continue Augmentin BID, on steroids as above Follows ENT who historically recommends Augmentin and medrol dose pack Continue with current management (10) Hypothyroidism: Continue levothyroxine DVT Ppx: SCDs, early ambulation for now Code status: FULL PCP: Helen (but planning to move out of state) Dispo: obs med tele Total Time Total Time Spent Total Time Spent (In Minutes): 35 minutes Discharge Plan Discharge Items Patient Disposition: Home - Self-Care Reason For Visit: ATYPICAL CP Discharge Diagnosis: Atypical Chest pain,No ACS,Hyperparathyroidism,Adrenal Insufficiency Condition on Discharge: Fair Activity: Resume your previous activity Non-emergency contact: Primary Care Provider Call non-emergency contact if: you have any medication questions and your symptoms worsen Follow-up/Referrals: Corina Cervantes MD [Primary Care Provider] - (Date & Time 02/07/2024 9:00 AM Provider Corina Cervantes MD Department [facility] ) Diet: Heart Healthy Addtl Attending Provider Instructions: Please take precautions to avoid falls Take your medications as advised Try to use less of narcotic pain medications to avoid confusion,Constipation and addiction Please keep appointments with your Providers Pending Studies at Discharge: No Stand-Alone Forms: [facility], Smoking Cessation Medications and DC Order Prescriptions: New lidocaine 5 % Adhesive Patch,Medicated 1 patch transdermal QAM Qty: 30 0RF diclofenac sodium [Voltaren Arthritis Pain] 1 % Gel 4 g EXT Q6H Qty: 30 0RF Rx Instructions: Left lateral chest wall oxycodone 10 mg tablet 10 mg PO Q6H PRN (Reason: pain) Qty: 14 0RF Rx Instructions: Severe pain not relived with NSAIDs and tylenol Continued albuterol sulfate 90 mcg/actuation HFA aerosol inhaler 2 puff INHALATION Q4 PRN (Reason: Shortness Of Breath Or Wheezing) Qty: 8.5 3RF budesonide-formoterol [Symbicort] 160-4.5 mcg/actuation HFA aerosol inhaler 2 puff inhalation BID Qty: 1 11RF liothyronine 5 mcg tablet 5 mcg PO QAM clonazepam [Klonopin] 0.5 mg tablet 0.5 mg PO BID Solu-Cortef Act-O-Vial (PF) 100 mg/2 mL recon soln 100 mg IM UD PRN (Reason: emergency) amlodipine 5 mg tablet 10 mg PO QAM Rx Instructions: Patient will start back taking 7.5mg daily once she is off Methylprednisolone. duloxetine 20 mg capsule,delayed release(DR/EC) 20 mg PO QAM Rx Instructions: Take 20mg w/ 30mg by mouth every morning to equal 50mg duloxetine 30 mg capsule,delayed release(DR/EC) 30 mg PO QAM Rx Instructions: Take 30mg w/ 20mg by mouth every morning to equal 50mg Lo Loestrin Fe 1 mg-10 mcg (24)/10 mcg (2) tablet 1 tab PO HS guaifenesin [Mucinex] 600 mg Tablet Extended Release 12hr 600 mg PO BID potassium chloride 10 mEq capsule, extended release 10 meq PO BID amlodipine 2.5 mg tablet 0 mg PO DAILY Rx Instructions: Currently on hold due to taking. Patient will start back taking 7.5mg daily once she is off Methylprednisolone. Take 2.5mg w/ 5mg by mouth every morning to equal 7.5mg Zepbound 2.5 mg/0.5 mL Pen Injector 2.5 mg SUBCUT WK Rx Instructions: Fridays Simbrinza 1-0.2 % drops,suspension 2 drp OPB BID levothyroxine 137 mcg tablet 137 mcg PO DAILYBB methylprednisolone 4 mg tablet 4 mg PO UD Patient Comments: 4x day as per px ; 2 tabs at 7A, 1 tab at 10A, 1 tab at 1P, 1 tab at 4P as per px home sked Rx Instructions: 4mg 5 times per day calcitriol 0.5 mcg capsule 0.5 mcg PO TID amoxicillin-pot clavulanate 875-125 mg tablet 1 tab PO BID calcium carbonate 500 mg calcium (1,250 mg) Tablet 1,500 mg PO DAILY omeprazole 20 mg Capsule,Delayed Release(Dr/Ec) 20 mg PO DAILY oxycodone 5 mg Tablet 5 mg PO Q6H PRN (Reason: Severe Pain (Scale Score 7-10)) hydrocortisone 5 mg tablet See Rx Instructions .ROUTE .COMPLEX Rx Instructions: Take 10mg by mouth in the morning, 10mg at noon and 5mg in the evening. May double/triple the doses for stress/surgery/illness Spiriva Respimat 2.5 mcg/actuation mist 2 puff INHALATION QAM Discharge Orders: Discharge Order (Routine); Ordered 02/02/24 Ordered By: Akhil Rollins Admission Data Admit Date/Time: 02/01/24 13:24 Attending Provider: Akhil Rollins Admit Provider: Anju Bishop Primary Care Provider: Corina Cervantes Other Providers: Anju Bishop; Carlos Corado Other Interventions: Discharge Summary Assessment (RN) Last Done: 02/02/24 13:02
== END 2024-02-02 14:34 | disposition home or self-care (01) ==
LOC: ED 10:06 → 2N 10:06 → SUATTDRO 13:24 → 2N 15:26